=== PATIENT | male | born 1935 | race Caucasian/White ===

== ENCOUNTER → 2018-04-15 12:43 | Outpatient (CLI) | payer MEDICARE, SELFPAY ==
--- NOTE | 2018-04-15 12:48 | MR_ITS ---
MR lumbar spine wo/w con, MR 3-d myelogram/MRCP HISTORY: PT states low back pain, bilateral leg pain and numbness and tingling at times. Prior back surgery in '. ITS.REASON: OTHER INTERVERTEBRAL DISC DEGENERATION, LUMBAR REGION ORDERING PHYSICIAN: César Valderrama PATIENT AGE: 82 years COMPARISON: X-RAY and MRI 10/09/16 TECHNIQUE: Standard multiplanar multiecho sequences are performed without contrast. 3-D MIP and myelographic images are also rendered and reviewed FINDINGS: There is normal alignment. The spinal cord ends at the L1 level. T12-L1: Unremarkable. L1-L2: Unremarkable. L2-L3: Minimal facet and ligamentum flavum hypertrophy. L3-L4: Mild degenerative disc disease with bulging disc. This is eccentric towards the right with disc osteophyte complex in the foraminal and right lateral region. As is causing moderate right lateral recess narrowing and moderate to severe right-sided foraminal narrowing. Facet and ligamentum hypertrophy present at this level as well. This is compressing upon the right L4 nerve root. L4-L5: Degenerative disc disease with concentric bulging disc along with facet and ligamentum flavum hypertrophy with transverse canal stenosis at 10 mm a moderate to severe bilateral lateral recess narrowing. There is moderate to severe right foraminal narrowing and severe left foraminal narrowing.. There is minimal central disc protrusion at this area. L5-S1: Degenerative disc disease with bulging disc along with facet and ligamentum flavum hypertrophy with severe left-sided foraminal narrowing and moderate right-sided foraminal narrowing. Prior left laminectomy at L5. No evidence of epidural fibrosis. No enhancing lesions evident. IMPRESSION: Abnormal MRI of the lumbar spine with multilevel lumbar spondylosis with degenerative disc disease along with facet and ligamentum hypertrophy with canal stenosis and bilateral areas of lateral recess and foraminal narrowing as described above. Please see above for detailed description at each level. The findings are overall not significant change compared to the previous exam prior laminectomy on the left at L5 without evidence of epidural fibrosis
== END ==
PROVIDERS: PCP Family Medicine; Visit Provider Anesthesiology
DX: M51.36 Other intervertebral disc degeneration, lumbar region (principal); M96.1 Postlaminectomy syndrome, not elsewhere classified
CPT/HCPCS: 72158; 76376; A9576

== ENCOUNTER → 2019-09-27 09:01 | Outpatient (CLI) | payer MEDICARE, SELFPAY ==
--- NOTE | 2019-09-27 09:10 | MR_ITS ---
PROCEDURE: MR LUMBAR SPINE WO/W CON CLINICAL INDICATION: LUMBAR DDD Back pain, numbness and tingling down left leg. Prior back surgery. 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 3-D MIP and myelographic images are also rendered and reviewed FINDINGS: The spinal cord ends at the L1-L2 level. L1-L2: Unremarkable. L2-L3: Mild facet hypertrophic change with mild bilateral foraminal narrowing. L3-L4: Degenerative disc disease with bulging disc which is eccentric toward the right with facet and ligamentum hypertrophy. There is resultant severe right lateral recess and foraminal narrowing with impingement upon the right L4 nerve root and exiting L3 nerve root. There is canal stenosis at this level. L4-5: Degenerative disc disease with bulging disc with severe facet ligamentum hypertrophy with moderate to severe right foraminal narrowing and severe left foraminal narrowing as well as bilateral lateral recess narrowing and transverse narrowing of the canal at 8 mm. Laminotomy defect is present on the left at L5. The transverse narrowing of the canal slightly worse on today's exam. L5-S1: Bulging disc with facet and ligamentum hypertrophy with severe left-sided foraminal narrowing and moderate to severe right foraminal narrowing. There is mild lumbar scoliosis convex left. No abnormal enhancing lesions are evident. No acute fracture or dislocation apparent. IMPRESSION: Abnormal MRI of the lumbar spine with degenerative disc disease, lumbar scoliosis, facet ligamentum hypertrophy with bulging disc with severe lateral recess and foraminal narrowing as well as canal stenosis. Please see above for detailed description at each level. Overall, the findings are not significantly changed compared to the previous exam except for slight worsening of the transverse narrowing of the canal at L4-5. Postsurgical changes are noted with no obvious epidural fibrosis or other enhancing lesion. Please see above for detailed description at each level Dictated by: Eduardo Davenport MD 09/29/2019 05:13 Electronically signed by Eduardo Davenport MD in [place] 09/29/2019 10:19
--- NOTE | 2019-09-27 10:22 | HMH.ITSHM ---
Current Home Medications as stated by this patient Derek Garcia JR or international account representative. []RAMIPRIL TAMSULOSIN ATORVASTATIN PREGABALIN LASIX METOLAZONE POTASSIUM ASPIRIN ACETAMINOPHEN/HYDROCODONE ACTOPLUS
== END ==
PROVIDERS: PCP Family Medicine; Visit Provider Anesthesiology
DX: M51.36 Other intervertebral disc degeneration, lumbar region (principal)
CPT/HCPCS: 72158; 76376; A9576

== ENCOUNTER → 2020-04-14 09:06 | Outpatient (CLI) | payer MEDICARE, SELFPAY ==
--- NOTE | 2020-04-14 | CA_ITS ---
APPROVED REPORT EXAM: Comprehensive 2D, Doppler, and color-flow Echocardiogram Culinary Instructor: Ny Davalos RT(R) Ht: 5 ft 7 in Wt: 235lbs BSA: 2.17 BP: 126/76 mmHg Indications: edema, HTN, DM, FITZPATRICK, obesity, hyperlipidemia 2D Dimensions LVOT 2.27 cm (M/F) 1.5-2.5 M-Mode Dimensions RVDd 1.87 cm (0.9-2.6) LVDd 4.42 cm (3.5-5.7) LVDs 2.55 cm (3.5-5.7) IVSd 0.94 cm (0.6-1.1) PWd 0.81 cm (0.6-1.1) EF (Teich) 73.60% FS 42.30% EDV (Teich) 88.60 mL ESV (Teich) 23.40 mL LV Diastology E/A Ratio 0.71 Aortic Valve LVOT Max 113.00 (70-110 cm/s) LVOT VTI 21.50 cm Mitral Valve MV A Velocity 119.00 (40-130 cm/s) Left Ventricle Left atrium is mildly enlarged, left ventricle is normal size, mild concentric left ventricular hypertrophy, visually estimated ejection fraction 55% with no regional wall motion abnormality. Grade 1 diastolic dysfunction seen with tissue Doppler evidence of raise left atrial pressure. Right Ventricle Right atrium and right ventricle are mildly enlarged with normal contractility. Aortic Valve Aortic valve is thickened and calcified, mean gradient across valve is 21 mmHg, valve area 1.45 cm??? represents mild aortic stenosis, there is no aortic insufficiency. Mitral Valve Mitral valve leaflets are minimally thickened, there is mild mitral regurgitation. Tricuspid Valve Tricuspid valve is grossly normal, there is mild tricuspid regurgitation, tricuspid regurgitation jet velocity is inadequate for calculation of the right ventricular systolic pressure. Pulmonic Valve Pulmonic valve is poorly visualized. Great Vessels Aortic root is normal size. Pericardium No significant pericardial effusion noted. Conclusion 1. Biatrial enlargement, normal left ventricular size, mild concentric left ventricular hypertrophy, visually estimated ejection fraction 55% with no regional wall motion abnormality, grade 1 diastolic dysfunction seen with tissue Doppler evidence of raise left atrial pressure. 2. Mildly enlarged right ventricle with normal contractility. 3. Thickened and calcified aortic valve with mean gradient across valve of 21 mmHg, valve area 1.45 cm??? represents mild aortic stenosis, there is no aortic insufficiency. 4. Mild mitral and tricuspid regurgitation. 5. No significant pericardial effusion noted. Electronically signed by : Conrad Burr, 04/14/2020 13:57:20
== END ==
PROVIDERS: PCP Family Medicine; Visit Provider Family Medicine
DX: R60.0 Localized edema (principal); I10 Essential (primary) hypertension
CPT/HCPCS: 93306

== ENCOUNTER 2020-06-23 16:00 | Outpatient (RCR) | payer MEDICARE, SELFPAY ==
--- NOTE | 2020-05-15 09:24 | HMH.PTOPWND ---
Rehab Outpt Wound Evaluation Rehab OP Wound Evaluation Start: 05/15/20 08:53 Freq: Status: Active Protocol: Document 05/15/20 09:18 RAMYA (Rec: 05/15/20 09:24 PHORWANDA [id number]) Electronically Signed By Jose Mckeon, PT 05/15/20 09:18 Subjective/History History History Pt is 84 yowm who presents with B LE edema x 4-5 mos with insidious onset of symptoms. He reports edema worsens throughout the day and decreases at night with propping, but is difficult to decrease in his feet. He reports no c/o pain at this time and only mild tenderness to palpation. He reports PMH of DM-II only and states, They just checked everything the other day and I don't have and other health problems. He reports taking diuretics as prescribed, but doesn't like them. Subjective Subjective No current c/o discomfort. Lymphedema Eval Classification of Lymphedema Secondary Lymphedema Yes: Likely CVI Stemmer's sign Stemmer's Sign no Stage of Lymphedema Lymphedema stages Stage I (Pitting edema, reduces w/ elevation, no fibrosis) Skin Changes Dry Skin Yes Redness Yes: R > L Brittle Uneven Nails Yes Discoloration of Skin Yes Other Changes Yes Pain Scale Pain Scale (0-10) 0 Affected Extremities Areas Affected by Lymphedema/Edema Right Lower Extremity,Left Lower Extremity Manual Lymphatic Drainage Treatment Area MLD Treatment Area Right Lower Extremity,Left Lower Extremity Wound Problems/Impairments Impairments Problems/Impairmments Palpation Tenderness,Impaired Walking,Increased Edema, Impaired Self Care/Self Management Prognosis Rehab Potential Good Clinical Impression Consistent with Diagnosis Yes Short Term Goals Number of Weeks 4 Decrease Edema Yes Patient to Understand Lymphedema Yes Treatment and Exercises Decrease Girth Measurments by (cm) Yes: by 10 cm Breast Trimmer Goals Number of Weeks 8 Decrease Edema Y
--- NOTE | 2020-06-19 10:04 | HMH.RHREAS ---
Rehab Reassessment Rehab OP Re-assessment Start: 06/19/20 10:00 Freq: Status: Active Protocol: Document 06/19/20 10:00 RAMYA (Rec: 06/19/20 10:04 RAMYA [id number]) Electronically Signed By Jose Mckeon, PT 06/19/20 10:00 Rehab Re-assessment Subjective Subjective Pt reports increased pain and soreness around lateral R foot for several days. Objective Objective Notes L buttock decubitus ulcer now noted L= 1.5 cm, W= 1.5 cm. R LE edema 2+ pitting in lower leg, foot with increased erythema. Assessment Progress Assessment Slower Than Expected Assessment Notes Pt with slight decrease in pitting edema, but increased discomfort and pain. Patient goals met none Goals Not Met ST,2,3 LT,2,3,4 Revised Goals none Plan Plan Continue per initial POC. Frequency of Therapy 2 x/wk Duration of therapy 8 wks. Time and Billing Re-Eval Time 15 Re-Eval Billing Units 1 PHYSICIAN CERTIFICATION: I certify the specified therapy services for Derek Garcia JR are required, authorized, and reviewed every 30 days.
== END 2020-06-23 16:49 | disposition home or self-care (01) ==
LOC: PT 16:00
PROVIDERS: PCP Family Medicine; Visit Provider Family Medicine
DX: R60.0 Localized edema (principal); I89.0 Lymphedema, not elsewhere classified
CPT/HCPCS: 97140; 97162; 97164; 97597

== ENCOUNTER → 2020-07-10 14:40 | Outpatient (CLI) | payer MEDICARE, SELFPAY ==
--- NOTE | 2020-07-10 14:51 | XR_ITS ---
PROCEDURE: XR FOOT RT MIN 3V CLINICAL INDICATION: PAIN IN R FOOT Lateral foot pain COMPARISON: No exams were available for comparison FINDINGS: No fracture or dislocation. No lytic or blastic change. There is normal mineralization. The joint spaces are well-preserved. No significant degenerative/arthritic changes. No erosive changes evident. Other findings:There is some calcification along the plantar surface of the foot in the region of the plantar fascia. Partially calcified enthesophytes at the Achilles insertion noted. IMPRESSION: Calcification along the plantar fascia which may be related to plantar fasciitis. Dictated b Eduardo Davenport MD 07/10/2020 15:38 Eduardo Davenport MD in [place] 07/10/2020 15:38
== END ==
PROVIDERS: PCP Family Medicine; Visit Provider Family Medicine
DX: M79.671 Pain in right foot (principal)
CPT/HCPCS: 73630

== ENCOUNTER 2021-01-05 15:00 | Outpatient (RCR) | payer MEDICARE, SELFPAY | END 2021-01-05 15:05 | disposition home or self-care (01) | LOC: PT 15:00 | PROVIDERS: PCP Family Medicine; Visit Provider Surgery | DX: M79.89 Other specified soft tissue disorders (principal) | CPT/HCPCS: 97140; 97163 ==

== ENCOUNTER 2021-01-22 17:06 | Inpatient (IN) | payer MEDICARE, OTHER, SELFPAY ==
--- NOTE | 2021-01-22 17:21 | XR_ITS ---
PROCEDURE: XR CHEST PORTABLE CLINICAL HISTORY: edema COMPARISON: No exams were available for comparison FINDINGS: The cardiomediastinal silhouette and pulmonary vascularity are within normal limits. The lungs are clear without infiltrates, suspicious nodules, or pleural effusions. No acute bony abnormalities. IMPRESSION: No acute findings. Dictated by: Eduardo Davenport MD 01/22/2021 18:32 Eduardo Davenport MD in [place] 01/22/2021 18:32
[2021-01-22 17:26] VITALS: BMI 41.1
[2021-01-22 17:34] VITALS: BP 152/107; PULSE 86; RESP 20; TEMP 36.4; O2SAT 95
--- NOTE | 2021-01-22 17:34 | HMH.HP ---
*Chief complaint: swelling of bilateral legs with pain <Yasmeen Soto - 01/22/21 18:09> *History of present illness: Mr. Garcia is an 85-year-old male with a history of type 2 diabetes mellitus, hypertension, glaucoma, hyperlipidemia, BPH, dermatitis, lumbar spinal stenosis with chronic low back pain, diastolic dysfunction, and peripheral artery disease who presented to the office of [facility] today with ongoing and worsening persistent leg edema with the right worse than the left. He developed a blister on the dorsal aspect of his right foot last night. He said pain and swelling of both legs has worsened. He has been sleeping in a recliner. His swelling does not improve with elevation. The patient with his ongoing problems with the pain and swelling in both legs was referred by his senior data quality analyst to vascular surgeon who diagnosed him with peripheral vascular disease and started him on Plavix. He recommended an angiogram but because of his back pain Mr. Garcia could not tolerate the 4-hour procedure. Subsequently his vascular surgeon referred him to a neurologist and he has an appointment on 01/29/2021. In addition the vascular surgeon referred him to physical therapy for compression wraps but the therapist felt this was contraindicated due to his peripheral vascular disease. Therefore he has continued to have increased swelling in his feet and legs with the left being worse than the right. He also has developed some redness of bilateral lower legs and has a sore crusted area on his right fourth and fifth toes. They are very tender to palpation. He has been taking Lasix and chlorthalidone with no improvement of the swelling. Chlorthalidone was discontinued and he was started on Lasix 40 mg 2 times a day. He had been on Keflex and this was discontinued. He was started on hydrochlorothiazide /triamterene 25/37.5 daily and Bactrim DS. His legs actually became worse with initiation of the Bactrim. He was given acetaminophen/oxycodone 325/5 mg to take for his pain. Echocardiogram completed 03/2020 revealed diastolic dysfunction and calcified aortic stenosis. Having failed outpatient treatment patient was admitted for further evaluation and treatment. See orders. <CharlesYasmeen - 01/22/21 18:57> [facility] History Medical History: Reports:: Diabetes Mellitus Type 2, Heart Murmur, Hyperlipidemia, Hypertension <Yasmeen Soto - 01/22/21 18:09> *Have you ever received a pneumonia vaccine?: Yes <Yasmeen Soto Anisha 01/23/21 11:50> *Have you received a flu vaccine this season?: Yes <SotoYasmeen 01/23/21 09:23> Other Medical History: Reports: Glaucoma <SotoYasmeen Anisha 01/22/21 18:09> Laterality Cases: Bilateral: Cataract <CharlesYasmeen 01/22/21 18:09> Comment: Lower back surgery 1996 <Soto,Yasmeen 01/22/21 18:09> - *Social History Last grade of school completed: Some college <Soto,Yasmeen 01/23/21 09:23> Smoking Status: Never smoker <Yasmeen Soto 01/22/21 18:09> *Occupational Status:: retired <CharlesYasmeen - 01/22/21 18:09> Housing: house <Soto,Yasmeen 01/22/21 18:09> Household Members: spouse <Yasmeen Soto 01/22/21 18:09> *Travel in the last 8 weeks: None <Soto,Yasmeen 01/22/21 18:09> Family Hx:: Diabetes, Stroke <Soto,Yasmeen 01/23/21 11:50> Review of Systems - Constitutional Denies fever(s) <Yasmeen Soto 01/22/21 18:09> - Eyes Denies change in vision <Yasmeen Soto 01/22/21 18:09> - ENT Denies ear pain, Denies sore throat <Yasmeen Soto 01/22/21 18:09> - *Cardiovascular Reports leg swelling, Reports leg sores, Denies chest pain, Denies irregular heart rhythm <Yasmeen Soto 01/22/21 18:09> - *Respiratory Denies chest congestion, Denies cough, Denies shortness of breath <Yasmeen Soto 01/22/21 18:09> - *Gastrointestinal Denies abdominal pain, Denies nausea, Denies vomiting <Yasmeen Soto 01/22/21 18:09> - *Genitourinary Denies difficulty urinating <Sallie Soto
[2021-01-22 18:26] LABS: Basophils % 0.2 % (0.1-2.0); Eosinophils # 0.2 K/mm3 (0.0-0.4); Eosinophils % 2.3 % (0.1-12.0); Hemoglobin 11.8 g/dL (14.1-18.0); Lymphocytes # 2.2 K/mm3 (0.7-4.5); Lymphocytes % 20.9 % (10-50); Mean Corpuscular Hemoglobin 31.2 pg (27.0-31.2); Mean Corpuscular Volume 97.7 fl (80-94); Mean Platelet Volume 8.3 fl (7.4-10.4); Monocytes % 9.9 % (1.7-9.3); Neutrophils % 66.8 % (37.0-80.0); Platelet Count 205 K/mm3 (142-424); Red Blood Count 3.79 M/mm3 (4.60-6.20); White Blood Count 10.5 K/mm3 (4.8-10.8)
[2021-01-22 18:27] LABS: Chloride 93 mmol/L (98-107); Potassium 4.2 mmoL/L (3.5-5.1); Sodium 134 mmol/L (136-145)
[2021-01-22 18:29] LABS: Alanine Aminotransferase 23 U/L (12-78); Alkaline Phosphatase 77 U/L (38-126); Aspartate Amino Transferase 29 U/L (17-59); Bilirubin,Total 0.6 mg/dl (0.2-1.3); Blood Urea Nitrogen 35 mg/dl (9-20); Creatinine Clearance Estimated 49 mL/min (50-200); Estimated Glomerular Filt Rate 34 ml/min (>60); GFR (African American) 41 ML/MIN (>60)
[2021-01-22 18:30] LABS: Albumin Level 4.2 g/dl (3.5-5.0); Albumin/Globulin Ratio 1.3 (1.1-1.8); Anion Gap 15.2 mEq/L (5-15); Calcium 9.8 mg/dl (8.4-10.2); Carbon Dioxide 30 mmol/L (22.0-30.0); Globulin 3.3 g/dL (1.3-3.2); Glucose 212 mg/dl (74-100); Total Protein,Serum 7.5 g/dl (6.3-8.2)
[2021-01-22 18:31] LABS: Lactic Acid 3.2 mmol/L (0.7-2.1)
[2021-01-22 18:35] LABS: C-Reactive Protein 17.1 mg/L (0-4)
[2021-01-22 18:39] LABS: NT Pro Brain Natriuretic Pep. 133 pg/mL (0-450)
[2021-01-22 20:00] VITALS: BP 159/68; PULSE 94; RESP 20; TEMP 36.3; O2SAT 97
--- NOTE | 2021-01-22 20:03 | PC.WOUNDNOTE ---
Wound Location: Length: Width: Depth: Undermining Y/N: Tunneling cm: Granulation %: Slough/necrotic tissue %: Inflammation/swelling Y/N: Pain and/or tenderness Y/N: Exudate: Serosanguinous Sanguinous Serosanguinous Seropurulent Purulent Color: Clear Nadia Cloudy/milky [place] Red Green Yellow Brown Hansen Blue Consistency: Thick Thin Amount: None Scant Small Moderate Large Odor Y/N:
[2021-01-22 20:51] LABS: POC Glucose,Bedside 247 (70-110)
[2021-01-22 22:09] LABS: Reflex Lactic Add Lactic Reflex
[2021-01-22 22:50] LABS: Lactic Acid Follow Up (RFLX 1) 2.7 mmol/L (0.7-2.1)
[2021-01-23 00:30] LABS: Reflex Lactic (2 hrs) Add Lactic Reflex
[2021-01-23 01:02] LABS: Lactic Acid Follow up (RFLX 2) 1.9 mmol/L (0.7-2.1)
[2021-01-23 03:49] VITALS: BP 151/69; PULSE 102; RESP 18; TEMP 36.6; O2SAT 92
[2021-01-23 05:31] LABS: POC Glucose,Bedside 182 (70-110)
[2021-01-23 05:37] VITALS: BMI 41.1
--- NOTE | 2021-01-23 06:46 | PC.NURSE ---
shift summary pts lung sounds are clear but diminished with sats maintained above 90% on room airwith a rate ranging from 16-20. pt is able to walk to the restroom with assist X1. pt complained of pain twice this shift morphine was given once, pt stated morphine did nothing for him and his home meds work better. pt is alert and oriented X4.
--- NOTE | 2021-01-23 07:55 | P.CONPHA_ITS ---
[facility] Pharmacy VTE Monitoring - Patient Demographics Admission date: 01/22/21 Report Date: 01/23/21 Time: 07:55 Allergies/Adverse Reactions: Patient Allergies From Quinidine Sulfate Allergy (Unknown, Uncoded 11/18/17 14:39) LATEX Allergy (Unknown, Uncoded 11/18/17 14:39) Height: 1.7 m Weight: 118.926 kg Patient Problems: Current Active Problems Peripheral artery disease (Chronic) Hypertension (Chronic) Type 2 diabetes mellitus (Chronic) Cellulitis (Acute) Chronic low back pain (Chronic) Diastolic dysfunction (Chronic) Aortic stenosis (Chronic) Leg edema (Acute) - VTE Risk Labs: VTE Related Lab Results Hgb 11.8 g/dL (14.1-18.0) L 01/22/21 18:09 Hct 37.0 % (42.0-52.0) L 01/22/21 18:09 Plt Count 205 K/mm3 (142-424) 01/22/21 18:09 BUN 35 mg/dl (9-20) H 01/22/21 18:09 Creatinine 1.90 mg/dl (0.66-1.25) H 01/22/21 18:09 Estimated Creat Clear 49 mL/min (50-200) 01/22/21 18:09 Was VTE Risk Assessment Performed: Yes VTE Score: 2 VTE Risk Level: Low Risk Clinical Trial Participant: No - Prophylaxis VTE Prophylaxis Ordered?: Yes Types of VTE Prophylaxis: TEDS Knee High
--- NOTE | 2021-01-23 07:55 | HMH.PHAINT ---
home medication list completed using list from clinic pharmacy and from [facility] office
[2021-01-23 08:00] VITALS: BP 152/58; PULSE 99; RESP 19; TEMP 36.6; O2SAT 95
--- NOTE | 2021-01-23 08:00 | CA_ITS ---
APPROVED REPORT EXAM: Comprehensive 2D, Doppler, and color-flow Echocardiogram Security Public Safety Officer: Elizabeth [facility], RVS Ht: 5 ft 6 in Wt: 262lbs BSA: 2.24 BP: 151/69 mmHg Indications: Cellulitis, edema, htn, Aortic stenosis, Diastolic dysfunction Echo Enhancing Agent Comments: Technically limited exam due to extreme body habitus. Poor acoustics throughout exam. 2D Dimensions IVSd 0.99 cm LVEF (Visual) 63.30 % PWd 1.00 cm LA Volume 49.00 mL LVDd 5.74 cm LA Volume Index 21.30 mL/m2 (M/F) 16-34 LVDs 3.74 cm Aortic Root 3.04 cm Left Atrium 3.72 cm LVOT 1.93 cm (M/F) 1.5-2.5 M-Mode Dimensions Ao Diam 3.62 cm (2.0-3.7) TAPSE 2.31 (<1.7) LV Diastology E Decel Time 280.00 (160-240 msec) E/A Ratio 0.77 MED E' 5.80 (< 7 cm/sec) MED A' 8.60 cm/s E'/MED E' Ratio 18.53 (>14) LAT E' 6.20 (<10 cm/sec) LAT A' 13.90 cm/s E/LAT E' Ratio 17.34 (>14) Pulm Vein s 53.00 cm/sec Aortic Valve LVOT Max 143.00 (70-110 cm/s) LVOT VTI 25.51 cm AoV Peak Dony. 339.00 (50-130 cm/s) AO Peak GR. 45.90 mmHg AO Mean GR. 29.00 (<5 mmHg) AO VTI 69.02 (18-25 cm) EDDIE (VTI) 1.08 (2.5-4.5 cm2) Mitral Valve MV E Max Dony. 108.00 (40-130 cm/s) MV A Velocity 140.00 (40-130 cm/s) E/A Ratio 0.77 MV Decel. Time 280.00 (160-240 ms) MV PHT 82.00 ms Pulmonary Valve PV Peak Velocity 113.00 (50-150 cm/s) Tricuspid Valve TR P. Velocity 267.00 cm/s Left Ventricle Left atrium is mildly enlarged, left ventricle is normal size, mild concentric left ventricular hypertrophy, visually estimated ejection fraction 55% with no regional wall motion abnormality, grade 1 diastolic dysfunction seen with tissue Doppler evidence of raise left atrial pressure. Right Ventricle Right atrium and right ventricle are normal size and contractility. Aortic Valve Aortic valve is thickened and calcified with restriction in the leaflet mobility, mean gradient across valve is 28 mmHg, valve area is 1.1 cm??? represents moderate aortic stenosis. There is no significant aortic insufficiency seen. Mitral Valve Mitral valve leaflets are minimally thickened, there is mild mitral regurgitation. Tricuspid Valve Tricuspid valve grossly normal, there is mild tricuspid regurgitation, tricuspid regurgitation jet velocity is inadequate for calculation of the right ventricular systolic pressure. Pulmonic Valve Pulmonic valve is poorly visualized. Great Vessels Aortic root is normal size. Pericardium No significant pericardial effusion noted. Conclusion 1. Mildly low left atrium, normal left ventricular size, mild concentric left ventricular hypertrophy, visually estimated ejection fraction 55% with no regional wall motion abnormality, grade 1 diastolic dysfunction seen with tissue Doppler evidence of raise left atrial pressure. 2. Thickened and calcified aortic valve with mean gradient across valve 29 mmHg, valve area 1.1 cm, represents moderate aortic stenosis, there is no aortic insufficiency. 3. Mild mitral and tricuspid regurgitation. 4. No significant pericardial effusion noted. Electronically signed by : Conrad Burr, 01/23/2021 20:46:24
--- NOTE | 2021-01-23 08:26 | CA_ITS ---
APPROVED REPORT Dancer Or Choreographer: MEHNAZ Laterality: Bilateral Study Quality: Adequate, Due to body habitus. Indications: leg pain, cellulitis Risk Factors Hypertension Obesity Cardiac Disease VELOCITY AND DOPPLER WAVEFORM ANALYSIS RIGHT cm/sec Waveform Severity SENIOR PRODUCTION MANAGER 80.1/ Monophasic Mild < 50% PFA 78.6/ Monophasic Mild < 50% Prox SFA 40.4/ Monophasic Moderate > 50% Mid SFA 46.4/ Monophasic Moderate > 50% Dis SFA 57.6/ Monophasic POP 11.8/ Monophasic Moderate > 50% Post Tibial 7.9/ Severe > 75% Ant Tib/Dors Ped 6.2/ Monophasic Severe > 75% LEFT cm/sec Waveform Severity SENIOR PRODUCTION MANAGER 120.4/ Monophasic Mild < 50% PFA 90.5/ Monophasic Mild < 50% Prox SFA 106.9/ Monophasic Mild < 50% Mid SFA 34.9/ Monophasic Moderate > 50% Dis SFA 148.3/ Monophasic Moderate > 50% POP 64.0/ Monophasic Mild < 50% Post Tibial 50.1/ Monophasic Mild < 50% Findings Monophasic waveforms throughouit exam. Scant bilateral arterial calf flow observed. Diffuse atherosclerosis throughout the right lower extremity. Lower Extremity Duplex Evaluation is consistent with severe occlusive disease on the Right. Diffuse atherosclerotic plaque noted throughout the Right lower extremity arteries. Conclusion Monophasic waveforms throughouit exam. Scant bilateral arterial calf flow observed. Diffuse atherosclerosis throughout the right lower extremity. Lower Extremity Duplex Evaluation is consistent with severe occlusive disease on the Right and moderate occlusive disease on the left. Diffuse atherosclerotic plaque noted throughout the Right lower extremity arteries. Electronically signed by : Eduardo Davenport MD 01/29/2021 10:48:56
--- NOTE | 2021-01-23 08:55 | HMH.ACPN2 ---
<Yasmeen Soto - Last Filed: 01/23/21 08:55> Internal Medicine - PN: Subj *Date: 01/23/21 *Time: 08:55 Interval history: Patient states he did not sleep since 1 AM due to ongoing leg pain. Pain is mostly in his right foot at the fourth and fifth toes. He ate well for breakfast without difficulty. He denies chest pain and shortness of breath. Exam Vital signs and Labs for Last 24 Hours: Temp Pulse Resp BP Pulse Ox 97.8 F 99 H 19 152/58 H 95 01/23/21 08:00 01/23/21 08:00 01/23/21 08:00 01/23/21 08:00 01/23/21 08:00 Laboratory Results - last 24 hr 01/22/21 18:09: WBC 10.5, RBC 3.79 L, Hgb 11.8 L, Hct 37.0 L, MCV 97.7 H, MCH 31.2, MCHC 32.0, RDW 14.0, Plt Count 205, MPV 8.3, Neut % (Auto) 66.8, Lymph % (Auto) 20.9, [place] % (Auto) 9.9 H, Eos % (Auto) 2.3, Baso % (Auto) 0.2, Neut # (Auto) 7.0, Lymph # (Auto) 2.2, [place] # (Auto) 1.0, Eos # (Auto) 0.2, Baso # (Auto) 0.0 01/22/21 18:09: Sodium 134 L, Potassium 4.2, Chloride 93 L, Carbon Dioxide 30, Anion Gap 15.2 H, BUN 35 H, Creatinine 1.90 H, Estimated Creat Clear 49, Estimated GFR 34 L, Est GFR ( Amer) 41 L, Glucose 212 H, Calcium 9.8, Total Bilirubin 0.6, AST 29, ALT 23, Alkaline Phosphatase 77, C-Reactive Protein 17.1 H, Total Protein 7.5, Albumin 4.2, Globulin 3.3 H, Albumin/Globulin Ratio 1.3 01/22/21 18:09: Lactate 3.2 H 01/22/21 18:09: NT-Pro-B Natriuret Pep 133 01/22/21 20:42: POC Glucose 247 H 01/22/21 22:30: Lactate 2.7 H 01/23/21 00:45: Lactate 1.9 01/23/21 05:23: POC Glucose 182 H I & O for Last 24 hours: Intake & Output 01/20/21 01/21/21 01/22/21 01/23/21 11:59 11:59 11:59 11:59 Intake Total 480 / 480 Balance 480 / 480 Weight 262 lb 2.991 oz Microbiology Reports for the Last 24 Hours: Microbiology 01/22/21 17:47 Nasopharyngeal Coronavirus COVID-19 PCR - Final - Constitutional no acute distress - *Routine Respiratory Exam Present: CTA bilaterally (Anteriorly and posteriorly) - *Routine Cardiovascular Exam Present: RRR - *Routine Abdominal Exam Present: soft, normoactive bowel sounds. Absent: tenderness - *Routine Extremities Exam Present: edema Comments: Legs look a little bit better this morning. Less bilateral edema. Right foot has some cyanosis appearance. Left lower leg with more intense erythema although more localized. Dorsal aspect of the left foot with increased edema. Right foot with leaking blister on dorsal aspect. To toes on the right foot with crustaceans and very tender to touch. - *Routine Neurological Exam Present: alert, oriented X3 Assessment and Plan (1) Peripheral artery disease Status: Chronic Category: Medical Code(s): I73.9 - Peripheral vascular disease, unspecified (2) Hypertension Status: Chronic Category: Medical Code(s): I10 - Essential (primary) hypertension (3) Type 2 diabetes mellitus Status: Chronic Category: Medical Code(s): E11.9 - Type 2 diabetes mellitus without complications (4) Cellulitis Status: Acute Category: Medical Code(s): L03.90 - Cellulitis, unspecified (5) Chronic low back pain Status: Chronic Category: Medical Code(s): M54.5 - Low back pain; G89.29 - Other chronic pain (6) Diastolic dysfunction Status: Chronic Category: Medical Code(s): I51.89 - Other ill-defined heart diseases (7) Aortic stenosis Status: Chronic Category: Medical Code(s): I35.0 - Nonrheumatic aortic (valve) stenosis (8) Leg edema Status: Acute Category: Medical Code(s): R60.0 - Localized edema - Assessment and plan all Dx Assessment and Plan for all problems:: Cardiology consult for PAD. Continue with vancomycin and diuresis and leg elevation. Wound care to see patient today as well. Dilaudid has been added for pain management. <Tye Dubon - Last Filed: 01/23/21 12:32> Internal Medicine - PN: Subj *Date: 01/23/21 *Time: 12:32 Exam Vital signs and Labs for Last 24 Hours: Temp Puls
--- NOTE | 2021-01-23 09:17 | HMH.PHACONS ---
- Pharmacy Consult Date: 01/23/21 Time: 09:17 Referring provider: DR. EHRNANDEZ Reason for Consult:: VANCOMYCIN DOSING Allergies and ADEs:: Allergies Allergy/AdvReac Type Severity Reaction Status Date / Time From Quinidine Sulfate Allergy Unknown Uncoded 11/18/17 14:39 LATEX Allergy Unknown Uncoded 11/18/17 14:39 Home Medications:: Home Medications Medication Instructions Recorded Confirmed Type Ascorbic Acid [Vitamin C with Ermelinda 1,000 mg PO DAILY 01/23/21 01/23/21 History Hips] Aspirin [Aspirin 81mg EC Tab] 81 mg PO DAILY 01/23/21 01/23/21 History Atorvastatin Calcium [Lipitor 40mg 40 mg PO HS 01/23/21 01/23/21 History Tab] Bimatoprost [Lumigan 0.01% Ophth 1 drp OP PM 01/23/21 01/23/21 History Soln 2.5mL] Chlorthalidone 25 mg PO DAILY 01/23/21 01/23/21 History Cholecalciferol (Vitamin D3) 1,000 unit PO DAILY 01/23/21 01/23/21 History [Vitamin D3 1,000 Unit Cap] Clopidogrel Bisulfate [Clopidogrel 75 mg PO DAILY 01/23/21 01/23/21 History 75mg Tab] Dorzolamide/Timolol/Pf [Cosopt Pf 1 drp OP BID 01/23/21 01/23/21 History Eye Drops] Furosemide [Furosemide 40MG tAB*] 40 mg PO BID 01/23/21 01/23/21 History Oxycodone HCl/Acetaminophen 1 tab PO Q6HP PRN 01/23/21 01/23/21 History [Endocet 5-325 Tablet] Pioglitazone HCl/Metformin HCl 1 tab PO BID 01/23/21 01/23/21 History [Actoplus Met 15 mg-850 mg Tab] Potassium Chloride [Pot Chlor 10 10 meq PO DAILY 01/23/21 01/23/21 History mEq Tab] Pregabalin 100 mg PO BID 01/23/21 01/23/21 History Tamsulosin HCl [Flomax 0.4mg 0.4 mg PO HS 01/23/21 01/23/21 History capsule] Triamterene/Hydrochlorothiazid 1 tab PO DAILY 01/23/21 01/23/21 History [Triamterene-Hctz 37.5-25 mg Tb] Height: 1.7 m Weight: 118.926 kg Laboratory Results:: Laboratory Results - last 24 hr 01/22/21 18:09: WBC 10.5, RBC 3.79 L, Hgb 11.8 L, Hct 37.0 L, MCV 97.7 H, MCH 31.2, MCHC 32.0, RDW 14.0, Plt Count 205, MPV 8.3, Neut % (Auto) 66.8, Lymph % (Auto) 20.9, [place] % (Auto) 9.9 H, Eos % (Auto) 2.3, Baso % (Auto) 0.2, Neut # (Auto) 7.0, Lymph # (Auto) 2.2, [place] # (Auto) 1.0, Eos # (Auto) 0.2, Baso # (Auto) 0.0 01/22/21 18:09: Sodium 134 L, Potassium 4.2, Chloride 93 L, Carbon Dioxide 30, Anion Gap 15.2 H, BUN 35 H, Creatinine 1.90 H, Estimated Creat Clear 49, Estimated GFR 34 L, Est GFR ( Amer) 41 L, Glucose 212 H, Calcium 9.8, Total Bilirubin 0.6, AST 29, ALT 23, Alkaline Phosphatase 77, C-Reactive Protein 17.1 H, Total Protein 7.5, Albumin 4.2, Globulin 3.3 H, Albumin/Globulin Ratio 1.3 01/22/21 18:09: Lactate 3.2 H 01/22/21 18:09: NT-Pro-B Natriuret Pep 133 01/22/21 20:42: POC Glucose 247 H 01/22/21 22:30: Lactate 2.7 H 01/23/21 00:45: Lactate 1.9 01/23/21 05:23: POC Glucose 182 H Medical History: Reports:: Diabetes Mellitus Type 2, Heart Murmur, Hyperlipidemia, Hypertension Denies:: Cancer, Diabetes Mellitus Type 1, MRSA Assessment and Plan (1) Peripheral artery disease Status: Chronic Category: Medical Code(s): I73.9 - Peripheral vascular disease, unspecified (2) Hypertension Status: Chronic Category: Medical Code(s): I10 - Essential (primary) hypertension (3) Type 2 diabetes mellitus Status: Chronic Category: Medical Code(s): E11.9 - Type 2 diabetes mellitus without complications (4) Cellulitis Status: Acute Category: Medical Code(s): L03.90 - Cellulitis, unspecified (5) Chronic low back pain Status: Chronic Category: Medical Code(s): M54.5 - Low back pain; G89.29 - Other chronic pain (6) Diastolic dysfunction Status: Chronic Category: Medical Code(s): I51.89 - Other ill-defined heart diseases (7) Aortic stenosis Status: Chronic Category: Medical Code(s): I35.0 - Nonrheumatic aortic (valve) stenosis (8) Leg edema Status: Acute Category: Medical Code(s): R60.0 - Localized edema - Assessment and plan all Dx Assessment and Plan for all problems:: Pharmacokinetic dosing service
--- NOTE | 2021-01-23 09:58 | HMH.CNCARD ---
History of Present Illness Consult date: 01/23/21 Requesting physician: Tye Dubon Chief complaint: leg edema History of present illness: This is an 85-year-old white gentleman who was admitted to the hospital for worsening bilateral lower extremity edema and a history of peripheral arterial disease. The patient was seen at [facility] yesterday with ongoing worsening of edema in his bilateral lower extremities. The right leg is worse than the left. The patient had developed some blisters on the dorsal aspect of the right foot and significant redness to the left lower extremity and decided to go in to see his family doctor. The patient has been having issues with his lower extremity edema for quite some time now. He has been in the lymphedema clinic. [facility] and getting treatment for quite some time. He is also seen a vascular surgeon who diagnosed him of peripheral arterial disease and started him on Plavix. The patient declined an angiogram because of back pain and not being able to lie flat to have the procedure completed. The lymphedema clinic did a standing FITO on the patient previously which showed severe peripheral arterial disease bilaterally. While in the lymphedema clinic he is getting no compression with his dressings because of his history of PAD. The patient states that he has had swelling for several months but it got better and then approximately 2 weeks ago the lower extremity swelling began to worsen again and yesterday it was severe. He states that the redness to his left lower extremity was new in his right lower extremity was just really painful. The toes on his right lower extremity are very dusky and his right foot is cold to touch. He states that this has been like this for 2 weeks. His left lower extremity is warm and he has no dusky toes noted. The patient has been being treated with diuretics and antibiotics on an outpatient basis with worsening symptoms. He was admitted to the hospital because he failed outpatient treatment for further evaluation and treatment. He denies any chest pain or pressure. He denies any shortness of breath. He denies any fever, chills, nausea, vomiting, diarrhea, PND or orthopnea. [facility] History I have reviewed the patient's past medical history: Yes Medical History: Reports:: Diabetes Mellitus Type 2, Heart Murmur, Hyperlipidemia, Hypertension, Peripheral Artery Disease, Peripheral Vascular Disease Denies:: Cancer, Diabetes Mellitus Type 1, MRSA *Have you ever received a pneumonia vaccine?: Yes *Have you received a flu vaccine this season?: Yes Other Medical History: Reports: Glaucoma Laterality Cases: Bilateral: Cataract Amputation: No Fractures: No - *Social History Last grade of school completed: Some college Smoking Status: Never smoker Alcohol Intake: never *Occupational Status:: retired Housing: apartment Household Members: spouse *Travel in the last 8 weeks: None Family Hx:: No significant family history Meds Home Medications Medication Instructions Recorded Confirmed Type Ascorbic Acid [Vitamin C with Ermelinda 1,000 mg PO DAILY 01/23/21 01/23/21 History Hips] Aspirin [Aspirin 81mg EC Tab] 81 mg PO DAILY 01/23/21 01/23/21 History Atorvastatin Calcium [Lipitor 40mg 40 mg PO HS 01/23/21 01/23/21 History Tab] Bimatoprost [Lumigan 0.01% Ophth 1 drp OP PM 01/23/21 01/23/21 History Soln 2.5mL] Chlorthalidone 25 mg PO DAILY 01/23/21 01/23/21 History Cholecalciferol (Vitamin D3) 1,000 unit PO DAILY 01/23/21 01/23/21 History [Vitamin D3 1,000 Unit Cap] Clopidogrel Bisulfate [Clopidogrel 75 mg PO DAILY 01/23/21 01/23/21 History 75mg Tab] Dorzolamide/Timolol/Pf [Cosopt Pf 1 drp OP BID 01/23/21 01/23/21 History Eye Drops] Furosemide [Furosemide 40MG tAB*] 40 mg PO BID 01/23/21 01/23/21 History Oxycodone HCl/Acetaminophen 1 tab PO Q6HP PRN 01/23/21 01/23/21 History [Endocet 5-325 Tablet] Pioglitazone HCl/M
--- NOTE | 2021-01-23 10:05 | CA_ITS ---
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 Duplex evaluation demostrates no evidence of varicosity of the following bilateral lower extremity Veins. Conclusion Color flow duplex demonstrates no evidence of DVT of the bilateral lower extremity Veins:. Duplex evaluation demostrates no evidence of varicosity of the bilateral lower extremity Veins. Electronically signed by : Eduardo Davenport MD 01/23/2021 17:38:48
--- NOTE | 2021-01-23 10:20 | HMH.PTWOUND ---
Rehab Inpt Wound Evaluation Rehab IP Wound Evaluation Start: 01/22/21 18:07 Freq: ONCE Status: Active Protocol: Document 01/23/21 10:14 MOHIT (Rec: 01/23/21 10:20 MOHIT [id number]) Rehab PT Wound Assessment Patient Status Premedicated Prior to Dressing Change No Subjective Subjective Pt c/o severe pain in 4th and 5th digit in R foot Wound Left Lower Leg Wound Type cellulitis - no open wounds Surrounding Tissue Appearance Bright Red Edema Appearance Shiny,Puffy Surrounding Tissue Temperature Warm Wound Drainage Description None Drainage Amount None Drainage Odor No Odor Dressing Status Open to Air Primary Dressing Unna Boot Comment unna boot - no compression Wound Secondary Dressing Type Adhering Gauze Roll,Unna Boot Comment unna boot and kerlix - no compression Wound Debridement Amount of Tissue None Removed Dressing Change Date 01/23/21 Right Foot Wound Type Blister Wound Length (cm) 4 Wound Width (cm) 4 Surrounding Tissue Appearance Dark Red,Edematous-pitting, Weeping Edema Appearance Weeping,Puffy,Red Wound Drainage Description Serous Drainage Amount Moderate Drainage Odor No Odor Dressing Status Soiled Wound Topical Solution/Irrigant Antibiotic Irrigant Primary Dressing Unna Boot Comment unna boot - no compression Wound Secondary Dressing Type Gauze Roll/Wrap,Unna Boot Comment unna boot w/ out compression and KERLIX Wound Debridement Amount of Tissue None Removed Dressing Change Date 01/23/21 Plan/Recommendation Comment No open wounds at this time - unna boots applied - will continue to follow pt for wound care - nsg notified of dressing type and placement for prn changes - Eval Complexity Eval Charge Codes 44758 - Moderate Complexity G-codes PT Current Status Other PT/OT Status PT Current Status Modifier CN-At least 100% impaired, limited or restricted PT Goal Status Other PT/OT Status PT Goal Status Modifer CN-At least 100% impaired, limited or restricted PHYSICIA
[2021-01-23 11:58] LABS: POC Glucose,Bedside 253 (70-110)
[2021-01-23 16:00] VITALS: BP 157/77; PULSE 103; RESP 20; TEMP 36.7; O2SAT 94
[2021-01-23 17:11] LABS: POC Glucose,Bedside 176 (70-110)
--- NOTE | 2021-01-23 19:43 | PC.NURSE ---
Pt alert and oriented x 4 and able to make needs known. RR even and unlabored. NAD. Have medicated per mar. Pt states pretty feet/toes hurt. Did have to change unna boots after pt voided and they were saturated and after doppler. CB in reach. Heart murmur noted. Lungs cta. RA. vSS
[2021-01-23 20:00] VITALS: BP 136/74; PULSE 69; RESP 17; TEMP 36.6; O2SAT 95
[2021-01-23 21:48] LABS: POC Glucose,Bedside 213 (70-110)
[2021-01-24 04:00] VITALS: BP 132/74; PULSE 67; RESP 17; TEMP 36.6; O2SAT 94
[2021-01-24 05:35] LABS: POC Glucose,Bedside 192 (70-110)
[2021-01-24 06:31] LABS: Chloride 96 mmol/L (98-107); Potassium 3.3 mmoL/L (3.5-5.1); Sodium 135 mmol/L (136-145)
[2021-01-24 06:34] LABS: Anion Gap 9.3 mEq/L (5-15); Blood Urea Nitrogen 29 mg/dl (9-20); Calcium 9.5 mg/dl (8.4-10.2); Carbon Dioxide 33 mmol/L (22.0-30.0); Creatinine Clearance Estimated 29 mL/min (50-200); Estimated Glomerular Filt Rate 39 ml/min (>60); GFR (African American) 47 ML/MIN (>60); Glucose 209 mg/dl (74-100)
--- NOTE | 2021-01-24 06:39 | PC.NURSE ---
shift summary pts lung sounds are clear with sats maintained above 90% on room air with a rate ranging from 16-18. pt requested pain meds twice and received meds relieved pain. pt is alert and oriented X4. pt is able to walk to bathroom with assist X1. pt denies any nausea, vomiting, or diarrhea.
[2021-01-24 08:00] VITALS: BP 140/47; PULSE 91; RESP 16; TEMP 36.6; O2SAT 95
--- NOTE | 2021-01-24 08:11 | HMH.ACPN2 ---
<Meg Ching - Last Filed: 01/24/21 08:11> Internal Medicine - PN: Subj *Date: 01/24/21 *Time: 08:11 Interval history: Patient states he is feeling well this morning. He denies any pain and states he slept well last night and ate all of his breakfast this morning. He thinks the swelling in his leg is improved although it is difficult to tell with the wraps on. Exam Vital signs and Labs for Last 24 Hours: Temp Pulse Resp BP Pulse Ox 97.9 F 67 17 132/74 94 L 01/24/21 04:00 01/24/21 04:00 01/24/21 04:00 01/24/21 04:00 01/24/21 04:00 Laboratory Results - last 24 hr 01/23/21 11:48: POC Glucose 253 H 01/23/21 16:26: POC Glucose 176 H 01/23/21 20:07: POC Glucose 213 H 01/24/21 05:27: POC Glucose 192 H 01/24/21 06:00: Sodium 135 L, Potassium 3.3 L D, Chloride 96 L, Carbon Dioxide 33 H, Anion Gap 9.3, BUN 29 H, Creatinine 1.70 H, Estimated Creat Clear 29, Estimated GFR 39 L, Est GFR ( Amer) 47 L, Glucose 209 H, Calcium 9.5 I & O for Last 24 hours: Intake & Output 01/21/21 01/22/21 01/23/21 01/24/21 11:59 11:59 11:59 11:59 Intake Total 480 / 480 120 / 120 Output Total 1100 / 1100 Balance 480 / 480 -980 / -980 Weight 262 lb 2.991 oz Radiology Reports for the Last 24 Hours: Echo Conclusion 1. Mildly low left atrium, normal left ventricular size, mild concentric left ventricular hypertrophy, visually estimated ejection fraction 55% with no regional wall motion abnormality, grade 1 diastolic dysfunction seen with tissue Doppler evidence of raise left atrial pressure. 2. Thickened and calcified aortic valve with mean gradient across valve 29 mmHg, valve area 1.1 cm, represents moderate aortic stenosis, there is no aortic insufficiency. 3. Mild mitral and tricuspid regurgitation. 4. No significant pericardial effusion noted. Venous Doppler Conclusion Color flow duplex demonstrates no evidence of DVT of the bilateral lower extremity Veins:. Duplex evaluation demostrates no evidence of varicosity of the bilateral lower extremity Veins. - Constitutional no acute distress - *Routine Respiratory Exam Present: CTA bilaterally - *Routine Cardiovascular Exam Present: RRR - *Routine Abdominal Exam Present: soft, normoactive bowel sounds. Absent: tenderness - *Routine Extremities Exam Present: edema (bilateral LE's, unna boots in place) - *Routine Skin Exam Present: warm. Absent: rash - *Routine Neurological Exam Present: alert, oriented X3 Assessment and Plan (1) Peripheral artery disease Status: Chronic Category: Medical Code(s): I73.9 - Peripheral vascular disease, unspecified (2) Hypertension Status: Chronic Category: Medical Code(s): I10 - Essential (primary) hypertension (3) Type 2 diabetes mellitus Status: Chronic Category: Medical Code(s): E11.9 - Type 2 diabetes mellitus without complications (4) Cellulitis Status: Acute Category: Medical Code(s): L03.90 - Cellulitis, unspecified (5) Chronic low back pain Status: Chronic Category: Medical Code(s): M54.5 - Low back pain; G89.29 - Other chronic pain (6) Diastolic dysfunction Status: Chronic Category: Medical Code(s): I51.89 - Other ill-defined heart diseases (7) Aortic stenosis Status: Chronic Category: Medical Code(s): I35.0 - Nonrheumatic aortic (valve) stenosis (8) Leg edema Status: Acute Category: Medical Code(s): R60.0 - Localized edema - Assessment and plan all Dx Assessment and Plan for all problems:: We will continue IV antibiotics and Unna boots. Cardiology to follow as well as wound care. <Tye Dubon - Last Filed: 01/24/21 14:57> Internal Medicine - PN: Subj *Date: 01/24/21 *Time: 14:55 Exam Vital signs and Labs for Last 24 Hours: Temp Pulse Resp BP Pulse Ox 97.9 F 91 H 16 140/47 L 95 01/24/21 08:00 01/24/21 08:00 01/24/21 08:00 01/24/21 08:00 01/24/21 08:00 Laboratory Results - last 24 hr
--- NOTE | 2021-01-24 11:05 | HMH.PNCARD ---
Subjective Date: 01/24/21 Time: 11:50 Principal diagnosis: edema, venous insufficiency Interval history: This is an 85-year-old white gentleman who is admitted to the hospital with bilateral lower extremity edema and a history of peripheral arterial disease. Dr. Garcia believes most of the patient's issues with his lower extremities is from venous insufficiency secondary to taking Actos. We have stopped his Actos at this time and put him on IV Lasix to help get some of his edema down. The patient states that his edema has improved overnight and his legs are feeling much better. His legs are wrapped in dressings right now and I cannot really tell if his edema is better or not but the patient states that it is and he states that Jose with the lymphedema clinic states that his edema looked better today when he rewrapped his legs. The venous Doppler was negative for any DVTs to the lower extremities. The patient likely has some underlying PAD but Dr. Garcia does not believe this is the biggest issue in his legs and would like to repeat PAD studies once his edema has significantly improved. The patient denies any chest pain or pressure. He denies any shortness of breath. He denies any fever, chills, nausea, vomiting, diarrhea, PND orthopnea. Exam Vital signs and Labs for Last 24 Hours: Temp Pulse Resp BP Pulse Ox 97.9 F 91 H 16 140/47 L 95 01/24/21 08:00 01/24/21 08:00 01/24/21 08:00 01/24/21 08:00 01/24/21 08:00 Laboratory Results - last 24 hr 01/23/21 11:48: POC Glucose 253 H 01/23/21 16:26: POC Glucose 176 H 01/23/21 20:07: POC Glucose 213 H 01/24/21 05:27: POC Glucose 192 H 01/24/21 06:00: Sodium 135 L, Potassium 3.3 L D, Chloride 96 L, Carbon Dioxide 33 H, Anion Gap 9.3, BUN 29 H, Creatinine 1.70 H, Estimated Creat Clear 29, Estimated GFR 39 L, Est GFR ( Amer) 47 L, Glucose 209 H, Calcium 9.5 I & O for Last 24 hours: Intake & Output 01/21/21 01/22/21 01/23/21 01/24/21 23:59 23:59 23:59 23:59 Intake Total 240 / 240 360 / 360 600 / 600 Output Total 600 / 1100 500 / 500 Balance 240 / 240 -240 / -740 100 / 100 Weight 262 lb 3 oz 262 lb 2.991 oz - Constitutional no acute distress, morbidly obese - *Routine HEENT Exam Head: Present: normocephalic, atraumatic Eye: Present: EOMI, PERRL ENT: Present: mucous membranes moist - *Routine Neck Exam Present: supple, full ROM, normal carotid upstroke. Absent: JVD, carotid bruit, lymphadenopathy - *Routine Respiratory Exam Present: CTA bilaterally - *Routine Cardiovascular Exam Present: RRR, Normal S1, Normal S2, murmur - *Routine Abdominal Exam Present: soft, normoactive bowel sounds. Absent: tenderness, distended - *Routine Extremities Exam Present: edema (Gross bilateral lower extremity edema noted. The patient's legs are wrapped in dressings this morning), full ROM, pulses intact (Absent pulse in the right lower extremity), normal capillary refill (Except right lower extremity is sluggish). Absent: cyanosis, clubbing - *Routine Skin Exam Present: erythema (Noted to the bilateral lower extremities), warm (Except right foot which is cold), lesions. Absent: rash - *Routine Neurological Exam Present: alert, oriented X3, CN II-XII intact. Absent: sensory deficit, motor deficit Progress Note: A&P (1) Peripheral artery disease Status: Chronic (2) Hypertension Status: Chronic (3) Type 2 diabetes mellitus Status: Chronic (4) Cellulitis Status: Acute (5) Chronic low back pain Status: Chronic (6) Diastolic dysfunction Status: Chronic (7) Aortic stenosis Status: Chronic (8) Leg edema Status: Acute (9) Hypokalemia Status: Acute Assessment and Plan for All Diagnoses:: Plan: 1. Patient was admitted to the hospital for failed outpatient treatment for cellulitis and edema of his bilateral lower extremities. The patient also has known PAD. He is getting IV antibiotics per his primary care prov
[2021-01-24 12:58] LABS: POC Glucose,Bedside 188 (70-110)
[2021-01-24 12:59] VITALS: BMI 41.1
[2021-01-24 15:44] VITALS: BP 161/72; PULSE 94; RESP 18; TEMP 37.1; O2SAT 93
[2021-01-24 16:42] LABS: POC Glucose,Bedside 221 (70-110)
[2021-01-24 20:00] VITALS: BP 153/72; PULSE 102; RESP 17; TEMP 36.6; O2SAT 95
--- NOTE | 2021-01-24 20:08 | PC.NURSE ---
Dsgs to ble cdi. NAD. Pain meds per mar. CB in reach. VSS. Lungs cta, heart murmur noted. at bedside this today. Has had good u/o.
[2021-01-24 20:18] LABS: POC Glucose,Bedside 281 (70-110)
--- NOTE | 2021-01-25 03:09 | PC.NURSE ---
PT A&O x4, slept well through the night. c/o leg pain at start of shift, Dilaudid given per MAR with desired effects. Lungs CTA, on RA. Heart murmur noted. BLE drsg c/d/i. VSS, call light in reach, no concerns at this time.
[2021-01-25 04:00] VITALS: BP 134/53; PULSE 92; RESP 17; TEMP 36.6; O2SAT 92
[2021-01-25 05:14] VITALS: BMI 39.7
[2021-01-25 05:59] LABS: POC Glucose,Bedside 220 (70-110)
[2021-01-25 07:10] LABS: Chloride 96 mmol/L (98-107); Potassium 3.5 mmoL/L (3.5-5.1); Sodium 135 mmol/L (136-145)
[2021-01-25 07:13] LABS: Anion Gap 10.5 mEq/L (5-15); Blood Urea Nitrogen 27 mg/dl (9-20); Carbon Dioxide 32 mmol/L (22.0-30.0); Creatinine Clearance Estimated 56 mL/min (50-200); Estimated Glomerular Filt Rate 41 ml/min (>60); GFR (African American) 50 ML/MIN (>60)
[2021-01-25 07:14] LABS: Calcium 9.2 mg/dl (8.4-10.2); Glucose 214 mg/dl (74-100)
[2021-01-25 07:53] VITALS: BP 178/68; PULSE 83; RESP 19; TEMP 36.6; O2SAT 94
--- NOTE | 2021-01-25 08:40 | HMH.ACPN2 ---
<Meg Ching - Last Filed: 01/25/21 08:40> Internal Medicine - PN: Subj *Date: 01/25/21 *Time: 08:40 Interval history: Patient states he is feeling better today. He thinks his legs might be a little bit less swollen. He still has his Unna boots in place. He usually stays awake all night and sleeps during the day. He did eat his breakfast this morning. He denies any pain. Exam Vital signs and Labs for Last 24 Hours: Temp Pulse Resp BP Pulse Ox 97.9 F 83 19 178/68 H 94 L 01/25/21 07:53 01/25/21 07:53 01/25/21 07:53 01/25/21 07:53 01/25/21 07:53 Laboratory Results - last 24 hr 01/24/21 12:18: POC Glucose 188 H 01/24/21 16:13: POC Glucose 221 H 01/24/21 20:08: POC Glucose 281 H 01/25/21 05:52: POC Glucose 220 H 01/25/21 06:08: Sodium 135 L, Potassium 3.5, Chloride 96 L, Carbon Dioxide 32 H, Anion Gap 10.5, BUN 27 H, Creatinine 1.60 H, Estimated Creat Clear 56, Estimated GFR 41 L, Est GFR ( Amer) 50 L, Glucose 214 H, Calcium 9.2 I & O for Last 24 hours: Intake & Output 01/22/21 01/23/21 01/24/21 01/25/21 11:59 11:59 11:59 11:59 Intake Total 480 / 480 720 / 720 1630 / 1630 Output Total 1100 / 1100 3050 / 3050 Balance 480 / 480 -380 / -380 -1420 / -1420 Weight 262 lb 2.991 oz 253 lb 5 oz Microbiology Reports for the Last 24 Hours: Microbiology 01/22/21 18:09 Blood Blood Culture - Preliminary NO GROWTH AFTER 48 HOURS 01/22/21 18:09 Blood Blood Culture - Preliminary NO GROWTH AFTER 48 HOURS - Constitutional no acute distress - *Routine Respiratory Exam Present: CTA bilaterally - *Routine Cardiovascular Exam Present: RRR - *Routine Abdominal Exam Present: soft, normoactive bowel sounds. Absent: tenderness - *Routine Extremities Exam Present: edema (bilateral LE's with unna boots in place). Absent: cyanosis, clubbing - *Routine Neurological Exam Present: alert, oriented X3 Assessment and Plan (1) Peripheral artery disease Status: Chronic Category: Medical Code(s): I73.9 - Peripheral vascular disease, unspecified (2) Hypertension Status: Chronic Category: Medical Code(s): I10 - Essential (primary) hypertension (3) Type 2 diabetes mellitus Status: Chronic Category: Medical Code(s): E11.9 - Type 2 diabetes mellitus without complications (4) Cellulitis Status: Acute Category: Medical Code(s): L03.90 - Cellulitis, unspecified (5) Chronic low back pain Status: Chronic Category: Medical Code(s): M54.5 - Low back pain; G89.29 - Other chronic pain (6) Diastolic dysfunction Status: Chronic Category: Medical Code(s): I51.89 - Other ill-defined heart diseases (7) Aortic stenosis Status: Chronic Category: Medical Code(s): I35.0 - Nonrheumatic aortic (valve) stenosis (8) Leg edema Status: Acute Category: Medical Code(s): R60.0 - Localized edema (9) Hypokalemia Status: Acute Category: Medical Code(s): E87.6 - Hypokalemia (10) Chronic renal insufficiency Status: Acute Category: Medical Code(s): N18.9 - Chronic kidney disease, unspecified - Assessment and plan all Dx Assessment and Plan for all problems:: We will continue IV antibiotics and therapy will continue to follow patient. <Tye Dubon - Last Filed: 01/25/21 18:46> Internal Medicine - PN: Subj *Date: 01/25/21 *Time: 18:45 Exam Vital signs and Labs for Last 24 Hours: Temp Pulse Resp BP Pulse Ox 97.9 F 80 20 127/62 95 01/25/21 15:25 01/25/21 15:25 01/25/21 15:25 01/25/21 15:25 01/25/21 15:25 Laboratory Results - last 24 hr 01/24/21 20:08: POC Glucose 281 H 01/25/21 05:52: POC Glucose 220 H 01/25/21 06:08: Sodium 135 L, Potassium 3.5, Chloride 96 L, Carbon Dioxide 32 H, Anion Gap 10.5, BUN 27 H, Creatinine 1.60 H, Estimated Creat Clear 56, Estimated GFR 41 L, Est GFR ( Amer) 50 L, Glucose 214 H, Calcium 9.2 01/25/21 11:26
--- NOTE | 2021-01-25 10:24 | HMH.PNCARD ---
Subjective Date: 01/25/21 Time: 10:20 Principal diagnosis: edema, venous insufficiency Interval history: This is an 85-year-old white gentleman who was admitted to the hospital with bilateral lower extremity edema and cellulitis. He has been receiving IV antibiotics for this. Dr. Garcia believes most of the patient issue with the lower extremity edema is from venous insufficiency secondary to taking Actos. This medication has been stopped. He has also been given IV Lasix for diuresis and his weight is down 9 pounds. He does have a negative fluid balance of 890 mL overnight last night. He does have a history of PAD but Dr. Garcia does not think this is as severe as it was initially thought to be because of his significant edema and would like to do PAD studies again once his edema has improved. The patient states his edema has improved more today as well. He is in the Unna boots but I can tell that his edema has improved from admission. He denies any chest pain or pressure. He denies any shortness of breath. He denies any fever, chills, nausea, vomiting, diarrhea, PND or orthopnea. Exam Vital signs and Labs for Last 24 Hours: Temp Pulse Resp BP Pulse Ox 97.9 F 83 19 178/68 H 94 L 01/25/21 07:53 01/25/21 07:53 01/25/21 07:53 01/25/21 07:53 01/25/21 07:53 Laboratory Results - last 24 hr 01/24/21 12:18: POC Glucose 188 H 01/24/21 16:13: POC Glucose 221 H 01/24/21 20:08: POC Glucose 281 H 01/25/21 05:52: POC Glucose 220 H 01/25/21 06:08: Sodium 135 L, Potassium 3.5, Chloride 96 L, Carbon Dioxide 32 H, Anion Gap 10.5, BUN 27 H, Creatinine 1.60 H, Estimated Creat Clear 56, Estimated GFR 41 L, Est GFR ( Amer) 50 L, Glucose 214 H, Calcium 9.2 I & O for Last 24 hours: Intake & Output 01/22/21 01/23/21 01/24/21 01/25/21 23:59 23:59 23:59 23:59 Intake Total 240 / 240 360 / 360 1810 / 1870 420 / 420 Output Total 600 / 1100 2700 / 3000 850 / 850 Balance 240 / 240 -240 / -740 -890 / -1130 -430 / -430 Weight 262 lb 3 oz 262 lb 2.991 oz 262 lb 5.601 oz 253 lb 5 oz Microbiology Reports for the Last 24 Hours: Microbiology 01/22/21 18:09 Blood Blood Culture - Preliminary NO GROWTH AFTER 48 HOURS 01/22/21 18:09 Blood Blood Culture - Preliminary NO GROWTH AFTER 48 HOURS - Constitutional no acute distress, obese - *Routine HEENT Exam Head: Present: normocephalic, atraumatic Eye: Present: EOMI, PERRL ENT: Present: mucous membranes moist - *Routine Neck Exam Present: supple, full ROM, normal carotid upstroke. Absent: JVD, carotid bruit, lymphadenopathy - *Routine Respiratory Exam Present: CTA bilaterally - *Routine Cardiovascular Exam Present: RRR, Normal S1, Normal S2, murmur - *Routine Abdominal Exam Present: soft, normoactive bowel sounds. Absent: tenderness, distended - *Routine Extremities Exam Present: edema (Gross edema to the bilateral lower extremities. Wrapped in Unna boots), full ROM, pulses intact (Except no pulse palpated in the right lower extremity), normal capillary refill (Sluggish cap refill in the right lower extremity). Absent: cyanosis, clubbing - *Routine Skin Exam Present: erythema (Erythema noted to the bilateral lower extremities), warm (Except right foot is cold). Absent: rash Comments: Popped blisters noted to the bilateral lower extremities - *Routine Neurological Exam Present: alert, oriented X3, CN II-XII intact. Absent: sensory deficit, motor deficit Progress Note: A&P (1) Venous insufficiency Status: Acute (2) Peripheral artery disease Status: Chronic (3) Hypertension Status: Chronic (4) Type 2 diabetes mellitus Status: Chronic (5) Cellulitis Status: Acute (6) Chronic low back pain Status: Chronic (7) Diastolic dysfunction Status: Chronic (8) Aortic stenosis Status: Chronic (9) Leg edema Status: Acute (10) Hypokalemia Status: Acute
[2021-01-25 11:42] LABS: POC Glucose,Bedside 257 (70-110)
[2021-01-25 15:25] VITALS: BP 127/62; PULSE 80; RESP 20; TEMP 36.6; O2SAT 95
--- NOTE | 2021-01-25 17:51 | PC.NURSE ---
PT IS SITTING UP ON THE SOB EATING DINNER AT THIS TIME. ALERT AND ORIENTED X4. PT HAS REQUIRED PAIN MEDICATION FREQUENTLY THIS SHIFT. PT STATES HIS PAIN IS LOCATED ON THE TOP OF HIS RT FOOT IN BETWEEN HIS 4TH AND 5TH TOE. LUNG SOUNDS DIMINISHED. ABDOMEN SOFT/NON TENDER/OBESE. DRESSINGS TO BLE CHANGED PER PHYSICAL THERAPY. 4+EDEMA NOTED TO LLE. 3+ EDEMA NOTED TO RLE. WILL CONTINUE TO MONITOR.
[2021-01-25 17:54] LABS: POC Glucose,Bedside 230 (70-110)
[2021-01-25 19:26] VITALS: BP 130/80; PULSE 94; RESP 18; TEMP 36.8; O2SAT 95
[2021-01-25 19:29] VITALS: RESP 18
[2021-01-25 20:54] LABS: POC Glucose,Bedside 246 (70-110)
[2021-01-25 21:46] VITALS: RESP 16
[2021-01-25 23:10] LABS: Vancomycin,Trough 7.1 ug/mL (5.0-10.0)
[2021-01-26 01:31] VITALS: RESP 16
[2021-01-26 04:00] VITALS: BP 137/62; PULSE 79; RESP 16; TEMP 36.7; O2SAT 93
--- NOTE | 2021-01-26 04:26 | PC.NURSE ---
no acute changes. new iv placed. pt reports pain throughout shift in right 5th toe. requested dressing to right foot be cut off at the top related to causing pain. vss. call light in reach. will continue to monitor pt condition
[2021-01-26 05:00] VITALS: BMI 39.6
[2021-01-26 06:00] LABS: POC Glucose,Bedside 197 (70-110)
[2021-01-26 07:13] LABS: Chloride 96 mmol/L (98-107); Potassium 3.4 mmoL/L (3.5-5.1); Sodium 135 mmol/L (136-145)
[2021-01-26 07:16] LABS: Anion Gap 9.4 mEq/L (5-15); Blood Urea Nitrogen 27 mg/dl (9-20); Carbon Dioxide 33 mmol/L (22.0-30.0); Creatinine Clearance Estimated 59 mL/min (50-200); Estimated Glomerular Filt Rate 45 ml/min (>60); GFR (African American) 54 ML/MIN (>60); Glucose 200 mg/dl (74-100)
[2021-01-26 07:41] VITALS: BP 160/86; PULSE 94; RESP 16; TEMP 36.6; O2SAT 99
--- NOTE | 2021-01-26 08:42 | HMH.ACPN2 ---
<Meg Ching - Last Filed: 01/26/21 08:42> Internal Medicine - PN: Subj *Date: 01/26/21 *Time: 08:42 Interval history: Patient states he is feeling well this morning. His only complaint is of pain in his toes and his foot. He states his dressing was changed yesterday and the swelling does seem to be better. He had a good breakfast this morning and has been resting well. Exam Vital signs and Labs for Last 24 Hours: Temp Pulse Resp BP Pulse Ox 97.9 F 94 H 16 160/86 H 99 01/26/21 07:41 01/26/21 07:41 01/26/21 07:41 01/26/21 07:41 01/26/21 07:41 Laboratory Results - last 24 hr 01/25/21 11:26: POC Glucose 257 H 01/25/21 17:27: POC Glucose 230 H 01/25/21 20:46: POC Glucose 246 H 01/25/21 21:45: Vancomycin Trough 7.1 01/26/21 05:46: POC Glucose 197 H 01/26/21 05:54: Sodium 135 L, Potassium 3.4 L, Chloride 96 L, Carbon Dioxide 33 H, Anion Gap 9.4, BUN 27 H, Creatinine 1.50 H, Estimated Creat Clear 59, Estimated GFR 45 L, Est GFR ( Amer) 54 L, Glucose 200 H, Calcium 9.0 I & O for Last 24 hours: Intake & Output 01/23/21 01/24/21 01/25/21 01/26/21 11:59 11:59 11:59 11:59 Intake Total 480 / 480 720 / 720 1630 / 1630 1330 / 1330 Output Total 1100 / 1100 3050 / 3050 2200 / 2200 Balance 480 / 480 -380 / -380 -1420 / -1420 -870 / -870 Weight 262 lb 2.991 oz 253 lb 5 oz 252 lb 7 oz - Constitutional no acute distress - *Routine Respiratory Exam Present: CTA bilaterally - *Routine Cardiovascular Exam Present: RRR - *Routine Abdominal Exam Present: soft, normoactive bowel sounds. Absent: tenderness - *Routine Extremities Exam Present: edema (bilateral LE's, wraps in place). Absent: cyanosis, clubbing - *Routine Skin Exam Present: warm. Absent: rash - *Routine Neurological Exam Present: alert, oriented X3 Assessment and Plan (1) Venous insufficiency Status: Acute Category: Medical Code(s): I87.2 - Venous insufficiency (chronic) (peripheral) (2) Peripheral artery disease Status: Chronic Category: Medical Code(s): I73.9 - Peripheral vascular disease, unspecified (3) Hypertension Status: Chronic Category: Medical Code(s): I10 - Essential (primary) hypertension (4) Type 2 diabetes mellitus Status: Chronic Category: Medical Code(s): E11.9 - Type 2 diabetes mellitus without complications (5) Cellulitis Status: Acute Category: Medical Code(s): L03.90 - Cellulitis, unspecified (6) Chronic low back pain Status: Chronic Category: Medical Code(s): M54.5 - Low back pain; G89.29 - Other chronic pain (7) Diastolic dysfunction Status: Chronic Category: Medical Code(s): I51.89 - Other ill-defined heart diseases (8) Aortic stenosis Status: Chronic Category: Medical Code(s): I35.0 - Nonrheumatic aortic (valve) stenosis (9) Leg edema Status: Acute Category: Medical Code(s): R60.0 - Localized edema (10) Hypokalemia Status: Acute Category: Medical Code(s): E87.6 - Hypokalemia (11) Chronic renal insufficiency Status: Acute Category: Medical Code(s): N18.9 - Chronic kidney disease, unspecified - Assessment and plan all Dx Assessment and Plan for all problems:: We will continue IV antibiotics, wound care, and cardiology will follow. <Tye Dubon - Last Filed: 01/26/21 13:36> Internal Medicine - PN: Subj *Date: 01/26/21 *Time: 13:35 Exam Vital signs and Labs for Last 24 Hours: Temp Pulse Resp BP Pulse Ox 97.9 F 94 H 16 160/86 H 99 01/26/21 07:41 01/26/21 07:41 01/26/21 07:41 01/26/21 07:41 01/26/21 07:41 Laboratory Results - last 24 hr 01/25/21 17:27: POC Glucose 230 H 01/25/21 20:46: POC Glucose 246 H 01/25/21 21:45: Vancomycin Trough 7.1 01/26/21 05:46: POC Glucose 197 H 01/26/21 05:54: Sodium 135 L, Potassium 3.4 L, Chloride 96 L, Carbon Dioxide 33 H, Anion Gap 9.4, BUN 27 H, Creatinine 1.50 H, Estimated Creat Clear 59, Estimated GFR 45 L, Est GFR ( Amer) 54
--- NOTE | 2021-01-26 09:33 | HMH.PNCARD ---
Subjective Date: 01/26/21 Time: 09:00 Principal diagnosis: edema, venous insufficiency Interval history: 85-year-old male presented to [facility] with increased lower extremity edema along with cellulitis. Dr. Garcia had felt the edema was called by patient being on Actos. Actos had been stopped. Will defer management of diabetes and new medication regimen to PCP. Patient does have history of PAD. PAD can be further investigated on an outpatient basis. Patient has been diuresing well. Patient is currently on Lasix 40 mg twice daily IV and is tolerating well. Patient did diuresis of 850 mL throughout the evening. Total weight since admission is down 10 pounds. Overall patient states he is feeling well. Patient is noted to have of venous insufficiency possibly due to the Actos. Legs are bilaterally wrapped. Dressings are clean and dry. Lab work revealed this morning potassium was down 3.4 with a sodium of 135. Renal function is improving. Creatinine is 1.50 with a BUN of 27. A bilateral lower extremity venous study was performed yesterday which revealed no DVT. Echocardiogram revealed EF 55% with grade 1 diastolic dysfunction. Moderate aortic stenosis was also noted. Patient denies chest pain, tightness or pressure. Patient denies shortness of breath. Uncertain to determine the status of edema on the lower extremities due to the wrapping of the legs. Patient does complain of foot pain due to blisters noted on bottom of feet. Overall patient is feeling well. Echo: Conclusion 1. Mildly low left atrium, normal left ventricular size, mild concentric left ventricular hypertrophy, visually estimated ejection fraction 55% with no regional wall motion abnormality, grade 1 diastolic dysfunction seen with tissue Doppler evidence of raise left atrial pressure. 2. Thickened and calcified aortic valve with mean gradient across valve 29 mmHg, valve area 1.1 cm, represents moderate aortic stenosis, there is no aortic insufficiency. 3. Mild mitral and tricuspid regurgitation. 4. No significant pericardial effusion noted. Discussed plan of care with Dr. Garcia and PCP. We will continue monitor patient. Will defer management of diabetes to PCP. Will defer management of cellulitis to PCP. Patient is currently receiving IV antibiotics due to the cellulitis. We will continue pt on current dose of Lasix IV at this time. Hopefully patient will continue to diurese as he has. Will defer further testing of PAD on an outpatient basis. Thank you for allowing cardiology to participate in the care of this patient. Exam Vital signs and Labs for Last 24 Hours: Temp Pulse Resp BP Pulse Ox 97.9 F 94 H 16 160/86 H 99 01/26/21 07:41 01/26/21 07:41 01/26/21 07:41 01/26/21 07:41 01/26/21 07:41 Laboratory Results - last 24 hr 01/25/21 11:26: POC Glucose 257 H 01/25/21 17:27: POC Glucose 230 H 01/25/21 20:46: POC Glucose 246 H 01/25/21 21:45: Vancomycin Trough 7.1 01/26/21 05:46: POC Glucose 197 H 01/26/21 05:54: Sodium 135 L, Potassium 3.4 L, Chloride 96 L, Carbon Dioxide 33 H, Anion Gap 9.4, BUN 27 H, Creatinine 1.50 H, Estimated Creat Clear 59, Estimated GFR 45 L, Est GFR ( Amer) 54 L, Glucose 200 H, Calcium 9.0 I & O for Last 24 hours: Intake & Output 01/23/21 01/24/21 01/25/21 01/26/21 23:59 23:59 23:59 23:59 Intake Total 360 / 360 1810 / 1870 1140 / 1140 610 / 610 Output Total 600 / 1100 2700 / 3000 2200 / 2500 850 / 850 Balance -240 / -740 -890 / -1130 -1060 / -1360 -240 / -240 Weight 262 lb 2.991 oz 262 lb 5.601 oz 253 lb 5 oz 252 lb 7 oz - Constitutional no acute distress, obese, cooperative - *Routine HEENT Exam Head: Present: normocephalic ENT: Present: mucous membranes moist - *Routine Neck Exam Present: supple, full ROM, normal carotid upstroke. Absent: JVD, carotid bruit, lymphadenopathy - Routine Chest/Breast/Axilla Exam Chest wall: Present: tenderness. Abs
[2021-01-26 11:42] LABS: POC Glucose,Bedside 244 (70-110)
--- NOTE | 2021-01-26 13:32 | HMH.PHACONS ---
- Pharmacy Consult Date: 01/26/21 Time: 13:41 Referring provider: DR. HERNANDEZ Reason for Consult:: VANCOMYCIN TROUGH LEVEL Allergies and ADEs:: Allergies Allergy/AdvReac Type Severity Reaction Status Date / Time latex Allergy Unknown Unknown Verified 01/24/21 11:17 allergy reaction quinidine Allergy Unknown Unknown Verified 01/24/21 11:17 allergy reaction Home Medications:: Home Medications Medication Instructions Recorded Confirmed Type Ascorbic Acid [Vitamin C with Ermelinda 1,000 mg PO DAILY 01/23/21 01/23/21 History Hips] Aspirin [Aspirin 81mg EC Tab] 81 mg PO DAILY 01/23/21 01/23/21 History Atorvastatin Calcium [Lipitor 40mg 40 mg PO HS 01/23/21 01/23/21 History Tab] Bimatoprost [Lumigan 0.01% Ophth 1 drp OP PM 01/23/21 01/23/21 History Soln 2.5mL] Chlorthalidone 25 mg PO DAILY 01/23/21 01/23/21 History Cholecalciferol (Vitamin D3) 1,000 unit PO DAILY 01/23/21 01/23/21 History [Vitamin D3 1,000 Unit Cap] Clopidogrel Bisulfate [Clopidogrel 75 mg PO DAILY 01/23/21 01/23/21 History 75mg Tab] Dorzolamide/Timolol/Pf [Cosopt Pf 1 drp OP BID 01/23/21 01/23/21 History Eye Drops] Furosemide [Furosemide 40MG tAB*] 40 mg PO BID 01/23/21 01/23/21 History Oxycodone HCl/Acetaminophen 1 tab PO Q6HP PRN 01/23/21 01/23/21 History [Endocet 5-325 Tablet] Pioglitazone HCl/Metformin HCl 1 tab PO BID 01/23/21 01/23/21 History [Actoplus Met 15 mg-850 mg Tab] Potassium Chloride [Pot Chlor 10 10 meq PO DAILY 01/23/21 01/23/21 History mEq Tab] Pregabalin 100 mg PO BID 01/23/21 01/23/21 History Tamsulosin HCl [Flomax 0.4mg 0.4 mg PO HS 01/23/21 01/23/21 History capsule] Triamterene/Hydrochlorothiazid 1 tab PO DAILY 01/23/21 01/23/21 History [Triamterene-Hctz 37.5-25 mg Tb] Height: 1.7 m Weight: 114.504 kg Laboratory Results:: Laboratory Results - last 24 hr 01/25/21 17:27: POC Glucose 230 H 01/25/21 20:46: POC Glucose 246 H 01/25/21 21:45: Vancomycin Trough 7.1 01/26/21 05:46: POC Glucose 197 H 01/26/21 05:54: Sodium 135 L, Potassium 3.4 L, Chloride 96 L, Carbon Dioxide 33 H, Anion Gap 9.4, BUN 27 H, Creatinine 1.50 H, Estimated Creat Clear 59, Estimated GFR 45 L, Est GFR ( Amer) 54 L, Glucose 200 H, Calcium 9.0 01/26/21 11:27: POC Glucose 244 H Medical History: Reports:: Diabetes Mellitus Type 2, Heart Murmur, Hyperlipidemia, Hypertension, Peripheral Artery Disease, Peripheral Vascular Disease Denies:: Cancer, Diabetes Mellitus Type 1, MRSA Assessment and Plan (1) Venous insufficiency Status: Acute Category: Medical Code(s): I87.2 - Venous insufficiency (chronic) (peripheral) (2) Peripheral artery disease Status: Chronic Category: Medical Code(s): I73.9 - Peripheral vascular disease, unspecified (3) Hypertension Status: Chronic Category: Medical Code(s): I10 - Essential (primary) hypertension (4) Type 2 diabetes mellitus Status: Chronic Category: Medical Code(s): E11.9 - Type 2 diabetes mellitus without complications (5) Cellulitis Status: Acute Category: Medical Code(s): L03.90 - Cellulitis, unspecified (6) Chronic low back pain Status: Chronic Category: Medical Code(s): M54.5 - Low back pain; G89.29 - Other chronic pain (7) Diastolic dysfunction Status: Chronic Category: Medical Code(s): I51.89 - Other ill-defined heart diseases (8) Aortic stenosis Status: Chronic Category: Medical Code(s): I35.0 - Nonrheumatic aortic (valve) stenosis (9) Leg edema Status: Acute Category: Medical Code(s): R60.0 - Localized edema (10) Hypokalemia Status: Acute Category: Medical Code(s): E87.6 - Hypokalemia (11) Chronic renal insufficiency Status: Acute Category: Medical Code(s): N18.9 - Chronic kidney disease, unspecified - Assessment and plan all Dx Assessment and Plan for all problems:: BASED ON PATIENT FACTORS AND VANCOMYCIN TROUGH LEVEL, RECOMMEND CHANGING INT
--- NOTE | 2021-01-26 14:30 | DIET.NUTRFU ---
Addendum entered by Debra Lamas 01/31/21 14:07: No changes intakes/BG, no nutritional complaints. Weight has remained stable within 4# since 01/25- down 4#, continuing to monitor. Addendum entered by Debra Lamas 01/29/21 13:46: PO intakes 100%, BG avg.=240. Weight down 4# past 48h, 15# t/o stay. Bowels are normal. No nutritional complaints or concerns at this time, continuing to monitor. Original Note: PO intakes 100%, BG avg.=230. Pt has lost 10# t/o stay. Bowel function normal. Pt has received diet education for DM, weight loss, and low sodium diet. No nutritional complaints or concerns at this time, continuing to monitor
[2021-01-26 15:26] VITALS: BP 124/61; PULSE 81; RESP 17; TEMP 37.1; O2SAT 96
[2021-01-26 16:14] LABS: POC Glucose,Bedside 232 (70-110)
--- NOTE | 2021-01-26 17:38 | PC.NURSE ---
PT IS RESTING IN BED. ALERT AND ORIENTED X4. EATING AND DRINKING WELL. PT REQUIRES PO PAIN MEDICATION Q4H FOR DISCOMFORT IN HIS RT FOOT. PT STATES THE PAIN IS LOCATED BETWEEN THE 4TH AND 5TH TOE THAT HE DESCRIBES A BURNING FEELING. PT HAS A OPEN AREA BETWEEN THE 4TH AND 5TH TOE. DRESSINGS NOTED TO BLE (KERLIX AND BREANNE WRAP) PT HAS REDNESS AND STAGE 2 NOTED TO THE BUTTOCKS WITH DRESSING. PT HAS DIURESED WELL THIS SHIFT. VSS. LUNG SOUNDS DIMINISHED. ABDOMEN SOFT/LARGE WITH HYPOACTIVE BOWEL SOUNDS. PT STATED HIS LAST BOWEL MOVEMENT WAS YESTERDAY. WILL CONTINUE TO MONITOR.
[2021-01-26 20:00] VITALS: BP 148/76; PULSE 92; RESP 17; TEMP 36.6; O2SAT 99
[2021-01-26 20:59] LABS: POC Glucose,Bedside 304 (70-110)
[2021-01-27 00:09] VITALS: RESP 18
[2021-01-27 04:00] VITALS: BP 147/67; PULSE 77; RESP 17; TEMP 36.7; O2SAT 100
--- NOTE | 2021-01-27 04:17 | PC.NURSE ---
PATIENT IS A&O X4, LUNGS: AUDIBLE WHEEZING HEARD, PULSES: BUE: EQUAL. BLE, CAP REFILL EQUAL. PATIENT HAS BEEN AWAKE FOR MOST OF THIS RN SHIFT. PATIENT AMBULATES TO RESTROOM, STAND BY ASSIST. NO NEW CONCERNS AT THIS TIME.
--- NOTE | 2021-01-27 04:25 | PC.NURSE ---
all dirty linen and trash taken out of room. ice and water passed.Ayana
[2021-01-27 04:56] VITALS: BMI 39.4
[2021-01-27 06:02] LABS: POC Glucose,Bedside 186 (70-110)
[2021-01-27 08:00] VITALS: BP 141/65; PULSE 93; RESP 17; TEMP 36.6; O2SAT 95
--- NOTE | 2021-01-27 09:33 | HMH.ACPN2 ---
Internal Medicine - PN: Subj *Date: 01/27/21 *Time: 09:33 Interval history: States he rested a little better last night. Most of his pain is in the right lower extremity. Exam Vital signs and Labs for Last 24 Hours: Temp Pulse Resp BP Pulse Ox 97.9 F 93 H 17 141/65 H 95 01/27/21 08:00 01/27/21 08:00 01/27/21 08:00 01/27/21 08:00 01/27/21 08:00 Laboratory Results - last 24 hr 01/26/21 11:27: POC Glucose 244 H 01/26/21 15:43: POC Glucose 232 H 01/26/21 20:51: POC Glucose 304 H* 01/27/21 05:52: POC Glucose 186 H I & O for Last 24 hours: Intake & Output 01/24/21 01/25/21 01/26/21 01/27/21 11:59 11:59 11:59 11:59 Intake Total 720 / 720 1630 / 1630 1330 / 1330 720 / 720 Output Total 1100 / 1100 3050 / 3050 2200 / 2200 3775 / 3775 Balance -380 / -380 -1420 / -1420 -870 / -870 -3055 / -3055 Weight 253 lb 5 oz 252 lb 7 oz 251 lb 8 oz Narrative: He appears in no distress. Lungs are clear. Lower extremities show improvement in the edema. The erythema on the left lower leg has improved. Assessment and Plan (1) Venous insufficiency Status: Acute Category: Medical Code(s): I87.2 - Venous insufficiency (chronic) (peripheral) (2) Peripheral artery disease Status: Chronic Category: Medical Code(s): I73.9 - Peripheral vascular disease, unspecified (3) Hypertension Status: Chronic Category: Medical Code(s): I10 - Essential (primary) hypertension (4) Type 2 diabetes mellitus Status: Chronic Category: Medical Code(s): E11.9 - Type 2 diabetes mellitus without complications (5) Cellulitis Status: Acute Category: Medical Code(s): L03.90 - Cellulitis, unspecified (6) Chronic low back pain Status: Chronic Category: Medical Code(s): M54.5 - Low back pain; G89.29 - Other chronic pain (7) Diastolic dysfunction Status: Chronic Category: Medical Code(s): I51.89 - Other ill-defined heart diseases (8) Aortic stenosis Status: Chronic Category: Medical Code(s): I35.0 - Nonrheumatic aortic (valve) stenosis (9) Leg edema Status: Acute Category: Medical Code(s): R60.0 - Localized edema (10) Hypokalemia Status: Acute Category: Medical Code(s): E87.6 - Hypokalemia (11) Chronic renal insufficiency Status: Acute Category: Medical Code(s): N18.9 - Chronic kidney disease, unspecified - Assessment and plan all Dx Assessment and Plan for all problems:: Continue diuresis and IV antibiotics. Change dressings today.
[2021-01-27 11:36] LABS: POC Glucose,Bedside 231 (70-110)
[2021-01-27 15:44] LABS: POC Glucose,Bedside 206 (70-110)
[2021-01-27 16:00] VITALS: BP 148/70; PULSE 83; RESP 18; TEMP 36.7; O2SAT 98
--- NOTE | 2021-01-27 17:51 | PC.NURSE ---
Pt is alert and oriented x 4 and able to make needs known. RR even and unlabored on RA. CB in reach. at bedside this shift. Has had good u/u. Lungs cta, heart mumur noted. Abd soft and bs x 4. Dsg changed to coccyx, and ble wrapped with elias and alondra bandages. Pain meds given per mar. VSS. Fingersticks have been done achs and ssi per jan.
[2021-01-27 20:00] VITALS: BP 121/63; PULSE 90; RESP 16; TEMP 36.8; O2SAT 97
[2021-01-27 20:08] LABS: POC Glucose,Bedside 305 (70-110)
[2021-01-27 21:15] LABS: Vancomycin,Trough 12.4 ug/mL (5.0-10.0)
--- NOTE | 2021-01-28 02:01 | PC.NURSE ---
Pt a&o x4 and slept on and off through the night. able to ambulate with assist x1 to bathroom. RR even and unlabored. on RA through the night. IV patent and SL. BLE drsgs c/d/i. Pain medication PO x1. VSS, no concerns at this time.
[2021-01-28 04:00] VITALS: BP 143/62; PULSE 77; RESP 18; TEMP 36.6; O2SAT 94
[2021-01-28 05:00] VITALS: BMI 39.3
[2021-01-28 06:41] LABS: Anion Gap 8.5 mEq/L (5-15); Blood Urea Nitrogen 22 mg/dl (9-20); Carbon Dioxide 31 mmol/L (22.0-30.0); Chloride 99 mmol/L (98-107); Creatinine Clearance Estimated 74 mL/min (50-200); Estimated Glomerular Filt Rate 58 ml/min (>60); GFR (African American) 70 ML/MIN (>60); Glucose 234 mg/dl (74-100); Potassium 3.5 mmoL/L (3.5-5.1); Sodium 135 mmol/L (136-145)
[2021-01-28 08:00] VITALS: BP 162/77; PULSE 83; RESP 15; TEMP 36.8; O2SAT 95
--- NOTE | 2021-01-28 08:37 | HMH.ACPN2 ---
Internal Medicine - PN: Subj *Date: 01/28/21 *Time: 08:37 Interval history: He is complaining of any increased pain in the dorsum of his right foot this morning. Did not sleep as well last night. Exam Vital signs and Labs for Last 24 Hours: Temp Pulse Resp BP Pulse Ox 98.3 F 83 15 162/77 H 95 01/28/21 08:00 01/28/21 08:00 01/28/21 08:00 01/28/21 08:00 01/28/21 08:00 Laboratory Results - last 24 hr 01/27/21 11:11: POC Glucose 231 H 01/27/21 15:21: POC Glucose 206 H 01/27/21 19:52: POC Glucose 305 H* 01/27/21 20:20: Vancomycin Trough 12.4 H 01/28/21 06:10: Sodium 135 L, Potassium 3.5, Chloride 99, Carbon Dioxide 31 H, Anion Gap 8.5, BUN 22 H, Creatinine 1.20, Estimated Creat Clear 74, Estimated GFR 58 L, Est GFR ( Amer) 70 D, Glucose 234 H, Calcium 9.0 I & O for Last 24 hours: Intake & Output 01/25/21 01/26/21 01/27/21 01/28/21 11:59 11:59 11:59 11:59 Intake Total 1630 / 1630 1330 / 1330 720 / 720 480 / 480 Output Total 3050 / 3050 2200 / 2200 3775 / 3775 2950 / 2950 Balance -1420 / -1420 -870 / -870 -3055 / -3055 -2470 / -2470 Weight 253 lb 5 oz 252 lb 7 oz 251 lb 8 oz 250 lb 9 oz Microbiology Reports for the Last 24 Hours: Microbiology 01/22/21 18:09 Blood Blood Culture - Final NO GROWTH AFTER 5 DAYS 01/22/21 18:09 Blood Blood Culture - Final NO GROWTH AFTER 5 DAYS Narrative: Wraps on his legs were removed this morning. Overall his swelling is much improved. He still has significant pedal edema. The erythema on the left l lower leg and foot is greatly improved. Right lower leg and foot remains erythematous with a large bullae on the dorsum of the foot. There is crusting in the fourth and fifth webspace Assessment and Plan (1) Venous insufficiency Status: Acute Category: Medical Code(s): I87.2 - Venous insufficiency (chronic) (peripheral) (2) Peripheral artery disease Status: Chronic Category: Medical Code(s): I73.9 - Peripheral vascular disease, unspecified (3) Hypertension Status: Chronic Category: Medical Code(s): I10 - Essential (primary) hypertension (4) Type 2 diabetes mellitus Status: Chronic Category: Medical Code(s): E11.9 - Type 2 diabetes mellitus without complications (5) Cellulitis Status: Acute Category: Medical Code(s): L03.90 - Cellulitis, unspecified (6) Chronic low back pain Status: Chronic Category: Medical Code(s): M54.5 - Low back pain; G89.29 - Other chronic pain (7) Diastolic dysfunction Status: Chronic Category: Medical Code(s): I51.89 - Other ill-defined heart diseases (8) Aortic stenosis Status: Chronic Category: Medical Code(s): I35.0 - Nonrheumatic aortic (valve) stenosis (9) Leg edema Status: Acute Category: Medical Code(s): R60.0 - Localized edema (10) Hypokalemia Status: Acute Category: Medical Code(s): E87.6 - Hypokalemia (11) Chronic renal insufficiency Status: Acute Category: Medical Code(s): N18.9 - Chronic kidney disease, unspecified - Assessment and plan all Dx Assessment and Plan for all problems:: Continue diuresis and current antibiotics. Wound care per physical therapy.
--- NOTE | 2021-01-28 10:45 | HMH.PHACONS ---
- Pharmacy Consult Date: 01/28/21 Time: 10:45 Referring provider: DR. HERNANDEZ Reason for Consult:: VANCOMYCIN LEVEL Allergies and ADEs:: Allergies Allergy/AdvReac Type Severity Reaction Status Date / Time latex Allergy Unknown Unknown Verified 01/24/21 11:17 allergy reaction quinidine Allergy Unknown Unknown Verified 01/24/21 11:17 allergy reaction Home Medications:: Home Medications Medication Instructions Recorded Confirmed Type Ascorbic Acid [Vitamin C with Ermelinda 1,000 mg PO DAILY 01/23/21 01/23/21 History Hips] Aspirin [Aspirin 81mg EC Tab] 81 mg PO DAILY 01/23/21 01/23/21 History Atorvastatin Calcium [Lipitor 40mg 40 mg PO HS 01/23/21 01/23/21 History Tab] Bimatoprost [Lumigan 0.01% Ophth 1 drp OP PM 01/23/21 01/23/21 History Soln 2.5mL] Chlorthalidone 25 mg PO DAILY 01/23/21 01/23/21 History Cholecalciferol (Vitamin D3) 1,000 unit PO DAILY 01/23/21 01/23/21 History [Vitamin D3 1,000 Unit Cap] Clopidogrel Bisulfate [Clopidogrel 75 mg PO DAILY 01/23/21 01/23/21 History 75mg Tab] Dorzolamide/Timolol/Pf [Cosopt Pf 1 drp OP BID 01/23/21 01/23/21 History Eye Drops] Furosemide [Furosemide 40MG tAB*] 40 mg PO BID 01/23/21 01/23/21 History Oxycodone HCl/Acetaminophen 1 tab PO Q6HP PRN 01/23/21 01/23/21 History [Endocet 5-325 Tablet] Pioglitazone HCl/Metformin HCl 1 tab PO BID 01/23/21 01/23/21 History [Actoplus Met 15 mg-850 mg Tab] Potassium Chloride [Pot Chlor 10 10 meq PO DAILY 01/23/21 01/23/21 History mEq Tab] Pregabalin 100 mg PO BID 01/23/21 01/23/21 History Tamsulosin HCl [Flomax 0.4mg 0.4 mg PO HS 01/23/21 01/23/21 History capsule] Triamterene/Hydrochlorothiazid 1 tab PO DAILY 01/23/21 01/23/21 History [Triamterene-Hctz 37.5-25 mg Tb] Height: 1.7 m Weight: 113.653 kg Laboratory Results:: Laboratory Results - last 24 hr 01/27/21 11:11: POC Glucose 231 H 01/27/21 15:21: POC Glucose 206 H 01/27/21 19:52: POC Glucose 305 H* 01/27/21 20:20: Vancomycin Trough 12.4 H 01/28/21 06:10: Sodium 135 L, Potassium 3.5, Chloride 99, Carbon Dioxide 31 H, Anion Gap 8.5, BUN 22 H, Creatinine 1.20, Estimated Creat Clear 74, Estimated GFR 58 L, Est GFR ( Amer) 70 D, Glucose 234 H, Calcium 9.0 Medical History: Reports:: Diabetes Mellitus Type 2, Heart Murmur, Hyperlipidemia, Hypertension, Peripheral Artery Disease, Peripheral Vascular Disease Denies:: Cancer, Diabetes Mellitus Type 1, MRSA Assessment and Plan (1) Venous insufficiency Status: Acute Category: Medical Code(s): I87.2 - Venous insufficiency (chronic) (peripheral) (2) Peripheral artery disease Status: Chronic Category: Medical Code(s): I73.9 - Peripheral vascular disease, unspecified (3) Hypertension Status: Chronic Category: Medical Code(s): I10 - Essential (primary) hypertension (4) Type 2 diabetes mellitus Status: Chronic Category: Medical Code(s): E11.9 - Type 2 diabetes mellitus without complications (5) Cellulitis Status: Acute Category: Medical Code(s): L03.90 - Cellulitis, unspecified (6) Chronic low back pain Status: Chronic Category: Medical Code(s): M54.5 - Low back pain; G89.29 - Other chronic pain (7) Diastolic dysfunction Status: Chronic Category: Medical Code(s): I51.89 - Other ill-defined heart diseases (8) Aortic stenosis Status: Chronic Category: Medical Code(s): I35.0 - Nonrheumatic aortic (valve) stenosis (9) Leg edema Status: Acute Category: Medical Code(s): R60.0 - Localized edema (10) Hypokalemia Status: Acute Category: Medical Code(s): E87.6 - Hypokalemia (11) Chronic renal insufficiency Status: Acute Category: Medical Code(s): N18.9 - Chronic kidney disease, unspecified - Assessment and plan all Dx Assessment and Plan for all problems:: PATIENT'S VANCOMYCIN TROUGH LEVEL WAS 12.4 MCG/ML OVERNIGHT. RECOMMEND CONTINUING WITH CURRENT DOSE OF VANCOMYCIN 2250
[2021-01-28 11:15] LABS: POC Glucose,Bedside 275 (70-110)
--- NOTE | 2021-01-28 15:22 | PC.NURSE ---
Pt is alert and oriented x 4 and able to make needs known. RR even and unlabored. Lungs cta, hear murmur noted. Legs unwrapped this a, and carlos. Cleaned with betadine and small dsg applied to R foot between last two toes per sunni in pt. is at bedside. Ambulates with sba to bathroom. VSS. Meds given per mar.
[2021-01-28 15:46] VITALS: BP 151/86; PULSE 92; RESP 19; TEMP 36.6; O2SAT 95
[2021-01-28 16:43] LABS: POC Glucose,Bedside 247 (70-110)
[2021-01-28 19:56] VITALS: BP 146/68; PULSE 86; RESP 16; TEMP 36.8; O2SAT 97
[2021-01-28 20:00] VITALS: RESP 16; O2SAT 97
[2021-01-28 20:21] LABS: POC Glucose,Bedside 307 (70-110)
[2021-01-29 04:00] VITALS: BP 141/70; PULSE 73; RESP 17; TEMP 36.7; O2SAT 95
[2021-01-29 05:00] VITALS: BMI 38.8
[2021-01-29 05:19] LABS: POC Glucose,Bedside 212 (70-110)
--- NOTE | 2021-01-29 06:29 | PC.NURSE ---
During assessment patient patient state that right foot is very tender and asked that I do not take bandage off, dressing intact. Received 2 doses of Dilaudid r/t right foot pain. Patient states that Bimatoprost (Lumigan) eye drops for glaucoma is used for left eye only and refused drop in right eye per dosing instructions. Dorzolamide/Timolol eye drops for glaucoma is used in both eyes. Patient did not sleep much this shift is A&O x4. Has call light within reach and bed at lowest level for safety.
--- NOTE | 2021-01-29 07:54 | P.PN_ITS ---
Internal Medicine - PN: Subj *Date: 01/29/21 *Time: 07:54 Exam Vital signs and Labs for Last 24 Hours: Temp Pulse Resp BP Pulse Ox 98.1 F 73 17 141/70 H 95 01/29/21 04:00 01/29/21 04:00 01/29/21 04:00 01/29/21 04:00 01/29/21 04:00 Laboratory Results - last 24 hr 01/28/21 11:07: POC Glucose 275 H 01/28/21 16:04: POC Glucose 247 H 01/28/21 20:11: POC Glucose 307 H* 01/29/21 04:58: POC Glucose 212 H I & O for Last 24 hours: Intake & Output 01/26/21 01/27/21 01/28/21 01/29/21 23:59 23:59 23:59 23:59 Intake Total 1090 / 1090 480 / 480 480 / 480 240 / 240 Output Total 3325 / 3625 3650 / 3650 2125 / 2425 725 / 725 Balance -2235 / -2535 -3170 / -3170 -1645 / -1945 -485 / -485 Weight 114.504 kg 114.078 kg 113.653 kg 112.236 kg Assessment and Plan (1) Venous insufficiency Status: Acute Category: Medical Code(s): I87.2 - Venous insufficiency (chron ic) (peripheral) (2) Peripheral artery disease Status: Chronic Category: Medical Code(s): I73.9 - Peripheral vascular disease, unspecified (3) Hypertension Status: Chronic Category: Medical Code(s): I10 - Essential (primary) hypertension (4) Type 2 diabetes mellitus Status: Chronic Category: Medical Code(s): E11.9 - Type 2 diabetes mellitus without complications (5) Cellulitis Status: Acute Category: Medical Code(s): L03.90 - Cellulitis, unspecified (6) Chronic low back pain Status: Chronic Category: Medical Code(s): M54.5 - Low back pain; G89.29 - Other chronic pain (7) Diastolic dysfunction Status: Chronic Category: Medical Code(s): I51.89 - Other ill-defined heart diseases (8) Aortic stenosis Status: Chronic Category: Medical Code(s): I35.0 - Nonrheumatic aortic (valve) stenosis (9) Leg edema Status: Acute Category: Medical Code(s): R60.0 - Localized edema (10) Hypokalemia Status: Acute Category: Medical Code(s): E87.6 - Hypokalemia (11) Chronic renal insufficiency Status: Acute Category: Medical Code(s): N18.9 - Chronic kidney disease, unspecified The patient's infection will respond to the chosen ABx?: Yes Is the patient receiving the right drug, dose, and route?: Yes Could a more targeted ABx be ordered?: No
[2021-01-29 08:00] VITALS: BP 146/72; PULSE 88; RESP 16; TEMP 36.6; O2SAT 94
--- NOTE | 2021-01-29 08:30 | XR_ITS ---
PROCEDURE: XR FOOT RT MIN 3V CLINICAL INDICATION: PVD, pain top of foot COMPARISON: CR XR FOOT RT MIN 3V from 07/10/2020 FINDINGS: No fracture or dislocation. No lytic or blastic change. There is normal mineralization. Calcification is present within the plantar fascia region posteriorly similar to the previous exam and may represent chronic plantar fasciitis. There is a tiny sliver of bone density along the dorsal aspect of the cuneiform similar to the previous exam and could represent an old avulsion fracture versus soft tissue calcification. Vascular calcifications are present. No bony erosive process is identified. Other findings:There is some mild soft tissue swelling all overlying the dorsal aspect of the mid metatarsal region IMPRESSION: Suspect chronic plantar fasciitis. Mild soft tissue swelling along the dorsal aspect of the mid metatarsal region. This is nonspecific. No underlying bony erosive process evident. Dictated by: Eduardo Davenport MD 01/29/2021 13:13 Eduardo Davenport MD in [facility] 01/29/2021 13:13
--- NOTE | 2021-01-29 09:17 | HMH.ACPN2 ---
<Yasmeen Soto - Last Filed: 01/29/21 09:17> Internal Medicine - PN: Subj *Date: 01/29/21 *Time: 09:17 Interval history: Patient continues to have pain in the right foot around the toe area. He requires regular pain medication. He denies chest pain and shortness of breath. He is eating without difficulty. He does ambulate with help to the bathroom. He feels the swelling in his legs continues to be better. He did not have reapplication of aces yesterday. Exam Vital signs and Labs for Last 24 Hours: Temp Pulse Resp BP Pulse Ox 97.9 F 88 16 146/72 H 94 L 01/29/21 08:00 01/29/21 08:00 01/29/21 08:00 01/29/21 08:00 01/29/21 08:00 Laboratory Results - last 24 hr 01/28/21 11:07: POC Glucose 275 H 01/28/21 16:04: POC Glucose 247 H 01/28/21 20:11: POC Glucose 307 H* 01/29/21 04:58: POC Glucose 212 H I & O for Last 24 hours: Intake & Output 01/26/21 01/27/21 01/28/21 01/29/21 11:59 11:59 11:59 11:59 Intake Total 1330 / 1330 720 / 720 480 / 480 480 / 480 Output Total 2200 / 2200 3775 / 3775 3650 / 3650 1550 / 1550 Balance -870 / -870 -3055 / -3055 -3170 / -3170 -1070 / -1070 Weight 252 lb 7 oz 251 lb 8 oz 250 lb 9 oz 247 lb 7 oz - Constitutional no acute distress - *Routine Respiratory Exam Present: crackles (Very few bibasilar crackles) - *Routine Cardiovascular Exam Present: RRR - *Routine Abdominal Exam Present: soft, normoactive bowel sounds, obese. Absent: tenderness - *Routine Extremities Exam Present: edema. Absent: calf tenderness Comments: Bilateral leg edema persist although it is better. Erythema is less intense. Blister on the right foot has greatly decreased. Fourth and fifth toes on the right foot remain very tender and erythemic. Left leg with less erythema. Scratches around knees appear to be healing. - *Routine Neurological Exam Present: alert, oriented X3 Assessment and Plan (1) Venous insufficiency Status: Acute Category: Medical Code(s): I87.2 - Venous insufficiency (chronic) (peripheral) (2) Peripheral artery disease Status: Chronic Category: Medical Code(s): I73.9 - Peripheral vascular disease, unspecified (3) Hypertension Status: Chronic Category: Medical Code(s): I10 - Essential (primary) hypertension (4) Type 2 diabetes mellitus Status: Chronic Category: Medical Code(s): E11.9 - Type 2 diabetes mellitus without complications (5) Cellulitis Status: Acute Category: Medical Code(s): L03.90 - Cellulitis, unspecified (6) Chronic low back pain Status: Chronic Category: Medical Code(s): M54.5 - Low back pain; G89.29 - Other chronic pain (7) Diastolic dysfunction Status: Chronic Category: Medical Code(s): I51.89 - Other ill-defined heart diseases (8) Aortic stenosis Status: Chronic Category: Medical Code(s): I35.0 - Nonrheumatic aortic (valve) stenosis (9) Leg edema Status: Acute Category: Medical Code(s): R60.0 - Localized edema (10) Hypokalemia Status: Acute Category: Medical Code(s): E87.6 - Hypokalemia (11) Chronic renal insufficiency Status: Acute Category: Medical Code(s): N18.9 - Chronic kidney disease, unspecified - Assessment and plan all Dx Assessment and Plan for all problems:: Continue with diuresis, wound care, and antibiotic. Will have an x-ray of the right foot today. <Tye Dubon - Last Filed: 01/29/21 22:44> Internal Medicine - PN: Subj *Date: 01/29/21 *Time: 22:42 Exam Vital signs and Labs for Last 24 Hours: Temp Pulse Resp BP Pulse Ox 98.0 F 106 H 18 160/83 H 95 01/29/21 20:00 01/29/21 20:00 01/29/21 20:00 01/29/21 20:00 01/29/21 20:00 Laboratory Results - last 24 hr 01/29/21 04:58: POC Glucose 212 H 01/29/21 11:14: POC Glucose 238 H 01/29/21 16:36: POC Glucose 219 H I & O for Last 24 hours: Intake & Output 01/27/21 01/28/21 01/29/21 01/30/21 11:59 11:59 11:59 11:59 Intake Total 720 / 72
--- NOTE | 2021-01-29 10:33 | HMH.PNCARD ---
Subjective Date: 01/29/21 Time: 10:00 Principal diagnosis: edema, venous insufficiency Interval history: 85-year-old male presented to [facility] last week with increased lower extremity edema along with cellulitis. Cause of the cellulitis and lower extremity edema was suspected to be from patient taking Actos. Actos had been stopped. Edema of the lower extremities is improving. Patient continues to diurese well. Patient is currently on Lasix 40 mg twice daily IV and is tolerating well. Total weight since admission is down 12 pounds that is not on the chart. Overall patient states he is feeling well. Patient is noted to have of venous insufficiency possibly due to the Actos. Legs are bilaterally wrapped. Dressings are clean and dry. Patient does complain of increased lower extremity pain of the right foot area due to blisters noted. Will defer pain management and wound care to PCP. Lab work revealed this morning revealed renal function is improving. Creatinine is 1.20 with a BUN of 22. Echocardiogram revealed EF 55% with grade 1 diastolic dysfunction. Moderate aortic stenosis was also noted. Patient denies chest pain, tightness or pressure. Patient denies shortness of breath. Discussed plan of care with Dr. Gacria. Will convert Lasix 40 mg twice daily to p.o. From a cardiac standpoint patient may be discharged home. Patient is to follow-up with cardiology in 1 to 2 weeks. Exam Vital signs and Labs for Last 24 Hours: Temp Pulse Resp BP Pulse Ox 97.9 F 88 16 146/72 H 94 L 01/29/21 08:00 01/29/21 08:00 01/29/21 08:00 01/29/21 08:00 01/29/21 08:00 Laboratory Results - last 24 hr 01/28/21 11:07: POC Glucose 275 H 01/28/21 16:04: POC Glucose 247 H 01/28/21 20:11: POC Glucose 307 H* 01/29/21 04:58: POC Glucose 212 H I & O for Last 24 hours: Intake & Output 01/26/21 01/27/21 01/28/21 01/29/21 23:59 23:59 23:59 23:59 Intake Total 1090 / 1090 480 / 480 480 / 480 600 / 600 Output Total 3325 / 3625 3650 / 3650 2125 / 2425 1025 / 1025 Balance -2235 / -2535 -3170 / -3170 -1645 / -1945 -425 / -425 Weight 252 lb 7 oz 251 lb 8 oz 250 lb 9 oz 247 lb 7 oz - Constitutional mild distress, obese, cooperative - *Routine HEENT Exam Head: Present: normocephalic ENT: Present: mucous membranes moist - *Routine Neck Exam Present: supple, full ROM, normal carotid upstroke. Absent: JVD, carotid bruit, lymphadenopathy - *Routine Respiratory Exam Present: accessory muscle use, CTA bilaterally - *Routine Cardiovascular Exam Present: RRR, Normal S1, Normal S2. Absent: murmur, click, bradycardia, tachycardia, JVD - *Routine Abdominal Exam Present: soft, normoactive bowel sounds. Absent: guarding, firm - *Routine Extremities Exam Present: edema, full ROM, pulses intact, normal capillary refill Comments: edema noted on the lower extremities. - *Routine Skin Exam Present: intact, erythema, dry, warm Comments: Blisters noted of the lower right foot. Right lower extremity noted as wrapped which is dry and intact. - *Routine Neurological Exam Present: alert, oriented X3, moving all extremities, normal speech - Routine Psychiatric Exam Present: normal affect, cooperative Progress Note: A&P (1) Venous insufficiency Status: Acute (2) Peripheral artery disease Status: Chronic (3) Hypertension Status: Chronic (4) Type 2 diabetes mellitus Status: Chronic (5) Cellulitis Status: Acute (6) Chronic low back pain Status: Chronic (7) Diastolic dysfunction Status: Chronic (8) Aortic stenosis Status: Chronic (9) Leg edema Status: Acute (10) Hypokalemia Status: Acute (11) Chronic renal insufficiency Status: Acute Assessment and Plan for All Diagnoses:: Plan: 1. Patient is diuresing well. Will switch Lasix to 40 mg twice daily p.o. Creatinine level 1.20. 2. From a cardiac standpoint patient may be discharged.
[2021-01-29 12:17] LABS: POC Glucose,Bedside 238 (70-110)
[2021-01-29 16:00] VITALS: BP 147/70; PULSE 74; RESP 16; TEMP 36.4; O2SAT 95
[2021-01-29 16:48] LABS: POC Glucose,Bedside 219 (70-110)
--- NOTE | 2021-01-29 19:22 | PC.NURSE ---
Pt alert and oriented and able to make needs known. RR even and unlabored. Meds given per mar. VSS. BS x 4, heart murmur noted. Dsg changed to R foot per PT. CB in reach.
[2021-01-29 20:00] VITALS: BP 160/83; PULSE 106; RESP 18; TEMP 36.7; O2SAT 95
[2021-01-29 20:30] VITALS: PULSE 106; O2SAT 95
[2021-01-29 22:43] LABS: POC Glucose,Bedside 299 (70-110)
[2021-01-30 04:00] VITALS: BP 137/68; PULSE 69; RESP 17; TEMP 36.7; O2SAT 94
[2021-01-30 05:00] VITALS: BMI 38.9
--- NOTE | 2021-01-30 05:45 | PC.NURSE ---
PT ALERT AND ORIENTED ,HAS BEEN MEDICATED SEVERAL TIMES WITH DILAUDID FOR SHOOTING PAIN IN HIS RIGHT LEG AND FOOT,RIGHT FOOT COVERED WITH KERLIX,NO DRAINAGE NOTED.PEDAL PULSES NOTED LUNGS CLEAR THROUGHOUT,VOIDS PER URINAL
[2021-01-30 05:47] LABS: POC Glucose,Bedside 210 (70-110)
[2021-01-30 07:16] LABS: Anion Gap 10.9 mEq/L (5-15); Blood Urea Nitrogen 23 mg/dl (9-20); Calcium 9.4 mg/dl (8.4-10.2); Carbon Dioxide 31 mmol/L (22.0-30.0); Chloride 99 mmol/L (98-107); Creatinine Clearance Estimated 58 mL/min (50-200); Estimated Glomerular Filt Rate 45 ml/min (>60); GFR (African American) 54 ML/MIN (>60); Glucose 212 mg/dl (74-100); Potassium 3.9 mmoL/L (3.5-5.1); Sodium 137 mmol/L (136-145)
[2021-01-30 08:00] VITALS: BP 130/70; PULSE 90; RESP 19; TEMP 36.9; O2SAT 94
--- NOTE | 2021-01-30 08:40 | HMH.ACPN2 ---
<Yasmeen Soto - Last Filed: 01/30/21 08:51> Internal Medicine - PN: Subj *Date: 01/30/21 *Time: 08:51 Interval history: Patient states right foot/toes still hurt. He requires p.o. and IV pain meds. He continues with diuresis. And feels the swelling in his legs has decreased. He is eating without difficulty. Is very painful when he bears weight on that right foot. Right foot X-ray shows the following; IMPRESSION: Suspect chronic plantar fasciitis. Mild soft tissue swelling along the dorsal aspect of the mid metatarsal region. This is nonspecific. No underlying bony erosive Laboratory data this morning shows a BUN of 23 and creatinine 1.5. Sodium is 137 with a potassium of 3.9. process evident. Exam Vital signs and Labs for Last 24 Hours: Temp Pulse Resp BP Pulse Ox 98.5 F 90 19 130/70 94 L 01/30/21 08:00 01/30/21 08:00 01/30/21 08:00 01/30/21 08:00 01/30/21 08:00 Laboratory Results - last 24 hr 01/29/21 11:14: POC Glucose 238 H 01/29/21 16:36: POC Glucose 219 H 01/29/21 20:53: POC Glucose 299 H 01/30/21 05:39: POC Glucose 210 H 01/30/21 06:03: Sodium 137, Potassium 3.9, Chloride 99, Carbon Dioxide 31 H, Anion Gap 10.9, BUN 23 H, Creatinine 1.50 H D, Estimated Creat Clear 58, Estimated GFR 45 L, Est GFR ( Amer) 54 L D, Glucose 212 H, Calcium 9.4 I & O for Last 24 hours: Intake & Output 01/27/21 01/28/21 01/29/21 01/30/21 11:59 11:59 11:59 11:59 Intake Total 720 / 720 480 / 480 840 / 840 920 / 920 Output Total 3775 / 3775 3650 / 3650 1850 / 1850 1750 / 1750 Balance -3055 / -3055 -3170 / -3170 -1010 / -1010 -830 / -830 Weight 251 lb 8 oz 250 lb 9 oz 247 lb 7 oz 248 lb 6 oz - Constitutional no acute distress Comments: Conversant - *Routine Respiratory Exam Present: CTA bilaterally (Anteriorly and posteriorly) - *Routine Cardiovascular Exam Present: RRR - *Routine Abdominal Exam Present: soft, normoactive bowel sounds, obese. Absent: tenderness - *Routine Extremities Exam Present: edema (Bilateral lower leg) Comments: Less erythema. Patient did not want me to remove his sock. He states he has a dressing on the lower foot placed by PT yesterday. Is very painful on any kind of movement. Assessment and Plan (1) Venous insufficiency Status: Acute Category: Medical Code(s): I87.2 - Venous insufficiency (chronic) (peripheral) (2) Peripheral artery disease Status: Chronic Category: Medical Code(s): I73.9 - Peripheral vascular disease, unspecified (3) Hypertension Status: Chronic Category: Medical Code(s): I10 - Essential (primary) hypertension (4) Type 2 diabetes mellitus Status: Chronic Category: Medical Code(s): E11.9 - Type 2 diabetes mellitus without complications (5) Cellulitis Status: Acute Category: Medical Code(s): L03.90 - Cellulitis, unspecified (6) Chronic low back pain Status: Chronic Category: Medical Code(s): M54.5 - Low back pain; G89.29 - Other chronic pain (7) Diastolic dysfunction Status: Chronic Category: Medical Code(s): I51.89 - Other ill-defined heart diseases (8) Aortic stenosis Status: Chronic Category: Medical Code(s): I35.0 - Nonrheumatic aortic (valve) stenosis (9) Leg edema Status: Acute Category: Medical Code(s): R60.0 - Localized edema (10) Hypokalemia Status: Acute Category: Medical Code(s): E87.6 - Hypokalemia (11) Chronic renal insufficiency Status: Acute Category: Medical Code(s): N18.9 - Chronic kidney disease, unspecified - Assessment and plan all Dx Assessment and Plan for all problems:: Lasix has been increased for ongoing diuresis. We will continue with wound care per PT and antibiotics. <Tye Dubon - Last Filed: 01/30/21 18:36> Internal Medicine - PN: Subj *Date: 01/30/21 *Time: 18:32 Exam Vital signs and Labs for Last 24 Hours: Temp Pulse Resp BP Pulse Ox 98.2 F 84 17 137/63 96 01/30/21 16:
[2021-01-30 12:13] LABS: POC Glucose,Bedside 266 (70-110)
[2021-01-30 16:00] VITALS: BP 137/63; PULSE 84; RESP 17; TEMP 36.8; O2SAT 96
[2021-01-30 17:13] LABS: POC Glucose,Bedside 198 (70-110)
[2021-01-30 20:00] VITALS: BP 128/66; PULSE 90; RESP 20; TEMP 36.7; O2SAT 93
[2021-01-30 21:00] LABS: POC Glucose,Bedside 288 (70-110)
--- NOTE | 2021-01-31 04:08 | PC.NURSE ---
no acute changes this shift. patient has remained A&O x4 throughout shift and has slept comfortably. No changes this shift to skin wounds on foot. pitting edema bilaterally on lower extremities 3+ unchanged. Lungs ctab. Bowel sounds active X4. Abdomen, soft, non distended and non tender. Patient medicated per jan for pain.
--- NOTE | 2021-01-31 04:54 | PC.NURSE ---
All Pt care and charting directly supervised by this RN
[2021-01-31 05:00] VITALS: BMI 38.9
[2021-01-31 06:21] LABS: POC Glucose,Bedside 219 (70-110)
[2021-01-31 06:45] LABS: Basophils % 0.4 % (0.1-2.0); Eosinophils # 0.5 K/mm3 (0.0-0.4); Hematocrit 34.5 % (42.0-52.0); Hemoglobin 11.1 g/dL (14.1-18.0); Lymphocytes % 24.4 % (10-50); Mean Corpuscular HGB Conc 32.1 g/dL (31.8-35.4); Mean Corpuscular Hemoglobin 31.4 pg (27.0-31.2); Mean Corpuscular Volume 97.8 fl (80-94); Mean Platelet Volume 7.9 fl (7.4-10.4); Monocytes # 0.7 K/mm3 (0.1-1.0); Monocytes % 8.5 % (1.7-9.3); Neutrophils % 60.7 % (37.0-80.0); Platelet Count 204 K/mm3 (142-424); Red Blood Count 3.52 M/mm3 (4.60-6.20); White Blood Count 8.3 K/mm3 (4.8-10.8)
[2021-01-31 07:04] LABS: Anion Gap 8.7 mEq/L (5-15); Blood Urea Nitrogen 25 mg/dl (9-20); Calcium 9.1 mg/dl (8.4-10.2); Carbon Dioxide 34 mmol/L (22.0-30.0); Chloride 99 mmol/L (98-107); Creatinine Clearance Estimated 63 mL/min (50-200); Estimated Glomerular Filt Rate 48 ml/min (>60); GFR (African American) 58 ML/MIN (>60); Glucose 223 mg/dl (74-100); Potassium 3.7 mmoL/L (3.5-5.1); Sodium 138 mmol/L (136-145)
--- NOTE | 2021-01-31 07:40 | HMH.ACPN2 ---
<Yasmeen Soto - Last Filed: 01/31/21 07:40> Internal Medicine - PN: Subj *Date: 01/31/21 *Time: 07:40 Interval history: Patient states he slept better than he has since he has been here. He continues to eat well. He continues to have pain in the right foot. He is taking p.o. meds mostly now. The p.o. meds help but it takes them a while to take effect. He continues to diurese although weight stays about the same. Denies chest pain and shortness of breath. Blood chemistries this morning show a BUN of 25 and creatinine 1.4 which is very stable. CBC shows a white blood cell count of 8300 with a hemoglobin of 11.1 hematocrit of 34.5. Arterial duplex bilateral lower extremities completed 01/23/2021: Findings Monophasic waveforms throughouit exam. Scant bilateral arterial calf flow observed. Diffuse atherosclerosis throughout the right lower extremity. Lower Extremity Duplex Evaluation is consistent with severe occlusive disease on the Right. Diffuse atherosclerotic plaque noted throughout the Right lower extremity arteries. Conclusion Monophasic waveforms throughouit exam. Scant bilateral arterial calf flow observed. Diffuse atherosclerosis throughout the right lower extremity. Lower Extremity Duplex Evaluation is consistent with severe occlusive disease on the Right and moderate occlusive disease on the left. Diffuse atherosclerotic plaque noted throughout the Right lower extremity arteries. See wound care note Exam Vital signs and Labs for Last 24 Hours: Temp Pulse Resp BP Pulse Ox 98.1 F 90 20 128/66 93 L 01/30/21 20:00 01/30/21 20:00 01/30/21 20:00 01/30/21 20:00 01/30/21 20:00 Laboratory Results - last 24 hr 01/30/21 12:02: POC Glucose 266 H 01/30/21 17:05: POC Glucose 198 H 01/30/21 20:50: POC Glucose 288 H 01/31/21 06:06: WBC 8.3, RBC 3.52 L, Hgb 11.1 L, Hct 34.5 L, MCV 97.8 H, MCH 31.4 H, MCHC 32.1, RDW 14.0, Plt Count 204, MPV 7.9, Neut % (Auto) 60.7, Lymph % (Auto) 24.4, [place] % (Auto) 8.5, Eos % (Auto) 6.0, Baso % (Auto) 0.4, Neut # (Auto) 5.0, Lymph # (Auto) 2.0, [place] # (Auto) 0.7, Eos # (Auto) 0.5 H, Baso # (Auto) 0.0 01/31/21 06:06: Sodium 138, Potassium 3.7, Chloride 99, Carbon Dioxide 34 H, Anion Gap 8.7, BUN 25 H, Creatinine 1.40 H, Estimated Creat Clear 63, Estimated GFR 48 L, Est GFR ( Amer) 58 L, Glucose 223 H, Calcium 9.1 01/31/21 06:12: POC Glucose 219 H I & O for Last 24 hours: Intake & Output 01/28/21 01/29/21 01/30/21 01/31/21 11:59 11:59 11:59 11:59 Intake Total 480 / 480 840 / 840 920 / 920 360 / 360 Output Total 3650 / 3650 1850 / 1850 1750 / 1750 2850 / 2850 Balance -3170 / -3170 -1010 / -1010 -830 / -830 -2490 / -2490 Weight 250 lb 9 oz 247 lb 7 oz 248 lb 6 oz 248 lb 5.964 oz - Constitutional no acute distress Comments: Sitting up in the bed and appears comfortable. Has completed breakfast. - *Routine Respiratory Exam Present: CTA bilaterally (Anteriorly and posteriorly) - *Routine Cardiovascular Exam Present: RRR - *Routine Abdominal Exam Present: soft, normoactive bowel sounds, obese. Absent: tenderness - *Routine Extremities Exam Present: edema (She still has some edema bilateral lower extremities.) Comments: Right foot without dressing this a.m. Blister on dorsal aspect smaller. With the fifth toe with some erythema although covered with Betadine. Too painful for palpation. Left lower extremity with less edema and minimal erythema. - *Routine Neurological Exam Present: alert, oriented X3 Assessment and Plan (1) Venous insufficiency Status: Acute Category: Medical Code(s): I87.2 - Venous insufficiency (chronic) (peripheral) (2) Peripheral artery disease Status: Chronic Category: Medical Code(s): I73.9 - Peripheral vascular disease, unspecified (3) Hypertension Status: Chronic Category: Medical Code(s): I10 - Essential (primary) hypertension (4) Type 2 diabetes mellitus Status: Chronic Categor
[2021-01-31 08:00] VITALS: BP 141/66; PULSE 84; RESP 20; TEMP 36.6; O2SAT 92
--- NOTE | 2021-01-31 11:30 | HMH.ORTHOCON ---
*Admission Date: 01/22/21 *Reason for consult:: Right ishemic toe *History of present illness: Patient is resting comfortably in bed. He reports pain to the right foot and toes. He states he has a manager personal in [place] he sees every few months for routine diabetic foot care. He states when he last saw her last month he did not have the wound. Patient complains of rest pain. [facility] History I have reviewed the patient's past medical history: Yes Medical History: Reports:: Diabetes Mellitus Type 2, Heart Murmur, Hyperlipidemia, Hypertension, Peripheral Artery Disease, Peripheral Vascular Disease Denies:: Cancer, Diabetes Mellitus Type 1, MRSA *Have you ever received a pneumonia vaccine?: Yes *Have you received a flu vaccine this season?: Yes Other Medical History: Reports: Glaucoma Laterality Cases: Bilateral: Cataract Amputation: No Fractures: No - *Social History Last grade of school completed: Some college Smoking Status: Never smoker Alcohol Intake: never *Occupational Status:: retired Housing: apartment Household Members: spouse *Travel in the last 8 weeks: None Family Hx:: No significant family history Review of Systems - Constitutional Denies fever(s) - Eyes Denies blind spots - ENT Denies abnormal hearing - *Cardiovascular Denies chest pain, Denies shortness of breath - *Respiratory Denies cough - *Gastrointestinal Denies nausea, Denies vomiting - *Genitourinary Denies difficulty urinating - *Musculoskeletal Reports joint swelling, Reports stiffness - Integumentary/Breasts Reports hair loss, Reports dry skin, Reports sores, Reports wounds - *Neurologic Reports abnormal walking, Reports numbness, Denies headache(s) - Psychiatric Denies abnormal sleep pattern - Endocrine Reports cold intolerance - Hematologic/Lymphatic Reports easy bruising Meds Home Medications Medication Instructions Recorded Confirmed Type Ascorbic Acid [Vitamin C with Ermelinda 1,000 mg PO DAILY 01/23/21 01/23/21 History Hips] Aspirin [Aspirin 81mg EC Tab] 81 mg PO DAILY 01/23/21 01/23/21 History Atorvastatin Calcium [Lipitor 40mg 40 mg PO HS 01/23/21 01/23/21 History Tab] Bimatoprost [Lumigan 0.01% Ophth 1 drp OP PM 01/23/21 01/23/21 History Soln 2.5mL] Chlorthalidone 25 mg PO DAILY 01/23/21 01/23/21 History Cholecalciferol (Vitamin D3) 1,000 unit PO DAILY 01/23/21 01/23/21 History [Vitamin D3 1,000 Unit Cap] Clopidogrel Bisulfate [Clopidogrel 75 mg PO DAILY 01/23/21 01/23/21 History 75mg Tab] Dorzolamide/Timolol/Pf [Cosopt Pf 1 drp OP BID 01/23/21 01/23/21 History Eye Drops] Furosemide [Furosemide 40MG tAB*] 40 mg PO BID 01/23/21 01/23/21 History Oxycodone HCl/Acetaminophen 1 tab PO Q6HP PRN 01/23/21 01/23/21 History [Endocet 5-325 Tablet] Pioglitazone HCl/Metformin HCl 1 tab PO BID 01/23/21 01/23/21 History [Actoplus Met 15 mg-850 mg Tab] Potassium Chloride [Pot Chlor 10 10 meq PO DAILY 01/23/21 01/23/21 History mEq Tab] Pregabalin 100 mg PO BID 01/23/21 01/23/21 History Tamsulosin HCl [Flomax 0.4mg 0.4 mg PO HS 01/23/21 01/23/21 History capsule] Triamterene/Hydrochlorothiazid 1 tab PO DAILY 01/23/21 01/23/21 History [Triamterene-Hctz 37.5-25 mg Tb] Allergies Allergy/AdvReac Type Severity Reaction Status Date / Time latex Allergy Unknown Unknown Verified 01/24/21 11:17 allergy reaction quinidine Allergy Unknown Unknown Verified 01/24/21 11:17 allergy reaction Exam Vital signs and Labs for Last 24 Hours: Temp Pulse Resp BP Pulse Ox 97.9 F 84 20 141/66 H 92 L 01/31/21 08:00 01/31/21 08:00 01/31/21 08:00 01/31/21 08:00 01/31/21 08:00 Laboratory Results - last 24 hr 01/30/21 12:02: POC Glucose 266 H 01/30/21 17:05: POC Glucose 198 H 01/30/21 20:50: POC Glucose 288 H 01/31/21 06:06: WBC 8.3, RBC 3.52 L, Hgb 11.1 L, Hct 34.5 L, MCV 97.8 H, MCH 31.4 H, MCHC 32.1, RDW 14.0, Plt Count 204, MPV 7.9, Neut %
[2021-01-31 11:41] LABS: POC Glucose,Bedside 263 (70-110)
[2021-01-31 15:49] LABS: POC Glucose,Bedside 238 (70-110)
[2021-01-31 16:00] VITALS: BP 132/61; PULSE 81; RESP 18; TEMP 36.8; O2SAT 96
--- NOTE | 2021-01-31 18:41 | PC.NURSE ---
Pt alert and oriented x 4. CB in reach. Have encouraged pt to take PO pain meds prior to IV pain meds. Meds given per mar. Pt has slept at intervals throughout shift. Voids per BR with stand by asist. BS active, heart murmur noted.VSS.Dsg is cdi to the RLE.
[2021-01-31 20:00] VITALS: BP 147/71; PULSE 83; RESP 16; TEMP 37; O2SAT 97
[2021-01-31 21:53] LABS: Vancomycin,Trough 15.2 ug/mL (5.0-10.0)
[2021-01-31 21:57] LABS: POC Glucose,Bedside 278 (70-110)
[2021-01-31 23:56] VITALS: RESP 18
--- NOTE | 2021-02-01 02:54 | PC.NURSE ---
pt reports pain to right fifth toe area that is shooting stabbing pain. po prn med given with relief. new iv placed this shift. pt alert and oriented. uses urinal. vss. dressing in place to right foot. call light in reach. will continue to monitor
[2021-02-01 03:49] VITALS: BP 144/77; PULSE 67; RESP 17; TEMP 36.8; O2SAT 92
[2021-02-01 05:00] VITALS: BMI 38.8
[2021-02-01 06:10] VITALS: RESP 18
[2021-02-01 06:24] LABS: POC Glucose,Bedside 199 (70-110)
[2021-02-01 08:00] VITALS: BP 156/72; PULSE 85; RESP 18; TEMP 36.4; O2SAT 96
--- NOTE | 2021-02-01 08:11 | HMH.ACPN2 ---
<Meg Ching - Last Filed: 02/01/21 08:11> Internal Medicine - PN: Subj *Date: 02/01/21 *Time: 08:11 Interval history: Patient states he is feeling better today. He denies any pain other than in his right foot. He states his leg swelling seems to be much better. He slept off and on last night and is eating breakfast this morning. Exam Vital signs and Labs for Last 24 Hours: Temp Pulse Resp BP Pulse Ox 97.6 F 85 18 156/72 H 96 02/01/21 08:00 02/01/21 08:00 02/01/21 08:00 02/01/21 08:00 02/01/21 08:00 Laboratory Results - last 24 hr 01/31/21 11:34: POC Glucose 263 H 01/31/21 15:37: POC Glucose 238 H 01/31/21 20:25: Vancomycin Trough 15.2 H 01/31/21 21:32: POC Glucose 278 H 02/01/21 06:09: POC Glucose 199 H I & O for Last 24 hours: Intake & Output 01/29/21 01/30/21 01/31/21 02/01/21 11:59 11:59 11:59 11:59 Intake Total 840 / 840 920 / 920 720 / 720 1450 / 1450 Output Total 1850 / 1850 1750 / 1750 2850 / 2850 1050 / 1050 Balance -1010 / -1010 -830 / -830 -2130 / -2130 400 / 400 Weight 247 lb 7 oz 248 lb 6 oz 248 lb 5.964 oz 247 lb 8 oz Microbiology Reports for the Last 24 Hours: Microbiology 01/31/21 09:11 Foot,Right Gram Stain - Final - Constitutional no acute distress - *Routine Respiratory Exam Present: CTA bilaterally - *Routine Cardiovascular Exam Present: RRR - *Routine Abdominal Exam Present: soft, normoactive bowel sounds. Absent: tenderness - *Routine Extremities Exam Present: edema (2+ edema bilateral lower extremities, dressing in place on right foot) - *Routine Skin Exam Present: warm. Absent: rash - *Routine Neurological Exam Present: alert, oriented X3 Assessment and Plan (1) Venous insufficiency Status: Acute Category: Medical Code(s): I87.2 - Venous insufficiency (chronic) (peripheral) (2) Peripheral artery disease Status: Chronic Category: Medical Code(s): I73.9 - Peripheral vascular disease, unspecified (3) Hypertension Status: Chronic Category: Medical Code(s): I10 - Essential (primary) hypertension (4) Type 2 diabetes mellitus Status: Chronic Category: Medical Code(s): E11.9 - Type 2 diabetes mellitus without complications (5) Cellulitis Status: Acute Category: Medical Code(s): L03.90 - Cellulitis, unspecified (6) Chronic low back pain Status: Chronic Category: Medical Code(s): M54.5 - Low back pain; G89.29 - Other chronic pain (7) Diastolic dysfunction Status: Chronic Category: Medical Code(s): I51.89 - Other ill-defined heart diseases (8) Aortic stenosis Status: Chronic Category: Medical Code(s): I35.0 - Nonrheumatic aortic (valve) stenosis (9) Leg edema Status: Acute Category: Medical Code(s): R60.0 - Localized edema (10) Hypokalemia Status: Acute Category: Medical Code(s): E87.6 - Hypokalemia (11) Chronic renal insufficiency Status: Acute Category: Medical Code(s): N18.9 - Chronic kidney disease, unspecified - Assessment and plan all Dx Assessment and Plan for all problems:: Right foot wound was debrided yesterday and will be again today by podiatry. They do not plan any surgical intervention. The patient's cellulitis has improved as has the swelling. Possible discharge home tomorrow. <Tye Dubon - Last Filed: 02/01/21 17:28> Internal Medicine - PN: Subj *Date: 02/01/21 *Time: 17:28 Exam Vital signs and Labs for Last 24 Hours: Temp Pulse Resp BP Pulse Ox 98.1 F 90 19 134/52 L 95 02/01/21 15:29 02/01/21 15:29 02/01/21 15:29 02/01/21 15:29 02/01/21 15:29 Laboratory Results - last 24 hr 01/31/21 20:25: Vancomycin Trough 15.2 H 01/31/21 21:32: POC Glucose 278 H 02/01/21 06:09: POC Glucose 199 H 02/01/21 11:13: POC Glucose 267 H 02/01/21 15:32: POC Glucose 223 H I & O for Last 24 hours: Intake & Output 01/30/21 01/31/21 02/01/21 02/02/21 11:59 11:59 11:59 11:59 Intake Total 920 / 920
--- NOTE | 2021-02-01 08:29 | HMH.ORTHPN ---
Subjective Date: 02/01/21 <Sara Be - 02/01/21 08:46> Time: 08:10 <Sara Be - 02/01/21 08:46> Principal diagnosis: edema, venous insufficiency <Sara Be - 02/01/21 08:46> Interval history: Patient doing very well this morning was sitting up on side of the bed finishing up his breakfast. States no pain to lower extremity feeling much better. Patient still has some edema to bilateral lower extremities the right lower extremity still little cooler to touch compared to the left. Bilateral pulses are still weakly palpable both DP/ PT. The blister that was popped to the top of the right foot is much drier operator helper looks really good today. The right fourth toe is dry there is no drainage seems to be a little darker around the base of the toe compared to yesterday. I will do another dressing change on the patient today using the Betadine soaked 4 x 4, dry sterile dressing lightly applied to the foot. I discussed with patient about his follow-up concerning his current pediatric urologist or using Dr. Muñoz and Basim for his follow-up and the patient stated he is getting older and this would be easier and more convenient for him to follow-up with us but then again his eye doctor is beside his pediatric urologist in [place] so he is still unsure at this time what he wants to do. We will need to get clarification before discharge who he would like to follow-up with. <Sara Be - 02/01/21 08:49> PN: Obj Ex Vital signs: Temp Pulse Resp BP Pulse Ox 97.6 F 85 18 156/72 H 96 02/01/21 08:00 02/01/21 08:00 02/01/21 08:00 02/01/21 08:00 02/01/21 08:00 <Fang Muñoz - 02/01/21 12:57> Temp Pulse Resp BP Pulse Ox 97.6 F 85 18 156/72 H 96 02/01/21 08:00 02/01/21 08:00 02/01/21 08:00 02/01/21 08:00 02/01/21 08:00 <Sara Be - 02/01/21 08:46> - Constitutional no acute distress <Sara Be 02/01/21 08:46> - Routine HEENT Exam Head: Present: normocephalic <Sara Be 02/01/21 08:46> Eye: Present: PERRL <Sara Be 02/01/21 08:46> ENT: Present: mucous membranes moist <Sara Be 02/01/21 08:46> - Routine Neck Exam Present: full ROM, trachea midline <Sara Be 02/01/21 08:46> - Routine Chest/Breast/Axilla Exam Chest wall: Absent: tenderness <Sara Be 02/01/21 08:46> - Routine Respiratory Exam Absent: respiratory distress <Sara Be 02/01/21 08:46> - Routine Cardiovascular Exam Present: RRR <Sara Be 02/01/21 08:46> - Routine Abdominal Exam Present: soft. Absent: distended <Sara Be 02/01/21 08:46> - Detailed Lower Extremity Exam Top foot image: 1 - 1 - Dry skin from where the blisterwas noted to the dorsal right midfoot, ~5cm round. Wound culture Pending from the drainage. There was black ischemic changes noted to the right 4-5th toes. The dorsal 4th MPJ had an abrasion which peeled off. The skin changes were superficial, ~1x1cm and did not extend deep to subq, deep fascia. No exposed bone. Weakly palpable pedal pulses. CFT delayed. Skin temp warm to b/l legs, but cool to distal toes. <Sara Be 02/01/21 08:46> - Routine Back/Spine/Pelvis Exam Back/Spine: Present: full ROM <Sara Be 02/01/21 08:46> - Routine Skin Exam Present: erythema, dry, wounds <[place] Alphonse 02/01/21 08:46> - Routine Neurological Exam Present: oriented X3, vision grossly intact, hearing grossly intact <[place] Alph[place] 02/01/21 08:46> - Routine Psychiatric Exam Present: normal affect <[place]ara Alphonse 02/01/21 08:46> Progress Note: A&P (1) Venous insufficiency Status: Acute (2) Peripheral artery disease Status: Chronic (3) Hypertension Status: Chronic (4) Type 2 diabetes mellitus Status: Chronic (5) Cellulitis Status: Acute (6) Chronic low back pain Status: Chronic (7) Kumar
[2021-02-01 11:21] LABS: POC Glucose,Bedside 267 (70-110)
[2021-02-01 15:29] VITALS: BP 134/52; PULSE 90; RESP 19; TEMP 36.7; O2SAT 95
[2021-02-01 15:44] LABS: POC Glucose,Bedside 223 (70-110)
--- NOTE | 2021-02-01 16:04 | PC.WOUNDNOTE ---
Wound Location: Length: 2 inches Width: 1.5 inches Inflammation/swelling Y/N:y Pain and/or tenderness Y/N:y Exudate: Serosanguinous purulent Color: Clear [place] Yellow Consistency: Thin Amount: None Scant Odor Y/N:N RED AREA WITH SKIN BREAKDOWN. PATIENT'S STATED THAT DR. HERNANDEZ IS AWARE AND PATIENT HAS CREAM THAT SPOUSE APPLIES. PATIENT'S SPOUSE STATED THAT PATIENT HAS HAD THE SKIN ISSUE BEFORE ADMISSION BUT THAT IT IS NOW OPEN.
--- NOTE | 2021-02-01 16:10 | PC.WOUNDNOTE ---
Wound Location: RIGHT SIDE BUTTOCK Length:2 INCH Width: 2 INCH Inflammation/swelling Y/N:N Pain and/or tenderness Y/N:N Odor Y/N: N SKIN IS RED IN COLOR WITH DRY SCALLING SKIN. PATIENT'S SPOUSE STATED THAT PATIENT HAD THIS ISSUE BEFORE ADMISSION.
[2021-02-01 20:00] VITALS: BP 152/65; PULSE 92; RESP 18; TEMP 36.9; O2SAT 94
[2021-02-01 20:37] LABS: POC Glucose,Bedside 319 (70-110)
[2021-02-01 23:59] VITALS: RESP 18
[2021-02-02 04:00] VITALS: BP 157/69; PULSE 81; RESP 20; TEMP 36.6; O2SAT 96
[2021-02-02 05:00] VITALS: BMI 38.6
--- NOTE | 2021-02-02 05:31 | PC.NURSE ---
alert and oriented. iv patent. vss. pt slept well through most of shift. uses urinal. pain reported to right foot and prn meds given per order. call light in reach. will continue to monitor
[2021-02-02 05:57] LABS: POC Glucose,Bedside 211 (70-110)
[2021-02-02 07:38] VITALS: BP 152/75; PULSE 88; RESP 19; TEMP 36.7; O2SAT 95
--- NOTE | 2021-02-02 08:04 | HMH.ACPN2 ---
<Meg Ching - Last Filed: 02/02/21 08:04> Internal Medicine - PN: Subj *Date: 02/02/21 *Time: 08:04 Interval history: Patient states he is feeling well this morning. His only pain is in his toes. He thinks his leg swelling has improved. He slept better last night and ate a good breakfast this morning. Exam Vital signs and Labs for Last 24 Hours: Temp Pulse Resp BP Pulse Ox 98.1 F 88 19 152/75 H 95 02/02/21 07:38 02/02/21 07:38 02/02/21 07:38 02/02/21 07:38 02/02/21 07:38 Laboratory Results - last 24 hr 02/01/21 11:13: POC Glucose 267 H 02/01/21 15:32: POC Glucose 223 H 02/01/21 20:22: POC Glucose 319 H* 02/02/21 05:47: POC Glucose 211 H I & O for Last 24 hours: Intake & Output 01/30/21 01/31/21 02/01/21 02/02/21 11:59 11:59 11:59 11:59 Intake Total 920 / 920 720 / 720 1450 / 1450 1080 / 1080 Output Total 1750 / 1750 2850 / 2850 1050 / 1050 1300 / 1300 Balance -830 / -830 -2130 / -2130 400 / 400 -220 / -220 Weight 248 lb 6 oz 248 lb 5.964 oz 247 lb 8 oz 246 lb 1 oz Microbiology Reports for the Last 24 Hours: Microbiology 01/31/21 09:11 Foot,Right Gram Stain - Final 01/31/21 09:11 Foot,Right Wound Culture - Preliminary NO GROWTH AFTER 24 HOURS - Constitutional no acute distress - *Routine Respiratory Exam Present: CTA bilaterally - *Routine Cardiovascular Exam Present: RRR - *Routine Abdominal Exam Present: soft, normoactive bowel sounds. Absent: tenderness - *Routine Extremities Exam Present: edema (2+ pretibial edema bilaterally) - *Routine Skin Exam Present: warm. Absent: rash Comments: dressing in place on right foot - *Routine Neurological Exam Present: alert, oriented X3 Assessment and Plan (1) Venous insufficiency Status: Acute Category: Medical Code(s): I87.2 - Venous insufficiency (chronic) (peripheral) (2) Peripheral artery disease Status: Chronic Category: Medical Code(s): I73.9 - Peripheral vascular disease, unspecified (3) Hypertension Status: Chronic Category: Medical Code(s): I10 - Essential (primary) hypertension (4) Type 2 diabetes mellitus Status: Chronic Category: Medical Code(s): E11.9 - Type 2 diabetes mellitus without complications (5) Cellulitis Status: Acute Category: Medical Code(s): L03.90 - Cellulitis, unspecified (6) Chronic low back pain Status: Chronic Category: Medical Code(s): M54.5 - Low back pain; G89.29 - Other chronic pain (7) Diastolic dysfunction Status: Chronic Category: Medical Code(s): I51.89 - Other ill-defined heart diseases (8) Aortic stenosis Status: Chronic Category: Medical Code(s): I35.0 - Nonrheumatic aortic (valve) stenosis (9) Leg edema Status: Acute Category: Medical Code(s): R60.0 - Localized edema (10) Hypokalemia Status: Acute Category: Medical Code(s): E87.6 - Hypokalemia (11) Chronic renal insufficiency Status: Acute Category: Medical Code(s): N18.9 - Chronic kidney disease, unspecified - Assessment and plan all Dx Assessment and Plan for all problems:: Dr. Muñoz is changing his dressing this morning. His cellulitis and swelling have improved. He can likely be discharged home today. <Tye Dubon - Last Filed: 02/02/21 12:49> Internal Medicine - PN: Subj *Date: 02/02/21 *Time: 12:45 Exam Vital signs and Labs for Last 24 Hours: Temp Pulse Resp BP Pulse Ox 98.1 F 88 19 152/75 H 95 02/02/21 07:38 02/02/21 07:38 02/02/21 07:38 02/02/21 07:38 02/02/21 07:38 Laboratory Results - last 24 hr 02/01/21 15:32: POC Glucose 223 H 02/01/21 20:22: POC Glucose 319 H* 02/02/21 05:47: POC Glucose 211 H I & O for Last 24 hours: Intake & Output 01/31/21 02/01/21 02/02/21 02/03/21 11:59 11:59 11:59 11:59 Intake Total 720 / 720 1450 / 1450 1080 / 1080 Output Total 2850 / 2850 1050 / 1050 1300 / 1300 Balance -2130 / -2130 400 / 4
--- NOTE | 2021-02-02 08:14 | HMH.ORTHPN ---
Subjective Date: 02/02/21 Time: 07:55 Principal diagnosis: edema, venous insufficiency Interval history: Patient is resting comfortably at the bedside. He reports pain to the right foot toes. He denies any new symptoms or changes. Denies N/V, F/C. PN: Obj Ex Vital signs: Temp Pulse Resp BP Pulse Ox 98.1 F 88 19 152/75 H 95 02/02/21 07:38 02/02/21 07:38 02/02/21 07:38 02/02/21 07:38 02/02/21 07:38 - Constitutional no acute distress - Routine HEENT Exam Head: Present: normocephalic Eye: Present: EOMI ENT: Present: mucous membranes moist - Routine Neck Exam Present: supple - Routine Respiratory Exam Present: accessory muscle use - Routine Cardiovascular Exam Present: RRR - Detailed Lower Extremity Exam Top foot image: 1 - Dry skin from where the blister was noted to the dorsal right midfoot, ~5cm round. Wound culture NG x24 hr from the drainage. There was black ischemic changes noted to the right 4-5th toes. The dorsal 4th MPJ had an abrasion which peeled off. The skin changes were noted to both 4th lateral and dorsal foot and 5th medial toes and were superficial, ~1x1cm and did not extend deep to subq, deep fascia. No exposed bone. Weakly palpable pedal pulses. CFT delayed. Skin temp warm to left leg/foot but cool to right ankle, foot and distal toes. Progress Note: A&P (1) Venous insufficiency Status: Acute (2) Peripheral artery disease Status: Chronic (3) Hypertension Status: Chronic (4) Type 2 diabetes mellitus Status: Chronic (5) Cellulitis Status: Acute (6) Chronic low back pain Status: Chronic (7) Diastolic dysfunction Status: Chronic (8) Aortic stenosis Status: Chronic (9) Leg edema Status: Acute (10) Hypokalemia Status: Acute (11) Chronic renal insufficiency Status: Acute Assessment and Plan for All Diagnoses:: Right 4th toe ischemic changes, right foot blister, PAD 01/31/21, right foot wound culture: NG x24 I discussed with the patient the importance of proper hygiene and maintaining a clean healthy wound bed to avoid getting an infection. The wound was cleansed with Betadine. I did not do any debridement today at the bedside. The area was very dry had some flaky skin noted to the top where the blister had been drained. Attention was then directed to the right toes or ischemic changes were noted. There was no evidence of deep involvement. The base of the toes did appear to be dark this morning but there still is no drainage to the area. The skin was cleansed with Betadine, Betadine applied to the area with a light noncompressive dressing. I discussed again the plan: avoid any aggressive debriding to the area until his blood flow has improved. Patient understands that the blood flow may never improve. The goal is not to heal or fix the toes, goal is to prevent infection and prevent amputation. Likely the patient will always have some discoloration, dusky or dark ischemic changes to the feet. The patient verbalized understanding and agreed. I explained the risk of PAD and amputation. I explained that if the toe were to be removed and he does not heal a more proximal amputation could be warranted which could include part of the toe foot or even the leg. X-ray does not show any evidence of bone infection nor does the clinical exam. At this point I would monitor and continue local wound care and avoid surgical intervention if possible. 1. Follow up with Podiatry outpatient next week. 2. WB as tolerated, avoid tight shoes 3. Home health care: 2-3 times weekly dressing changes -Gently cleanse the skin with saline or wound telephone cleaner and dry thoroughly. -Apply Betadine to the black areas/fourth toe (betadine soaked gauze). -Wrap lightly with dry gauze, elias. Avoid tight compression. -Use pillows to off-load b/l heels to prevent heel breakdown/pressure ulcers.
--- NOTE | 2021-02-02 08:38 | PC.NURSE ---
PATIENT WILL REQUIRE A ROLLING WALKER RATHER THAN A CANE DUE TO UNSTEADY GAIT AND MOBILITY ISSUES.
--- NOTE | 2021-02-02 08:38 | SW/DCPLANNER ---
Addendum entered by Bita Hernandez 02/02/21 10:06: Jewell with [facility] has stated that patient information has been reviewed and services will begin Friday for this patient. Original Note: This patient will discharge home with his today. Patient has decided to follow back up with Dr Muñoz for outpatient services. Patient resides at home with his who is the caregiver for this patient. Patient is requesting home health services for dressing changes to foot: patient information has been faxed to [facility]. I will follow up with [facility] once patient information is reviewed. Patient will have transportation and has all appropriate DME at home. This patient will discharge home today.
--- NOTE | 2021-02-05 08:58 | HMH.DCSUM ---
General - General Admission date:: 01/22/21 <Tye Dubon - 03/02/21 13:18> 01/22/21 <ElieNegritoa - 02/05/21 09:37> Discharge date: 02/02/21 <ElieSachi giordano - 02/05/21 09:37> HPI HPI: Mr. Garcia was an 85-year-old male with a history of type 2 diabetes mellitus, hypertension, glaucoma, hyperlipidemia, BPH, dermatitis, lumbar spinal stenosis with chronic low back pain, diastolic dysfunction, and peripheral artery disease who presented to the office of [facility] on the day of admission with ongoing and worsening persistent leg edema with the right worse than the left. He had developed a blister on the dorsal aspect of his right foot overnight. He said pain and swelling of both legs had worsened. He had been sleeping in a recliner. His swelling did not improve with elevation. The patient, with his ongoing problems with the pain and swelling in both legs, had been referred by his coal trimmer machine operator to vascular surgery who had diagnosed him with peripheral vascular disease and started him on Plavix. He had recommended an angiogram but because of his back pain Mr. Garcia was not able to tolerate the four-hour procedure. Subsequently, his vascular surgeon referred him to a neurologist whom he was scheduled to see on 01/29/2021. In addition, the vascular surgeon had referred him to physical therapy for compression wraps, however, the therapist felt this was contraindicated due to his peripheral vascular disease. Therefore, he had continued to have increased swelling in his feet and legs with the left being worse than the right. He had also developed some redness of the bilateral lower legs and had a sore, crusted area on his right fourth and fifth toes. They were very tender to palpation. He had been taking Lasix and chlorthalidone with no improvement of the swelling. Chlorthalidone was discontinued and he was started on Lasix 40 mg twice a day. He had been on Keflex and this was also discontinued. He was started on hydrochlorothiazide /triamterene 25/37.5 daily and Bactrim DS. His legs actually became worse with initiation of the Bactrim. He was given acetaminophen/oxycodone 325/5 mg to take for his pain. Echocardiogram completed 03/2020 revealed diastolic dysfunction and calcified aortic stenosis. Having failed outpatient treatment, the patient was admitted for further evaluation and treatment. <Sachi Delgadillo - 02/05/21 09:37> Hospital Course Hospital Course: The morning following admission, the patient reported sleeping little due to the pain in his legs. He was continued on vancomycin and scheduled for wound care consult. Diuresis and leg elevation were continued. Dilaudid was added for pain management. Cardiology was consulted and recommended an echocardiogram to evaluate left ventricular function as well as bilateral venous Dopplers to rule out DVT. His lasix was increased for additional diuresis and Actos was stopped as it was felt to be contributing to his venous insufficiency and lower extremity edema. It was felt FITO should be repeated after improvement in the lower extremity edema to determine if PAD required intervention. Echo showed EF of 55% and moderate aortic stenosis. Doppler studies showed no evidence of DVT or varicosity. The following day, he was feeling better and his pain was better controlled. His lower extremity edema was felt to be improving when his leg wraps were changed. He was continued on vancomycin and Unna boots. His renal function had remained stable. His potassium was low and he was given oral replacement. By the morning of 01/25/2021, his weight was down nine pounds. His renal function had remained stable. He was feeling well and continued to show steady improvement. Diuresis and IV antibiotics were continued. By the morning of 01/29/2021, he was no longer requiring BREANNE wraps. The erythema of the left leg had improved, however, he continued with erythema and discomfort of the right foot whic
== END 2021-02-02 11:28 | disposition home health service (06) | DRG 300 ==
PROVIDERS: Urology; Admitting Provider Family Medicine; PCP Family Medicine; Visit Provider Family Medicine
DX: E11.51 Type 2 diabetes mellitus with diabetic peripheral angiopathy without gangrene (principal); I50.30 Unspecified diastolic (congestive) heart failure; I13.0 Hypertensive heart and chronic kidney disease with heart failure and stage 1 through stage 4 chronic kidney disease, or unspecified chronic kidney disease; I70.223 Atherosclerosis of native arteries of extremities with rest pain, bilateral legs; I87.2 Venous insufficiency (chronic) (peripheral); I35.0 Nonrheumatic aortic (valve) stenosis; Z79.84 Long term (current) use of oral hypoglycemic drugs; R60.0 Localized edema; T38.3X5A Adverse effect of insulin and oral hypoglycemic [antidiabetic] drugs, initial encounter; M48.061 Spinal stenosis, lumbar region without neurogenic claudication; N18.9 Chronic kidney disease, unspecified; E11.22 Type 2 diabetes mellitus with diabetic chronic kidney disease; Z79.899 Other long term (current) drug therapy; Z88.8 Allergy status to other drugs, medicaments and biological substances
CPT/HCPCS: 36415; 71045; 73630; 80048; 80053; 80202; 82962; 83605; 83880; 85025; 86140; 87040; 87070; 87205; 93306; 93925; 93970; J2405; J3370; U0003

== ENCOUNTER 2021-02-21 16:28 | Emergency (ER) | payer MEDICARE, SELFPAY ==
[2021-02-21 16:29] VITALS: BP 188/98; PULSE 91; RESP 18; TEMP 36.7; O2SAT 96; BMI 37.5
--- NOTE | 2021-02-21 16:30 | HMH.EDGENADL ---
ED Disposition Clinical Impression: Malaise, Dehydration Disposition: Home, Self-Care Condition on Discharge: Good Instructions: DI for Dehydration -- Adult Referrals: Tye Dubon MD [Primary Care Provider] - 02/22/21 - Critical Care Critical Care Time: No Attestation: On , the high probability of a clinically significant, sudden or life threatening deterioration of the following system(s) required my full and direct attention, intervention and personal management. The time I documented below is in addition to time spent performing reported procedures but includes the following listed in this critical care notation. Medical Decision Making - Medical Records Medical records reviewed: Yes: I reviewed the patient's medical records. - Tanner Inquiry Pt receiving controlled substance: No Vital Signs: 02/21/21 16:29 02/21/21 17:01 Temperature 98.1 F Temperature Source Oral Pulse Rate 91 H Pulse Rate [Right] 91 H Respiratory Rate 18 Blood Pressure 158/61 H Blood Pressure [Right Arm] 188/98 H Blood Pressure Mean 123 Blood Pressure Mean [Right Arm] 128 02 Sat by Pulse Oximetry 96 95 - Lab Data Lab results reviewed: Yes: I reviewed the patient's lab results. Lab Results 02/21/21 17:05: WBC 10.0, RBC 4.01 L, Hgb 12.4 L, Hct 38.0 L, MCV 94.9 H, MCH 30.9, MCHC 32.5, RDW 13.7, Plt Count 209, MPV 8.2, Neut % (Auto) 64.5, Lymph % (Auto) 21.0, [place] % (Auto) 8.6, Eos % (Auto) 5.6, Baso % (Auto) 0.4, Neut # (Auto) 6.5, Lymph # (Auto) 2.1, [place] # (Auto) 0.9, Eos # (Auto) 0.6 H, Baso # (Auto) 0.0 02/21/21 17:05: Sodium 134 L, Potassium 4.3, Chloride 98, Carbon Dioxide 25, Anion Gap 15.3 H, BUN 21 H, Creatinine 1.30 H, Estimated Creat Clear 65, Estimated GFR 53 L, Est GFR ( Amer) 64, Glucose 256 H, Calcium 9.4, Total Bilirubin 0.7, AST 31, ALT 36, Alkaline Phosphatase 86, Total Protein 7.0, Albumin 4.2, Globulin 2.8, Albumin/Globulin Ratio 1.5 02/21/21 17:05: Troponin I < 0.01 02/21/21 17:21: Urine Color Straw, Urine Appearance Clear, Urine pH 6.0, Ur Specific [place] 1.020, Urine Protein Negative, Urine Glucose (UA) 1+, Urine Ketones Negative, Urine Blood Negative, Urine Nitrate Negative, Urine Bilirubin Negative, Urine Urobilinogen 0.2, Ur Leukocyte Esterase Negative Result diagrams: 02/21/21 17:05 02/21/21 17:05 Orders (Tests/Meds): ED MEDICATIONS Generic Name Dose Route Start Last Admin Trade Name Freq PRN Reason Stop Dose Admin Sodium Chloride 1,000 mls @ 999 mls/hr 02/21/21 17:45 Sod Chlor 0.9% 1000ml Bag IV 02/21/21 18:45 .Q1H1M BRENDA ORDERS Category Date Time Status Urinalysis and Microscopic Stat Lab 02/21/21 17:21 Results EKG Request [ECG Request by /Karen] Stat Y 02/21/21 17:11 Ordered - ECG Data Tracing #1 1713 shows a sinus rhythm with a rate of 96. Occasional PVCs. First-degree block present. QRS slightly prolonged with an intraventricular conduction delay. Normal QTC. EKG interpreted by me. No STEMI Medical Decision Narrative: Slightly dehydrated with an elevated anion gap and slightly elevated glucose. Given a liter of fluids. Troponin negative and EKG with no signs of acute ischemia. No need for repeat troponin with atypical type chest pain and symptoms ongoing all day. Lungs are clear, no respiratory distress, unlikely acute bacterial pneumonia. No significant leukocytosis that would prompt work-up for acute infection. Discharged home to follow-up with primary care provider for reevaluation within the next 1 to 2 days. General Adult HPI - General Stated complaint: no feeling good,weakness Time Seen by Provider: 02/21/21 16:30 Mode of Arrival: Wheelchair Source of Information: Patient Limitations: No Limitations - History of Present Illness HPI narrative: This is an 85-year-old male with a past medical history significant for hypertension, hyperlipidemia, diabetes, peripheral vascular disease who presents to the emergency
[2021-02-21 17:01] VITALS: BP 158/61; PULSE 91; O2SAT 95
--- NOTE | 2021-02-21 17:11 | ECG_ITS ---
APPROVED REPORT Exam: Resting ECG HR:96 bpm ECG Measurements Heart Rate 96 AXES SC 208 P QRSd 138 QRS -13 QT 378 T 10 QTc 477 Conclusion Sinus rhythm with occasional premature ventricular complexes Right bundle branch block Abnormal ECG Electronically signed by : Ángel Khan, 02/22/2021 17:39:12
[2021-02-21 17:24] LABS: Basophils % 0.4 % (0.1-2.0); Eosinophils # 0.6 K/mm3 (0.0-0.4); Eosinophils % 5.6 % (0.1-12.0); Hemoglobin 12.4 g/dL (14.1-18.0); Lymphocytes # 2.1 K/mm3 (0.7-4.5); Mean Corpuscular HGB Conc 32.5 g/dL (31.8-35.4); Mean Corpuscular Hemoglobin 30.9 pg (27.0-31.2); Mean Corpuscular Volume 94.9 fl (80-94); Mean Platelet Volume 8.2 fl (7.4-10.4); Monocytes # 0.9 K/mm3 (0.1-1.0); Monocytes % 8.6 % (1.7-9.3); Neutrophils # 6.5 K/mm3 (1.8-7.8); Neutrophils % 64.5 % (37.0-80.0); Platelet Count 209 K/mm3 (142-424); Red Blood Count 4.01 M/mm3 (4.60-6.20); Red Cell Distribution Width 13.7 % (11.5-17.5)
[2021-02-21 17:29] LABS: Chloride 98 mmol/L (98-107); Potassium 4.3 mmoL/L (3.5-5.1); Sodium 134 mmol/L (136-145)
[2021-02-21 17:31] VITALS: BP 182/73; PULSE 87; O2SAT 94
[2021-02-21 17:31] LABS: Microscopic, Urine URINE MICROSCOPIC (MICROSCOPIC)
[2021-02-21 17:31] LABS: Blood Urea Nitrogen 21 mg/dl (9-20); Creatinine Clearance Estimated 65 mL/min (50-200); Estimated Glomerular Filt Rate 53 ml/min (>60); GFR (African American) 64 ML/MIN (>60)
[2021-02-21 17:32] LABS: Alanine Aminotransferase 36 U/L (12-78); Albumin Level 4.2 g/dl (3.5-5.0); Albumin/Globulin Ratio 1.5 (1.1-1.8); Alkaline Phosphatase 86 U/L (38-126); Anion Gap 15.3 mEq/L (5-15); Aspartate Amino Transferase 31 U/L (17-59); Bilirubin,Total 0.7 mg/dl (0.2-1.3); Calcium 9.4 mg/dl (8.4-10.2); Carbon Dioxide 25 mmol/L (22.0-30.0); Globulin 2.8 g/dL (1.3-3.2); Glucose 256 mg/dl (74-100)
[2021-02-21 17:34] LABS: Appearance,Urine CLEAR (Clear); Bilirubin,Urine Negative (Negative); Blood, Urine Negative (Negative); Color,Urine STRAW (Yellow); Glucose,Urine (UA) 1+ (Negative); Ketones,Urine Negative (Negative); Leukocyte Esterase,Urine Negative (Negative); Nitrate,Urine Negative (Negative); Protein,Urine Negative (Negative); Urobilinogen,Urine 0.2 EU/dl (0.2)
[2021-02-21 17:45] LABS: Troponin I < 0.01 ng/ml (0.00-0.034)
[2021-02-21 17:58] LABS: Squamous Epithelial Cell,Urine Occasional #/hpf (0-5); WBC,Urine Occasional #/hpf (0-3)
[2021-02-21 18:00] VITALS: BP 189/89; PULSE 93; O2SAT 97
--- NOTE | 2021-02-21 18:00 | PC.NURSE ---
PATIENT FLIPPED TO DISCHARGE BUT MD WANTS ONE LITER OF FLUIDS INFUSED PRIOR TO LEAVING
[2021-02-21 19:00] VITALS: BP 189/85; PULSE 89; RESP 18; TEMP 36.4; O2SAT 99
== END 2021-02-21 18:57 | disposition home or self-care (01) ==
PROVIDERS: Emergency Provider Emergency Medicine; PCP Family Medicine
DX: E86.0 Dehydration (principal); R53.81 Other malaise; E11.65 Type 2 diabetes mellitus with hyperglycemia; E78.5 Hyperlipidemia, unspecified; I10 Essential (primary) hypertension; I73.9 Peripheral vascular disease, unspecified; Z91.040 Latex allergy status; Z79.899 Other long term (current) drug therapy
CPT/HCPCS: 80053; 81001; 84484; 85025; 93005; 99281

== ENCOUNTER → 2021-03-19 13:40 | Outpatient (CLI) | payer MEDICARE, SELFPAY ==
[2021-03-19 14:18] LABS: Alanine Aminotransferase 31 U/L (12-78); Albumin Level 4.2 g/dl (3.5-5.0); Albumin/Globulin Ratio 1.6 (1.1-1.8); Alkaline Phosphatase 92 U/L (38-126); Anion Gap 17.7 mEq/L (5-15); Aspartate Amino Transferase 35 U/L (17-59); Basophils % 0.3 % (0.1-2.0); Bilirubin,Total 0.7 mg/dl (0.2-1.3); Blood Urea Nitrogen 62 mg/dl (9-20); Calcium 9.3 mg/dl (8.4-10.2); Carbon Dioxide 35 mmol/L (22.0-30.0); Eosinophils # 0.3 K/mm3 (0.0-0.4); Eosinophils % 2.2 % (0.1-12.0); Estimated Glomerular Filt Rate 30 ml/min (>60); GFR (African American) 37 ML/MIN (>60); Globulin 2.6 g/dL (1.3-3.2); Glucose 378 mg/dl (74-100); Hematocrit 38.7 % (42.0-52.0); Hemoglobin 13.2 g/dL (14.1-18.0); Lymphocytes # 2.3 K/mm3 (0.7-4.5); Mean Corpuscular HGB Conc 34.1 g/dL (31.8-35.4); Mean Corpuscular Hemoglobin 31.4 pg (27.0-31.2); Mean Corpuscular Volume 92.1 fl (80-94); Mean Platelet Volume 8.6 fl (7.4-10.4); Monocytes # 1.1 K/mm3 (0.1-1.0); Monocytes % 9.2 % (1.7-9.3); Neutrophils % 68.4 % (37.0-80.0); Platelet Count 247 K/mm3 (142-424); Red Cell Distribution Width 13.6 % (11.5-17.5); Sodium 126 mmol/L (136-145); Total Protein,Serum 6.8 g/dl (6.3-8.2); White Blood Count 11.7 K/mm3 (4.8-10.8)
[2021-03-19 14:21] LABS: Chloride 76 mmol/L (98-107)
[2021-03-19 14:24] LABS: Potassium 2.7 mmoL/L (3.5-5.1)
[2021-03-19 14:51] LABS: Erythrocyte Sedimentation Rate 26 mm/hr (0-20)
== END ==
PROVIDERS: Visit Provider Family Medicine
DX: I10 Essential (primary) hypertension (principal); L03.90 Cellulitis, unspecified
CPT/HCPCS: 80053; 85025; 85651

== ENCOUNTER 2021-03-20 10:13 | Inpatient (IN) | payer MEDICARE, SELFPAY ==
[2021-03-20 10:25] VITALS: BMI 37.6
--- NOTE | 2021-03-20 10:32 | PC.NURSE ---
Pt arrived to the floor at this time.
[2021-03-20 10:49] VITALS: BP 130/68; BP 139/68; PULSE 86; RESP 17; TEMP 36.4; O2SAT 92; BMI 37.6
[2021-03-20 11:08] LABS: Adenovirus,PCR Not Detected (NotDetected); Bordetella Pertussis Not Detected (NotDetected); Chlamydophila Pneumoniae, PCR Not Detected (NotDetected); Coronavirus 19, PCR Not Detected (NotDetected); Coronavirus 229E Not Detected (NotDetected); Coronavirus NL63 Not Detected (NotDetected); Coronavirus OC43 Not Detected (NotDetected); Coronovirus HKU1,PCR Not Detected (NotDetected); Human Metapneumovirus Not Detected (NotDetected); Influenza A, PCR Not Detected (NotDetected); Influenza AH1, 2009 Not Detected (NotDetected); Influenza AH1, PCR Not Detected (NotDetected); Influenza AH3,PCR Not Detected (NotDetected); Influenza B, PCR Not Detected (NotDetected); Mycoplasma Pneumoniae, PCR Not Detected (NotDetected); Parainfluenza 1, PCR Not Detected (NotDetected); Parainfluenza 2, PCR Not Detected (NotDetected); Parainfluenza 3, PCR Not Detected (NotDetected); Parainfluenza 4, PCR Not Detected (NotDetected); Respiratory Syncytial Virus Not Detected (NotDetected); Rhinovirus/Enterovirus Not Detected (NotDetected)
--- NOTE | 2021-03-20 11:15 | HMH.PHAINT ---
MEDICATION RECONCILIATION COMPLETED USING EXTERNAL FILL HISTORY AND PHYSICIAN OFFICE NOTE
--- NOTE | 2021-03-20 12:16 | XR_ITS ---
PROCEDURE: XR CHEST PORTABLE CLINICAL HISTORY: shortness of breath COMPARISON: CR XR CHEST PORTABLE from 01/22/2021 FINDINGS: The cardiomediastinal silhouette and pulmonary vascularity are within normal limits. Atelectatic changes are present in the right lower lobe. There is blunting of the left CP angle suggesting small pleural effusions. Upper lobes are clear. No acute bony abnormalities. IMPRESSION: Mild right basilar atelectasis. Small left pleural effusion Dictated by: Eduardo Davenport MD 03/20/2021 13:43 Eduardo Davenport MD in [place] 03/20/2021 13:43
--- NOTE | 2021-03-20 12:21 | XR_ITS ---
PROCEDURE: XR FOOT RT 2V CLINICAL INDICATION: foot ulcer, r/o osteomyelitis COMPARISON: CR XR FOOT RT MIN 3V from 07/10/2020 CR XR FOOT RT MIN 3V from 01/29/2021 FINDINGS: Only 2 images are submitted. The toes are extended. The distal phalanx of the great toe is not well delineated due to positioning and bony overlap. If this is an area of concern then would suggest repeating exam with additional views. There is soft tissue swelling of the great toe. There is some calcification along the plantar aspect of the foot similar to the previous exam. No obvious bony destructive process evident. Calcaneal enthesophyte is present. There is diffuse vascular calcification. Other findings:None. IMPRESSION: No obvious bony destructive process. Please see above for details including limitations. The great toe is not well assessed due to positioning. Mild soft tissue swelling noted at the great toe. Dictated by: Eduardo Davenport MD 03/20/2021 13:47 Eduardo Davenport MD in [place] 03/20/2021 13:47
[2021-03-20 12:34] LABS: Basophils # 0.1 K/mm3 (0-0.2); Basophils % 0.8 % (0.1-2.0); Eosinophils # 0.2 K/mm3 (0.0-0.4); Eosinophils % 2.1 % (0.1-12.0); Hematocrit 41.4 % (42.0-52.0); Lymphocytes # 2.2 K/mm3 (0.7-4.5); Lymphocytes % 20.4 % (10-50); Mean Corpuscular HGB Conc 33.7 g/dL (31.8-35.4); Mean Corpuscular Hemoglobin 31.2 pg (27.0-31.2); Mean Corpuscular Volume 92.4 fl (80-94); Mean Platelet Volume 8.5 fl (7.4-10.4); Monocytes # 1.2 K/mm3 (0.1-1.0); Monocytes % 11.3 % (1.7-9.3); Neutrophils % 65.5 % (37.0-80.0); Platelet Count 248 K/mm3 (142-424); Red Blood Count 4.48 M/mm3 (4.60-6.20); Red Cell Distribution Width 13.4 % (11.5-17.5); White Blood Count 10.7 K/mm3 (4.8-10.8)
[2021-03-20 12:37] LABS: Anion Gap 17.6 mEq/L (5-15); Blood Urea Nitrogen 62 mg/dl (9-20); Calcium 9.2 mg/dl (8.4-10.2); Carbon Dioxide 37 mmol/L (22.0-30.0); Chloride 76 mmol/L (98-107); Creatinine Clearance Estimated 40 mL/min (50-200); Estimated Glomerular Filt Rate 30 ml/min (>60); GFR (African American) 37 ML/MIN (>60); Glucose 367 mg/dl (74-100); Magnesium 2.8 mg/dl (1.6-2.3); Sodium 128 mmol/L (136-145)
[2021-03-20 12:38] LABS: Potassium 2.6 mmoL/L (3.5-5.1)
[2021-03-20 12:42] LABS: C-Reactive Protein 2.9 mg/L (0-4)
--- NOTE | 2021-03-20 12:45 | PC.NURSE ---
Called and reported critical k of 2.6 and chloride of [address] Dubon's office @ [phone].
--- NOTE | 2021-03-20 13:18 | HMH.CNCARD ---
History of Present Illness Consult date: 03/20/21 Requesting physician: Tye Dubon Chief complaint: Right foot pain Additional Medical History:: 1. Diabetes mellitus, insulin requiring A. Peripheral neuropathy 2. Ex smoker, discontinued 1983, approximately 14-qccj-ahyl history 3. Chronic back pain with history of prior back surgery 4. Aortic stenosis Echocardiogram, 01/2021 1. Mildly low left atrium, normal left ventricular size, mild concentric left ventricular hypertrophy, visually estimated ejection fraction 55% with no regional wall motion abnormality, grade 1 diastolic dysfunction seen with tissue Doppler evidence of raise left atrial pressure. 2. Thickened and calcified aortic valve with mean gradient across valve 29 mmHg, valve area 1.1 cm, represents moderate aortic stenosis, there is no aortic insufficiency. 3. Mild mitral and tricuspid regurgitation. 4. No significant pericardial effusion noted. Electronically signed by : Conrad Burr, 01/23/2021 20:46:24 5. Hypertension 6. Hyperlipidemia History of present illness: 85-year-old white male with history as noted above was admitted from Dr. Dubon's office due to persistent lower extremity edema and worsening pain in the right fourth and fifth toes with area of concern for necrosis. Patient has previously been admitted for similar edema felt related to Actos therapy which was subsequently stopped and noted to have some improvement in the edema. Edema has subsequently returned with patient complaining of discomfort in the fourth and fifth toes of the right foot along with an area of concern between the toes. He is followed closely by podiatry who did discuss the potential for possible amputation but with concern for healing due to suspected PAD. Patient has had an abnormal FITO suggestive of extensive atherosclerosis of the peripheral arteries of the legs right greater than left. A previous angiogram was considered but due to the patient's chronic back pain it was not felt that he could lie on the table long enough to tolerate the procedure. Patient lives a fairly sedentary lifestyle sitting and sleeping in his recliner most of the day. He states he is unable to elevate his feet for long periods of time due to pain in the foot that worsens. Subsequently when lowering his feet the edema worsens. Patient denies any chest pain, pressure or tightness. He is been a diabetic for many years. [facility] History Medical History: Reports:: Diabetes Mellitus Type 2, Heart Murmur, Hyperlipidemia, Hypertension, Peripheral Artery Disease, Peripheral Vascular Disease Denies:: Cancer, Diabetes Mellitus Type 1, MRSA *Have you ever received a pneumonia vaccine?: No *Have you received a flu vaccine this season?: No Other Medical History: Reports: Glaucoma Amputation: No Fractures: No - *Social History Smoking Status: Never smoker Alcohol Intake: never *Occupational Status:: retired Housing: apartment Household Members: spouse *Travel in the last 8 weeks: None Family Hx:: No significant family history Meds Home Medications Medication Instructions Recorded Confirmed Type Ascorbic Acid [Vitamin C with Ermelinda 1,000 mg PO DAILY 01/23/21 03/20/21 History Hips] Atorvastatin Calcium [Lipitor 40mg 40 mg PO HS 01/23/21 03/20/21 History Tab] Bimatoprost [Lumigan 0.01% Ophth 1 drp OP PM 01/23/21 03/20/21 History Soln 2.5mL] Cholecalciferol (Vitamin D3) 1,000 unit PO DAILY 01/23/21 03/20/21 History [Vitamin D3 1,000 Unit Cap] Clopidogrel Bisulfate [Clopidogrel 75 mg PO DAILY 01/23/21 03/20/21 History 75mg Tab] Dorzolamide/Timolol/Pf [Cosopt Pf 1 drop EYE-BOTH BID 01/23/21 03/20/21 History Eye Drops] Tamsulosin HCl [Flomax 0.4mg 0.4 mg PO HS 01/23/21 03/20/21 History capsule] Pregabalin 200 mg PO BID #0 02/02/21 03/20/21 Rx oxycodone-acetaminophen 10 mg-325 1 tab PO Q6H PRN tab 02/13/21 03/20/21 History mg tablet potassium chlor
[2021-03-20 16:00] VITALS: BP 113/71; PULSE 80; RESP 18; TEMP 36.8; O2SAT 93
--- NOTE | 2021-03-20 16:22 | PC.WOUNDNOTE ---
coccyx red and excoriated
--- NOTE | 2021-03-20 16:24 | PC.WOUNDNOTE ---
left lower extremity
--- NOTE | 2021-03-20 16:26 | PC.WOUNDNOTE ---
right lower extremity
--- NOTE | 2021-03-20 16:26 | PC.WOUNDNOTE ---
left upper extremity
--- NOTE | 2021-03-20 18:14 | PC.NURSE ---
Pt alert and oriented x 4. RR even and unlabored, IV k ran at slower rate for comfort. Spoke with Dr. Dubon and requested fingersticks achs and ssi. FS post supper was 424. Dr. Dubon aware and wants to give what is ordered per ssi high intensity. CB in reach and will be NPO @ midnight. VSS. Remains on RA at this time. See BIO and pics for wound assessment.
--- NOTE | 2021-03-20 18:30 | HMH.ORTHOCON ---
*Admission Date: 03/20/21 *Reason for consult:: Right toe gangrene *History of present illness: Per Cardiology: 85-year-old white male with history as noted above was admitted from Dr. Dubon's office due to persistent lower extremity edema and worsening pain in the right fourth and fifth toes with area of concern for necrosis. Patient has previously been admitted for similar edema felt related to Actos therapy which was subsequently stopped and noted to have some improvement in the edema. Edema has subsequently returned with patient complaining of discomfort in the fourth and fifth toes of the right foot along with an area of concern between the toes. He is followed closely by podiatry who did discuss the potential for possible amputation but with concern for healing due to suspected PAD. Patient has had an abnormal FITO suggestive of extensive atherosclerosis of the peripheral arteries of the legs right greater than left. A previous angiogram was considered but due to the patient's chronic back pain it was not felt that he could lie on the table long enough to tolerate the procedure. Patient lives a fairly sedentary lifestyle sitting and sleeping in his recliner most of the day. He states he is unable to elevate his feet for long periods of time due to pain in the foot that worsens. Subsequently when lowering his feet the edema worsens. Patient denies any chest pain, pressure or tightness. He is been a diabetic for many years. Podiatry: Patient seen and evaluated at the bedside. He reports pain to the right fourth and fifth toes. Reports pain to the back. He was last seen in the office 03/06/21 with b/l LE edema. Patient would benefit from lymphedema therapy however due to his severe right PAD and moderate left PAD he is not a candidate for compression therapy at this time. He has been seeing his PCP Dr. Dubon outpatient for fluid and edema management. Patient denies N/V, F/C, SOB/CP. His has been paining Betadine to the right toe wounds. Patient unable to tolerate a dressing due to arterial pain. [facility] History I have reviewed the patient's past medical history: Yes Medical History: Reports:: Diabetes Mellitus Type 2, Heart Murmur, Hyperlipidemia, Hypertension, Peripheral Artery Disease, Peripheral Vascular Disease Denies:: Cancer, Diabetes Mellitus Type 1, MRSA *Have you ever received a pneumonia vaccine?: No *Have you received a flu vaccine this season?: No Other Medical History: Reports: Glaucoma Amputation: No Fractures: No - *Social History Smoking Status: Never smoker Alcohol Intake: never *Occupational Status:: retired Housing: apartment Household Members: spouse *Travel in the last 8 weeks: None Family Hx:: No significant family history Review of Systems - Review of Systems Review of systems:: pertinent systems reviewed and negative unless documented below - Constitutional Denies chills - Eyes Denies blind spots - ENT Reports dry mouth - *Cardiovascular Denies chest pain, Denies shortness of breath - *Respiratory Denies cough, Denies shortness of breath - *Gastrointestinal Denies abdominal pain, Denies vomiting - *Genitourinary Denies difficulty urinating - *Musculoskeletal Reports joint pain, Reports joint swelling, Reports radiating pain into limb, Reports stiffness - Integumentary/Breasts Reports hair loss, Reports nail changes, Reports change in skin color, Reports dry skin, Reports non-healing lesions, Reports skin ulcer, Reports wounds - *Neurologic Reports numbness, Reports tingling/numbness/burning sensations - Psychiatric Denies confusion - Endocrine Denies cold intolerance - Hematologic/Lymphatic Reports easy bruising Meds Home Medications Medication Instructions Recorded Confirmed Type Ascorbic Acid [Vitamin C with Ermelinda 1,000 mg PO DAILY 01/23/21 03/20/21 History Hips] Atorvastatin Calcium [Lipitor 40mg 40 mg PO HS 01/23/21 03/20/21 History Tab] Bimatopr
[2021-03-20 18:34] LABS: Erythrocyte Sedimentation Rate 29 mm/hr (0-20)
[2021-03-20 18:49] LABS: POC Glucose,Bedside 424 (70-110)
--- NOTE | 2021-03-20 18:58 | HMH.HP ---
*Admission Date: 03/20/21 <Yasmeen Soto - 03/20/21 19:19> *Chief complaint: Cellulitis <Yasmeen Soto - 03/20/21 19:19> *History of present illness: Mr. Garcia is an 85-year-old male with a history ofDiabetes mellitus, chronic back pain, aortic stenosis,Hyperlipidemia, Hypertension, glaucoma, BPH,Multilevel lumbar spinal stenosis, chronic low back pain, Mild AMS, and PAD. He was a direct admission per Dr. Dubon after a telehealth visit 03/16/2021. With this visit the patient's stated the patient had been falling asleep at random times during the day for the previous week. He even fell asleep at the table while eating his meals and slept in the chair during the day. His also noted that he seemed confused upon awakening and took a while to get himself together. Also noted was swelling for the previous 10 days in bilateral legs. Right leg was edematous from the knee down And was weeping. The drainage was clear. The left leg was red and swollen as well. Home health nurse had been wrapping his leg and it did not seem to be improving. Patient's felt that his pain was controlled with Percocet. Patient currently was on clindamycin as per Dr. Muñoz . This time he was to continue with Lasix 80 mg twice a day . Labs were drawn and renal function had deteriorated and with his progressive cellulitis Dr. Dubon directly admitted him to [facility]. He has been seen by cardiology with the following note as per Toney ESCALANTE.: 85-year-old white male with history as noted above was admitted from Dr. Dubon's office due to persistent lower extremity edema and worsening pain in the right fourth and fifth toes with area of concern for necrosis. Patient has previously been admitted for similar edema felt related to Actos therapy which was subsequently stopped and noted to have some improvement in the edema. Edema has subsequently returned with patient complaining of discomfort in the fourth and fifth toes of the right foot along with an area of concern between the toes. He is followed closely by podiatry who did discuss the potential for possible amputation but with concern for healing due to suspected PAD. Patient has had an abnormal FITO suggestive of extensive atherosclerosis of the peripheral arteries of the legs right greater than left. A previous angiogram was considered but due to the patient's chronic back pain it was not felt that he could lie on the table long enough to tolerate the procedure. Patient lives a fairly sedentary lifestyle sitting and sleeping in his recliner most of the day. He states he is unable to elevate his feet for long periods of time due to pain in the foot that worsens. Subsequently when lowering his feet the edema worsens. Patient denies any chest pain, pressure or tightness. He is been a diabetic for many years. Assessment and Plan for all problems: As per cardiology: 1. Pain in the fourth and fifth toe of the right foot with possible ischemic ulcer of the right fourth toe. Concern for healing if amputation warranted. Pulses are noted in the feet bilaterally but not very strong. Discussed option for angiogram of the lower extremities to evaluate further prior to any operative intervention. Patient is agreeable to consider this if accommodations can be made to minimize his back pain. Potassium supplementation has been ordered today. Patient's kidney functions have worsened in the last month and will therefore need IV fluids overnight in preparation for angiography tomorrow. We will plan for left groin access for angiogram of the right lower extremity. 2. Cellulitis, per Dr. Dubon 3. Acute on chronic kidney disease with current creatinine of 2.1, creatinine clearance of 40 and GFR of 30 4. Hypokalemia, replacement has been ordered 5. Diabetes mellitus type [address] Dubon 6. Mild to moderate aortic stenosis by echocardiogram 01/2021 with normal ejection fraction Documented By: Ciro Carlos
--- NOTE | 2021-03-20 19:47 | PC.NURSE ---
Have faxed order for high intensity ssi x [address] [facility], awaiting order to be put in and sent oxycodone home with pt's . Have given report to Jose Mcnally RN.
[2021-03-20 20:00] VITALS: BP 150/60; PULSE 92; RESP 16; TEMP 36.4; O2SAT 93
--- NOTE | 2021-03-20 20:24 | PC.NURSE ---
Have faxed order to re time cefapime, as well as ssi high intensity x 3. Still awaiting orders to be put in. Have made Jose Mcnally RN aware if this.
[2021-03-20 21:29] LABS: POC Glucose,Bedside 422 (70-110)
[2021-03-21] VITALS (51 sets, daily range): BP systolic 97–221; BP diastolic 44–105; PULSE 64–114; RESP 12–20; TEMP 36.4–37.6; O2SAT 92–100; BMI 36.8; BMI 37.0
--- NOTE | 2021-03-21 | IR_ITS ---
APPROVED REPORT Patient Location: Outpatient Server Security Administrator: JONNA [place] RT (R) PROCEDURES Left femoral arterial access Catheter placement in the distal abdominal aorta Distal abdominal aortogram Right femoral arterial access Right retrograde femoral angiogram Stent deployment to the left external iliac artery Stent deployment to the left common iliac artery Stent deployment to the right common iliac artery Angioplasty to the right external iliac artery Bilateral stent deployment to the distal abdominal aorta extending into each common iliac artery INDICATION [place] claudication class V, Occluded right common iliac artery, Atherosclerosis of the left common and external iliac artery Informed consent was obtained prior to the procedure. COMPLICATIONS None Estimated Blood Loss: Less than 10 mls TECHNIQUE 1% lidocaine used to anesthetize the left femoral groin. The left femoral artery was accessed via the Seldinger technique. A 5 [place]ian sheath was placed in the left femoral artery using fluoroscopic guidance a rim catheter was advanced to the distal abdominal aorta and used to cannulate the ostium of the right common iliac artery. Angiography demonstrated flush occlusion of the right common iliac artery. At this point 1% lidocaine was used to anesthetize the right groin and the right femoral artery was accessed via the Salinger technique. Retrograde angiography was performed. A long 6 [place] sheath was then placed into the right common iliac artery. Using an advantage wire the wire was pushed retrograde up into the distal abdominal aorta however no false lumen. A wire was then placed into the left femoral artery and then advanced into the true lumen of the iliac artery and into the true lumen of the aorta. Using rim catheters and Sos Omni catheters I was unable to penetrate into the false lumen of the right common iliac artery via the left groin. Using a rim catheter a wire was advanced up into the right groin into the right common iliac artery and the dissected area and then pushed into the left leg. The wire then entered the true lumen at the external iliac artery. A lasso was then advanced into the left sheath and the advantage wire which originated in the right femoral artery was lassoed and then retrieved into the left sheath. The sheath was then removed and both wires were obtained. A 7 [place] sheath was then advanced back into the left femoral artery. An 8 mm balloon was then placed over the wire which originated in the right femoral artery and the balloon was advanced into the right external iliac artery and then back into the right common iliac artery. It was then ballooned at the bifurcation and then pulled back into the left common and left external iliac artery. The balloon was then advanced into the left groin up into the aorta and the 8 mm balloon was then ballooned from the aorta back into the left common and left external iliac artery. An 8 mm x 57 mm balloon mounted stent was deployed in the left external iliac artery at 20 bela. A 9 mm x 57 mm balloon mounted stent was then deployed in the left common iliac artery. Both of these stents were placed over the wire which was originating in the right groin. Following this an additional wire was then placed in the right groin and then placed down into the left common iliac artery and then gently flipped back into the true lumen of the aorta. 2 wires now existed in the true lumen of aorta 1 from the right one from the left groin. Following this 9 mm x 37 mm balloon mounted stent was placed in the left groin into the distal abdominal aorta and a 9 mm x 57 mm balloon mounted stent was placed in the distal abdominal aorta extending into
--- NOTE | 2021-03-21 04:25 | PC.NURSE ---
Pt admitted for BLE wounds, RLE more pronouced than LLE. PAtient also has excoriated Sacrum and coccygeal area, covered in preventative dressing. Patient received Vancomycin and Cefipime this shift. BG elevated, 422 at 2100, gave 20 units. Will continue to monitor for any acute changes
[2021-03-21 06:03] LABS: POC Glucose,Bedside 357 (70-110)
[2021-03-21 07:00] LABS: Chloride 84 mmol/L (98-107)
[2021-03-21 07:01] LABS: Sodium 132 mmol/L (136-145)
[2021-03-21 07:03] LABS: Blood Urea Nitrogen 53 mg/dl (9-20); Creatinine Clearance Estimated 49 mL/min (50-200); Estimated Glomerular Filt Rate 39 ml/min (>60); GFR (African American) 47 ML/MIN (>60)
[2021-03-21 07:04] LABS: Calcium 8.9 mg/dl (8.4-10.2); Glucose 277 mg/dl (74-100)
[2021-03-21 07:11] LABS: Anion Gap 13.4 mEq/L (5-15); Carbon Dioxide 37 mmol/L (22.0-30.0)
[2021-03-21 07:17] LABS: Hemoglobin A1C 10.1 % (4.0-6.0)
[2021-03-21 07:20] LABS: Potassium 2.4 mmoL/L (3.5-5.1)
--- NOTE | 2021-03-21 08:08 | HMH.ACPN2 ---
<Yasmeen Soto - Last Filed: 03/21/21 08:08> Internal Medicine - PN: Subj *Date: 03/21/21 *Time: 08:08 Interval history: Patient is n.p.o. for angiogram today per cardiology. Patient awakened from sleep for assessment. He states he slept well. He denies pain in his right foot. He denies chest pain and shortness of breath. Exam Vital signs and Labs for Last 24 Hours: Temp Pulse Resp BP Pulse Ox 98.1 F 83 16 145/60 H 92 L 03/21/21 04:00 03/21/21 04:00 03/21/21 04:00 03/21/21 04:00 03/21/21 04:00 Laboratory Results - last 24 hr 03/20/21 11:02: Chlamy pneumoniae PCR Not detected, Adenovirus (PCR) Not detected, B. pertussis DNA (PCR) Not detected, Coronavirus OC43 (PCR) Not detected, Coronavirus HKU1 (PCR) Not detected, Coronavirus 229E (PCR) Not detected, SARS-CoV-2 (PCR) Not detected, Coronavirus NL63 (PCR) Not detected, Human Metapneumovir PCR Not detected, Influenza A (H1) PCR Not detected, Influ A (H1N1/09) PCR Not detected, Influenza A (H3) PCR Not detected, Influenza Type A (PCR) Not detected, Influenza Type B (PCR) Not detected, M. pneumoniae (PCR) Not detected, Parainfluenza 1 (PCR) Not detected, Parainfluenza 2 (PCR) Not detected, Parainfluenza 3 (PCR) Not detected, Parainfluenza 4 (PCR) Not detected, RSV (PCR) Not detected, Entero/Rhino (PCR) Not detected 03/20/21 11:30: WBC 10.7, RBC 4.48 L, Hgb 14.0 L, Hct 41.4 L, MCV 92.4, MCH 31.2, MCHC 33.7, RDW 13.4, Plt Count 248, MPV 8.5, Neut % (Auto) 65.5, Lymph % (Auto) 20.4, [place] % (Auto) 11.3 H, Eos % (Auto) 2.1, Baso % (Auto) 0.8, Neut # (Auto) 7.0, Lymph # (Auto) 2.2, [place] # (Auto) 1.2 H, Eos # (Auto) 0.2, Baso # (Auto) 0.1 03/20/21 11:30: Sodium 128 L, Potassium 2.6 L*, Chloride 76 L, Carbon Dioxide 37 H, Anion Gap 17.6 H, BUN 62 H, Creatinine 2.10 H, Estimated Creat Clear 40, Estimated GFR 30 L, Est GFR ( Amer) 37 L, Glucose 367 H, Calcium 9.2, Magnesium 2.8 H, C-Reactive Protein 2.9 03/20/21 11:30: ESR 29 H 03/20/21 18:09: POC Glucose 424 H* 03/20/21 21:08: POC Glucose 422 H* 03/21/21 05:39: POC Glucose 357 H* 03/21/21 05:56: Hemoglobin A1c 10.1 H 03/21/21 05:56: Sodium 132 L, Potassium 2.4 L*, Chloride 84 L, Carbon Dioxide 37 H, Anion Gap 13.4, BUN 53 H, Creatinine 1.70 H, Estimated Creat Clear 49, Estimated GFR 39 L, Est GFR ( Amer) 47 L D, Glucose 277 H D, Calcium 8.9 I & O for Last 24 hours: Intake & Output 03/18/21 03/19/21 03/20/21 03/21/21 11:59 11:59 11:59 11:59 Intake Total 2064 / 2064 Output Total 3550 / 3550 Balance -1485 / -1485 Weight 240 lb 5 oz 235 lb 1 oz Microbiology Reports for the Last 24 Hours: Microbiology 03/20/21 12:47 Toe,Right Fifth Gram Stain - Final - Constitutional no acute distress - *Routine Respiratory Exam Present: CTA bilaterally - *Routine Cardiovascular Exam Present: irregular rhythm - *Routine Abdominal Exam Present: soft, normoactive bowel sounds. Absent: tenderness - *Routine Extremities Exam Present: edema (Has improved in both legs.) Comments: Bilateral legs with less erythema and edema. #3, 4, and fifth toes with discoloration. - *Routine Neurological Exam Present: alert, oriented X3 Assessment and Plan (1) Cellulitis Status: Acute Qualifiers: Site of cellulitis: extremity Site of cellulitis of extremity: lower extremity Laterality: right Qualified Code(s): L03.115 - Cellulitis of right lower limb Category: Medical Code(s): L03.90 - Cellulitis, unspecified (2) Ischemic ulcer of toe of right foot Status: Acute Qualifiers: Non-pressure ulcer stage: unspecified non-pressure ulcer stage Qualified Code(s): L97.519 - Non-pressure chronic ulcer of other part of right foot with unspecified severity Category: Medical Code(s): L97.519 - Non-pressure chronic ulcer of other part of right foot with unspecified severity (3) Chronic renal insufficiency Status: Acute Category: Medical Code(s): N18.9 - Chronic kidney disease
--- NOTE | 2021-03-21 08:16 | HMH.PHACONS ---
- Pharmacy Consult Date: 03/21/21 Time: 08:16 Referring provider: DR. HERNANDEZ Reason for Consult:: VANCOMYCIN DOSING Allergies and ADEs:: Allergies Allergy/AdvReac Type Severity Reaction Status Date / Time latex Allergy Unknown Unknown Verified 03/06/21 10:02 allergy reaction quinidine Allergy Unknown Unknown Verified 03/06/21 10:02 allergy reaction Home Medications:: Home Medications Medication Instructions Recorded Confirmed Type Ascorbic Acid [Vitamin C with Ermelinda 1,000 mg PO DAILY 01/23/21 03/20/21 History Hips] Atorvastatin Calcium [Lipitor 40mg 40 mg PO HS 01/23/21 03/20/21 History Tab] Bimatoprost [Lumigan 0.01% Ophth 1 drp OP PM 01/23/21 03/20/21 History Soln 2.5mL] Cholecalciferol (Vitamin D3) 1,000 unit PO DAILY 01/23/21 03/20/21 History [Vitamin D3 1,000 Unit Cap] Clopidogrel Bisulfate [Clopidogrel 75 mg PO DAILY 01/23/21 03/20/21 History 75mg Tab] Dorzolamide/Timolol/Pf [Cosopt Pf 1 drop EYE-BOTH BID 01/23/21 03/20/21 History Eye Drops] Tamsulosin HCl [Flomax 0.4mg 0.4 mg PO HS 01/23/21 03/20/21 History capsule] Pregabalin 200 mg PO BID #0 02/02/21 03/20/21 Rx oxycodone-acetaminophen 10 mg-325 1 tab PO Q6H PRN tab 02/13/21 03/20/21 History mg tablet potassium chloride 10 mEq 20 meq PO DAILY 02/13/21 03/20/21 History capsule,extended release clindamycin HCl 300 mg capsule 300 mg PO TID 14 Days #42 cap 03/06/21 03/20/21 Rx Dapagliflozin Propanediol [Farxiga] 5 mg PO DAILY 03/20/21 03/20/21 History Furosemide [Lasix 80mg tablet] 80 mg PO BID 03/20/21 03/20/21 History Insulin Glargine,Hum.rec.anlog 20 unit SQ DAILY 03/20/21 03/20/21 History [Lantus] Metformin HCl [Metformin 850mg 850 mg PO BID 03/20/21 03/20/21 History Tablet] Morphine Sulfate [Morphine Sulfate 30 mg PO Q4H PRN 03/20/21 03/20/21 History IR 30mg Tab] Naloxone HCl [Narcan] 1 spray NOSTRIL-L ONCE PRN 03/20/21 03/20/21 History Height: 1.7 m Weight: 106.623 kg Laboratory Results:: Laboratory Results - last 24 hr 03/20/21 11:02: Chlamy pneumoniae PCR Not detected, Adenovirus (PCR) Not detected, B. pertussis DNA (PCR) Not detected, Coronavirus OC43 (PCR) Not detected, Coronavirus HKU1 (PCR) Not detected, Coronavirus 229E (PCR) Not detected, SARS-CoV-2 (PCR) Not detected, Coronavirus NL63 (PCR) Not detected, Human Metapneumovir PCR Not detected, Influenza A (H1) PCR Not detected, Influ A (H1N1/09) PCR Not detected, Influenza A (H3) PCR Not detected, Influenza Type A (PCR) Not detected, Influenza Type B (PCR) Not detected, M. pneumoniae (PCR) Not detected, Parainfluenza 1 (PCR) Not detected, Parainfluenza 2 (PCR) Not detected, Parainfluenza 3 (PCR) Not detected, Parainfluenza 4 (PCR) Not detected, RSV (PCR) Not detected, Entero/Rhino (PCR) Not detected 03/20/21 11:30: WBC 10.7, RBC 4.48 L, Hgb 14.0 L, Hct 41.4 L, MCV 92.4, MCH 31.2, MCHC 33.7, RDW 13.4, Plt Count 248, MPV 8.5, Neut % (Auto) 65.5, Lymph % (Auto) 20.4, [place] % (Auto) 11.3 H, Eos % (Auto) 2.1, Baso % (Auto) 0.8, Neut # (Auto) 7.0, Lymph # (Auto) 2.2, [place] # (Auto) 1.2 H, Eos # (Auto) 0.2, Baso # (Auto) 0.1 03/20/21 11:30: Sodium 128 L, Potassium 2.6 L*, Chloride 76 L, Carbon Dioxide 37 H, Anion Gap 17.6 H, BUN 62 H, Creatinine 2.10 H, Estimated Creat Clear 40, Estimated GFR 30 L, Est GFR ( Amer) 37 L, Glucose 367 H, Calcium 9.2, Magnesium 2.8 H, C-Reactive Protein 2.9 03/20/21 11:30: ESR 29 H 03/20/21 18:09: POC Glucose 424 H* 03/20/21 21:08: POC Glucose 422 H* 03/21/21 05:39: POC Glucose 357 H* 03/21/21 05:56: Hemoglobin A1c 10.1 H 03/21/21 05:56: Sodium 132 L, Potassium 2.4 L*, Chloride 84 L, Carbon Dioxide 37 H, Anion Gap 13.4, BUN 53 H, Creatinine 1.70 H, Estimated Creat Clear 49, Estimated GFR 39 L, Est GFR ( Amer) 47 L D, Glucose 277 H D, Calcium 8.9 Medical History: Reports:: Diabetes Mellitus Type 2, Heart Murmur, Hyperlipidemia, Hypertension, Peripheral Artery Disease, Peripheral Vascular
--- NOTE | 2021-03-21 08:40 | HMH.PNCARD ---
Subjective Date: 03/21/21 Time: 08:35 Principal diagnosis: Edema and PAD Interval history: 85-year-old male was admitted from Dr. Dubon's office due to persistent lower extremity edema and worsening pain in the right fourth and fifth toes with area of concern for necrosis. Edema has subsequently returned with patient complaining of discomfort in the fourth and fifth toes of the right foot along with an area of concern between the toes. He is followed closely by podiatry who did discuss the potential for possible amputation but with concern for healing due to suspected PAD. Patient has had an abnormal FITO suggestive of extensive atherosclerosis of the peripheral arteries of the legs right greater than left. Patient denies chest pain, pressure or tightness. Patient denies shortness of breath. 1+ edema noted of the lower extremities. Patient states this is not new for him. Patient is scheduled for a bilateral lower extremity runoff due to the worsening pain of the lower extremity and necrosis. Discussed risk and benefits of undergoing runoff with patient. Patient verbalized understanding and is agreeable to procedure. Potassium level this morning 2.6, patient is receiving potassium via IV. Pending on the results of the lower extremity runoff, changes to medication and treatment therapy may be recommended. Thank you for allowing cardiology to participate in the care of this patient. Exam Vital signs and Labs for Last 24 Hours: Temp Pulse Resp BP Pulse Ox 98.2 F 80 18 129/44 L 96 03/21/21 08:00 03/21/21 08:00 03/21/21 08:00 03/21/21 08:00 03/21/21 08:00 Laboratory Results - last 24 hr 03/20/21 11:02: Chlamy pneumoniae PCR Not detected, Adenovirus (PCR) Not detected, B. pertussis DNA (PCR) Not detected, Coronavirus OC43 (PCR) Not detected, Coronavirus HKU1 (PCR) Not detected, Coronavirus 229E (PCR) Not detected, SARS-CoV-2 (PCR) Not detected, Coronavirus NL63 (PCR) Not detected, Human Metapneumovir PCR Not detected, Influenza A (H1) PCR Not detected, Influ A (H1N1/09) PCR Not detected, Influenza A (H3) PCR Not detected, Influenza Type A (PCR) Not detected, Influenza Type B (PCR) Not detected, M. pneumoniae (PCR) Not detected, Parainfluenza 1 (PCR) Not detected, Parainfluenza 2 (PCR) Not detected, Parainfluenza 3 (PCR) Not detected, Parainfluenza 4 (PCR) Not detected, RSV (PCR) Not detected, Entero/Rhino (PCR) Not detected 03/20/21 11:30: WBC 10.7, RBC 4.48 L, Hgb 14.0 L, Hct 41.4 L, MCV 92.4, MCH 31.2, MCHC 33.7, RDW 13.4, Plt Count 248, MPV 8.5, Neut % (Auto) 65.5, Lymph % (Auto) 20.4, [place] % (Auto) 11.3 H, Eos % (Auto) 2.1, Baso % (Auto) 0.8, Neut # (Auto) 7.0, Lymph # (Auto) 2.2, [place] # (Auto) 1.2 H, Eos # (Auto) 0.2, Baso # (Auto) 0.1 03/20/21 11:30: Sodium 128 L, Potassium 2.6 L*, Chloride 76 L, Carbon Dioxide 37 H, Anion Gap 17.6 H, BUN 62 H, Creatinine 2.10 H, Estimated Creat Clear 40, Estimated GFR 30 L, Est GFR ( Amer) 37 L, Glucose 367 H, Calcium 9.2, Magnesium 2.8 H, C-Reactive Protein 2.9 03/20/21 11:30: ESR 29 H 03/20/21 18:09: POC Glucose 424 H* 03/20/21 21:08: POC Glucose 422 H* 03/21/21 05:39: POC Glucose 357 H* 03/21/21 05:56: Hemoglobin A1c 10.1 H 03/21/21 05:56: Sodium 132 L, Potassium 2.4 L*, Chloride 84 L, Carbon Dioxide 37 H, Anion Gap 13.4, BUN 53 H, Creatinine 1.70 H, Estimated Creat Clear 49, Estimated GFR 39 L, Est GFR ( Amer) 47 L D, Glucose 277 H D, Calcium 8.9 I & O for Last 24 hours: Intake & Output 03/18/21 03/19/21 03/20/21 03/21/21 23:59 23:59 23:59 23:59 Intake Total 240 / 1415 1825 / 1825 Output Total 950 / 1350 2800 / 2800 Balance -710 / 65 -975 / -975 Weight 240 lb 5 oz 235 lb 1 oz Microbiology Reports for the Last 24 Hours: Microbiology 03/20/21 12:47 Toe,Right Fifth Gram Stain - Final - Constitutional mild distress, morbidly obese, cooperative - *Routine HEENT Exam Head: Present: normocephalic ENT: Present: mucous membranes moist
--- NOTE | 2021-03-21 08:50 | PC.NURSE ---
per hannah cordoba with cardiology, give pt his plavix this am.
--- NOTE | 2021-03-21 11:48 | PC.NURSE ---
pt off floor with cathlab staff
[2021-03-21 15:17] LABS: CATHL Activated Clotting Time > 400 SEC (74-125)
[2021-03-21 15:18] LABS: CATHL Activated Clotting Time 314 SEC (74-125)
[2021-03-21 15:34] LABS: Microscopic, Urine URINE MICROSCOPIC (MICROSCOPIC)
[2021-03-21 15:47] LABS: Appearance,Urine CLEAR (Clear); Bilirubin,Urine Negative (Negative); Blood, Urine Negative (Negative); Color,Urine YELLOW (Yellow); Glucose,Urine (UA) 3+ (Negative); Ketones,Urine Negative (Negative); Leukocyte Esterase,Urine Negative (Negative); Nitrate,Urine Negative (Negative); Protein,Urine Negative (Negative); Urobilinogen,Urine 0.2 EU/dl (0.2)
--- NOTE | 2021-03-21 16:19 | PC.NURSE ---
Trash and linens pulled
[2021-03-21 16:24] LABS: Bacteria,Urine Trace /lpf; Squamous Epithelial Cell,Urine Occasional #/hpf (0-5)
[2021-03-21 16:38] LABS: POC Glucose,Bedside 234 (70-110)
--- NOTE | 2021-03-21 18:50 | PC.NURSE ---
Addendum entered by Pepper Simpson RN 03/21/21 18:55: PEDAL PULSES OBTAIN VIA DOPPLER. Original Note: PT HAS DONE WELL SINCE ARRIVAL BACK TO FLOOR FROM PROCEDURE. PT SITE TO RIGHT GROIN IS CDI. AND LEFT HAS A DIME SIZE DRY DRAINAGE NOTED, SAME SIZE WHEN HE CAME TO FLOOR. BOTH SIGHTS ARE SOFT TO TOUCH. VSS. PT HAS BEEN SLEEPING. CALL LIGHT WITHIN REACH. WILL CONT. TO MONITOR.
--- NOTE | 2021-03-21 20:00 | PC.NURSE ---
Student nurse, Rick Cameron is performing care under my supervision.
[2021-03-21 21:54] LABS: POC Glucose,Bedside 248 (70-110)
--- NOTE | 2021-03-22 03:26 | PC.NURSE ---
Pt has slept at intervals this shift. Has c/o some discomfort to (R) groin sight x1. VS have remained stable. Pt is on RA. BS active. Pt ate soup, applesauce and pudding this shift. FSBS was 248 early in shift. 7 units of humalog administered. (R) Femoral cath site with DSG in place no drainage noted. Some bruising noted around site. Area is soft. (L) Femoral cath site with DSG in place. Scant serosanguineous drainage noted and unchanged from prior assessments. Pedal pulse obtained per doppler on (L) Posterior tibial obtained on (R). No other concerns at this time. Family remains at bedside. Will continue to monitor.
[2021-03-22 04:00] VITALS: BP 132/54; PULSE 68; RESP 16; TEMP 36.9; O2SAT 96
[2021-03-22 05:22] VITALS: BMI 36.8
[2021-03-22 06:01] LABS: Basophils % 0.4 % (0.1-2.0); Eosinophils # 0.4 K/mm3 (0.0-0.4); Eosinophils % 4.1 % (0.1-12.0); Hematocrit 36.5 % (42.0-52.0); Lymphocytes # 1.9 K/mm3 (0.7-4.5); Lymphocytes % 18.5 % (10-50); Mean Corpuscular HGB Conc 32.8 g/dL (31.8-35.4); Mean Corpuscular Hemoglobin 30.8 pg (27.0-31.2); Mean Corpuscular Volume 93.9 fl (80-94); Monocytes # 0.9 K/mm3 (0.1-1.0); Monocytes % 8.4 % (1.7-9.3); Neutrophils # 7.1 K/mm3 (1.8-7.8); Neutrophils % 68.5 % (37.0-80.0); Platelet Count 161 K/mm3 (142-424); Red Blood Count 3.89 M/mm3 (4.60-6.20); Red Cell Distribution Width 13.6 % (11.5-17.5); White Blood Count 10.4 K/mm3 (4.8-10.8)
[2021-03-22 06:06] LABS: Chloride 96 mmol/L (98-107); Potassium 3.1 mmoL/L (3.5-5.1); Sodium 136 mmol/L (136-145)
[2021-03-22 06:09] LABS: Blood Urea Nitrogen 37 mg/dl (9-20); Creatinine Clearance Estimated 69 mL/min (50-200); Estimated Glomerular Filt Rate 58 ml/min (>60); GFR (African American) 70 ML/MIN (>60)
[2021-03-22 06:10] LABS: Anion Gap 11.1 mEq/L (5-15); Calcium 8.2 mg/dl (8.4-10.2); Carbon Dioxide 32 mmol/L (22.0-30.0); Glucose 238 mg/dl (74-100)
[2021-03-22 06:56] LABS: POC Glucose,Bedside 245 (70-110)
--- NOTE | 2021-03-22 07:11 | PC.NURSE ---
Bilateral pedal pulses obtained via doppler. Sites marked.
[2021-03-22 08:00] VITALS: BP 121/50; PULSE 99; RESP 17; TEMP 36.8; O2SAT 96
--- NOTE | 2021-03-22 08:39 | HMH.ACPN2 ---
<Meg Ching - Last Filed: 03/22/21 08:39> Internal Medicine - PN: Subj *Date: 03/22/21 *Time: 08:39 Interval history: Patient states he is feeling much better today. The patient got a stent in the right common iliac and his pain and swelling are much better. He was able to rest last night and ate all of his breakfast this morning. Exam Vital signs and Labs for Last 24 Hours: Temp Pulse Resp BP Pulse Ox 98.3 F 99 H 17 121/50 L 96 03/22/21 08:00 03/22/21 08:00 03/22/21 08:00 03/22/21 08:00 03/22/21 08:00 Laboratory Results - last 24 hr 03/21/21 13:31: Activated Clotting Time 314 H* 03/21/21 14:42: Activated Clotting Time > 400 H* D 03/21/21 15:29: Urine Color Yellow, Urine Appearance Clear, Urine pH 7.0, Ur Specific [place] 1.010, Urine Protein Negative, Urine Glucose (UA) 3+, Urine Ketones Negative, Urine Blood Negative, Urine Nitrate Negative, Urine Bilirubin Negative, Urine Urobilinogen 0.2, Ur Leukocyte Esterase Negative, Urine RBC None, Urine WBC None, Ur Squamous Epith Cells Occasional, Urine Bacteria Trace 03/21/21 16:31: POC Glucose 234 H 03/21/21 20:34: POC Glucose 248 H 03/22/21 05:42: WBC 10.4, RBC 3.89 L, Hgb 12.0 L, Hct 36.5 L, MCV 93.9, MCH 30.8, MCHC 32.8, RDW 13.6, Plt Count 161 D, MPV 9.0, Neut % (Auto) 68.5, Lymph % (Auto) 18.5, [place] % (Auto) 8.4, Eos % (Auto) 4.1, Baso % (Auto) 0.4, Neut # (Auto) 7.1, Lymph # (Auto) 1.9, [place] # (Auto) 0.9, Eos # (Auto) 0.4, Baso # (Auto) 0.0 03/22/21 05:42: Sodium 136, Potassium 3.1 L D, Chloride 96 L, Carbon Dioxide 32 H, Anion Gap 11.1, BUN 37 H D, Creatinine 1.20 D, Estimated Creat Clear 69, Estimated GFR 58 L, Est GFR ( Amer) 70 D, Glucose 238 H, Calcium 8.2 L 03/22/21 06:16: POC Glucose 245 H I & O for Last 24 hours: Intake & Output 03/19/21 03/20/21 03/21/21 03/22/21 11:59 11:59 11:59 11:59 Intake Total 3065 / 3065 2426 / 2426 Output Total 4650 / 4650 2049 Balance -1585 / -1585 376 / 376 Weight 240 lb 5 oz 235 lb 1 oz 235 lb 2 oz Microbiology Reports for the Last 24 Hours: Microbiology 03/20/21 12:47 Toe,Right Fifth Gram Stain - Final 03/20/21 12:47 Toe,Right Fifth Wound Culture - Preliminary - Constitutional no acute distress - *Routine Respiratory Exam Present: CTA bilaterally - *Routine Cardiovascular Exam Present: RRR - *Routine Abdominal Exam Present: soft, normoactive bowel sounds. Absent: tenderness - *Routine Extremities Exam Present: edema (Much less edema and erythema today of bilateral lower extremities). Absent: cyanosis, clubbing - *Routine Skin Exam Present: warm. Absent: rash - *Routine Neurological Exam Present: alert, oriented X3 Assessment and Plan (1) Cellulitis Status: Acute Qualifiers: Site of cellulitis: extremity Site of cellulitis of extremity: lower extremity Laterality: right Qualified Code(s): L03.115 - Cellulitis of right lower limb Category: Medical Code(s): L03.90 - Cellulitis, unspecified (2) Ischemic ulcer of toe of right foot Status: Acute Qualifiers: Non-pressure ulcer stage: unspecified non-pressure ulcer stage Qualified Code(s): L97.519 - Non-pressure chronic ulcer of other part of right foot with unspecified severity Category: Medical Code(s): L97.519 - Non-pressure chronic ulcer of other part of right foot with unspecified severity (3) Chronic renal insufficiency Status: Acute Category: Medical Code(s): N18.9 - Chronic kidney disease, unspecified (4) Dehydration Status: Acute Category: Medical Code(s): E86.0 - Dehydration (5) Hypokalemia Status: Acute Category: Medical Code(s): E87.6 - Hypokalemia (6) Aortic stenosis Status: Chronic Category: Medical Code(s): I35.0 - Nonrheumatic aortic (valve) stenosis (7) Peripheral artery disease Status: Chronic Category: Medical Code(s): I73.9 - Peripheral vascular disease, unspecified (8) Type 2 diabetes mellitus Status: [facility]
--- NOTE | 2021-03-22 08:43 | HMH.PNCARD ---
Subjective Date: 03/22/21 Time: 08:43 Principal diagnosis: Edema and PAD Interval history: 85-year-old white female in bed in no acute distress. Right leg feels better after peripheral intervention yesterday of the aortic bifurcation in the right common iliac artery. Much less edema is noted of both legs. Dr. Richard was in the room when I saw the patient and was quite pleased with the results. No planned surgery at this time. Bilateral inguinal access sites without evidence of bleeding or hematoma. Exam Vital signs and Labs for Last 24 Hours: Temp Pulse Resp BP Pulse Ox 98.3 F 99 H 17 121/50 L 96 03/22/21 08:00 03/22/21 08:00 03/22/21 08:00 03/22/21 08:00 03/22/21 08:00 Laboratory Results - last 24 hr 03/21/21 13:31: Activated Clotting Time 314 H* 03/21/21 14:42: Activated Clotting Time > 400 H* D 03/21/21 15:29: Urine Color Yellow, Urine Appearance Clear, Urine pH 7.0, Ur Specific [place] 1.010, Urine Protein Negative, Urine Glucose (UA) 3+, Urine Ketones Negative, Urine Blood Negative, Urine Nitrate Negative, Urine Bilirubin Negative, Urine Urobilinogen 0.2, Ur Leukocyte Esterase Negative, Urine RBC None, Urine WBC None, Ur Squamous Epith Cells Occasional, Urine Bacteria Trace 03/21/21 16:31: POC Glucose 234 H 03/21/21 20:34: POC Glucose 248 H 03/22/21 05:42: WBC 10.4, RBC 3.89 L, Hgb 12.0 L, Hct 36.5 L, MCV 93.9, MCH 30.8, MCHC 32.8, RDW 13.6, Plt Count 161 D, MPV 9.0, Neut % (Auto) 68.5, Lymph % (Auto) 18.5, [place] % (Auto) 8.4, Eos % (Auto) 4.1, Baso % (Auto) 0.4, Neut # (Auto) 7.1, Lymph # (Auto) 1.9, [place] # (Auto) 0.9, Eos # (Auto) 0.4, Baso # (Auto) 0.0 03/22/21 05:42: Sodium 136, Potassium 3.1 L D, Chloride 96 L, Carbon Dioxide 32 H, Anion Gap 11.1, BUN 37 H D, Creatinine 1.20 D, Estimated Creat Clear 69, Estimated GFR 58 L, Est GFR ( Amer) 70 D, Glucose 238 H, Calcium 8.2 L 03/22/21 06:16: POC Glucose 245 H I & O for Last 24 hours: Intake & Output 03/19/21 03/20/21 03/21/21 03/22/21 11:59 11:59 11:59 11:59 Intake Total 3065 / 3065 2426 / 2426 Output Total 4650 / 4650 2049 Balance -1585 / -1585 376 / 376 Weight 240 lb 5 oz 235 lb 1 oz 235 lb 2 oz Microbiology Reports for the Last 24 Hours: Microbiology 03/20/21 12:47 Toe,Right Fifth Gram Stain - Final 03/20/21 12:47 Toe,Right Fifth Wound Culture - Preliminary - *Routine Respiratory Exam Present: CTA bilaterally - *Routine Cardiovascular Exam Present: RRR - *Routine Extremities Exam Present: edema. Absent: cyanosis, clubbing - *Routine Neurological Exam Present: alert, oriented X3 Progress Note: A&P (1) Cellulitis Status: Acute (2) Ischemic ulcer of toe of right foot Status: Acute (3) Chronic renal insufficiency Status: Acute (4) Dehydration Status: Acute (5) Hypokalemia Status: Acute (6) Aortic stenosis Status: Chronic (7) Peripheral artery disease Status: Chronic (8) Type 2 diabetes mellitus Status: Chronic (9) Lymphedema of both lower extremities Status: Acute (10) Gangrene of toe of right foot Status: Acute (11) Acute on chronic renal failure Status: Acute Assessment and Plan for All Diagnoses:: 1. PAD, status post reconstruction of aortic bifurcation with stenting of the right common iliac. Continue Plavix therapy. Recommend consideration of Xarelto 20 mg daily (baseline creatinine clearance is greater than 50) at follow-up next week. 2. Hypokalemia, improving 3. Diabetes mellitus with hemoglobin A1c greater than 10 4. Hyperlipidemia, continue statin therapy Okay for discharge from cardiology standpoint with plan to see the patient next week.
--- NOTE | 2021-03-22 09:19 | HMH.ORTHPN ---
Subjective Date: 03/22/21 Time: 07:55 Principal diagnosis: Edema and PAD Interval history: Patient is laying comfortably in bed. Right leg feels better after peripheral intervention yesterday of the aortic bifurcation in the right common iliac artery. Much less edema is noted of both legs. He reports less pain to the right lower extremity. He denies nausea/vomiting, fever and chills. PN: Obj Ex Vital signs: Temp Pulse Resp BP Pulse Ox 98.3 F 99 H 17 121/50 L 96 03/22/21 08:00 03/22/21 08:00 03/22/21 08:00 03/22/21 08:00 03/22/21 08:00 - Constitutional no acute distress, obese - Routine HEENT Exam Head: Present: normocephalic Eye: Present: EOMI ENT: Present: mucous membranes moist - Routine Respiratory Exam Present: accessory muscle use - Routine Cardiovascular Exam Present: RRR - Routine Extremities Exam Present: edema. Absent: normal capillary refill - Detailed Lower Extremity Exam Top foot image: 1 - B/L LE cellulitis, 1+ pitting with no serous fluid drainage. Weakly palpable pedal pulses, but more warmth and color than previous. There was less dark black ischemic changes noted to the right 4-5th toes. Minimal inter-digital maceration noted to right 3-4th interspaces. No malodor to right 4-5th toes. No purulence or drainage noted. 1) Dorsal right midfoot: 3x2cm round, 60% granular, 40% yellow eschar. The areas did not extend deep to subq, deep fascia. No exposed bone. 2) Medial 5th toe ulcer: 1.7x0.7x0.1cm, 70% dark brown eschar, 25% yellow intact, 5% granular edge. 3) Lateral 5th toe ulcer: 0.7x0.8x0.1cm, 80% yellow fibrotic tissue, 20% brown eschar. 4) Lateral 4th toe ulcer: 2.7x0.8x0.1cm, 80% dark brown eschar, 20% yellow intact - Urinary Catheter Management Echeverria Cath placed during this visit: no Progress Note: A&P (1) Cellulitis Status: Acute (2) Ischemic ulcer of toe of right foot Status: Acute (3) Chronic renal insufficiency Status: Acute (4) Dehydration Status: Acute (5) Hypokalemia Status: Acute (6) Aortic stenosis Status: Chronic (7) Peripheral artery disease Status: Chronic (8) Type 2 diabetes mellitus Status: Chronic (9) Lymphedema of both lower extremities Status: Acute (10) Gangrene of toe of right foot Status: Acute (11) Acute on chronic renal failure Status: Acute Assessment and Plan for All Diagnoses:: Right 4-5th toe ischemic changes, right foot gangrene, PAD: 01/31/21, right foot wound culture: NG x 5 days 03/20/21, right 5th toe wound culture: gram stain rare GPB 03/20/21, wbc 10.7, esr 29, crp 2.9, K+ 2.6, glucose 367, gfr 30 Edema and cellulitis is improving. I discussed with the patient the importance of proper hygiene and maintaining a clean healthy wound bed to avoid getting an infection. No dressing applied. I explained to the patient and his we will avoid any aggressive sharp debridement due to the poor circulation. I explained the risk of PAD and amputation. I explained that if the toe were to be removed and he does not heal a more proximal amputation could be warranted which could include part of the toe foot or even the leg. X-ray does not show any evidence of bone infection nor does the clinical exam. I explained after a revascularization, it is possible the wounds can get wet. If the wounds get wet or infection extends deep there is an increased risk of osteomyelitis which would warrant amputation. However, at this point I would monitor and continue local wound care and avoid surgical amputation intervention if possible. Patient and his verbalized understanding and agreement with the treatment plan. Approximately 20 minutes was spent on patient encounter including examination, patient education/counseling, review of labs and imaging and documentation. 1. Cardiology: angiogram run-off yesterday (peripheral intervention of the
[2021-03-22 11:21] LABS: POC Glucose,Bedside 315 (70-110)
[2021-03-22 16:00] VITALS: BP 138/69; PULSE 86; RESP 16; TEMP 36.6; O2SAT 95
[2021-03-22 16:30] LABS: POC Glucose,Bedside 299 (70-110)
--- NOTE | 2021-03-22 18:05 | PC.NURSE ---
PT HAS HAD A GOOD DAY. NO PAIN VOICED. PT REFUSED TO SIT UP IN A CHAIR TODAY BUT AGREED TO BE TURNED Q2HR TO KEEP HIM OFF HIS BOTTOM. NEW DRESSED PLACED ON BOTTOM. PT PEDAL PULSES ARE WEAK BUT PALPABLE. WOUNDS TO TOES ARE HUMBLE. VSS. CALL LIGHT WITHIN REACH. WILL CONT. TO MONITOR.
[2021-03-22 20:00] VITALS: BP 108/58; PULSE 94; RESP 16; TEMP 36.7; O2SAT 92
[2021-03-22 20:44] LABS: POC Glucose,Bedside 355 (70-110)
--- NOTE | 2021-03-23 03:56 | PC.NURSE ---
pt is AxOx4, no complaints of pain this shift, pedal pulses are weak but palpable, remains on room air, using urinal with standby assistance
[2021-03-23 04:00] VITALS: BP 126/56; PULSE 83; RESP 18; TEMP 37.2; O2SAT 95
[2021-03-23 05:38] VITALS: BMI 37.3
[2021-03-23 05:43] LABS: POC Glucose,Bedside 238 (70-110)
[2021-03-23 07:40] VITALS: BP 121/60; PULSE 98; RESP 16; TEMP 37; O2SAT 95
[2021-03-23 08:00] VITALS: O2SAT 95
[2021-03-23 08:08] LABS: Chloride 97 mmol/L (98-107)
[2021-03-23 08:09] LABS: Potassium 3.5 mmoL/L (3.5-5.1); Sodium 135 mmol/L (136-145)
[2021-03-23 08:11] LABS: Blood Urea Nitrogen 22 mg/dl (9-20); Creatinine Clearance Estimated 65 mL/min (50-200); Estimated Glomerular Filt Rate 53 ml/min (>60); GFR (African American) 64 ML/MIN (>60)
[2021-03-23 08:12] LABS: Anion Gap 12.5 mEq/L (5-15); Calcium 8.5 mg/dl (8.4-10.2); Carbon Dioxide 29 mmol/L (22.0-30.0); Glucose 318 mg/dl (74-100)
--- NOTE | 2021-03-23 08:24 | HMH.ACPN ---
Internal Medicine - PN: Subj *Date: 03/23/21 *Time: 08:24 Exam Vital signs and Labs for Last 24 Hours: Temp Pulse Resp BP Pulse Ox 98.6 F 98 H 16 121/60 95 03/23/21 07:40 03/23/21 07:40 03/23/21 07:40 03/23/21 07:40 03/23/21 07:40 Laboratory Results - last 24 hr 03/22/21 11:02: POC Glucose 315 H* 03/22/21 16:21: POC Glucose 299 H 03/22/21 20:19: POC Glucose 355 H* 03/23/21 05:34: POC Glucose 238 H 03/23/21 07:50: Sodium 135 L, Potassium 3.5, Chloride 97 L, Carbon Dioxide 29, Anion Gap 12.5, BUN 22 H D, Creatinine 1.30 H, Estimated Creat Clear 65, Estimated GFR 53 L, Est GFR ( Amer) 64, Glucose 318 H, Calcium 8.5 I & O for Last 24 hours: Intake & Output 03/20/21 03/21/21 03/22/21 03/23/21 23:59 23:59 23:59 23:59 Intake Total 1240 / 2415 2825 / 2825 2146 / 2146 100 / 100 Output Total 1850 / 2250 3700 / 4325 2650 / 2950 875 / 875 Balance -610 / 165 -875 / -1500 -504 / -804 -775 / -775 Weight 109.004 kg 107 kg 106.651 kg 107.955 kg Microbiology Reports for the Last 24 Hours: Microbiology 03/20/21 12:47 Toe,Right Fifth Gram Stain - Final 03/20/21 12:47 Toe,Right Fifth Wound Culture - Preliminary Assessment and Plan (1) Cellulitis Status: Acute Qualifiers: Site of cellulitis: extremity Site of cellulitis of extremity: lower extremity Laterality: right Qualified Code(s): L03.115 - Cellulitis of right lower limb Category: Medical Code(s): L03.90 - Cellulitis, unspecified (2) Ischemic ulcer of toe of right foot Status: Acute Qualifiers: Non-pressure ulcer stage: unspecified non-pressure ulcer stage Qualified Code(s): L97.519 - Non-pressure chronic ulcer of other part of right foot with unspecified severity Category: Medical Code(s): L97.519 - Non-pressure chronic ulcer of other part of right foot with unspecified severity (3) Chronic renal insufficiency Status: Acute Category: Medical Code(s): N18.9 - Chronic kidney disease, unspecified (4) Dehydration Status: Acute Category: Medical Code(s): E86.0 - Dehydration (5) Hypokalemia Status: Acute Category: Medical Code(s): E87.6 - Hypokalemia (6) Aortic stenosis Status: Chronic Category: Medical Code(s): I35.0 - Nonrheumatic aortic (valve) stenosis (7) Peripheral artery disease Status: Chronic Category: Medical Code(s): I73.9 - Peripheral vascular disease, unspecified (8) Type 2 diabetes mellitus Status: Chronic Qualifiers: 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: without correction use Diabetes mellitus complication status: with circulatory complication Diabetes mellitus complication detail: with peripheral angiopathy with gangrene Qualified Code(s): E11.52 - Type 2 diabetes mellitus with diabetic peripheral angiopathy with gangrene Category: Medical Code(s): E11.9 - Type 2 diabetes mellitus without complications (9) Lymphedema of both lower extremities Status: Acute Category: Medical Code(s): I89.0 - Lymphedema, not elsewhere classified (10) Gangrene of toe of right foot Status: Acute Category: Medical Code(s): I96 - Gangrene, not elsewhere classified (11) Acute on chronic renal failure Status: Acute Category: Medical Code(s): N17.9 - Acute kidney failure, unspecified; N18.9 - Chronic kidney disease, unspecified The patient's infection will respond to the chosen ABx?: Yes Is the patient receiving the right drug, dose, and route?: Yes Could a more targeted ABx be ordered?: No
--- NOTE | 2021-03-23 08:35 | HMH.ACPN2 ---
<Meg Ching - Last Filed: 03/23/21 08:35> Internal Medicine - PN: Subj *Date: 03/23/21 *Time: 08:35 Interval history: Patient states he is feeling better today. The pain in his legs is improved as has the erythema and edema. He did not rest well last night and is tired this morning. He did eat breakfast. He denies any other pain. Exam Vital signs and Labs for Last 24 Hours: Temp Pulse Resp BP Pulse Ox 98.6 F 98 H 16 121/60 95 03/23/21 07:40 03/23/21 07:40 03/23/21 07:40 03/23/21 07:40 03/23/21 07:40 Laboratory Results - last 24 hr 03/22/21 11:02: POC Glucose 315 H* 03/22/21 16:21: POC Glucose 299 H 03/22/21 20:19: POC Glucose 355 H* 03/23/21 05:34: POC Glucose 238 H 03/23/21 07:50: Sodium 135 L, Potassium 3.5, Chloride 97 L, Carbon Dioxide 29, Anion Gap 12.5, BUN 22 H D, Creatinine 1.30 H, Estimated Creat Clear 65, Estimated GFR 53 L, Est GFR ( Amer) 64, Glucose 318 H, Calcium 8.5 I & O for Last 24 hours: Intake & Output 03/20/21 03/21/21 03/22/21 03/23/21 11:59 11:59 11:59 11:59 Intake Total 3065 / 3065 2426 / 2426 820 / 820 Output Total 4650 / 4650 2049 / 2049 2375 / 2375 Balance -1585 / -1585 376 / 376 -1555 / -1555 Weight 240 lb 5 oz 235 lb 1 oz 235 lb 2 oz 238 lb Microbiology Reports for the Last 24 Hours: Microbiology 03/20/21 12:47 Toe,Right Fifth Gram Stain - Final 03/20/21 12:47 Toe,Right Fifth Wound Culture - Preliminary - Constitutional no acute distress - *Routine Respiratory Exam Present: CTA bilaterally - *Routine Cardiovascular Exam Present: RRR - *Routine Abdominal Exam Present: soft, normoactive bowel sounds. Absent: tenderness - *Routine Extremities Exam Present: edema (Less edema and erythema of the bilateral lower extremities). Absent: cyanosis, clubbing - *Routine Neurological Exam Present: alert, oriented X3 Assessment and Plan (1) Cellulitis Status: Acute Qualifiers: Site of cellulitis: extremity Site of cellulitis of extremity: lower extremity Laterality: right Qualified Code(s): L03.115 - Cellulitis of right lower limb Category: Medical Code(s): L03.90 - Cellulitis, unspecified (2) Ischemic ulcer of toe of right foot Status: Acute Qualifiers: Non-pressure ulcer stage: unspecified non-pressure ulcer stage Qualified Code(s): L97.519 - Non-pressure chronic ulcer of other part of right foot with unspecified severity Category: Medical Code(s): L97.519 - Non-pressure chronic ulcer of other part of right foot with unspecified severity (3) Chronic renal insufficiency Status: Acute Category: Medical Code(s): N18.9 - Chronic kidney disease, unspecified (4) Dehydration Status: Acute Category: Medical Code(s): E86.0 - Dehydration (5) Hypokalemia Status: Acute Category: Medical Code(s): E87.6 - Hypokalemia (6) Aortic stenosis Status: Chronic Category: Medical Code(s): I35.0 - Nonrheumatic aortic (valve) stenosis (7) Peripheral artery disease Status: Chronic Category: Medical Code(s): I73.9 - Peripheral vascular disease, unspecified (8) Type 2 diabetes mellitus Status: Chronic Qualifiers: Diabetes mellitus skilled nursing insulin use: without skilled nursing use Diabetes mellitus complication status: with circulatory complication Diabetes mellitus complication detail: with peripheral angiopathy with gangrene Qualified Code(s): E11.52 - Type 2 diabetes mellitus with diabetic peripheral angiopathy with gangrene Category: Medical Code(s): E11.9 - Type 2 diabetes mellitus without complications (9) Lymphedema of both lower extremities Status: Acute Category: Medical Code(s): I89.0 - Lymphedema, not elsewhere classified (10) Gangrene of toe of right foot Status: Acute Category: Medical Code(s): I96 - Gangrene, not elsewhere classified (11) Acute on chronic renal failure Status: Acute Category: Medical Code(s): N17.9 - Acute kidney
[2021-03-23 08:58] LABS: Vancomycin,Trough 12.6 ug/mL (5.0-10.0)
--- NOTE | 2021-03-23 09:14 | HMH.ORTHPN ---
Subjective Date: 03/23/21 Time: 08:55 Principal diagnosis: Edema and PAD Interval history: Patient is resting comfortably laying in bed. He reports not sleeping well last night. He reports no pain currently to the right foot. States PT brought a postop shoe but he states he will not be able to wear it. PN: Obj Ex Vital signs: Temp Pulse Resp BP Pulse Ox 98.6 F 98 H 16 121/60 95 03/23/21 07:40 03/23/21 07:40 03/23/21 07:40 03/23/21 07:40 03/23/21 07:40 - Constitutional no acute distress - Routine HEENT Exam Head: Present: normocephalic - Routine Respiratory Exam Absent: respiratory distress - Routine Cardiovascular Exam Present: RRR - Routine Extremities Exam Present: edema - Detailed Lower Extremity Exam Top foot image: 1 - B/L LE cellulitis, 1+ pitting with no serous fluid drainage. Weakly palpable pedal pulses, but more warmth and color than previous. Left anterior ankle abrasion, 1x1.5x0.0cm intact abrasion scab. There was less dark black ischemic changes noted to the right 4-5th toes. Minimal inter-digital maceration noted to right 3-4th interspaces. No malodor to right 4-5th toes. No purulence or drainage noted. 1) Dorsal right midfoot: 3x2cm round, 60% granular, 40% yellow eschar. The areas did not extend deep to subq, deep fascia. No exposed bone. 2) Medial 5th toe ulcer: 1.7x0.7x0.1cm, 70% dark brown eschar, 25% yellow intact, 5% granular edge. 3) Lateral 5th toe ulcer: 0.7x0.8x0.1cm, 80% yellow fibrotic tissue, 20% brown eschar. 4) Lateral 4th toe ulcer: 2.7x0.8x0.1cm, 80% dark brown eschar, 20% yellow intact - Urinary Catheter Management Echeverria Cath placed during this visit: no Progress Note: A&P (1) Cellulitis Status: Acute (2) Ischemic ulcer of toe of right foot Status: Acute (3) Chronic renal insufficiency Status: Acute (4) Dehydration Status: Acute (5) Hypokalemia Status: Acute (6) Aortic stenosis Status: Chronic (7) Peripheral artery disease Status: Chronic (8) Type 2 diabetes mellitus Status: Chronic (9) Lymphedema of both lower extremities Status: Acute (10) Gangrene of toe of right foot Status: Acute (11) Acute on chronic renal failure Status: Acute Assessment and Plan for All Diagnoses:: Right 4-5th toe ischemic changes, right foot gangrene, PAD: 01/31/21, right foot wound culture: NG x 5 days 03/20/21, right 5th toe wound culture: gram stain rare GPB 03/20/21, wbc 10.7, esr 29, crp 2.9, K+ 2.6, glucose 367, gfr 30 Edema and cellulitis is improving. I discussed with the patient the importance of proper hygiene and maintaining a clean healthy wound bed to avoid getting an infection. No dressing applied. I explained to the patient and his we will avoid any aggressive sharp debridement due to the poor circulation. I explained the risk of PAD and amputation. I explained that if the toe were to be removed and he does not heal a more proximal amputation could be warranted which could include part of the toe foot or even the leg. X-ray does not show any evidence of bone infection nor does the clinical exam. I explained after a revascularization, it is possible the wounds can get wet. If the wounds get wet or infection extends deep there is an increased risk of osteomyelitis which would warrant amputation. However, at this point I would monitor and continue local wound care and avoid surgical amputation intervention if possible. Patient and his verbalized understanding and agreement with the treatment plan. Approximately 20 minutes was spent on patient encounter including examination, patient education/counseling, review of labs and imaging and documentation. Demonstrated how to paint betadine to toes/ulcers. 1. Cardiology: s/p angiogram run-off 03/21/21 (peripheral intervention of the aortic bifurcation in the right common iliac artery) 2. Avoid tigh
--- NOTE | 2021-03-23 09:41 | XR_ITS ---
PROCEDURE: XR CHEST PORTABLE PICC PLAC CLINICAL HISTORY: Confirm PICC line placement COMPARISON: CR XR CHEST PORTABLE from 01/22/2021 CR XR CHEST PORTABLE from 03/20/2021 FINDINGS: Right upper extremity PICC line has been inserted. The tip is in the region the proximal aspect of the superior vena cava. The lungs are clear without infiltrates, suspicious nodules, or pleural effusions. Unremarkable cardiovascular structures. IMPRESSION: PICC line tip in the region of the proximal SVC Dictated by: Eduardo Davenport MD 03/23/2021 15:11 Eduardo Davenport MD in [facility] 03/23/2021 15:11
--- NOTE | 2021-03-23 09:46 | HMH.PNCARD ---
Subjective Date: 03/23/21 Time: 09:46 Principal diagnosis: Edema and PAD Interval history: 85-year-old white male in bed in no acute distress. No chest pain overnight. He relates not sleeping well and being awakened at 12:30 AM for a bath. The erythema and discomfort of his right foot have improved since the peripheral stenting earlier this week. Edema has significantly improved but is present to some extent still. I removed the Tegaderm and gauze from both inguinal areas. Some bruising is noted in both areas but no significant hematomas are noted. The inguinal areas are moist and with some maceration of the skin. I have discussed with the patient his and the nurse opening those areas up and using a fan to help dry them out. states she has problems with these areas at home and uses creams at home to try to prevent yeast infections. Exam Vital signs and Labs for Last 24 Hours: Temp Pulse Resp BP Pulse Ox 98.6 F 98 H 16 121/60 95 03/23/21 07:40 03/23/21 07:40 03/23/21 07:40 03/23/21 07:40 03/23/21 07:40 Laboratory Results - last 24 hr 03/22/21 11:02: POC Glucose 315 H* 03/22/21 16:21: POC Glucose 299 H 03/22/21 20:19: POC Glucose 355 H* 03/23/21 05:34: POC Glucose 238 H 03/23/21 07:50: Vancomycin Trough 12.6 H 03/23/21 07:50: Sodium 135 L, Potassium 3.5, Chloride 97 L, Carbon Dioxide 29, Anion Gap 12.5, BUN 22 H D, Creatinine 1.30 H, Estimated Creat Clear 65, Estimated GFR 53 L, Est GFR ( Amer) 64, Glucose 318 H, Calcium 8.5 I & O for Last 24 hours: Intake & Output 03/20/21 03/21/21 03/22/21 03/23/21 11:59 11:59 11:59 11:59 Intake Total 3065 / 3065 2426 / 2426 1300 / 1300 Output Total 4650 / 4650 2049 / 2049 2375 / 2375 Balance -1585 / -1585 376 / 376 -1075 / -1075 Weight 240 lb 5 oz 235 lb 1 oz 235 lb 2 oz 238 lb Microbiology Reports for the Last 24 Hours: Microbiology 03/20/21 12:47 Toe,Right Fifth Gram Stain - Final 03/20/21 12:47 Toe,Right Fifth Wound Culture - Preliminary - *Routine Respiratory Exam Present: CTA bilaterally - *Routine Cardiovascular Exam Present: RRR - *Routine Extremities Exam Present: edema. Absent: cyanosis, clubbing Progress Note: A&P (1) Cellulitis Status: Acute (2) Ischemic ulcer of toe of right foot Status: Acute (3) Chronic renal insufficiency Status: Acute (4) Dehydration Status: Acute (5) Hypokalemia Status: Acute (6) Aortic stenosis Status: Chronic (7) Peripheral artery disease Status: Chronic (8) Type 2 diabetes mellitus Status: Chronic (9) Lymphedema of both lower extremities Status: Acute (10) Gangrene of toe of right foot Status: Acute (11) Acute on chronic renal failure Status: Acute Assessment and Plan for All Diagnoses:: 1. PAD, status post reconstruction of aortic bifurcation with stenting of the right common iliac. Continue Plavix therapy. At follow-up next week we will give samples of Xarelto 2.5 mg twice daily to try due to the patient's PAD. 2. Hypokalemia, resolved on potassium 20 mEq 3 times daily. Patient will likely need supplementation at discharge as well. 3. Diabetes mellitus with hemoglobin A1c greater than 10 4. Hyperlipidemia, continue statin therapy 5. Moderate aortic stenosis with mild hypertensive changes on echocardiogram 01/2021. Discussed with Dr. Dubon and will restart Lasix 40 mg once daily upon discharge. Okay for discharge from cardiology standpoint with plan to see the patient next week.
--- NOTE | 2021-03-23 10:31 | SW/DCPLANNER ---
PATIENT IS DISCHARGING HOME TODAY WITH HOME HEALTH TO RESUME SKILLED NSG AND TO ADMINISTER IV ANTIBIOTICS.... SENT ORDERS TO [facility] FOR MEDICINE TO BE DELIVERED THIS AFTERNOON.. MORNING DOSE WILL BE GIVEN PRIOR TO PATIENT DISCHARGE.. PATIENT IS ALREADY ESTABLISHED WITH [facility] AND I WILL NOTIFY THEM... DISCHARGE LATER IN THE AFTERNOON...
--- NOTE | 2021-03-23 10:31 | HMH.PHACONS ---
- Pharmacy Consult Date: 03/23/21 Time: 10:31 Referring provider: DR. HERNANDEZ Reason for Consult:: VANCOMYCIN TROUGH LEVEL Allergies and ADEs:: Allergies Allergy/AdvReac Type Severity Reaction Status Date / Time latex Allergy Unknown Unknown Verified 03/06/21 10:02 allergy reaction quinidine Allergy Unknown Unknown Verified 03/06/21 10:02 allergy reaction Home Medications:: Home Medications Medication Instructions Recorded Confirmed Type Ascorbic Acid [Vitamin C with Ermelinda 1,000 mg PO DAILY 01/23/21 03/20/21 History Hips] Atorvastatin Calcium [Lipitor 40mg 40 mg PO HS 01/23/21 03/20/21 History Tab] Bimatoprost [Lumigan 0.01% Ophth 1 drp OP PM 01/23/21 03/20/21 History Soln 2.5mL] Cholecalciferol (Vitamin D3) 1,000 unit PO DAILY 01/23/21 03/20/21 History [Vitamin D3 1,000 Unit Cap] Clopidogrel Bisulfate [Clopidogrel 75 mg PO DAILY 01/23/21 03/20/21 History 75mg Tab] Dorzolamide/Timolol/Pf [Cosopt Pf 1 drop EYE-BOTH BID 01/23/21 03/20/21 History Eye Drops] Tamsulosin HCl [Flomax 0.4mg 0.4 mg PO HS 01/23/21 03/20/21 History capsule] Pregabalin 200 mg PO BID #0 02/02/21 03/20/21 Rx oxycodone-acetaminophen 10 mg-325 1 tab PO Q6H PRN tab 02/13/21 03/20/21 History mg tablet potassium chloride 10 mEq 20 meq PO DAILY 02/13/21 03/20/21 History capsule,extended release clindamycin HCl 300 mg capsule 300 mg PO TID 14 Days #42 cap 03/06/21 03/20/21 Rx Dapagliflozin Propanediol [Farxiga] 5 mg PO DAILY 03/20/21 03/20/21 History Furosemide [Lasix 80mg tablet] 80 mg PO BID 03/20/21 03/20/21 History Insulin Glargine,Hum.rec.anlog 20 unit SQ DAILY 03/20/21 03/20/21 History [Lantus] Metformin HCl [Metformin 850mg 850 mg PO BID 03/20/21 03/20/21 History Tablet] Morphine Sulfate [Morphine Sulfate 30 mg PO Q4H PRN 03/20/21 03/20/21 History IR 30mg Tab] Naloxone HCl [Narcan] 1 spray NOSTRIL-L ONCE PRN 03/20/21 03/20/21 History Height: 1.7 m Weight: 107.955 kg Laboratory Results:: Laboratory Results - last 24 hr 03/22/21 11:02: POC Glucose 315 H* 03/22/21 16:21: POC Glucose 299 H 03/22/21 20:19: POC Glucose 355 H* 03/23/21 05:34: POC Glucose 238 H 03/23/21 07:50: Vancomycin Trough 12.6 H 03/23/21 07:50: Sodium 135 L, Potassium 3.5, Chloride 97 L, Carbon Dioxide 29, Anion Gap 12.5, BUN 22 H D, Creatinine 1.30 H, Estimated Creat Clear 65, Estimated GFR 53 L, Est GFR ( Amer) 64, Glucose 318 H, Calcium 8.5 Medical History: Reports:: Diabetes Mellitus Type 2, Heart Murmur, Hyperlipidemia, Hypertension, Peripheral Artery Disease, Peripheral Vascular Disease Denies:: Cancer, Diabetes Mellitus Type 1, MRSA Assessment and Plan (1) Cellulitis Status: Acute Qualifiers: Site of cellulitis: extremity Site of cellulitis of extremity: lower extremity Laterality: right Qualified Code(s): L03.115 - Cellulitis of right lower limb Category: Medical Code(s): L03.90 - Cellulitis, unspecified (2) Ischemic ulcer of toe of right foot Status: Acute Qualifiers: Non-pressure ulcer stage: unspecified non-pressure ulcer stage Qualified Code(s): L97.519 - Non-pressure chronic ulcer of other part of right foot with unspecified severity Category: Medical Code(s): L97.519 - Non-pressure chronic ulcer of other part of right foot with unspecified severity (3) Chronic renal insufficiency Status: Acute Category: Medical Code(s): N18.9 - Chronic kidney disease, unspecified (4) Dehydration Status: Acute Category: Medical Code(s): E86.0 - Dehydration (5) Hypokalemia Status: Acute Category: Medical Code(s): E87.6 - Hypokalemia (6) Aortic stenosis Status: Chronic Category: Medical Code(s): I35.0 - Nonrheumatic aortic (valve) stenosis (7) Peripheral artery disease Status: Chronic Category: Medical Code(s): I73.9 - Peripheral vascular disease, unspecified (8) Type 2 diabetes mellitus Status: Chronic Q
[2021-03-23 11:32] LABS: POC Glucose,Bedside 359 (70-110)
--- NOTE | 2021-03-23 13:22 | HMH.PHACLD ---
Derek Garcia JR has received discharge medication counseling on the following medications: PATIENT CURRENTLY TAKING PLAVIX 75 MG DAILY, ASPIRIN 81 MG DAILY, AND LIPITOR 40 MG HS. PERIPHERAL STENTS.
[2021-03-23 15:26] VITALS: BP 154/80; PULSE 91; RESP 16; TEMP 36.5; O2SAT 96
--- NOTE | 2021-03-31 23:34 | HMH.DCSUM ---
General - General Admission date:: 03/20/21 <Tye Dubon - 04/13/21 08:47> 03/20/21 <Meg Ching - 03/31/21 23:41> Discharge date: 03/23/21 <Meg Ching - 03/31/21 23:41> HPI HPI: Mr. Garcia is an 85-year-old male with a history ofDiabetes mellitus, chronic back pain, aortic stenosis,Hyperlipidemia, Hypertension, glaucoma, BPH,Multilevel lumbar spinal stenosis, chronic low back pain, Mild AMS, and PAD. He was a direct admission per Dr. Dubon after a telehealth visit 03/16/2021. With this visit the patient's stated the patient had been falling asleep at random times during the day for the previous week. He even fell asleep at the table while eating his meals and slept in the chair during the day. His also noted that he seemed confused upon awakening and took a while to get himself together. Also noted was swelling for the previous 10 days in bilateral legs. Right leg was edematous from the knee down And was weeping. The drainage was clear. The left leg was red and swollen as well. Home health nurse had been wrapping his leg and it did not seem to be improving. Patient's felt that his pain was controlled with Percocet. Patient currently was on clindamycin as per Dr. Muñoz . This time he was to continue with Lasix 80 mg twice a day . Labs were drawn and renal function had deteriorated and with his progressive cellulitis Dr. Dubon directly admitted him to [facility]. He has been seen by cardiology with the following note as per Toney ESCALANTE.: 85-year-old white male with history as noted above was admitted from Dr. Dubon's office due to persistent lower extremity edema and worsening pain in the right fourth and fifth toes with area of concern for necrosis. Patient has previously been admitted for similar edema felt related to Actos therapy which was subsequently stopped and noted to have some improvement in the edema. Edema has subsequently returned with patient complaining of discomfort in the fourth and fifth toes of the right foot along with an area of concern between the toes. He is followed closely by podiatry who did discuss the potential for possible amputation but with concern for healing due to suspected PAD. Patient has had an abnormal FITO suggestive of extensive atherosclerosis of the peripheral arteries of the legs right greater than left. A previous angiogram was considered but due to the patient's chronic back pain it was not felt that he could lie on the table long enough to tolerate the procedure. Patient lives a fairly sedentary lifestyle sitting and sleeping in his recliner most of the day. He states he is unable to elevate his feet for long periods of time due to pain in the foot that worsens. Subsequently when lowering his feet the edema worsens. Patient denies any chest pain, pressure or tightness. He is been a diabetic for many years. Assessment and Plan for all problems: As per cardiology: 1. Pain in the fourth and fifth toe of the right foot with possible ischemic ulcer of the right fourth toe. Concern for healing if amputation warranted. Pulses are noted in the feet bilaterally but not very strong. Discussed option for angiogram of the lower extremities to evaluate further prior to any operative intervention. Patient is agreeable to consider this if accommodations can be made to minimize his back pain. Potassium supplementation has been ordered today. Patient's kidney functions have worsened in the last month and will therefore need IV fluids overnight in preparation for angiography tomorrow. We will plan for left groin access for angiogram of the right lower extremity. 2. Cellulitis, per Dr. Dubon 3. Acute on chronic kidney disease with current creatinine of 2.1, creatinine clearance of 40 and GFR of 30 4. Hypokalemia, replacement has been ordered 5. Diabetes mellitus type [address] Dubon 6. Mild to moderate aortic stenosis by echocardiogram
== END 2021-03-23 15:55 | disposition home health service (06) | DRG 253 ==
PROVIDERS: Internal Medicine; Podiatrist; Admitting Provider Family Medicine; PCP Family Medicine; Visit Provider Family Medicine
PROC: 047J3DZ Dilation of Left External Iliac Artery with Intraluminal Device, Percutaneous Approach (ICD-10-PCS; principal; 2021-03-21 11:00)
DX: E11.52 Type 2 diabetes mellitus with diabetic peripheral angiopathy with gangrene (principal); I96 Gangrene, not elsewhere classified; L03.115 Cellulitis of right lower limb; N17.9 Acute kidney failure, unspecified; L03.90 Cellulitis, unspecified; L97.519 Non-pressure chronic ulcer of other part of right foot with unspecified severity; E87.6 Hypokalemia; I35.0 Nonrheumatic aortic (valve) stenosis; I12.9 Hypertensive chronic kidney disease with stage 1 through stage 4 chronic kidney disease, or unspecified chronic kidney disease; E11.22 Type 2 diabetes mellitus with diabetic chronic kidney disease; N18.9 Chronic kidney disease, unspecified; E78.5 Hyperlipidemia, unspecified; E11.51 Type 2 diabetes mellitus with diabetic peripheral angiopathy without gangrene; H40.9 Unspecified glaucoma; E86.0 Dehydration; E11.621 Type 2 diabetes mellitus with foot ulcer; E66.01 Morbid (severe) obesity due to excess calories; I77.1 Stricture of artery; Z68.37 Body mass index [BMI] 37.0-37.9, adult; Z79.4 Long term (current) use of insulin
CPT/HCPCS: 36569; 36415; 37221; 37222; 37223; 71045; 73620; 80048; 80053; 80202; 81001; 82962; 83036; 83735; 85025; 85347; 85651; 86140; 87070; 87077; 87205; 87581; 87633; 87798; 99152; 99153; C1725; C1751; C1766; C1769; C1876; C1894; J1644; J2720; J3370; Q9967

== ENCOUNTER → 2022-01-15 07:11 | Outpatient (CLI) | payer MEDICARE, SELFPAY ==
[2022-01-15 07:46] LABS: Hemoglobin A1C 9.6 % (4.0-6.0)
[2022-01-15 08:05] LABS: Chloride 102 mmol/L (98-107); Potassium 4.3 mmoL/L (3.5-5.1); Sodium 133 mmol/L (136-145)
[2022-01-15 08:08] LABS: Alanine Aminotransferase 33 U/L (12-78); Albumin Level 4.4 g/dl (3.5-5.0); Albumin/Globulin Ratio 1.9 (1.1-1.8); Alkaline Phosphatase 59 U/L (38-126); Anion Gap 8.3 mEq/L (5-15); Aspartate Amino Transferase 29 U/L (17-59); Bilirubin,Total 1.1 mg/dl (0.2-1.3); Blood Urea Nitrogen 19 mg/dl (9-20); Calcium 8.3 mg/dl (8.4-10.2); Carbon Dioxide 27 mmol/L (22.0-30.0); Chol/HDL Ratio 4.7 (1-3.5); Cholesterol 127 mg/dl (140-200); Estimated Glomerular Filt Rate 64 ml/min (>60); GFR (African American) 77 ML/MIN (>60); Globulin 2.3 g/dL (1.3-3.2); Glucose 173 mg/dl (74-100); HDL Cholesterol 27 mg/dl (40-60); Total Protein,Serum 6.7 g/dl (6.3-8.2); Triglycerides 269 mg/dl (30-150); VLDL Cholesterol 54 mg/dL (0-40)
[2022-01-15 08:19] LABS: Direct LDL Cholesterol 78.46 mg/dL (100-129)
== END ==
PROVIDERS: PCP Family Medicine; Visit Provider Family Medicine
DX: I10 Essential (primary) hypertension (principal); E78.5 Hyperlipidemia, unspecified; E11.9 Type 2 diabetes mellitus without complications; Z79.4 Long term (current) use of insulin
CPT/HCPCS: 36415; 80053; 80061; 83036

== ENCOUNTER → 2022-01-24 14:13 | Outpatient (CLI) | payer MEDICARE, SELFPAY ==
--- NOTE | 2022-01-24 14:15 | CA_ITS ---
APPROVED REPORT EXAM: Comprehensive 2D, Doppler, and color-flow Echocardiogram Is Support Analyst: Loretta Vazquez CRT Ht: 5 ft 7 in Wt: 228lbs BSA: 2.14 BP: 155/87 mmHg Indications: Moderate Aortic stenosis, Abn EKG, Murmur,HTN, HLD, DM 2D Dimensions LVOT 1.87 cm (M/F) 1.5-2.5 LA Volume 45.40 mL LA Volume Index 21.060886 mL/m2 (M/F) 16-34 M-Mode Dimensions RVDd 2.80 cm (0.9-2.6) LA Diam 4.61 cm (1.9-4.0) LVDd 5.81 cm (3.5-5.7) Ao Diam 4.08 cm (2.0-3.7) LVDs 4.20 cm (3.5-5.7) IVSd 1.36 cm (0.6-1.1) PWd 0.64 cm (0.6-1.1) EF (Teich) 53.00% FS 27.70% EDV (Teich) 167.20 mL TAPSE 2.33 (<1.7) ESV (Teich) 78.60 mL LV Diastology E Decel Time 153.00 (160-240 msec) E/A Ratio 0.65 MED E' 5.00 (< 7 cm/sec) MED A' 10.80 cm/s E'/MED E' Ratio 15.00 (>14) LAT E' 6.30 (<10 cm/sec) LAT A' 11.80 cm/s E/LAT E' Ratio 11.90 (>14) Aortic Valve LVOT Max 159.00 (70-110 cm/s) LVOT VTI 33.66 cm AoV Peak Dony. 356.00 (50-130 cm/s) AO Peak GR. 50.70 mmHg AO Mean GR. 31.90 (<5 mmHg) AO VTI 74.84 (18-25 cm) EDDIE (VTI) 1.24 (2.5-4.5 cm2) Mitral Valve MV E Max Dony. 75.00 (40-130 cm/s) MV A Velocity 115.00 (40-130 cm/s) E/A Ratio 0.65 MV Decel. Time 153.00 (160-240 ms) MV PHT 45.00 ms Pulmonary Valve PV Peak Velocity 159.00 (50-150 cm/s) Tricuspid Valve TR P. Velocity 258.00 cm/s Left Ventricle Left atrium is moderately enlarged, left ventricle is normal size, mild concentric left ventricular hypertrophy, visually estimated ejection fraction 55% with no regional wall motion abnormality, grade 1 diastolic dysfunction seen without tissue Doppler evidence of raise left atrial pressure. Right Ventricle Right atrium and right ventricle are normal size and contractility. Aortic Valve Aortic valve is thickened and calcified with restriction to leaflet mobility, the mean gradient across aortic valve is 32 mmHg, valve area is 1.15 cm??? represents moderate aortic stenosis. There is no significant aortic insufficiency seen. Mitral Valve Mitral valve leaflets are minimally thickened, there is mild mitral regurgitation Tricuspid Valve Tricuspid grossly normal, there is mild tricuspid regurgitation, tricuspid rotation jet velocity is inadequate for calculation of the right ventricular systolic pressure. Pulmonic Valve Pulmonic valve is poorly visualized. Great Vessels Aortic root is normal size. Inferior vena cava normal size with normal inspiratory collapse. Pericardium No significant pericardial effusion noted. Conclusion 1. Moderately enlarged left atrium, normal left ventricular size, mild concentric left ventricular hypertrophy, visually estimated ejection fraction 55% with no regional wall motion abnormality, grade 1 diastolic dysfunction seen without tissue Doppler evidence of raise left atrial pressure. 2. Thickened and calcified aortic valve, mean gradient across aortic valve is 32 mmHg, valve area is 1.15 cm??? represents moderate aortic stenosis, there is no significant aortic insufficiency. 3. Mild mitral and tricuspid regurgitation. 4. No significant pericardial effusion. 5. Inferior vena cava is normal size with normal inspiratory collapse. Electronically signed by : Conrad Burr MD 01/25/2022 15:20:22
== END ==
PROVIDERS: PCP Family Medicine; Visit Provider Physician Assistant
DX: E11.52 Type 2 diabetes mellitus with diabetic peripheral angiopathy with gangrene (principal); I10 Essential (primary) hypertension; I35.0 Nonrheumatic aortic (valve) stenosis; I73.9 Peripheral vascular disease, unspecified; I51.89 Other ill-defined heart diseases
CPT/HCPCS: 93306

== ENCOUNTER → 2022-04-30 06:44 | Outpatient (CLI) | payer MEDICARE, SELFPAY ==
[2022-04-30 08:00] LABS: Basophils # 0.3 K/mm3 (0-0.2); Basophils % 3.5 % (0.1-2.0); Eosinophils # 0.6 K/mm3 (0.0-0.4); Eosinophils % 7.1 % (0.1-12.0); Hematocrit 43.7 % (42.0-52.0); Hemoglobin 15.1 g/dL (14.1-18.0); Lymphocytes # 2.1 K/mm3 (0.7-4.5); Lymphocytes % 24.5 % (10-50); Mean Corpuscular HGB Conc 34.5 g/dL (31.8-35.4); Mean Corpuscular Volume 95.7 fl (80-94); Mean Platelet Volume 8.8 fl (7.4-10.4); Monocytes # 0.8 K/mm3 (0.1-1.0); Monocytes % 9.2 % (1.7-9.3); Neutrophils # 4.8 K/mm3 (1.8-7.8); Neutrophils % 55.7 % (37.0-80.0); Platelet Count 210 K/mm3 (142-424); Red Blood Count 4.56 M/mm3 (4.60-6.20); Red Cell Distribution Width 13.6 % (11.5-17.5); White Blood Count 8.6 K/mm3 (4.8-10.8)
[2022-04-30 08:29] LABS: Hemoglobin A1C 8.6 % (4.0-6.0)
[2022-04-30 08:47] LABS: Alanine Aminotransferase 36 U/L (12-78); Albumin Level 4.1 g/dl (3.5-5.0); Albumin/Globulin Ratio 1.8 (1.1-1.8); Alkaline Phosphatase 60 U/L (38-126); Anion Gap 15.4 mEq/L (5-15); Aspartate Amino Transferase 31 U/L (17-59); Bilirubin,Total 0.6 mg/dl (0.2-1.3); Blood Urea Nitrogen 16 mg/dl (9-20); Carbon Dioxide 24 mmol/L (22.0-30.0); Chloride 103 mmol/L (98-107); Chol/HDL Ratio 5.4 (1-3.5); Cholesterol 125 mg/dl (140-200); Estimated Glomerular Filt Rate 71 ml/min (>60); GFR (African American) 86 ML/MIN (>60); Globulin 2.3 g/dL (1.3-3.2); Glucose 197 mg/dl (74-100); HDL Cholesterol 23 mg/dl (40-60); Magnesium 1.9 mg/dl (1.6-2.3); Potassium 4.4 mmoL/L (3.5-5.1); Sodium 138 mmol/L (136-145); Total Protein,Serum 6.4 g/dl (6.3-8.2); Triglycerides 256 mg/dl (30-150); VLDL Cholesterol 51 mg/dL (0-40)
[2022-04-30 08:58] LABS: C-Reactive Protein 0.8 mg/L (0-4)
[2022-04-30 09:04] LABS: T4 (Thyroxine) 6.1 ug/dl (5.53-11.0)
[2022-04-30 09:17] LABS: Thyroid Stimulating Hormone 1.62 uIU/mL (0.465-4.68)
== END ==
PROVIDERS: Visit Provider Family Medicine
DX: I10 Essential (primary) hypertension (principal); E11.51 Type 2 diabetes mellitus with diabetic peripheral angiopathy without gangrene; D64.9 Anemia, unspecified; L74.9 Eccrine sweat disorder, unspecified; E66.9 Obesity, unspecified; Z68.35 Body mass index [BMI] 35.0-35.9, adult; Z79.4 Long term (current) use of insulin
CPT/HCPCS: 36415; 80053; 80061; 82306; 83036; 83735; 84436; 84443; 85025; 86140

== ENCOUNTER → 2022-07-10 14:59 | Outpatient (CLI) | payer MEDICARE, SELFPAY ==
--- NOTE | 2022-07-10 15:00 | CA_ITS ---
APPROVED REPORT EXAM: Comprehensive 2D, Doppler, and color-flow Echocardiogram Grinder Operator Tool: Maddy Hopkins RDCS Ht: 5 ft 7 in Wt: 227lbs BSA: 2.13 BP: 171/73 mmHg Indications: MOD , ABN EKG,HTN,HLP 2D Dimensions LVOT 2.27 cm (M/F) 1.5-2.5 LA Volume 40.90 mL LA Volume Index 19.20 mL/m2 (M/F) 16-34 M-Mode Dimensions RVDd 2.59 cm (0.9-2.6) LA Diam 4.69 cm (1.9-4.0) LVDd 4.46 cm (3.5-5.7) Ao Diam 3.62 cm (2.0-3.7) LVDs 3.23 cm (3.5-5.7) IVSd 1.02 cm (0.6-1.1) PWd 1.19 cm (0.6-1.1) EF (Teich) 53.70% FS 27.60% EDV (Teich) 90.50 mL TAPSE 1.62 (<1.7) ESV (Teich) 41.90 mL LV Diastology E Decel Time 260.00 (160-240 msec) E/A Ratio 0.7 MED E' 5.40 (< 7 cm/sec) E'/MED E' Ratio 10.46 (>14) LAT E' 6.90 (<10 cm/sec) E/LAT E' Ratio 8.19 (>14) Aortic Valve LVOT Max 127.00 (70-110 cm/s) LVOT VTI 19.26 cm AoV Peak Dony. 328.00 (50-130 cm/s) AO Peak GR. 43.10 mmHg AO Mean GR. 21.10 (<5 mmHg) AO VTI 50.76 (18-25 cm) EDDIE (VTI) 1.54 (2.5-4.5 cm2) Mitral Valve MV E Max Dony. 57.00 (40-130 cm/s) MV A Velocity 85.00 (40-130 cm/s) E/A Ratio 0.66 MV Decel. Time 260.00 (160-240 ms) MV PHT 76.00 ms Left Ventricle Left atrium is mildly enlarged, left ventricle is normal size, mild concentric left ventricular hypertrophy, estimated ejection fraction 55% with no regional wall motion abnormality, grade 1 diastolic dysfunction seen without tissue Doppler evidence of raise left atrial pressure. Right Ventricle Right atrium and right ventricle are normal size and contractility. Aortic Valve Aortic valve is thickened and calcified mean gradient across aortic valve is 22 mmHg, valve area is 1.4 cm represents a moderate aortic stenosis, there is no significant aortic insufficiency. Mitral Valve Mitral valve has mitral calcification, leaflets are minimally thickened, there is no mitral stenosis. There is mild mitral regurgitation. Tricuspid Valve Tricuspid valve grossly normal, there is mild tricuspid regurgitation, tricuspid regurgitation jet velocity is inadequate for calculation of the right ventricular systolic pressure. Pulmonic Valve Pulmonic valve is poorly visualized. Great Vessels Aortic root is normal size. Inferior vena cava normal 7 normal inspiratory collapse. Pericardium No significant pericardial effusion noted. Conclusion 1. Mildly enlarged atrium, normal left ventricular size, mild concentric left ventricular hypertrophy, estimated ejection fraction 55% with no regional wall motion abnormality, grade 1 diastolic dysfunction seen without tissue Doppler evidence of raise left atrial pressure. 2. Thickened and calcified aortic valve with moderate aortic stenosis, there is no significant aortic insufficiency. 3. Mild mitral and tricuspid regurgitation. 4. No significant pericardial effusion noted. 5. Inferior vena cava is normal size with normal inspiratory collapse. Electronically signed by : Conrad Burr MD 07/11/2022 05:37:16
== END ==
PROVIDERS: PCP Family Medicine; Visit Provider Physician Assistant
DX: E11.52 Type 2 diabetes mellitus with diabetic peripheral angiopathy with gangrene (principal); I10 Essential (primary) hypertension; I35.0 Nonrheumatic aortic (valve) stenosis; I73.9 Peripheral vascular disease, unspecified; R94.31 Abnormal electrocardiogram [ECG] [EKG]; Z79.4 Long term (current) use of insulin
CPT/HCPCS: 93306

== ENCOUNTER → 2022-08-28 07:12 | Outpatient (CLI) | payer MEDICARE, SELFPAY ==
[2022-08-28 09:39] LABS: Alanine Aminotransferase 35 U/L (12-78); Albumin Level 4.2 g/dl (3.5-5.0); Albumin/Globulin Ratio 1.8 (1.1-1.8); Alkaline Phosphatase 64 U/L (38-126); Anion Gap 17.4 mEq/L (5-15); Aspartate Amino Transferase 29 U/L (17-59); Bilirubin,Total 0.9 mg/dl (0.2-1.3); Blood Urea Nitrogen 24 mg/dl (9-20); Calcium 8.8 mg/dl (8.4-10.2); Carbon Dioxide 27 mmol/L (22.0-30.0); Chloride 98 mmol/L (98-107); Chol/HDL Ratio 5.3 (1-3.5); Cholesterol 132 mg/dl (140-200); Estimated Glomerular Filt Rate 58 ml/min (>60); GFR (African American) 70 ML/MIN (>60); Globulin 2.4 g/dL (1.3-3.2); Glucose 162 mg/dl (74-100); HDL Cholesterol 25 mg/dl (40-60); Potassium 4.4 mmoL/L (3.5-5.1); Sodium 138 mmol/L (136-145); Total Protein,Serum 6.6 g/dl (6.3-8.2); Triglycerides 278 mg/dl (30-150); VLDL Cholesterol 56 mg/dL (0-40)
[2022-08-28 09:51] LABS: Direct LDL Cholesterol 74.73 mg/dL (100-129)
[2022-08-28 10:08] LABS: Hemoglobin A1C 8.3 % (4.0-6.0)
== END ==
PROVIDERS: PCP Family Medicine; Visit Provider Family Medicine
DX: E11.51 Type 2 diabetes mellitus with diabetic peripheral angiopathy without gangrene (principal); I10 Essential (primary) hypertension; Z79.4 Long term (current) use of insulin
CPT/HCPCS: 36415; 80053; 80061; 83036

== ENCOUNTER → 2023-01-02 14:28 | Outpatient (CLI) | payer MEDICARE, SELFPAY ==
--- NOTE | 2023-01-02 | CA_ITS ---
APPROVED REPORT EXAM: Comprehensive 2D, Doppler, and color-flow Echocardiogram Offset Press Assistant: Loretta Vazquez CRT Ht: 5 ft 7 in Wt: 227lbs BSA: 2.13 BP: 171/73 mmHg Indications: Abnormal ECG, mild 2D Dimensions LVOT 1.55 cm (M/F) 1.5-2.5 LA Volume 50.00 mL LA Volume Index 22.80 mL/m2 (M/F) 16-34 M-Mode Dimensions RVDd 2.40 cm (0.9-2.6) LA Diam 4.88 cm (1.9-4.0) LVDd 4.87 cm (3.5-5.7) Ao Diam 4.56 cm (2.0-3.7) LVDs 3.31 cm (3.5-5.7) IVSd 1.41 cm (0.6-1.1) PWd 0.57 cm (0.6-1.1) EF (Teich) 60.00% FS 32.00% EDV (Teich) 111.20 mL ESV (Teich) 44.50 mL LV Diastology E Decel Time 203.00 (160-240 msec) E/A Ratio 0.63 LAT E' 6.50 (<10 cm/sec) LAT A' 12.10 cm/s E/LAT E' Ratio 12.82 (>14) Aortic Valve LVOT Max 169.00 (70-110 cm/s) LVOT VTI 37.01 cm AoV Peak Dony. 391.00 (50-130 cm/s) AO Peak GR. 61.20 mmHg AO Mean GR. 42.20 (<5 mmHg) AO VTI 81.82 (18-25 cm) EDDIE (VTI) 0.85 (2.5-4.5 cm2) Mitral Valve MV E Max Dony. 83.00 (40-130 cm/s) MV A Velocity 132.00 (40-130 cm/s) E/A Ratio 0.63 MV Decel. Time 203.00 (160-240 ms) MV PHT 60.00 ms Pulmonary Valve PV Peak Velocity 153.00 (50-150 cm/s) Tricuspid Valve TR P. Velocity 324.00 cm/s RAP Estimate 10.00 mmHg RVSP 51.90 mmHg Left Ventricle Left atrium is mildly enlarged, left ventricle is normal size mild concentric left ventricular hypertrophy, estimated ejection fraction 55% with no regional wall motion abnormality, grade 1 diastolic dysfunction seen with tissue Doppler evidence of raise left atrial pressure. Right Ventricle Right atrium and right ventricle are normal size and contractility. Aortic Valve Aortic valve is thickened and calcified with severe restriction in the leaflet mobility, the maximum aortic outflow velocity recorded is approximately 4 m/s, resulting in a mean gradient across aortic valve of 42 mmHg, valve area of 0.8 cm???. This represents severe aortic stenosis, there is no significant aortic insufficiency. Mitral Valve Mitral valve leaflets are minimally thickened, there is mild mitral regurgitation. Tricuspid Valve Tricuspid grossly normal, there is mild tricuspid regurgitation, tricuspid regurgitation jet velocity is inadequate for calculation of the right ventricular systolic pressure. Pulmonic Valve Pulmonic valve is poorly visualized. Great Vessels Aortic root is normal size. Inferior vena cava is poorly visualized. Pericardium No significant pericardial effusion noted. Conclusion 1. Mildly enlarged left atrium, normal left ventricular size, mild concentric left ventricular hypertrophy, estimated ejection fraction 55% with no regional wall motion abnormality, grade 1 diastolic dysfunction seen with tissue Doppler evidence of raise left atrial pressure. 2. Thickened and calcified aortic valve with severe aortic stenosis, valve area 0.8 cm???, there is no aortic insufficiency. 3. Mild mitral and tricuspid regurgitation. 4. No significant pericardial effusion noted. Electronically signed by : Conrad Burr MD 01/03/2023 15:57:40
== END ==
PROVIDERS: PCP Family Medicine; Visit Provider Physician Assistant
DX: I35.1 Nonrheumatic aortic (valve) insufficiency (principal)
CPT/HCPCS: 93306

== ENCOUNTER 2023-02-08 12:04 | Emergency (ER) | payer MEDICARE, SELFPAY ==
[2023-02-08] VITALS (8 sets, daily range): BP systolic 172–198; BP diastolic 82–99; PULSE 80–89; RESP 16–20; TEMP 36.7–36.8; O2SAT 92–98; BMI 35.4
--- NOTE | 2023-02-08 12:23 | PC.NURSE ---
ED MD AT BEDSIDE
--- NOTE | 2023-02-08 12:28 | XR_ITS ---
PROCEDURE INFORMATION: Exam: XR Chest Exam date and time: 02/08/2023 12:47 PM Age: 87 years old Clinical indication: Prior surgery; Surgery date: 6+ months; Surgery type: Stents; Patient HX: Lt arm pain, occasional cp, hypertension; Additional info: Chest pain TECHNIQUE: Imaging protocol: Radiologic exam of the chest. Views: 1 view. COMPARISON: CR XR CHEST PORTABLE PICC PLAC 03/23/2021 2:55 PM FINDINGS: Lungs: Calcified granuloma right upper lobe. Pleural spaces: Unremarkable. No pleural effusion. No pneumothorax. Heart/Mediastinum: Unremarkable. No cardiomegaly. Bones/joints: Unremarkable. IMPRESSION: No evidence of acute cardiopulmonary disease.
--- NOTE | 2023-02-08 12:47 | ECG_ITS ---
APPROVED REPORT Exam: Resting ECG HR:88 bpm ECG Measurements Heart Rate 88 AXES DE 258 P -1 QRSd 154 QRS -64 QT 388 T 30 QTc 434 Conclusion SINUS RHYTHM WITH FIRST DEGREE AV BLOCK RIGHT BUNDLE BRANCH BLOCK LAFB Old septal changes ABNORMAL ECG UNCONFIRMED REPORT Electronically signed by : Ángel Khan MD 02/08/2023 20:01:38
[2023-02-08 12:51] LABS: Basophils # 0.1 K/mm3 (0-0.2); Basophils % 0.7 % (0.1-2.0); Eosinophils # 0.4 K/mm3 (0.0-0.4); Eosinophils % 3.9 % (0.1-12.0); Hematocrit 48.6 % (42.0-52.0); Hemoglobin 16.4 g/dL (14.1-18.0); Lymphocytes # 1.8 K/mm3 (0.7-4.5); Lymphocytes % 18.5 % (10-50); Mean Corpuscular HGB Conc 33.7 g/dL (31.8-35.4); Mean Corpuscular Hemoglobin 31.6 pg (27.0-31.2); Monocytes # 0.8 K/mm3 (0.1-1.0); Monocytes % 7.6 % (1.7-9.3); Neutrophils # 6.8 K/mm3 (1.8-7.8); Neutrophils % 69.2 % (37.0-80.0); Platelet Count 220 K/mm3 (142-424); Red Blood Count 5.18 M/mm3 (4.60-6.20); Red Cell Distribution Width 13.5 % (11.5-17.5); White Blood Count 9.9 K/mm3 (4.8-10.8)
[2023-02-08 12:56] LABS: Chloride 102 mmol/L (98-107); Potassium 4.8 mmoL/L (3.5-5.1); Sodium 136 mmol/L (136-145)
[2023-02-08 12:59] LABS: Alanine Aminotransferase 37 U/L (12-78); Albumin Level 4.7 g/dl (3.5-5.0); Albumin/Globulin Ratio 1.8 (1.1-1.8); Alkaline Phosphatase 63 U/L (38-126); Anion Gap 14.8 mEq/L (5-15); Aspartate Amino Transferase 31 U/L (17-59); Bilirubin,Total 1.1 mg/dl (0.2-1.3); Blood Urea Nitrogen 16 mg/dl (9-20); Carbon Dioxide 24 mmol/L (22.0-30.0); Creatinine Clearance Estimated 70 mL/min (50-200); Estimated Glomerular Filt Rate 63 ml/min (>60); GFR (African American) 77 ML/MIN (>60); Globulin 2.6 g/dL (1.3-3.2); Glucose 225 mg/dl (74-100); Total Protein,Serum 7.3 g/dl (6.3-8.2)
--- NOTE | 2023-02-08 12:59 | PC.NURSE ---
pt up to restroom
[2023-02-08 13:09] LABS: NT Pro Brain Natriuretic Pep. 132 pg/mL (0-450)
[2023-02-08 13:17] LABS: Troponin I < 0.01 ng/ml (0.00-0.034)
--- NOTE | 2023-02-08 13:28 | PC.NURSE ---
ROUNDED ON PT, NO NEEDS AT THIS TIME
--- NOTE | 2023-02-08 14:19 | HMH.EDGENADL ---
Discharge Plan Disposition Patient Disposition: Home, Self-Care Condition: Fair Prescriptions Prescriptions: No Action bumetanide 0.5 mg tablet 0.5 mg PO DAILY PRN oxycodone-acetaminophen 10-325 mg tablet 1 tab PO Q6H PRN (Reason: PAIN) Label Comments: TAKE ONE TABLET BY MOUTH EVERY 6 HOURS NEEDED MAY CAUSE DROWSINESS potassium chloride 10 mEq capsule, extended release 20 meq PO DAILY pregabalin 200 mg capsule 200 mg PO nystatin [Nystop] 100,000 unit/gram powder TOPICAL Tresiba FlexTouch U-100 100 unit/mL (3 mL) insulin pen 20 unit SQ Label Comments: INJECT 20 UNITS SUBCUTANEOUSLY ONCE a DAY Xarelto 2.5 mg tablet 2.5 mg PO BID Qty: 180 3RF atorvastatin 40 MG tablet 40 mg PO HS ascorbic acid (vitamin C) 1,000 MG tablet extended release 1,000 mg PO DAILY clopidogrel 75 MG tablet 75 mg PO DAILY tamsulosin 0.4 MG capsule 0.4 mg PO HS cholecalciferol (vitamin D3) 1,000 UNIT capsule 1,000 unit PO DAILY bimatoprost 2.5 ML drops 1 drp OP PM Rx Instructions: *LEFT eye only dorzolamide-timolol (PF) 1 EACH dropperette 1 drp EYE-BOTH BID Rx Instructions: 1 drop in each eye twice daily metformin 850 MG tablet 850 mg PO BID dapagliflozin 5 MG tablet 5 mg PO DAILY Label Comments: TAKE ONE TABLET BY MOUTH EVERY DAY insulin glargine 100 UNIT/ML solution 20 unit SQ DAILY Referrals Follow up/Referrals: Tye Dubon MD [Primary Care Provider] - See instructions Clinical Impressions Clinical Impression: Chest pain Discharge ED Provider: Layla Negrete General Adult HPI General Chief complaint: PAIN Stated complaint: Bodyaches and pains Time Seen by Provider: 02/08/23 12:05 Mode of Arrival: Wheelchair Source of Information: Patient and Spouse Limitations: No Limitations Description of Symptoms (Recalled from ER Triage Doc. by RN): PT WITH C/O PAIN UNDER LEFT ARM THAT BEGAN LAST NIGHT WELL ELEVATED B/P History of Present Illness HPI narrative: The patient is an 87 year old male with a history of peripheral vascular disease, aortic stenosis, DM2 who presents to the ED with chest pain. The patient states today he noticed some left sided chest / armpit pain. Its worse when he moves. He wasn't doing anything when it started. He denies trauma or injury to the area. Its constant and does not worsen when he exerts himself. Denies shortness of breath, nausea, vomiting, diarrhea, abdominal pain, headache, or any other symptoms. No episodes of lightheadedness or syncope. Related Data Home Medications Medication Instructions Recorded Confirmed ascorbic acid (vitamin C) 1,000 mg 1,000 mg PO DAILY Supplement 01/23/21 01/07/23 tablet,extended release atorvastatin 40 mg tablet 40 mg PO HS Cholesterol 01/23/21 01/07/23 bimatoprost 0.01 % eye drops 1 drp ophthalmic (eye) PM 01/23/21 01/07/23 glaucoma*LEFT eye only cholecalciferol (vitamin D3) 25 1,000 unit PO DAILY Supplement 01/23/21 01/07/23 mcg (1,000 unit) capsule clopidogrel 75 mg tablet 75 mg PO DAILY Blood thinner 01/23/21 01/07/23 dorzolamide-timolol (PF) 2 %-0.5 % 1 drp Eye-Both BID Glaucoma 01/23/21 01/07/23 eye drops in a dropperette tamsulosin 0.4 mg capsule 0.4 mg PO HS prostate 01/23/21 01/07/23 oxycodone-acetaminophen 10 mg-325 1 tab PO Q6H PRN PAIN 02/13/21 01/07/23 mg tablet potassium chloride 10 mEq 20 meq PO DAILY Supplement 02/13/21 01/07/23 capsule,extended release dapagliflozin 5 mg tablet 5 mg PO DAILY Diabetes 03/20/21 01/07/23 insulin glargine 100 unit/mL 20 unit SQ DAILY Diabetes 03/20/21 01/07/23 subcutaneous solution metformin 850 mg tablet 850 mg PO BID Diabetes 03/20/21 01/07/23 pregabalin 200 mg capsule 200 mg PO 03/27/21 01/07/23 insulin degludec 100 unit/mL (3 20 unit SQ 06/07/21 01/07/23 mL) subcutaneous pen (Tresiba FlexTouch U-100 insulin) nystatin 100,000 uni
--- NOTE | 2023-02-08 14:39 | PC.NURSE ---
REPEAT TROP DRAWN AND SENT TO LAB FOR 2 HOUR TROP PER MD ORDER
[2023-02-08 15:08] LABS: Troponin I < 0.01 ng/ml (0.00-0.034)
== END 2023-02-08 15:30 | disposition home or self-care (01) ==
PROVIDERS: Emergency Provider Emergency Medicine; PCP Family Medicine
DX: R07.89 Other chest pain (principal); I73.9 Peripheral vascular disease, unspecified; E11.9 Type 2 diabetes mellitus without complications; Z86.79 Personal history of other diseases of the circulatory system
CPT/HCPCS: 71045; 80053; 83735; 83880; 84484; 85025; 93005; 99284; 99285

== ENCOUNTER → 2023-06-23 15:24 | Outpatient (CLI) | payer MEDICARE, SELFPAY | PROVIDERS: PCP Family Medicine; Visit Provider Physician Assistant | DX: R00.2 Palpitations (principal) | CPT/HCPCS: 93270 ==

== ENCOUNTER → 2023-07-07 14:12 | Outpatient (CLI) | payer MEDICARE, SELFPAY ==
--- NOTE | 2023-07-07 14:14 | CA_ITS ---
APPROVED REPORT EXAM: Comprehensive 2D, Doppler, and color-flow Echocardiogram Compression Molding Machine Tender: Loretta Vazquez CRT Ht: 5 ft 7 in Wt: 225lbs BSA: 2.13 BP: 192/85 mmHg Indications: Aortic Valve Disease- severe , Diabetes, Palpitations, Hyperlipidemia, Hypertension/HDD 2D Dimensions LVOT 1.24 cm (M/F) 1.5-2.5 LA Volume 35.70 mL LA Volume Index 16.40 mL/m2 (M/F) 16-34 M-Mode Dimensions RVDd 2.05 cm (0.9-2.6) LA Diam 4.56 cm (1.9-4.0) LVDd 5.13 cm (3.5-5.7) Ao Diam 4.76 cm (2.0-3.7) LVDs 3.12 cm (3.5-5.7) IVSd 1.79 cm (0.6-1.1) PWd 0.65 cm (0.6-1.1) EF (Teich) 69.30% FS 39.20% EDV (Teich) 125.50 mL TAPSE 2.10 (<1.7) ESV (Teich) 38.50 mL LV Diastology E Decel Time 190.00 (160-240 msec) E/A Ratio 0.67 MED E' 4.70 (< 7 cm/sec) MED A' 6.80 cm/s E'/MED E' Ratio 15.89 (>14) LAT E' 6.20 (<10 cm/sec) LAT A' 12.30 cm/s E/LAT E' Ratio 12.05 (>14) Aortic Valve LVOT Max 157.00 (70-110 cm/s) LVOT VTI 31.88 cm AoV Peak Dony. 362.00 (50-130 cm/s) AI PHT 576.00 ms AO Peak GR. 52.60 mmHg AO Mean GR. 36.90 (<5 mmHg) AO VTI 79.86 (18-25 cm) EDDIE (VTI) 0.48 (2.5-4.5 cm2) Mitral Valve MV E Max Dony. 75.00 (40-130 cm/s) MV A Velocity 111.00 (40-130 cm/s) E/A Ratio 0.67 MV Decel. Time 190.00 (160-240 ms) MV PHT 56.00 ms Tricuspid Valve TR P. Velocity 229.00 cm/s RAP Estimate 10.00 mmHg RVSP 31.00 mmHg Left Ventricle The left ventricle is normal size. The left ventricular systolic function is normal. The left ventricular ejection fraction is within the normal range. There is increased LV wall thickness. There is normal LV segmental wall motion. Transmitral Doppler flow pattern suggests impaired LV relaxation. LVEF is 60%. Right Ventricle The right ventricle is mildly dilated. The right ventricular systolic function is normal. Atria The left atrium size is normal. The right atrium size is normal. There is no Doppler evidence of interatrial shunt. Aortic Valve The aortic valve leaflets are moderately thickened. There is severe aortic stenosis. Aortic valve area by continuity equation is 0.9 cm2. Peak velocity 3.8 m/s. Mean AV gradient 38 mmHg. Peak AV gradient 55 mmHg. Mild aortic regurgitation. Mitral Valve Mild mitral annular calcification. The mitral valve leaflets are mildly thickened. No evidence of mitral valve stenosis. Mild mitral regurgitation. Tricuspid Valve The tricuspid valve leaflets are thin and pliable. Trace tricuspid regurgitation. RVSP is 20-25 mmHg. Pulmonic Valve The pulmonary valve is grossly normal in structure. Trace pulmonic regurgitation. Great Vessels The aortic root is normal in size. The ascending aorta is normal in size. IVC is normal in size and collapses >50% with inspiration. Pericardium There is no pericardial effusion. Other Information Study Quality: Fair Conclusion Normal biventricular systolic function Severe aortic stenosis (EDDIE 0.9 cm2, peak V 3.8 m/s, mean AV gradient 38 mmHg, peak AV gradient 55 mmHg) Mild AI Mild MR Electronically signed by : Jia Hester, 07/07/2023 22:47:01
== END ==
PROVIDERS: PCP Family Medicine; Visit Provider Physician Assistant
DX: I35.0 Nonrheumatic aortic (valve) stenosis (principal)
CPT/HCPCS: 93306

== ENCOUNTER → 2023-08-05 14:42 | Outpatient (CLI) | payer MEDICARE, SELFPAY ==
--- NOTE | 2023-08-05 | CA_ITS ---
FINAL REPORT TECHNIQUE: Ultrasound images of the deep venous system were obtained from the left groin to the calf veins. CLINICAL HISTORY: patient denies trauma. States the left ankle region began hurting 07/25/23. HTN, DM. FINDINGS: The deep venous system is normally compressible. Normal flow is identified. IMPRESSION: No evidence of left lower extremity DVT. Reviewed, Interpreted and Dictated by Denis Kapadia III, MD Transcribed by Rajesh Bush Authenticated and [facility]
== END ==
PROVIDERS: PCP Family Medicine; Visit Provider Nurse Practitioner Family
DX: M79.605 Pain in left leg (principal)
CPT/HCPCS: 93971

== ENCOUNTER 2023-08-26 14:23 | Observation (INO) | payer MEDICARE, SELFPAY ==
[2023-08-26] VITALS (9 sets, daily range): BP systolic 174–192; BP diastolic 81–95; PULSE 86–100; RESP 18; TEMP 36.5–36.8; O2SAT 92–97; BMI 35.6; BMI 33.8
--- NOTE | 2023-08-26 15:13 | PC.NURSE ---
dr. flynn at BS
--- NOTE | 2023-08-26 15:21 | XR_ITS ---
FINAL REPORT CLINICAL HISTORY: pain with bearing weight, no injury FINDINGS: AP, oblique, and lateral views of the left ankle were obtained. There is no prior exam for comparison. There is no fracture or dislocation. The ankle mortise is intact. There is degenerative joint disease. There are calcifications in the region of the plantar fascia. IMPRESSION: No acute osseous abnormality of the left ankle. Reviewed, Interpreted and Dictated by Demetria Francisco MD Transcribed by Yasmeen Soler Authenticated and [facility]
--- NOTE | 2023-08-26 15:21 | XR_ITS ---
FINAL REPORT CLINICAL HISTORY: mccormack pain, no injury FINDINGS: AP, lateral and oblique views of the left knee were obtained. There is no prior exam for comparison. There is no acute osseous abnormality of the left knee. The joint space is preserved. There is vascular calcification. There is no joint effusion. IMPRESSION: No acute osseous abnormality of the left knee. Reviewed, Interpreted and Dictated by Demetria Francisco MD Transcribed by Yasmeen Soler Authenticated and [facility]
--- NOTE | 2023-08-26 15:21 | XR_ITS ---
FINAL REPORT CLINICAL HISTORY: mccormack pain, no injury FINDINGS: AP and lateral views of the left tibia and fibula were obtained. There is no prior exam for comparison. There is no acute fracture of the left tibia or fibula. The knee and ankle appear intact. There is vascular calcification. There is mild soft tissue edema in the proximal lateral leg. IMPRESSION: No acute osseous abnormality of the left tibia or fibula. Reviewed, Interpreted and Dictated by Demetria Francisco MD Transcribed by Yasmeen Soler Authenticated and [facility]
--- NOTE | 2023-08-26 15:27 | HMH.EDGENADL ---
Discharge Plan Disposition Patient Disposition: Admitted Condition: Fair Clinical Impressions Clinical Impression: Lower extremity pain, Declining functional status Discharge ED Provider: Jeffrey Chappell General Adult HPI General Chief complaint: PAIN Stated complaint: back pain Time Seen by Provider: 08/26/23 15:10 Mode of Arrival: EMS Source of Information: Patient Limitations: No Limitations Description of Symptoms (Recalled from ER Triage Doc. by RN): pt reports L sided sciatic nerve pain x3 weeks. Pt reports pain only when standing or walking. Pt reports pcp has been treating him but medication not helping. Pt has a fentanyl 25mcg patch on L shoulder, placed on yesterday. 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 Patient states that he has had bouts of left lower extremity pain before, always on the anterior aspect distal to his knee extending down to his foot, worse with bearing weight. Over the last 2 weeks he has been managed outpatient by Dr. Calvin North and has been refractory to morphine and fentanyl patches. Patient states that steroids usually give him great benefit. Denies trauma. No other acute complaints at this time. Related Data Home Medications Medication Instructions Recorded Confirmed ascorbic acid (vitamin C) 1,000 mg 1,000 mg PO DAILY Supplement 01/23/21 08/26/23 tablet,extended release atorvastatin 40 mg tablet 40 mg PO HS Cholesterol 01/23/21 08/26/23 bimatoprost 0.01 % eye drops 1 drp ophthalmic (eye) HS 01/23/21 08/26/23 glaucoma*LEFT eye only cholecalciferol (vitamin D3) 25 1,000 unit PO DAILY Supplement 01/23/21 08/26/23 mcg (1,000 unit) capsule clopidogrel 75 mg tablet 75 mg PO HS Blood thinner 01/23/21 08/26/23 dorzolamide-timolol (PF) 2 %-0.5 % 1 drp Eye-Both BID Glaucoma 01/23/21 08/26/23 eye drops in a dropperette tamsulosin 0.4 mg capsule 0.8 mg PO HS prostate 01/23/21 08/26/23 potassium chloride 10 mEq 10 meq PO BID Supplement 02/13/21 08/26/23 capsule,extended release dapagliflozin propanediol 5 mg 5 mg PO DAILY Diabetes 03/20/21 08/26/23 tablet metformin 850 mg tablet 850 mg PO BID Diabetes 03/20/21 08/26/23 pregabalin 200 mg capsule 200 mg PO BID Pain 03/27/21 08/26/23 bumetanide 0.5 mg tablet 0.5 mg PO DAILY PRN Fluid 03/24/23 08/26/23 omeprazole 40 mg capsule,delayed 40 mg PO DAILY PRN GERD 03/24/23 08/26/23 release fentanyl 25 mcg/hr transdermal 1 patch topical DIRECTED PRN 08/26/23 08/26/23 patch Pain (Scale Score 4-6) insulin degludec 100 unit/mL (3 40 unit SQ DAILY Diabetes 08/26/23 08/26/23 mL) subcutaneous pen (Tresiba FlexTouch U-100 insulin) magnesium 30 mg tablet 30 mg PO DAILY Supplement 08/26/23 08/26/23 rivaroxaban 2.5 mg tablet 2.5 mg PO BID Blood Thinner 08/26/23 08/27/23 Allergies Allergy/AdvReac Type Severity Reaction Status Date / Time latex Allergy Unknown Unknown Verified 06/23/23 14:18 allergy reaction quinidine Allergy Unknown Unknown Verified 06/23/23 14:18 allergy reaction PFSH PFS Disclaimer: The information contained in this section may have been updated after the patient was seen, as this information can be updated by other users. 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
--- NOTE | 2023-08-26 15:34 | PC.NURSE ---
pt in radiology
[2023-08-26 16:12] LABS: Basophils % 0.4 % (0.1-2.0); Chloride 103 mmol/L (98-107); Eosinophils # 0.3 K/mm3 (0.0-0.4); Eosinophils % 3.4 % (0.1-12.0); Hematocrit 47.6 % (42.0-52.0); Hemoglobin 15.2 g/dL (14.1-18.0); Lymphocytes # 1.6 K/mm3 (0.7-4.5); Lymphocytes % 19.7 % (10-50); Mean Corpuscular HGB Conc 31.9 g/dL (31.8-35.4); Mean Corpuscular Hemoglobin 30.2 pg (27.0-31.2); Mean Corpuscular Volume 94.6 fl (80-94); Monocytes # 0.7 K/mm3 (0.1-1.0); Monocytes % 8.3 % (1.7-9.3); Neutrophils # 5.5 K/mm3 (1.8-7.8); Neutrophils % 68.2 % (37.0-80.0); Platelet Count 219 K/mm3 (142-424); Potassium 4.5 mmoL/L (3.5-5.1); Red Blood Count 5.03 M/mm3 (4.60-6.20); Sodium 136 mmol/L (136-145); White Blood Count 8.1 K/mm3 (4.8-10.8)
[2023-08-26 16:15] LABS: Alanine Aminotransferase 39 U/L (12-78); Albumin Level 3.8 g/dl (3.5-5.0); Albumin/Globulin Ratio 1.4 (1.1-1.8); Alkaline Phosphatase 63 U/L (38-126); Anion Gap 12.5 mEq/L (5-15); Aspartate Amino Transferase 29 U/L (17-59); Bilirubin,Total 0.5 mg/dl (0.2-1.3); Blood Urea Nitrogen 19 mg/dl (9-20); Calcium 8.7 mg/dl (8.4-10.2); Carbon Dioxide 25 mmol/L (22.0-30.0); Creatinine Clearance Estimated 78 mL/min (50-200); Estimated Glomerular Filt Rate 71 ml/min (>60); GFR (African American) 86 ML/MIN (>60); Globulin 2.7 g/dL (1.3-3.2); Glucose 193 mg/dl (74-100); Total Protein,Serum 6.5 g/dl (6.3-8.2)
--- NOTE | 2023-08-26 17:53 | PC.NURSE ---
waiting production control analyst back from dr. porter who is production control analyst for dr. freire
--- NOTE | 2023-08-26 18:02 | PC.NURSE ---
Assisted patient in using urinal. Call peterson within reach. Urine output: 500 ML
--- NOTE | 2023-08-26 18:18 | PC.NURSE ---
Dr. Chappell speaking to Dr. Khan
--- NOTE | 2023-08-26 18:20 | PC.NURSE ---
notified warehouse shipper of admissoin
--- NOTE | 2023-08-26 18:35 | PC.NURSE ---
attempted to call report to second floor, staff member was on the other phone line
--- NOTE | 2023-08-26 18:46 | PC.NURSE ---
report called to lesvia alaniz on second floor at this time, states will send staff down to transport pt.
--- NOTE | 2023-08-26 18:51 | PC.NURSE ---
JULIAN Peck at BS to take patient to 2nd floor
--- NOTE | 2023-08-26 18:58 | PC.NURSE ---
Pt. arrived on the floor by wheelchair.
[2023-08-27 04:00] VITALS: BP 123/73; PULSE 97; RESP 18; TEMP 36.5; O2SAT 94; BMI 33.7
--- NOTE | 2023-08-27 06:12 | PC.NURSE ---
Patient LCTA, able to stand and ambulate with 1 assist. Patient has excessive sweating of unknown origin; have had to change pillow cases x 2 and bed linens x 1. Patient voices no concerns; call light within reach; bed at lowest level.
[2023-08-27 07:46] VITALS: BP 143/83; PULSE 119; RESP 17; TEMP 37; O2SAT 95
--- NOTE | 2023-08-27 09:47 | EXP.PAIN.OV ---
HPI Data of Consult Patient: new to practice Consult date: 08/27/23 Requesting Physician: González Reilly MD Primary Care Provider: Tye Dubon MD Consult Narrative Reason for consult: Chronic low back pain and left leg pain History of present illness: Mr. Garcia is a 87 year old male who presents today as a consult from the [facility] floor from Dr. Dubon's office. Today he rates his pain a 5 out of 10. Patient states this pain is all around his left lower leg going into his ankle. Patient states this has been going on for the last 3 weeks and progressively worsened over time. Patient does state that he has a longstanding history of chronic back pain. He does state that the low back issues has been going on for at least 20 years and that he has had back surgery in the past. He states that he had a ruptured disc along with 3 bulging disc that were worked on. Patient does state he has been in pain management on 2 different occasions with the last time around 2019. Patient does state that he has had injections over the years and they have helped from time to time. Patient does state that his current pain he was recently given a steroid pack however with minimal improvement. He does describe his pain as a sharp achy sensation that is worse with increased activity. He does state his pain is typically worse with walking and coming back from his bathroom causes significant pain. Patient does use a rolling walker for help with ambulation. Patient is currently hospitalized for cellulitis. He was taken for a venous Doppler to rule out possible blood clots and had no acute findings. Patient denies any recent trauma or physical therapy. He does state the pain interferes with his ability perform activities of daily living such as cooking and cleaning or simple ambulation. Patient is on Plavix and is currently prescribed this by Dr. Dubon's office. Patient is also prescribed fentanyl 25 mcg patches every 72 hours by his PCP and has tried tramadol 50 mg in the past. His Tanner is [id number]. Its been reviewed and appropriate. CC: González Reilly MD [facility] Disclaimer: The information contained in this section may have been updated after the patient was seen, as this information can be updated by other users. Medical History (Updated 08/27/23 @ 12:43 by Nadia Hoang APRN) Abnormal electrocardiography Moderate aortic stenosis Severe aortic stenosis Surgical History (Updated 08/26/23 @ 19:29 by Yaima Dunn RN) H/O heart artery stent H/O right heart catheterization Previous back surgery Family History (Updated 08/26/23 @ 19:32 by Yaima Dunn RN) Mother Family history of diabetes mellitus type II Family history of myocardial infarction Father Bladder cancer Colon cancer Social History (Updated 08/26/23 @ 19:30 by Yaima Dunn RN) Smoking Status: Former smoker years smoked: 25 smoking status stop date: 1983 alcohol intake: never current occupational status: retired Travel in the last 8 weeks: Inside the [place] States household members: spouse housing: apartment caffeine: Yes Review of Systems Review of Systems Review of systems (narrative): Review of Systems: General: No recent weight changes, no fever, no sleep disturbances Respiratory: No cough, no shortness of air, no recurring pulmonary infections Cardiovascular/peripheral vascular: No chest pain, no palpitations, no edema, no shortness of breath Gastrointestinal: No new onset incontinence, normal bowel movements reported Genitourinary: No new onset incontinence Musculoskeletal: Low back pain, left leg pain, left ankle pain Psychiatric: [Normal mood/affect] Neurological: [Denies weakness in extremities], [denies balance issues] Meds Home Medications and Allergies Home Medications Medication Instructions Recorded Confirmed Type ascorbic acid (vitamin C) 1,000 mg 1,000 mg PO DAILY Supplemen
--- NOTE | 2023-08-27 10:15 | HMH.OTEV ---
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 Patient states that he has had bouts of left lower extremity pain before, always on the anterior aspect distal to his knee extending down to his foot, worse with bearing weight. Over the last 2 weeks he has been managed outpatient by Dr. Calvin North and has been refractory to morphine and fentanyl patches. Patient states that steroids usually give him great benefit. Denies trauma. No other acute complaints at this time. Patient lives with in 3rd floor apartment with 15 steps to enter. will assist with patient's ADLs as needed. Patient uses a RW to ambulate long distances. Patient continues to drive. Subjective I can get up Anaysis Patient's ability to complete bed mobility from supine->sit @ EOB->stand-> maneuver >50ft with usage of RW with SBA. No LOB noted. Patient required Min A to omero LB drsg which is baseline for patient with assistance. Assisted Patient back to bed at end of session. Objective Patient Orientation Person,Place,Birthday,Month, Year Upper Extremity Gross ROM WFL Bed Mobility bed mobility - supine/sit Assist Level Supervision/Stand by Transfer Training Sit/Stand Wu
--- NOTE | 2023-08-27 10:56 | SW/DCPLANNER ---
I received a consult on this patient regarding weakness. PT/OT evaluated patient and stated that patient is safe to return home w/ no needs. The plan for this patient is to return home w/ family later today.
--- NOTE | 2023-08-27 11:09 | HMH.PTEV ---
Physical Therapy Evaluation Rehab PT IP Evaluation Start: 08/26/23 18:28 Freq: ONCE Status: Active Protocol: Document 08/27/23 11:05 RAMYA (Rec: 08/27/23 11:09 PHOSANCHO [id number]) Subjective/History History History 87 yowm adm to [facility] with functional decline. Hx of Chronic LE pain. He reports he lives with his spouse, 15 steps to enter their apartment , he generally uses a RW as needed for ambulation at baseline. Subjective Subjective Pt reports he feels about the same as I always do. New diagnosis of cancer in past 12 No months? Rehab PT IP Eval Objective Appearance Patient Behavior Appropriate Patient Orientation Person,Place,Time Difficulty following instructions none Speech Pattern Clear Ambulation Patient Able to Ambulate Yes Ambulation Observation IP General Gait Pattern Observation Wide Based Gait Ambulation Distance (feet) 50 Ambulation Assistive Device Rolling Walker Ambulation Ability Supervision/Stand by Balance Ability to Arise Able, uses arms to help Sitting Balance Steady, safe Standing Balance Steady, wide stance Dynamic Sitting Balance Ability Good Dynamic Standing Balance Ability Fair Transfers Bed Transfer Ability Supervision/Stand by Chair Transfer Ability Supervision/Stand by Sit to Stand Bed Transfer Ability Supervision/Stand by Sit to Stand Chair Transfer Ability Supervision/Stand by ROM All Extremities PT ROM Status WFL MMT All Extremities PT MMT WFL Rehab PT IP prob,goals,plan Problems Date of Evaluation: 08/27/23 Discharge Plan PT Discharge Plan Pt is currently at baseline for all mobility and is appropriate to return home with spouse once medically stable for d/c. Eval Complexity Eval Charge Codes 38570 - High Complexity PHYSICIAN CERTIFICATION: I certify the specified therapy services for Derek Garcia JR are required, authorized, and reviewed every 30 days.
--- NOTE | 2023-08-27 13:16 | EXP.HPDC ---
General Admission date:: 08/26/23 Discharge date: 08/27/23 *Admission Date: 08/26/23 *Chief complaint: left leg pain *History of present illness: Mr. Garcia is an 87-year-old male with a history of sciatica secondary to degenerative disc disease, canal stenosis and foraminal narrowing. He has been seen in the past by pain management in [place] and had multiple injections in his back. He has been having pain over the past 3 weeks in his left lower leg that radiates down into his ankle. He has had back surgery in the past and the last time he saw pain management was in 2019. He has been given steroids in the office and has also tried tramadol and fentanyl patches. He states nothing was helping with the pain and he was having difficulty getting up and down the stairs in his house. He uses a walker. He did have an appointment with pain management at [facility], but presented to the ER for further evaluation and treatment. Multiple images were taken of his left knee and lower leg and were unremarkable. He was given Tylenol and steroids and admitted for further evaluation and treatment. [facility] Disclaimer: The information contained in this section may have been updated after the patient was seen, as this information can be updated by other users. 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 Lumbar radiculopathy Lymphedema of both lower extremities Moderate aortic stenosis Onychodystrophy Peripheral artery disease Severe aortic stenosis Type 2 diabetes mellitus Venous insufficiency Surgical History (Updated 08/27/23 @ 13:43 by AVA Ortiz) H/O heart artery stent H/O right heart catheterization History of cataract surgery Previous back surgery S/P insertion of iliac artery stent Family History (Updated 08/26/23 @ 19:32 by Yaima Dunn RN) Colon cancer Father Bladder cancer Father Family history of diabetes mellitus type II Mother Family history of myocardial infarction Mother Social History (Updated 08/26/23 @ 19:30 by Yaima Dunn RN) Smoking Status: Former smoker years smoked: 25 smoking status stop date: 1983 alcohol intake: never current occupational status: retired Travel in the last 8 weeks: Inside the [place] household members: spouse housing: apartment caffeine: Yes Review of Systems Constitutional Constitutional: Denies fatigue, Denies headache(s) and Denies weakness Eyes Eyes: Denies blurry vision and Denies diplopia ENT Ears, Nose, Mouth, and Throat: Denies headache(s), Denies nasal congestion, Denies sore throat and Denies vertigo *Cardiovascular Cardiovascular: Denies chest pain, Denies dyspnea and Denies leg edema *Respiratory Respiratory: Denies cough and Denies dyspnea *Gastrointestinal Gastrointestinal: Denies abdominal pain, Denies loose stools, Denies nausea and Denies vomiting *Genitourinary Genitourinary: Denies difficulty urinating and Denies dysuria *Musculoskeletal Musculoskeletal: Reports arthralgias (left leg), Reports back pain and Denies myalgias *Neurologic Neurologic: Denies headache(s), Denies vertigo and Denies weakness Endocrine Endocrine: Denies fatigue Exam Data for Last 24 hours Vital signs and Labs for Last 24 Hours: Temp Pulse Resp BP Pulse Ox O2 Del Method 98.6 F 119 H 17 143/83 H 95 Room Air 08/27/23 07:46 08/27/23 07:46 08/27/23 07:46 08/27/23 07:46 08/27/23 07:46 08/27/23 12:57 Laboratory Results - last 24 hr 08/26/23 15:48: WBC 8.1, RBC 5.03, Hgb 15.2
--- NOTE | 2023-08-28 13:24 | CARE MANAGER ---
Contacted patient related to hospital discharge. No new medications. He is aware of follow up appointments and denies questions or concerns. KASSANDRA Hannah
== END 2023-08-27 14:46 | disposition home or self-care (01) ==
LOC: ER 15:53 → 2ND 18:35
PROVIDERS: Admitting Provider Internal Medicine Adolescent Medicine; Emergency Provider Emergency Medicine; PCP Family Medicine; Visit Provider Family Medicine
DX: M79.605 Pain in left leg (principal); M54.50 Low back pain, unspecified; G89.29 Other chronic pain; M51.36 Other intervertebral disc degeneration, lumbar region; M54.16 Radiculopathy, lumbar region; Z87.891 Personal history of nicotine dependence; Z79.01 Long term (current) use of anticoagulants; Z79.4 Long term (current) use of insulin; E11.9 Type 2 diabetes mellitus without complications; Z79.899 Other long term (current) drug therapy
CPT/HCPCS: 73562; 73590; 73610; 80053; 85025; 97163; 97165; 99285; G0378; J0131

== ENCOUNTER 2023-09-16 10:59 | Day surgery (SDC) | payer MEDICARE, SELFPAY ==
[2023-09-16 11:35] VITALS: BP 160/66; BP 184/76; PULSE 78; PULSE 80; RESP 20; TEMP 36.2; O2SAT 96; BMI 34.8
[2023-09-16 12:13] VITALS: BP 171/78; PULSE 86; RESP 18; O2SAT 95
[2023-09-16 12:14] VITALS: BP 171/78; PULSE 86; RESP 18; O2SAT 95
--- NOTE | 2023-09-16 12:16 | EXP.PAIN.PRO ---
Procedure Date: 09/16/23 Time: 11:50 Anesthesiologist:: Bhavik Diop CRNA Complications:: None Pre-procedure Diagnosis:: Degenerative disc lumbar spine multilevels. Lumbar radiculopathy. Lumbar postlaminectomy syndrome. Lumbar spondylosis. Multilevel lumbar facet arthropathy. Post-procedure Diagnosis:: Same. Indications for Procedure:: Patient is a pleasant 87-year-old male that comes our clinic today for left L4-5 and L5-S1 transforaminal epidural steroid injection. Patient has low lumbar back pain he describes as constant, dull, aching. Patient also reports left hip and leg radicular symptoms to the foot. He rates his pain 7/10. Procedure Details:: Details of the procedure were explained to the patient. The patient was taken the procedure room placed in the prone position. The area of the lumbar spine was cleansed using chlorhexidine as a cleansing solution. At this time using fluoroscopy guidance markers were placed on the left lateral border of the L4 and L5 vertebral body. The skin and subcutaneous tissue was anesthetized using 1% lidocaine and 25-gauge needle. At this time using a 22-gauge 3-1/2 inch spinal needle the left upper one third of the L4-5 foramen was accessed. The same was done at the left L5-S1 foramen. Needle positions were confirmed and a lateral view using fluoroscopy and contrast dye. At this time 1 cc of 1% lidocaine +20 mg of Depo-Medrol was injected at each level after negative aspiration. [place] were removed. Band-Aid applied. Patient tolerated the procedure without difficulty. There are no complications. Plan and Disposition:: Patient was discharged without incident.
== END 2023-09-16 12:23 | disposition home or self-care (01) ==
PROVIDERS: PCP Family Medicine; Visit Provider Nurse Anesthetist, Certified Registered
DX: M51.16 Intervertebral disc disorders with radiculopathy, lumbar region (principal); M47.26 Other spondylosis with radiculopathy, lumbar region; M96.1 Postlaminectomy syndrome, not elsewhere classified
CPT/HCPCS: 64483; 64484; J1030

== ENCOUNTER → 2023-10-03 12:42 | Outpatient (POV) | payer MEDICARE, SELFPAY ==
[2023-10-03 12:52] VITALS: BP 141/81; PULSE 100; RESP 19; O2SAT 95; BMI 34.8
--- NOTE | 2023-10-03 13:17 | EXP.PAIN.SOA ---
[facility] Pain Management SOAP Note Subjective:: Patient is a pleasant 87-year-old male who presents today for follow-up of left transforaminal epidural steroid injection L4-L5 and L5-S1 on 09/16/2023. We are currently treating the patient for chronic low back pain, degenerative disc disease of lumbar spine with lumbar radiculopathy symptoms, lumbar facet arthropathy, lumbar spinal stenosis, left foot/ankle pain. Today he rates his pain a 6 out of 10. Patient denies any new falls or injuries. He does state that he had at least 40 to 50% improvement following this injection and it did help his upper leg however today he states his pain is all in his left foot and ankle. He does describe this as an aching, throbbing sensation that is fairly constant with some numbness and tingling. He does state it interferes with his ability perform activities of daily living such as cooking or cleaning or even simple ambulation. Patient's is present during today's visit and states that it typically takes half an hour for simple movements such as going from his wheelchair to the restroom. Patient was previously hospitalized for cellulitis when he first came to his as a patient and he states he is still on antibiotic for this in his bilateral lower extremities and it is helping and seems to be improving. Patient is currently on Plavix and Xarelto that is prescribed by Dr. Dubon's office. Patient is currently managed with pregabalin 200 mg twice a day and fentanyl 25 mcg patches every 72 hours from his PCP. His Tanner has been reviewed and is appropriate. Review of Systems: General: No recent weight changes, no fever, no sleep disturbances Respiratory: No cough, no shortness of air, no recurring pulmonary infections Cardiovascular/peripheral vascular: No chest pain, no palpitations, no edema, no shortness of breath Gastrointestinal: No new onset incontinence, normal bowel movements reported Genitourinary: No new onset incontinence Musculoskeletal: Left foot/ankle pain Psychiatric: [Normal mood/affect] Neurological: [Denies weakness in extremities], [denies balance issues] Objective:: Physical Exam: General: Alert and oriented x3, no acute distress, pleasant and cooperative Lungs: Respirations even and unlabored, symmetrical chest expansion Eyes: PERRL Musculoskeletal: Flexion and extension of lumbar [spine] somewhat guarded secondary to pain, [antalgic gait noted] Neurological: Speech clear, no gross sensory deficit Assessment:: Degenerative disc disease of lumbar spine with lumbar radiculopathy symptoms, lumbar facet arthropathy, lumbar spinal stenosis, left foot/left ankle pain Plan:: Patient is experiencing significant pain in his left foot and ankle with limited range of motion. I have discussed with the patient that he may benefit from a nerve block to help relieve some of these pains. Risk and benefits of this injection were explained to the patient and he would like to proceed forward with this plan of care. I will also order the patient a compounded cream. Patient will be scheduled for a left tibial nerve block. Patient has been instructed to contact the clinic with any concerns before the next appointment. Dr. Lim has reviewed this note and agrees with this plan of care. This note was dictated using voice recognition software and make contain errors or omissions. [facility] Disclaimer: The information contained in this section may have been updated after the patient was seen, as this information can be updated by other users. 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
== END ==
PROVIDERS: PCP Family Medicine; Visit Provider Nurse Practitioner Family
DX: M51.16 Intervertebral disc disorders with radiculopathy, lumbar region (principal); M47.26 Other spondylosis with radiculopathy, lumbar region; M48.061 Spinal stenosis, lumbar region without neurogenic claudication; M25.572 Pain in left ankle and joints of left foot
CPT/HCPCS: 99212; G0463

== ENCOUNTER 2023-10-21 11:31 | Day surgery (SDC) | payer MEDICARE, SELFPAY ==
[2023-10-21 11:41] VITALS: BP 145/77; PULSE 83; RESP 16; TEMP 36.3; O2SAT 95; BMI 34.8
[2023-10-21 12:10] VITALS: BP 189/89; PULSE 82; RESP 16; O2SAT 95
--- NOTE | 2023-10-21 12:10 | EXP.PAIN.PRO ---
Procedure Date: 10/21/23 Time: 11:55 Anesthesiologist:: Bhavik Diop CRNA Complications:: None Pre-procedure Diagnosis:: Degenerative disc lumbar spine multilevels. Lumbar radiculopathy. Lumbar spondylosis. Multilevel lumbar facet arthropathy. Multilevel lumbar disc bulge. Chronic left ankle and foot pain. Post-procedure Diagnosis:: Same. Indications for Procedure:: Patient is a pleasant 87-year-old male that comes our clinic today for left tibial nerve block. Patient is status post left L4-5, L5-S1 transforaminal epidural steroid injection 2 months ago. He reports 2 to 4 weeks of decreased pain in his left hip and leg radicular symptoms. Also, reports relief in his low back pain as well. Patient complaining of left ankle pain as well as left plantar foot pain. He describes the pain as constant, dull, aching. Procedure Details:: Details of the procedure explained to the patient. The patient taken procedure and placed in sitting position. The area over the left medial malleus was cleaned with chlorhexidine's cleansing solution. Using a 22-gauge inch and half needle the posterior tibial nerve was accessed. After negative aspiration 6 cc of 1% lidocaine and 20 mg of Depo-Medrol was injected. Patient tolerated procedure without difficulty. No complications Plan and Disposition:: Patient was discharged without incident. I discussed in detail with the patient it is possible we need to revisit the lumbar spine injections. We will discuss further at his follow-up.
== END 2023-10-21 12:10 | disposition home or self-care (01) ==
PROVIDERS: PCP Family Medicine; Visit Provider Nurse Anesthetist, Certified Registered
DX: M51.16 Intervertebral disc disorders with radiculopathy, lumbar region (principal); M47.26 Other spondylosis with radiculopathy, lumbar region; M51.26 Other intervertebral disc displacement, lumbar region; M25.572 Pain in left ankle and joints of left foot; G89.29 Other chronic pain
CPT/HCPCS: 64450; J1040

== ENCOUNTER → 2023-11-06 14:02 | Outpatient (POV) | payer MEDICARE, SELFPAY ==
--- NOTE | 2023-11-06 14:07 | EXP.PAIN.SOA ---
[facility] Pain Management SOAP Note Subjective:: Patient is a pleasant 87-year-old male who presents today for follow-up of left tibial nerve block on 10/21/2023. We are currently treating the patient for chronic low back pain, degenerative disc disease of lumbar spine with lumbar radiculopathy symptoms, lumbar facet arthropathy, lumbar spinal stenosis, left foot/ankle pain. Today he rates his pain a 8 out of 10. Patient denies any new falls or injuries. He does state that he has had at least 60 to 70% improvement following this injection and that it is still providing additional relief. He does state that he will occasionally still experience flareups of his low back and leg pain. Patient does state today that he is experiencing more pain along 1 spot in his left lower leg. Patient states its painful to touch and denies any radiating symptoms other to the the 1 specific location. Patient does describe this as a chronic aching sensation and it does interfere with his ability perform activities of daily living or even simple ambulation. He is currently on Plavix and Xarelto that is prescribed by Dr. Dubon's office. Patient is currently managed with pregabalin 200 mg twice a day and fentanyl 25 mcg patches every 72 hours from his PCP. At our last visit he was prescribed compounding cream that he does state helps additionally. His Tanner has been reviewed and is appropriate. Review of Systems: General: No recent weight changes, no fever, no sleep disturbances Respiratory: No cough, no shortness of air, no recurring pulmonary infections Cardiovascular/peripheral vascular: No chest pain, no palpitations, no edema, no shortness of breath Gastrointestinal: No new onset incontinence, normal bowel movements reported Genitourinary: No new onset incontinence Musculoskeletal: Left lower leg pain Psychiatric: [Normal mood/affect] Neurological: [Denies weakness in extremities], [denies balance issues] Objective:: Physical Exam: General: Alert and oriented x3, no acute distress, pleasant and cooperative Lungs: Respirations even and unlabored, symmetrical chest expansion Eyes: PERRL Musculoskeletal: Flexion and extension of lumbar [spine] somewhat guarded secondary to pain, [antalgic gait noted] point tenderness along left extensor digitorum longus muscle Neurological: Speech clear, no gross sensory deficit Assessment:: Chronic low back pain, degenerative disc disease of lumbar spine with lumbar radiculopathy symptoms, lumbar facet arthropathy, lumbar spinal stenosis, left foot/ankle pain, myofascial pain Plan:: Patient has had significant improvement in his ankle and foot pain following his nerve block. He has today experiencing worsening pain along his left lower leg with point tenderness noted at his left extensor digitorum longus muscle. I have discussed with the patient that we can do trigger point injections at this location. Risk and benefits were discussed with the patient and he would like to proceed forward with this plan of care. We will schedule the patient for a trigger point injection of the left extensor digitorum longus muscle. Patient has been instructed to contact the clinic with any concerns before the next appointment. Dr. Lim has reviewed this note and agrees with this plan of care. This note was dictated using voice recognition software and make contain errors or omissions. [facility] Disclaimer: The information contained in this section may have been updated after the patient was seen, as this information can be updated by other users. 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
[2023-11-07 08:20] VITALS: BP 159/77; PULSE 91; RESP 18; O2SAT 95; BMI 34.3
== END ==
PROVIDERS: PCP Family Medicine; Visit Provider Nurse Practitioner Family
DX: M51.16 Intervertebral disc disorders with radiculopathy, lumbar region (principal); M47.26 Other spondylosis with radiculopathy, lumbar region; M48.061 Spinal stenosis, lumbar region without neurogenic claudication; G89.29 Other chronic pain; M25.572 Pain in left ankle and joints of left foot; M79.10 Myalgia, unspecified site
CPT/HCPCS: 99212; G0463

== ENCOUNTER 2023-11-18 13:15 | Day surgery (SDC) | payer MEDICARE, SELFPAY ==
[2023-11-18 13:37] VITALS: BP 135/74; PULSE 102; O2SAT 97; BMI 34.8
--- NOTE | 2023-11-18 13:53 | PC.NURSE ---
PER PROVIDER RESCHEDULE TO NEXT FRIDAY THE DUE TO FSBS 250 AT TODAY'S VISIT.
--- NOTE | 2023-11-18 13:56 | EXP.PAIN.SOA ---
[facility] Pain Management SOAP Note Subjective:: Patient is a pleasant 87-year-old male who comes our clinic today for a left lower leg trigger point injection. Patient arrives with a blood sugar of 265. We will delay the steroid injection until November 28. Patient has been instructed to check his blood sugar prior to leaving the house for his appointment on the . [facility] Disclaimer: The information contained in this section may have been updated after the patient was seen, as this information can be updated by other users. 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 Ischemic ulcer of toe of right foot Leg edema Lumbar radiculopathy Lymphedema of both lower extremities Moderate aortic stenosis Onychodystrophy Peripheral artery disease Severe aortic stenosis Type 2 diabetes mellitus Venous insufficiency Surgical History H/O heart artery stent 2 H/O right heart catheterization History of cataract surgery Previous back surgery S/P insertion of iliac artery stent Family History Mother Family history of diabetes mellitus type II Family history of myocardial infarction Father Bladder cancer Colon cancer Social History (Updated 11/18/23 @ 13:38 by Chantel Singh RN) Smoking Status: Former smoker years smoked: 25 smoking status stop date: 1983 alcohol intake: never substance use type: denies use current occupational status: retired Travel in the last 8 weeks: None household members: spouse housing: apartment caffeine: Yes
== END 2023-11-18 13:54 | disposition home or self-care (01) ==
LOC: SC.PAINP 13:15
PROVIDERS: PCP Family Medicine; Visit Provider Nurse Anesthetist, Certified Registered
DX: Z53.09 Procedure and treatment not carried out because of other contraindication (principal); R73.9 Hyperglycemia, unspecified; M79.18 Myalgia, other site
CPT/HCPCS: 20552

== ENCOUNTER 2023-11-28 10:09 | Day surgery (SDC) | payer MEDICARE, SELFPAY ==
[2023-11-28 10:19] VITALS: BP 166/79; PULSE 85; RESP 16; TEMP 36.5; O2SAT 95; BMI 34.8
[2023-11-28] MEDS: BUPIVACAINE 0.25% 10ML INJ 25 MG IJ (10:25)
[2023-11-28] MEDS: methylPREDNISolone ACETATE 80MG/ML VIAL 80 MG (10:26)
[2023-11-28] MEDS: LIDOCAINE 1% 5ML PF VIAL 5 ML (10:26)
[2023-11-28 10:30] VITALS: BP 190/89; PULSE 83; RESP 16; O2SAT 95
--- NOTE | 2023-11-28 10:40 | EXP.PAIN.PRO ---
Procedure Date: 11/28/23 Time: 10:30 Anesthesiologist:: Bhavik Diop CRNA Complications:: None Pre-procedure Diagnosis:: Pain left lateral calf. Suspected left extensor digitorum longus tendinitis. Post-procedure Diagnosis:: Same. Indications for Procedure:: Patient is a pleasant 87-year-old male comes our clinic today for trigger point injection of the left lateral calf. Patient has pinpoint pain over the left digitorum longus. Patient states pain increases with ambulation. Procedure Details:: Details of the procedure explained the patient. Patient taken to procedure room placed in the sitting position. The area over the left lateral calf was cleaned using chlorhexidine as a cleansing solution. Using a 25-gauge inch and half needle 4 cc of 1% lidocaine and 20 mg of Depo-Medrol was injected at a spot the patient identified as the painful area. Patient tolerated procedure without difficulty. There are no complications. Plan and Disposition:: Patient was discharged without incident.
== END 2023-11-28 10:30 | disposition home or self-care (01) ==
LOC: SC.PAINP 10:10
PROVIDERS: PCP Family Medicine; Visit Provider Nurse Anesthetist, Certified Registered
DX: M79.18 Myalgia, other site (principal)
CPT/HCPCS: 20552; J1040

== ENCOUNTER → 2023-12-15 11:00 | Outpatient (POV) | payer MEDICARE, SELFPAY ==
--- NOTE | 2023-12-15 11:06 | A.OFFVIS_ITS ---
[facility] Pain Management SOAP Note Subjective:: Patient is a pleasant 87-year-old male who presents today for follow-up of trigger point injections of his left ankle/left digitorum longus on 11/28/2023. We are currently treating the patient for chronic low back pain, degenerative disc disease of lumbar spine with lumbar radiculopathy symptoms, lumbar facet arthropathy, lumbar spinal stenosis, left foot/ankle pain. Today he rates his pain a 4 out of 10. Patient denies any new injuries or falls. He does state that the injection initially made his pain worse for the first few days however it did start to kick in and he states it was somewhat better and today he states that it can still come and go. He still has pain in the 1 area in his ankle however right now it is still tolerable. He is currently on Plavix and Xarelto that is prescribed by Dr. Dubon's office. Patient is currently managed with pregabalin 200 mg twice a day and fentanyl 25 mcg patches every 72 hours from his PCP. He is prescribed compounded cream from our office. His Tanner has been reviewed and is appropriate. Review of Systems: General: No recent weight changes, no fever, no sleep disturbances Respiratory: No cough, no shortness of air, no recurring pulmonary infections Cardiovascular/peripheral vascular: No chest pain, no palpitations, no edema, no shortness of breath Gastrointestinal: No new onset incontinence, normal bowel movements reported Genitourinary: No new onset incontinence Musculoskeletal: Left lower leg pain Psychiatric: [Normal mood/affect] Neurological: [Denies weakness in extremities], [denies balance issues] Objective:: Physical Exam: General: Alert and oriented x3, no acute distress, pleasant and cooperative Lungs: Respirations even and unlabored, symmetrical chest expansion Eyes: PERRL Musculoskeletal: Flexion and extension of lumbar [spine] somewhat guarded secon junior to pain, [antalgic gait noted] Neurological: Speech clear, no gross sensory deficit Assessment:: Chronic low back pain, degenerative disc disease of lumbar spine with lumbar radiculopathy symptoms, myofascial pain, lumbar facet arthropathy, lumbar spinal stenosis, left foot/ankle pain Plan:: Patient overall is doing well today and does not require any additional injection therapy. I have discussed with the patient at that time we will review over his low back and leg pain. Patient did previously have a left transforaminal epidural back in October that did provide 60% improvement. Patient will return to clinic in 1 month for reevaluation of symptoms and plan of care. Patient has been instructed to contact the clinic with any concerns before the next appointment. Dr. Lim has reviewed this note and agrees with this plan of care. This note was dictated using voice recognition software and make contain errors or omissions. [facility] Disclaimer: The information contained in this section may have been updated after the patient was seen, as this information can be updated by other users. 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 Ischemic ulcer of toe of right foot Leg edema Lumbar radiculopathy Lymphedema of both lower extremities Moderate aortic stenosis Onychodystrophy Peripheral artery disease Severe aortic stenosis Type 2 diabetes mellitus Venous insufficiency Surgical History H/O heart artery stent 2 H/O right heart catheterization History of cataract surgery Previous back surgery S/P insertion of iliac artery stent Family History Mother Family history of diabetes mellitus type II Family history of myocardial infarction Father Bladder cancer Colon cancer Social History Smoking Status: Former smoker years smoked: 25 smoking status stop date: 1983 alcohol intake: never substance use type: denies use current occupational status: retired Travel in the last 8 weeks: None household members: spouse housing: apartment caffeine: Yes
[2023-12-15 12:15] VITALS: BP 127/58; PULSE 90; RESP 18; O2SAT 96; BMI 34.3
== END ==
LOC: SC.PAIN 11:01
PROVIDERS: PCP Family Medicine; Visit Provider Nurse Practitioner Family
DX: M51.16 Intervertebral disc disorders with radiculopathy, lumbar region (principal); M47.26 Other spondylosis with radiculopathy, lumbar region; M48.061 Spinal stenosis, lumbar region without neurogenic claudication; M54.50 Low back pain, unspecified; G89.29 Other chronic pain; M79.10 Myalgia, unspecified site; M25.572 Pain in left ankle and joints of left foot
CPT/HCPCS: 99212; G0463

== ENCOUNTER → 2024-01-15 13:58 | Outpatient (POV) | payer MEDICARE, SELFPAY ==
--- NOTE | 2024-01-15 14:49 | EXP.PAIN.SOA ---
[facility] Pain Management SOAP Note Subjective:: Patient is a pleasant 88-year-old male who presents today for follow-up. We are currently treating the patient for myofascial pain of the left ankle/left digitorum longus, degenerative disc disease of lumbar spine with lumbar radiculopathy symptoms, lumbar facet arthropathy, lumbar spinal stenosis, left foot/ankle pain. Today he rates his pain a 5 out of 10. Patient denies any new trauma or injury. He does state that he has been moving around more frequently at home with less help. He does state that he is still experiencing pain in and around his left lower calf that is tender to touch. Patient did previously get trigger point injections at this area that did provide improvement. He states he would be interested in repeating these injections. He does state that he notices more of the pain when he has been up on his feet and typically when he goes to bed and has his feet up or when he is lying in his chair reclined that he has less pain in this area. Patient is currently on Plavix and Xarelto from his primary care provider along with pregabalin 200 mg twice a day. Patient denies any side effects from these medications. He does use compounded cream from our office. His Tanner has been reviewed and is appropriate. Review of Systems: General: No recent weight changes, no fever, no sleep disturbances Respiratory: No cough, no shortness of air, no recurring pulmonary infections Cardiovascular/peripheral vascular: No chest pain, no palpitations, no edema, no shortness of breath Gastrointestinal: No new onset incontinence, normal bowel movements reported Genitourinary: No new onset incontinence Musculoskeletal: Left lower calf pain Psychiatric: [Normal mood/affect] Neurological: [Denies weakness in extremities], [denies balance issues] Objective:: Physical Exam: General: Alert and oriented x3, no acute distress, pleasant and cooperative Lungs: Respirations even and unlabored, symmetrical chest expansion Eyes: PERRL Musculoskeletal: Flexion and extension of lumbar [spine] somewhat guarded secondary to pain, [antalgic gait noted] point tenderness along the left digitorum longus Neurological: Speech clear, no gross sensory deficit Assessment:: Myofascial pain, degenerative disc disease of lumbar spine with lumbar radiculopathy symptoms, lumbar facet arthropathy, lumbar spinal stenosis, left foot/ankle pain Plan:: Patient is experiencing worsening pain in and around his left lower calf. Patient did have point tenderness along his left digitorum longus muscle during today's exam. I have discussed with the patient that he may benefit from trigger point injections at this area. Risk and benefits were discussed with patient and he would like to proceed forward with this plan of care. Patient will be scheduled for trigger point injections of his left digitorum longus muscle. Patient has been instructed to contact the clinic with any concerns before the next appointment. Dr. Lim has reviewed this note and agrees with this plan of care. This note was dictated using voice recognition software and make contain errors or omissions. [facility] Disclaimer: The information contained in this section may have been updated after the patient was seen, as this information can be updated by other users. 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 Ischemic ulcer of toe of right foot Leg edema Lumbar radiculopathy Lymphedema of both lower extremities Moderate aortic stenosis Onychodystrophy Peripheral artery disease Severe aortic stenosis Type 2 diabetes mellitus Venous insufficiency Surgical History H/O heart artery stent 2 H/O right heart catheterization History of cataract surgery Previous back surgery S/P insertion of iliac artery stent Family History Mother Family history of diabetes mellitus type II Family history of myocardial infarction Father Bladder cancer Colon cancer Social History Smoking Status: Former smoker years smoked: 25 smoking status stop date: 1983 alcohol intake: never substance use type: denies use current occupational status: retired Travel in the last 8 weeks: None household members: spouse housing: apartment caffeine: Yes
[2024-01-15 15:27] VITALS: BP 143/74; PULSE 77; RESP 20; O2SAT 94; BMI 35.8
== END ==
PROVIDERS: PCP Family Medicine; Visit Provider Nurse Practitioner Family
DX: M79.18 Myalgia, other site (principal); M51.16 Intervertebral disc disorders with radiculopathy, lumbar region; M47.26 Other spondylosis with radiculopathy, lumbar region; M48.061 Spinal stenosis, lumbar region without neurogenic claudication; M25.572 Pain in left ankle and joints of left foot
CPT/HCPCS: 99212; G0463

== ENCOUNTER 2024-02-03 10:01 | Day surgery (SDC) | payer MEDICARE, SELFPAY ==
[2024-02-03 10:49] VITALS: BP 153/69; PULSE 86; RESP 16; TEMP 36.2; O2SAT 96; BMI 35.8
[2024-02-03 11:05] VITALS: BP 168/83; PULSE 98; RESP 18; O2SAT 96
--- NOTE | 2024-02-03 11:05 | EXP.PAIN.PRO ---
Procedure Date: 02/03/24 Time: 11:00 Anesthesiologist:: Bhavik Diop CRNA Complications:: None Pre-procedure Diagnosis:: Left lateral calf pain. Suspected left digitorum longus tendinitis. Post-procedure Diagnosis:: Same. Indications for Procedure:: Patient is a very pleasant 88-year-old male comes our clinic today for trigger point injection of the left lateral calf muscle/digitorum longus tendon. Patient had significant improvement after previous injection in the same area 6 or 8 months ago. Patient able to pinpoint the area with 1 finger over the left lateral mid calf area. Procedure Details:: Details of the procedure explained the patient. Patient taken to procedure room placed in the sitting position. The area over the left lateral calf was cleaned using chlorhexidine as a cleansing solution. Using a 25-gauge inch and half needle 4 cc of 1% lidocaine and 20 mg of Depo-Medrol was injected at a spot the patient identified as the painful area. Patient tolerated procedure without difficulty. There are no complications. Plan and Disposition:: Patient was discharged without incident.
[2024-02-03] MEDS: BUPIVACAINE 0.25% 10ML INJ 25 MG IJ (14:18)
[2024-02-03] MEDS: LIDOCAINE 1% 5ML PF VIAL 5 ML (14:18)
[2024-02-03] MEDS: methylPREDNISolone ACETATE 80MG/ML VIAL 80 MG (14:19)
== END 2024-02-03 11:05 | disposition home or self-care (01) ==
PROVIDERS: PCP Family Medicine; Visit Provider Nurse Anesthetist, Certified Registered
DX: M79.18 Myalgia, other site (principal)
CPT/HCPCS: 20552; J1040

== ENCOUNTER 2024-02-18 09:58 | Outpatient (POV) | payer MEDICARE, SELFPAY ==
[2024-02-18 10:09] VITALS: BP 174/88; PULSE 100; RESP 18; TEMP 36.8; O2SAT 95; BMI 35.8
--- NOTE | 2024-02-18 10:19 | A.OFFVIS_ITS ---
[facility] Pain Management SOAP Note Subjective:: Patient is a pleasant 88-year-old male who presents today for follow-up of trigger point injections of his left lateral calf muscles/digitorum longus tendon on 02/03/2024. Today he rates his pain a 1 out of 10. He is states that he has had at least 80% following this injection and feels that it is still continuing to provide additional relief. He states that he has been able to increase his activity with decreased pain symptoms and is able to move around easier. He states that he has been having to go to [place] for a couple doctors offices and that this is no problem currently. Patient is prescribed pregabalin from his primary care provider. His Tanner has been reviewed and is appropriate. He is also prescribed compounded cream from our office. Review of Systems: General: No recent weight changes, no fever, no sleep disturbances Respiratory: No cough, no shortness of air, no recurring pulmonary infections Cardiovascular/peripheral vascular: No chest pain, no palpitations, no edema, no shortness of breath Gastrointestinal: No new onset incontinence, normal bowel movements reported Genitourinary: No new onset incontinence Musculoskeletal: Left calf/ankle pain Psychiatric: [Normal mood/affect] Neurological: [Denies weakness in extremities], [denies balance issues] Objective:: Physical Exam: General: Alert and oriented x3, no acute distress, pleasant and cooperative Lungs: Respirations even and unlabored, symmetrical chest expansion Eyes: PERRL Musculoskeletal: Flexion and extension of lumbar [spine] somewhat guarded secondary to pain, [antalgic gait noted] Neurological: Speech clear, no gross sensory deficit Assessment:: Degenerative disc disease of lumbar spine with lumbar radiculopathy symptoms, lumbar facet arthropathy, lumbar spinal stenosis, left calf/ankle pain Plan:: Patient has had significant improvement following his trigger point injections and does not require any additional injection therapy at this time. He will return to clinic in 1 month for reevaluation of symptoms and plan of care. Patient has been instructed to contact the clinic with any concerns before the next appointment. Dr. Lim has reviewed this note and agrees with this plan of care. This note was dictated using voice recognition software and make contain errors or omissions. [facility] Disclaimer: The information contained in this section may have been updated after the patient was seen, as this information can be updated by other users. 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 Ischemic ulcer of toe of right foot Leg edema Lumbar radiculopathy Lymphedema of both lower extremities Moderate aortic stenosis Onychodystrophy Peripheral artery disease Severe aortic stenosis Type 2 diabetes mellitus Venous insufficiency Surgical History H/O heart artery stent 2 H/O right heart catheterization History of cataract surgery Previous back surgery S/P insertion of iliac artery stent Family History Mother Family history of diabetes mellitus type II Family history of myocardial infarction Father Bladder cancer Colon cancer Social History Smoking Status: Former smoker years smoked: 25 smoking status stop date: 1983 alcohol intake: never substance use type: denies use current occupational status: other Travel in the last 8 weeks: None household members: spouse housing: apartment caffeine: Yes
== END 2024-02-18 23:59 ==
PROVIDERS: PCP Family Medicine; Visit Provider Nurse Practitioner Family
DX: M51.16 Intervertebral disc disorders with radiculopathy, lumbar region (principal); M47.26 Other spondylosis with radiculopathy, lumbar region; M48.061 Spinal stenosis, lumbar region without neurogenic claudication; M79.18 Myalgia, other site; M25.572 Pain in left ankle and joints of left foot
CPT/HCPCS: 99212; G0463

== ENCOUNTER 2024-03-18 13:22 | Outpatient (POV) | payer MEDICARE, SELFPAY ==
[2024-03-18 13:35] VITALS: BP 169/80; PULSE 67; RESP 18; O2SAT 96; BMI 35.8
--- NOTE | 2024-03-18 14:00 | EXP.PAIN.SOA ---
[facility] Pain Management SOAP Note Subjective:: Patient is a pleasant 88-year-old male who presents today for 1 month follow-up. Today he rates his pain a 0 out of 10. Patient denies any new trauma or injury. He states that he has left lower leg is doing well and he really only notices the pain when he has to drive or ride all the way to [employer] for his 's iron infusions. He states he did have some pain on the last visit however by the time he got home it was much better and has not had any issues since. Patient is prescribed pregabalin from his primary care provider and compounded cream from our office however he states he is not even having to use this since the pain has improved. His Tanner has been reviewed and is appropriate. Review of Systems: General: No recent weight changes, no fever, no sleep disturbances Respiratory: No cough, no shortness of air, no recurring pulmonary infections Cardiovascular/peripheral vascular: No chest pain, no palpitations, no edema, no shortness of breath Gastrointestinal: No new onset incontinence, normal bowel movements reported Genitourinary: No new onset incontinence Musculoskeletal: Low back pain Psychiatric: [Normal mood/affect] Neurological: [Denies weakness in extremities], [denies balance issues] Objective:: Physical Exam: General: Alert and oriented x3, no acute distress, pleasant and cooperative Lungs: Respirations even and unlabored, symmetrical chest expansion Eyes: PERRL Musculoskeletal: Flexion and extension of lumbar [spine] somewhat guarded secondary to pain, [antalgic gait noted] Neurological: Speech clear, no gross sensory deficit Assessment:: Degenerative disc disease of lumbar spine with lumbar radiculopathy symptoms, lumbar facet arthropathy, lumbar spinal stenosis, left calf/ankle pain Plan:: Patient is doing well and does not require any additional injections at this time. We will follow-up with him in 3 months for reevaluation of symptoms and plan of care. Patient has been instructed to contact the clinic with any concerns before the next appointment. Dr. Lim has reviewed this note and agrees with this plan of care. This note was dictated using voice recognition software and make contain errors or omissions. [facility] Disclaimer: The information contained in this section may have been updated after the patient was seen, as this information can be updated by other users. 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 Ischemic ulcer of toe of right foot Leg edema Lumbar radiculopathy Lymphedema of both lower extremities Moderate aortic stenosis Onychodystrophy Peripheral artery disease Severe aortic stenosis Type 2 diabetes mellitus Venous insufficiency Surgical History H/O heart artery stent 2 H/O right heart catheterization History of cataract surgery Previous back surgery S/P insertion of iliac artery stent Family History Mother Family history of diabetes mellitus type II Family history of myocardial infarction Father Bladder cancer Colon cancer Social History Smoking Status: Former smoker years smoked: 25 smoking status stop date: 1983 alcohol intake: never substance use type: denies use current occupational status: other Travel in the last 8 weeks: None household members: spouse housing: apartment caffeine: Yes
== END 2024-03-18 23:59 ==
LOC: SC.PAIN 13:23
PROVIDERS: PCP Family Medicine; Visit Provider Nurse Practitioner Family
DX: M51.16 Intervertebral disc disorders with radiculopathy, lumbar region (principal); M47.26 Other spondylosis with radiculopathy, lumbar region; M48.061 Spinal stenosis, lumbar region without neurogenic claudication; M79.18 Myalgia, other site; M25.572 Pain in left ankle and joints of left foot
CPT/HCPCS: 99212; G0463

== ENCOUNTER 2024-04-09 22:01 | Emergency (ER) | payer MEDICARE, SELFPAY ==
--- NOTE | 2024-04-09 22:12 | ECG_ITS ---
APPROVED REPORT Exam: Resting ECG HR:143 bpm ECG Measurements Heart Rate 143 AXES QRSd 134 QRS 267 QT 295 T 6 QTc 378 Conclusion UNCERTAIN REGULAR RHYTHM RIGHT AXIS DEVIATION [QRS AXIS > 100] RIGHT BUNDLE BRANCH BLOCK [120+ ms QRS DURATION, UPRIGHT V1, 40+ ms S IN I/aVL/V4/V5/V6] POSSIBLE SEPTAL MYOCARDIAL INFARCTION , PROBABLY OLD [30 ms Q WAVE IN V1/V2] CRITICAL TEST RESULT Electronically signed by : JACQUELINE JAIMES, 04/10/2024 00:26:38
[2024-04-09 22:30] VITALS: BP 153/99; BP 169/111; PULSE 139; PULSE 141; RESP 22; RESP 23; TEMP 36.3; O2SAT 94; O2SAT 96; BMI 36.4
--- NOTE | 2024-04-09 22:36 | CT_ITS ---
PROCEDURE INFORMATION: Exam: CT Abdomen And Pelvis With Contrast Exam date and time: 04/09/2024 11:03 PM Age: 88 years old Clinical indication: Abdominal pain; Additional info: Global abd pain, no bm or flatus 24h TECHNIQUE: Imaging protocol: Computed tomography of the abdomen and pelvis with contrast. Radiation optimization: All CT scans at this facility use at least one of these dose optimization techniques: automated exposure control; mA and/or kV adjustment per patient size (includes targeted exams where dose is matched to clinical indication); or iterative reconstruction. Contrast material: ISOVUE; Contrast volume: 75 ml; Contrast route: IV; COMPARISON: MR LUMBAR SPINE WO/W CON 09/27/2019 9:27 AM FINDINGS: Lungs: Mild bibasilar atelectasis. Liver: Normal. No mass. Gallbladder and bile ducts: There are several calcified gallstones. There is diffuse gallbladder wall thickening. No biliary ductal dilation. Pancreas: Normal. No ductal dilation. Spleen: Normal. No splenomegaly. Adrenal glands: Normal. No mass. Kidneys and ureters: Normal. No hydronephrosis. Stomach and bowel: There is a prominent diverticulum 2nd portion duodenal. There are few scattered colonic diverticuli. No acute inflammation. Moderate fecal content is present throughout the colon. No bowel obstruction. No mucosal. Appendix: No evidence of appendicitis. Intraperitoneal space: Unremarkable. No free air. No significant fluid collection. Vasculature: There is significant calcific atherosclerotic disease. Kissing bilateral common iliac artery stents and left external iliac artery stent are noted. Severe calcific disease of the proximal SFA bilaterally. No aneurysm or dissection is evident. Lymph nodes: Unremarkable. No enlarged lymph nodes. Urinary bladder: Posterior bladder wall thickening may represent trabeculation. Reproductive: The prostate gland is enlarged. Bones/joints: There are degenerative changes of the spine present moderate to severe in nature at L3-L4 and L4-L5. No acute fracture. Soft tissues: A small fat containing umbilical hernia is noted. IMPRESSION: 1. Cholelithiasis and gallbladder wall thickening suspicious for cholecystitis. No biliary ductal dilation is evident. Further evaluation with right upper quadrant ultrasound is recommended. 2. Posterior bladder wall thickening is noted. Further evaluation with cystoscopy is suggested. 3. Significant prostatic enlargement. 4. Severe calcific atherosclerotic disease. Iliac stents are noted. Significant stenoses versus occlusive disease of the proximal SFA is suspected bilaterally. 5. Other nonurgent findings as detailed.
--- NOTE | 2024-04-09 22:39 | [facility].EDGENADL ---
Discharge Plan Disposition Chief Complaint: Abdominal Pain Prescriptions Prescriptions: No Action omeprazole 40 mg capsule,delayed release(DR/EC) 40 mg PO DAILY PRN (Reason: GERD) bumetanide 0.5 mg tablet 0.5 mg PO DAILY PRN (Reason: Fluid) lisinopril 5 mg tablet 5 mg PO DAILY potassium chloride 10 mEq capsule, extended release 10 meq PO BID Patient Comments: TAKES 1 CAP BIS 1200,2300 pregabalin 200 mg capsule 200 mg PO BID Patient Comments: TAKES 2 BID 0900,1800 rivaroxaban 2.5 mg tablet 2.5 mg PO BID Qty: 60 3RF dapagliflozin propanediol 5 mg tablet 5 mg PO DAILY Qty: 90 3RF atorvastatin 40 MG tablet 40 mg PO HS Patient Comments: TAKES 1 DAILY HS 2300 ascorbic acid (vitamin C) 1,000 MG tablet extended release 1,000 mg PO DAILY clopidogrel 75 MG tablet 75 mg PO HS Patient Comments: TAKES 1 HS 2300 tamsulosin 0.4 MG capsule 0.8 mg PO HS Patient Comments: TAKES 2 TABS HS 1800 cholecalciferol (vitamin D3) 1,000 UNIT capsule 1,000 unit PO DAILY bimatoprost 2.5 ML drops 1 drp OP HS Rx Instructions: *LEFT eye only dorzolamide-timolol (PF) 1 EACH dropperette 1 drp EYE-BOTH BID Rx Instructions: 1 drop in each eye twice daily metformin 850 MG tablet 850 mg PO BID Patient Comments: TAKES BID 1200, 1800 magnesium 30 mg Tablet 30 mg PO DAILY insulin degludec [Tresiba FlexTouch U-100] 100 unit/mL (3 mL) insulin pen 40 unit SQ DAILY Patient Comments: INJECT 40 UNITS SUBCUTANEOUSLY ONCE DAILY fentanyl 25 mcg/hr patch 72 hour 1 patch topical DIRECTED PRN (Reason: Pain (Scale Score 4-6)) Rx Instructions: apply patch to clean dry area every 72 hpours PRN for pain fentanyl 25 mcg/hr patch 72 hour 25 mcg transdermal Q3D Patient Comments: APPLY 1 PATCH EXTERNALLY TO SKIN EVERY 72 HOURS Referrals Follow up/Referrals: Tye Dubon MD [Primary Care Provider] - See instructions Clinical Impressions Clinical Impression: Abdominal pain, Leukocytosis Instructions Patient Instructions: DI for Acute Abdominal Pain Discharge ED Provider: Jeffrey Chappell General Adult HPI <Jeffrey Chappell MD - Last Filed: 04/09/24 23:18> General Chief complaint: Abdominal Pain Stated complaint: HBP,stomach swollen and hurts Time Seen by Provider: 04/09/24 22:03 History of Present Illness HPI narrative: Patient is an 88-year-old male with past medical history of hypertension, insulin-dependent diabetes, venous insufficiency, severe aortic stenosis who presents emergency department for evaluation of abdominal pain. Onset was acute, over the last 24 hours, no bowel movement or flatus since yesterday, global generalized abdominal pain. 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 Due to persistent symptoms he presents here for continued evaluation. Related Data Home Medications Medication Instructions Recorded Confirmed ascorbic acid (vitamin C) 1,000 mg 1,000 mg PO DAILY Supplement 01/23/21 03/18/24 tablet,extended release atorvastatin 40 mg tablet 40 mg PO HS Cholesterol 01/23/21 03/18/24 bimatoprost 0.01 % eye drops 1 drp ophthalmic (eye) HS 01/23/21 03/18/24 glaucoma*LEFT eye only cholecalciferol (vitamin D3) 25 1,000 unit PO DAILY Supplement 01/23/21 03/18/24 mcg (1,000 unit) capsule clopidogrel 75 mg tablet 75 mg PO HS Blood thinner 01/23/21 03/18/24 dorzolamide-timolol (PF) 2 %-0.5 % 1 drp Eye-Both BID Glaucoma 01/23/21 03/18/24 eye drops in a dropperette tamsulosin 0.4 mg capsule 0.8 mg PO HS prostate 01/23/21 03/18/24 potassium chloride 10 mEq 10 meq PO BID Supplement 02/13/21 03/18/24 capsule,extended release metformin 850 mg tablet 850 mg PO BID Diabetes 03/20/21 03/18/24 pregabalin 200 mg capsule 200 mg PO BID Pain 03/27/21 03/18/24 bumetanide 0.5 mg tablet 0.5 mg PO DAILY PRN Fluid 03/24/23 03/18/24 omeprazole 40 mg capsule,delayed 40 mg PO DAILY PRN GERD 03/24/23 03/18/24 release fentanyl 25 mcg/hr transdermal 1 patch topical DIRECTED PRN 08/26/23 03/18/24 patch Pain (Scale Score 4-6) insulin degludec 100 unit/mL (3 40 unit SQ DAILY Diabetes 08/26/23 03/18/24 mL) subcutaneous pen (Tresiba FlexTouch U-100 insulin) magnesium 30 mg tablet 30 mg PO DAILY Supplement 08/26/23 03/18/24 fentanyl 25 mcg/hr transdermal 25 mcg transdermal Q3D 09/16/23 03/18/24 patch lisinopril 5 mg tablet 5 mg PO DAILY BLOOD PRESSURE 09/22/23 03/18/24 Previous Rx's Medication Instructions Recorded rivaroxaban 2.5 mg tablet 2.5 mg PO BID Blood Thinner #60 10/16/23 tabs dapagliflozin propanediol 5 mg 5 mg PO DAILY Diabetes #90 tabs 10/22/23 tablet Allergies Allergy/AdvReac Type Severity Reaction Status Date / Time latex Allergy Unknown Unknown Verified 03/18/24 13:35 allergy reaction quinidine Allergy Unknown Unknown Verified 03/18/24 13:35 allergy reaction PFS <Jeffrey Chappell MD - Last Filed: 04/09/24 23:18> [facility] Disclaimer: The information contained in this section may have been updated after the patient was seen, as this information can be updated by other users. 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 Ischemic ulcer of toe of right foot Leg edema Lumbar radiculopathy Lymphedema of both lower extremities Moderate aortic stenosis Onychodystrophy Peripheral artery disease Severe aortic stenosis Type 2 diabetes mellitus Venous insufficiency Surgical History H/O heart artery stent 2 H/O right heart catheterization History of cataract surgery Previous back surgery S/P insertion of iliac artery stent Family History Mother Family history of diabetes mellitus type II Family history of myocardial infarction Father Bladder cancer Colon cancer Social History Smoking Status: Never smoker years smoked: 25 smoking status stop date: 1983 alcohol intake: never substance use type: denies use current occupational status: other Travel in the last 8 weeks: None household members: spouse housing: apartment caffeine: Yes <Jeffrey Chappell MD - Last Filed: 04/09/24 23:18> ROS Obtained: Yes Systems reviewed as appropriate & no additional complaints except as documented Physical Exam <Jeffrey Chappell MD - Last Filed: 04/09/24 23:18> General General appearance: alert and in no apparent distress Head Head exam: atraumatic and normocephalic Eye Eye exam: Present PERRL and EOMI ENT ENT exam: Present mucous membranes moist Neck Neck exam: Present normal inspection Chest Chest inspection: Present normal inspection and symmetric chest wall rise Respiratory Respiratory exam: Present normal lung sounds bilaterally; Absent respiratory distress Cardiovascular Cardiovascular exam: Present normal rhythm and tachycardia Abdominal Exam Abdominal exam: Present soft, distention and tenderness (Global); Absent rigidity Extremities Exam Extremities exam: Present normal inspection Neurological Exam Neurological exam: Present alert Psychiatric Psychiatric exam: Present normal affect Skin Skin exam: Present warm and dry Medical Decision Making <Jeffrey Chappell MD - Last Filed: 04/09/24 23:18> Medical Records Medical records reviewed: Yes I reviewed the patient's medical records. [facility] Inquiry Pt receiving controlled substance: No Vital Signs: 04/09/24 22:30 04/09/24 22:30 04/09/24 23:23 Temperature 97.4 F L Temperature Source Oral Pulse Rate 139 H 135 H Pulse Rate [Apical] 141 H Respiratory Rate 23 22 22 Blood Pressure 169/111 H 137/85 Blood Pressure [Left Arm] 153/99 H Blood Pressure Mean 121 104 Blood Pressure Mean [Left Arm] 117 Blood Pressure Source [Left Arm] Automatic Cuff Blood Pressure Position [Left Arm] Sitting 02 Sat by Pulse Oximetry 96 94 L 94 L Oxygen Delivery Method Room Air 04/09/24 23:30 04/09/24 23:45 04/09/24 23:58 Temperature Temperature Source Pulse Rate 139 H 130 H 126 H Pulse Rate [Apical] Respiratory Rate 25 H 18 21 Blood Pressure 165/105 H 156/95 H 168/97 H Blood Pressure [Left Arm] Blood Pressure Mean Blood Pressure Mean [Left Arm] Blood Pressure Source [Left Arm] Blood Pressure Position [Left Arm] 02 Sat by Pulse Oximetry 93 L 92 L 94 L Oxygen Delivery Method Room Air Room Air Room Air 04/10/24 00:00 04/10/24 00:30 04/10/24 01:00 Temperature Temperature Source Pulse Rate 126 H 134 H 134 H Pulse Rate [Apical] Respiratory Rate 19 18 20 Blood Pressure 163/97 H 186/105 H 169/92 H Blood Pressure [Left Arm] Blood Pressure Mean 122 117 Blood Pressure Mean [Left Arm] Blood Pressure Source [Left Arm] Blood Pressure Position [Left Arm] 02 Sat by Pulse Oximetry 93 L 94 L 93 L Oxygen Delivery Method Room Air 04/10/24 01:30 04/10/24 02:01 04/10/24 02:22 Temperature Temperature Source Pulse Rate 133 H 144 H 138 H Pulse Rate [Apical] Respiratory Rate 24 22 23 Blood Pressure 195/110 H 210/108 H 189/111 H Blood Pressure [Left Arm] Blood Pressure Mean Blood Pressure Mean [Left Arm] Blood Pressure Source [Left Arm] Blood Pressure Position [Left Arm] 02 Sat by Pulse Oximetry 94 L 96 92 L Oxygen Delivery Method Room Air Room Air Room Air 04/10/24 02:30 04/10/24 02:38 Temperature Temperature Source Pulse Rate 138 H 135 H Pulse Rate [Apical] Respiratory Rate 22 20 Blood Pressure 202/120 H 140/86 Blood Pressure [Left Arm] Blood Pressure Mean Blood Pressure Mean [Left Arm] Blood Pressure Source [Left Arm] Blood Pressure Position [Left Arm] 02 Sat by Pulse Oximetry 92 L 92 L Oxygen Delivery Method Room Air Room Air Lab Data Lab Results 04/09/24 22:16: WBC 24.8 H*, RBC 5.24, Hgb 16.5, Hct 51.6, MCV 98.3 H, MCH 31.5 H, MCHC 32.0, RDW 13.9, Plt Count 246, MPV 8.6, Neut % (Auto) 84.0 H, Lymph % (Auto) 8.8 L, Sherman % (Auto) 7.0, Eos % (Auto) 0.1, Baso % (Auto) 0.2, Neut # (Auto) 20.8 H, Lymph # (Auto) 2.2, Sherman # (Auto) 1.7 H, Eos # (Auto) 0.0, Baso # (Auto) 0.1, Total Counted 100, Neutrophils % (Manual) 86 H, Lymphocytes % (Manual) 8 L, Monocytes % (Manual) 6, Platelet Estimate Normal, RBC Morphology Normal, PT 11.0, INR 1.02, APTT 34.2 H, Sodium 136, Potassium 4.2, Chloride 101, Carbon Dioxide 19 L, Anion Gap 20.2 H, BUN 13, Creatinine 1.00, Estimated Creat Clear 75, Estimated GFR 71, Est GFR ( Amer) 86, Glucose 222 H, Lactate 3.0 H, Calcium 10.2, Total Bilirubin 1.5 H, AST 35, ALT 43, Alkaline Phosphatase 80, Troponin I 0.08 H, Total Protein 7.8, Albumin 4.7, Globulin 3.1, Albumin/Globulin Ratio 1.5, Lipase 25 04/09/24 22:36: VBG pH 7.35, VBG pCO2 33.8 L, VBG pO2 46.3 H, VBG HCO3 18.2 L, VBG Total CO2 19.2 L, VBG O2 Saturation 78.6 H, VBG Base Excess -7.4 L, VBG Lactic Acid 4.2 H 04/09/24 23:35: Urine Color Yellow, Urine Appearance Clear, Urine pH 6.0, Ur Specific [place] 1.020, Urine Protein 2+, Urine Glucose (UA) 3+, Urine Ketones 2+, Urine Blood Trace-i, Urine Nitrate Negative, Urine Bilirubin Negative, Urine Urobilinogen 0.2, Ur Leukocyte Esterase Negative, Urine RBC 3-5, Urine WBC None, Ur Squamous Epith Cells Occasional, Urine Bacteria Trace 04/10/24 01:00: Troponin I 0.09 H 04/10/24 01:40: Lactate 3.6 H 04/09/24 22:16 04/09/24 22:16 Orders (Tests/Meds): ED MEDICATIONS Generic Name Dose Route Start Last Admin Trade Name Freq PRN Reason Stop Dose Admin Sodium Chloride 10 ml 04/09/24 23:12 04/09/24 23:13 Sodium Chloride 0.9% 10ml Syr (Rad Only) IV 05/09/24 23:11 10 ml NEEDED PRN Administration Maintain IV Site Discontinued Medications Generic Name Dose Route Start Last Admin Trade Name Freq PRN Reason Stop Dose Admin Lactated Ringer's 1,000 mls @ 999 mls/hr 04/09/24 22:36 04/10/24 00:47 Lactated Ringer's 1000 Ml Bag IV 04/09/24 23:36 Not Given .Q1H1M ONE Piperacillin Sod/Tazobactam 50 mls @ 100 mls/hr 04/09/24 22:37 04/09/24 22:45 Sod 3.375 gm/ Sodium Chloride IV 04/09/24 23:06 100 mls/hr ONCE ONE Administration Lactated Ringer's 1,000 mls @ 999 mls/hr 04/09/24 23:17 04/10/24 00:48 Lactated Ringer's 1000 Ml Bag IV 04/10/24 00:17 Not Given .Q1H1M ONE Lactated Ringer's 3,080 mls @ 1,540 mls/hr 04/10/24 00:27 04/09/24 22:45 Lactated Ringer's 1000 Ml Bag 30 ml/kg infuse over 2 hr (3080 ml) 04/10/24 02:26 1,540 mls/hr IV Administration .Q2H ONE Iopamidol 75 ml 04/09/24 23:12 04/09/24 23:13 Iopamidol-370 (76%);100ml Bottle IV 04/09/24 23:13 75 ml ONCE ONE Administration Iopamidol 100 ml 04/10/24 03:02 04/10/24 03:03 Iopamidol-370 (76%);100ml Bottle IV 04/10/24 03:03 100 ml ONCE ONE Administration Lidocaine HCl 1 ml 04/10/24 03:02 04/10/24 03:03 Lidocaine 2% Urojet 10ml TP 04/10/24 03:03 1 ml ONCE ONE Administration Morphine Sulfate 4 mg 04/09/24 22:38 04/09/24 22:46 Morphine 4mg/Ml Syringe IV 04/09/24 22:39 4 mg ONCE ONE Administration Sodium Chloride 50 ml 04/10/24 03:02 04/10/24 03:03 0.9 % Sodium Chloride 50 Ml Vial IV 04/10/24 03:03 50 ml ONCE ONE Administration ORDERS Category Date Time Status CT abdomen pelvis w con Stat Cat Scan 04/09/24 22:[address] angio abdomen pelvis Stat Cat Scan 04/10/24 02:[address] angio chest - dissection Stat Cat Scan 04/10/24 02:39 Taken Activated Partial Thrombo Time Stat Lab 04/10/24 00:01 Completed CBC w/Auto Diff [Complete Blood Count Auto Diff] Stat Lab 04/09/24 22:16 Completed CMP [Comprehensive Metabolic Panel] Stat Lab 04/09/24 22:16 Completed Lactic Acid Follow Up (RFLX 1) Stat Lab 04/10/24 02:46 Ordered Lactic Acid Stat Lab 04/10/24 00:01 Completed Lactic Acid Stat Lab 04/10/24 01:40 Completed Lipase Stat Lab 04/09/24 22:16 Completed PT/INR [Prothrombin Time INR] Stat Lab 04/10/24 00:01 Completed Trop I [Troponin I] Stat Lab 04/09/24 22:16 Completed Troponin I Q3H Lab 04/10/24 01:00 Completed Troponin I Q3H Lab 04/10/24 04:45 Ordered UA [Urinalysis and Microscopic] Stat Lab 04/09/24 23:35 Completed Blood Culture Stat Micro 04/09/24 22:45 Received VBG [Venous Blood Gas] Stat RT 04/09/24 22:36 Completed ECG Request Stat Y 04/10/24 00:18 Ordered ECG Data Tracing #1: Independently interpreted by me, rate is 143, rhythm is regular, right bundle branch block, ST depression in V2 and V3, no ST elevation in anatomical contiguous leads, QTc 370. HEART Score History (anamnesis): Slightly suspicious ECG: Significant ST-deviation Age: >65 years Risk factors: Atherosclerosis history Troponin: 1-3x normal limit HEART Score: 7 Medical Decision Narrative: In summary patient is a 88-year-old male with past medical history described above presents emergency department for evaluation of global abdominal pain. Patient is hemodynamically stable nontoxic-appearing upon arrival, significant tachycardia, afebrile. My concern for intra-abdominal catastrophe is high. Patient will undergo CT imaging immediately. Initial interventions include morphine, Zofran, crystalloid bolus. Hematologic labs urinalysis will be obtained. Differential includes volvulus, bowel obstruction, abdominal mass, colitis, among others. Initial workup reviewed by me, significant leukocytosis with left shift, lactate 4.2 pH 7.35. There is respiratory compensation. No MAGALY or critical electrolyte abnormality, initial troponin 0.08 however patient does not have chest pain and has significant tachycardia which may be fulfillment representative of demand ischemia. Second crystalloid bolus will be administered. CT conducted and pending at time of transfer of care to the oncoming physician, Dr. Rhodes <Porsha Rhodes MD - Last Filed: 04/10/24 03:16> Vital Signs: 04/09/24 22:30 04/09/24 22:30 04/09/24 23:23 Temperature 97.4 F L Temperature Source Oral Pulse Rate 139 H 135 H Pulse Rate [Apical] 141 H Respiratory Rate 23 22 22 Blood Pressure 169/111 H 137/85 Blood Pressure [Left Arm] 153/99 H Blood Pressure Mean 121 104 Blood Pressure Mean [Left Arm] 117 Blood Pressure Source [Left Arm] Automatic Cuff Blood Pressure Position [Left Arm] Sitting 02 Sat by Pulse Oximetry 96 94 L 94 L Oxygen Delivery Method Room Air 04/09/24 23:30 04/09/24 23:45 04/09/24 23:58 Temperature Temperature Source Pulse Rate 139 H 130 H 126 H Pulse Rate [Apical] Respiratory Rate 25 H 18 21 Blood Pressure 165/105 H 156/95 H 168/97 H Blood Pressure [Left Arm] Blood Pressure Mean Blood Pressure Mean [Left Arm] Blood Pressure Source [Left Arm] Blood Pressure Position [Left Arm] 02 Sat by Pulse Oximetry 93 L 92 L 94 L Oxygen Delivery Method Room Air Room Air Room Air 04/10/24 00:00 04/10/24 00:30 04/10/24 01:00 Temperature Temperature Source Pulse Rate 126 H 134 H 134 H Pulse Rate [Apical] Respiratory Rate 19 18 20 Blood Pressure 163/97 H 186/105 H 169/92 H Blood Pressure [Left Arm] Blood Pressure Mean 122 117 Blood Pressure Mean [Left Arm] Blood Pressure Source [Left Arm] Blood Pressure Position [Left Arm] 02 Sat by Pulse Oximetry 93 L 94 L 93 L Oxygen Delivery Method Room Air 04/10/24 01:30 04/10/24 02:01 04/10/24 02:22 Temperature Temperature Source Pulse Rate 133 H 144 H 138 H Pulse Rate [Apical] Respiratory Rate 24 22 23 Blood Pressure 195/110 H 210/108 H 189/111 H Blood Pressure [Left Arm] Blood Pressure Mean Blood Pressure Mean [Left Arm] Blood Pressure Source [Left Arm] Blood Pressure Position [Left Arm] 02 Sat by Pulse Oximetry 94 L 96 92 L Oxygen Delivery Method Room Air Room Air Room Air 04/10/24 02:30 04/10/24 02:38 Temperature Temperature Source Pulse Rate 138 H 135 H Pulse Rate [Apical] Respiratory Rate 22 20 Blood Pressure 202/120 H 140/86 Blood Pressure [Left Arm] Blood Pressure Mean Blood Pressure Mean [Left Arm] Blood Pressure Source [Left Arm] Blood Pressure Position [Left Arm] 02 Sat by Pulse Oximetry 92 L 92 L Oxygen Delivery Method Room Air Room Air Lab Data Lab Results 04/09/24 22:16: WBC 24.8 H*, RBC 5.24, Hgb 16.5, Hct 51.6, MCV 98.3 H, MCH 31.5 H, MCHC 32.0, RDW 13.9, Plt Count 246, MPV 8.6, Neut % (Auto) 84.0 H, Lymph % (Auto) 8.8 L, [place] % (Auto) 7.0, Eos % (Auto) 0.1, Baso % (Auto) 0.2, Neut # (Auto) 20.8 H, Lymph # (Auto) 2.2, [place] # (Auto) 1.7 H, Eos # (Auto) 0.0, Baso # (Auto) 0.1, Total Counted 100, Neutrophils % (Manual) 86 H, Lymphocytes % (Manual) 8 L, Monocytes % (Manual) 6, Platelet Estimate Normal, RBC Morphology Normal, PT 11.0, INR 1.02, APTT 34.2 H, Sodium 136, Potassium 4.2, Chloride 101, Carbon Dioxide 19 L, Anion Gap 20.2 H, BUN 13, Creatinine 1.00, Estimated Creat Clear 75, Estimated GFR 71, Est GFR ( Amer) 86, Glucose 222 H, Lactate 3.0 H, Calcium 10.2, Total Bilirubin 1.5 H, AST 35, ALT 43, Alkaline Phosphatase 80, Troponin I 0.08 H, Total Protein 7.8, Albumin 4.7, Globulin 3.1, Albumin/Globulin Ratio 1.5, Lipase 25 04/09/24 22:36: VBG pH 7.35, VBG pCO2 33.8 L, VBG pO2 46.3 H, VBG HCO3 18.2 L, VBG Total CO2 19.2 L, VBG O2 Saturation 78.6 H, VBG Base Excess -7.4 L, VBG Lactic Acid 4.2 H 04/09/24 23:35: Urine Color Yellow, Urine Appearance Clear, Urine pH 6.0, Ur Specific [place] 1.020, Urine Protein 2+, Urine Glucose (UA) 3+, Urine Ketones 2+, Urine Blood Trace-i, Urine Nitrate Negative, Urine Bilirubin Negative, Urine Urobilinogen 0.2, Ur Leukocyte Esterase Negative, Urine RBC 3-5, Urine WBC None, Ur Squamous Epith Cells Occasional, Urine Bacteria Trace 04/10/24 01:00: Troponin I 0.09 H 04/10/24 01:40: Lactate 3.6 H Orders (Tests/Meds): ED MEDICATIONS Generic Name Dose Route Start Last Admin Trade Name Freq PRN Reason Stop Dose Admin Sodium Chloride 10 ml 04/09/24 23:12 04/09/24 23:13 Sodium Chloride 0.9% 10ml Syr (Rad Only) IV 05/09/24 23:11 10 ml NEEDED PRN Administration Maintain IV Site Discontinued Medications Generic Name Dose Route Start Last Admin Trade Name Freq PRN Reason Stop Dose Admin Lactated Ringer's 1,000 mls @ 999 mls/hr 04/09/24 22:36 04/10/24 00:47 Lactated Ringer's 1000 Ml Bag IV 04/09/24 23:36 Not Given .Q1H1M ONE Piperacillin Sod/Tazobactam 50 mls @ 100 mls/hr 04/09/24 22:37 04/09/24 22:45 Sod 3.375 gm/ Sodium Chloride IV 04/09/24 23:06 100 mls/hr ONCE ONE Administration Lactated Ringer's 1,000 mls @ 999 mls/hr 04/09/24 23:17 04/10/24 00:48 Lactated Ringer's 1000 Ml Bag IV 04/10/24 00:17 Not Given .Q1H1M ONE Lactated Ringer's 3,080 mls @ 1,540 mls/hr 04/10/24 00:27 04/09/24 22:45 Lactated Ringer's 1000 Ml Bag 30 ml/kg infuse over 2 hr (3080 ml) 04/10/24 02:26 1,540 mls/hr IV Administration .Q2H ONE Iopamidol 75 ml 04/09/24 23:12 04/09/24 23:13 Iopamidol-370 (76%);100ml Bottle IV 04/09/24 23:13 75 ml ONCE ONE Administration Iopamidol 100 ml 04/10/24 03:02 04/10/24 03:03 Iopamidol-370 (76%);100ml Bottle IV 04/10/24 03:03 100 ml ONCE ONE Administration Lidocaine HCl 1 ml 04/10/24 03:02 04/10/24 03:03 Lidocaine 2% Urojet 10ml TP 04/10/24 03:03 1 ml ONCE ONE Administration Morphine Sulfate 4 mg 04/09/24 22:38 04/09/24 22:46 Morphine 4mg/Ml Syringe IV 04/09/24 22:39 4 mg ONCE ONE Administration Sodium Chloride 50 ml 04/10/24 03:02 04/10/24 03:03 0.9 % Sodium Chloride 50 Ml Vial IV 04/10/24 03:03 50 ml ONCE ONE Administration ORDERS Category Date Time Status CT abdomen pelvis w con Stat Cat Scan 04/09/24 22:[address] angio abdomen pelvis Stat Cat Scan 04/10/24 02:[address] angio chest - dissection Stat Cat Scan 04/10/24 02:39 Taken Activated Partial Thrombo Time Stat Lab 04/10/24 00:01 Completed CBC w/Auto Diff [Complete Blood Count Auto Diff] Stat Lab 04/09/24 22:16 Completed CMP [Comprehensive Metabolic Panel] Stat Lab 04/09/24 22:16 Completed Lactic Acid Follow Up (RFLX 1) Stat Lab 04/10/24 02:46 Ordered Lactic Acid Stat Lab 04/10/24 00:01 Completed Lactic Acid Stat Lab 04/10/24 01:40 Completed Lipase Stat Lab 04/09/24 22:16 Completed PT/INR [Prothrombin Time INR] Stat Lab 04/10/24 00:01 Completed Trop I [Troponin I] Stat Lab 04/09/24 22:16 Completed Troponin I Q3H Lab 04/10/24 01:00 Completed Troponin I Q3H Lab 04/10/24 04:45 Ordered UA [Urinalysis and Microscopic] Stat Lab 04/09/24 23:35 Completed Blood Culture Stat Micro 04/09/24 22:45 Received VBG [Venous Blood Gas] Stat RT 04/09/24 22:36 Completed ECG Request Stat Y 04/10/24 00:18 Ordered Tissue Perfus/Sepsis Re-Eval Sepsis Re-Evaluation Performed: Yes Date Performed: 04/10/24 Time Performed: 00:31 HEART Score HEART Score: 7 Medical Decision Narrative: In summary patient is a 88-year-old male with past medical history described above presents emergency department for evaluation of global abdominal pain. Patient is hemodynamically stable nontoxic-appearing upon arrival, significant tachycardia, afebrile. My concern for intra-abdominal catastrophe is high. Patient will undergo CT imaging immediately. Initial interventions include morphine, Zofran, crystalloid bolus. Hematologic labs urinalysis will be obtained. Differential includes volvulus, bowel obstruction, abdominal mass, colitis, among others. Initial workup reviewed by me, significant leukocytosis with left shift, lactate 4.2 pH 7.35. There is respiratory compensation. No MAGALY or critical electrolyte abnormality, initial troponin 0.08 however patient does not have chest pain and has significant tachycardia which may be fulfillment representative of demand ischemia. Second crystalloid bolus will be administered. CT conducted and pending at time of transfer of care to the oncoming physician, Dr. Rhodes Rhodes: Upon my assumption of care patient is persistently tachycardic but otherwise stable. He continues complaining of abdominal pain. I reviewed workup performed by Dr. Chappell and agree with his assessment and plan so far. Concern for lactic acidosis, sepsis, and on my personal interpretation of CT abdomen pelvis I am concerned for cholecystitis. Radiology read demonstrates findings concerning for cholecystitis without other acute surgical intra-abdominal pathology. Repeat EKG was performed and personally interpreted demonstrating sinus tachycardia, rate 123, right bundle branch block present, QTc 380, slightly improved ST depression in the anterior leads compared to previous EKG, these are likely rate dependent. No STEMI. Tissue reperfusion assessment is improving. Repeat troponin slightly increased from 0.08-0.09. Lactate on VBG was 4.2 but lactate on chemistry initial lactate was 3.0. Repeat lactate on chemistry was 3.6 despite patient having received 3 L of crystalloid. I am concerned that patient is having uptrending lactic acidosis despite appropriate fluid boluses and improvement in tissue reperfusion. Patient continues having persistent diffuse abdominal pain, he does not have localized right upper quadrant pain which would be consistent with his identified cholecystitis. Patient is also now having difficulty urinating. Given all of these findings with increasing lactate, persistent diffuse abdominal pain, persistent tachycardia, and now difficulty urinating, I have concerns for development of possible abdominal compartment syndrome. I also have concern for possible mesenteric ischemia therefore I am sending the patient back to CT scan for CT angiography. Given concerns for developing abdominal compartment syndrome, I contacted [facility] and discussed this case with the transfer center and Dr. Clarke. Dr. Clarke is excepted the patient for ED to ED transfer for concerns of worsening lactic acidosis, abdominal pain, cholecystitis, and possible abdominal compartment syndrome. Espinal catheter was placed with 1200 mL urinary output initially. Blood pressure improved after espinal. Abdomen still firm and painful. CTA personally interpreted does not demonstrate obvious occlusion of celiac, SMA, or GEMA. Radiology read pending. Images being sent to on a disc. Patient is being taken by helicopter to . He was transferred in stable condition. Critical Care <Jeffrey Chappell MD - Last Filed: 04/09/24 23:18> Critical Care Time Critical Care Time: Yes Attestation: On 04/09/24, the high probability of a clinically significant, sudden or life threatening deterioration of the following system(s) required my full and direct attention, intervention and personal management. The time I documented below is in addition to time spent performing reported procedures but includes the following listed in this critical care notation. Total Time Total Critical Care Time: 40 <Porsha Rhodes MD - Last Filed: 04/10/24 03:16> Critical Care Time Critical Care Time: Yes Attestation: On 04/09/24, the high probability of a clinically significant, sudden or life threatening deterioration of the following system(s) required my full and direct attention, intervention and personal management. The time I documented below is in addition to time spent performing reported procedures but includes the following listed in this critical care notation. Total Time Total Critical Care Time: 65
--- NOTE | 2024-04-09 22:42 | PC.NURSE ---
fsbs 198
[2024-04-09 22:45] LABS: Basophils # 0.1 K/mm3 (0-0.2); Basophils % 0.2 % (0.1-2.0); Eosinophils % 0.1 % (0.1-12.0); Hematocrit 51.6 % (42.0-52.0); Hemoglobin 16.5 g/dL (14.1-18.0); Lymphocytes # 2.2 K/mm3 (0.7-4.5); Lymphocytes % 8.8 % (10-50); Mean Corpuscular Hemoglobin 31.5 pg (27.0-31.2); Mean Corpuscular Volume 98.3 fl (80-94); Mean Platelet Volume 8.6 fl (7.4-10.4); Monocytes # 1.7 K/mm3 (0.1-1.0); Neutrophils # 20.8 K/mm3 (1.8-7.8); Platelet Count 246 K/mm3 (142-424); Red Blood Count 5.24 M/mm3 (4.60-6.20); Red Cell Distribution Width 13.9 % (11.5-17.5); White Blood Count 24.8 K/mm3 (4.8-10.8)
[2024-04-09 22:45] LABS: VBG Base Excess -7.4 mmol/L (-2.4-2.3); VBG HCO3 18.2 mmol/L (23-30); VBG Oxygen Saturation 78.6 % (50-70); VBG PCO2 33.8 mmol/L (35-51); VBG PH 7.35 mmol/L (7.31-7.41); VBG PO2 46.3 mmol/L (28-40); VBG Total CO2 19.2 mmol/L (23-27)
[2024-04-09] MEDS: PIPERACILLIN/TAZO 3.375 GM in 0.9 % SODIUM CHLORIDE 50 ML IV (22:45)
[2024-04-09] MEDS: LACTATED RINGERS 1540 ML IV (22:45)
[2024-04-09 22:46] LABS: Potassium 4.2 mmoL/L (3.5-5.1); Sodium 136 mmol/L (136-145)
[2024-04-09] MEDS: MORPHINE 4MG/ML SYRINGE 4 MG IV (22:46)
[2024-04-09 22:47] LABS: Lactate Venous 4.2 mmol/L (0.4-2.0)
[2024-04-09 22:47] LABS: Chloride 101 mmol/L (98-107)
[2024-04-09 22:49] LABS: Alanine Aminotransferase 43 U/L (12-78); Alkaline Phosphatase 80 U/L (38-126); Anion Gap 20.2 mEq/L (5-15); Aspartate Amino Transferase 35 U/L (17-59); Bilirubin,Total 1.5 mg/dl (0.2-1.3); Blood Urea Nitrogen 13 mg/dl (9-20); Carbon Dioxide 19 mmol/L (22.0-30.0); Creatinine Clearance Estimated 75 mL/min (50-200); Estimated Glomerular Filt Rate 71 ml/min (>60); GFR (African American) 86 ML/MIN (>60); Lipase 25 U/L (23-300)
[2024-04-09 22:50] LABS: Albumin Level 4.7 g/dl (3.5-5.0); Albumin/Globulin Ratio 1.5 (1.1-1.8); Calcium 10.2 mg/dl (8.4-10.2); Globulin 3.1 g/dL (1.3-3.2); Glucose 222 mg/dl (74-100); Total Protein,Serum 7.8 g/dl (6.3-8.2)
[2024-04-09 22:52] LABS: MANUAL DIFFERENTIAL MANUAL DIFFERENTIAL (MANUAL DIFF)
[2024-04-09 23:01] LABS: Troponin I 0.08 ng/ml (0.00-0.034)
[2024-04-09 23:03] LABS: Lymphocytes % 8 % (10-50); Monocytes % 6 % (2-9); Neutrophils % 86 % (42-76); Platelet Estimate Normal; RBC Morphology Normal; Total Cells Counted 100
[2024-04-09] MEDS: IOPAMIDOL-370 (76%);100ML BOTTLE 75 ML IV (23:13)
[2024-04-09] MEDS: SODIUM CHLORIDE 0.9% 10ML SYR (RAD ONLY) 10 ML IV (23:13)
[2024-04-09 23:23] VITALS: BP 137/85; PULSE 135; RESP 22; O2SAT 94
[2024-04-09 23:30] VITALS: BP 165/105; PULSE 139; RESP 25; O2SAT 93
[2024-04-09 23:41] LABS: Microscopic, Urine URINE MICROSCOPIC (MICROSCOPIC)
[2024-04-09 23:43] LABS: Appearance,Urine CLEAR (Clear); Bilirubin,Urine Negative (Negative); Blood, Urine TRACE-I (Negative); Color,Urine YELLOW (Yellow); Glucose,Urine (UA) 3+ (Negative); Ketones,Urine 2+ (Negative); Leukocyte Esterase,Urine Negative (Negative); Nitrate,Urine Negative (Negative); Protein,Urine 2+ (Negative); Urobilinogen,Urine 0.2 EU/dl (0.2)
[2024-04-09 23:45] VITALS: BP 156/95; PULSE 130; RESP 18; O2SAT 92
[2024-04-09 23:58] VITALS: BP 168/97; PULSE 126; RESP 21; O2SAT 94
[2024-04-10] VITALS (9 sets, daily range): BP systolic 140–211; BP diastolic 86–120; PULSE 126–144; RESP 18–24; TEMP 36.3; O2SAT 92–96
[2024-04-10 00:02] LABS: Bacteria,Urine Trace /lpf; Squamous Epithelial Cell,Urine Occasional #/hpf (0-5)
--- NOTE | 2024-04-10 00:05 | PC.NURSE ---
rounded on pt and pts . no needs voiced. pt requesting food. explained to pt we need to wait on ct results. pt voices understanding.
--- NOTE | 2024-04-10 00:21 | ECG_ITS ---
APPROVED REPORT Exam: Resting ECG HR:123 bpm ECG Measurements Heart Rate 123 AXES MS 134 P 103 QRSd 142 QRS -72 QT 307 T 2 QTc 380 Conclusion SINUS TACHYCARDIA RIGHT BUNDLE BRANCH BLOCK [120+ ms QRS DURATION, UPRIGHT V1, 40+ ms S IN I/aVL/V4/V5/V6] LEFT ANTERIOR FASCICULAR BLOCK [QRS AXIS <= -45, QR IN I, RS IN II] POSSIBLE SEPTAL MYOCARDIAL INFARCTION , PROBABLY OLD [30 ms Q WAVE IN V1/V2] ABNORMAL ECG ST depressions show some improvement from earlier ECG, no STEMI Electronically signed by : HIPOLITO OLIVER, 04/10/2024 06:00:34
[2024-04-10 01:09] LABS: Activated Partial Thrombo Time 34.2 seconds (22.8-30.6); INR 1.02 (0.9-1.1)
[2024-04-10 01:26] LABS: Troponin I 0.09 ng/ml (0.00-0.034)
--- NOTE | 2024-04-10 01:50 | PC.NURSE ---
rounded on pt at this time. pt assisted to bedside commode.
[2024-04-10 02:00] LABS: Lactic Acid 3.6 mmol/L (0.7-2.1)
--- NOTE | 2024-04-10 02:26 | CT_ITS ---
PROCEDURE INFORMATION: Exam: CTA Abdomen and Pelvis With Contrast Exam date and time: 04/10/2024 2:51 AM Age: 88 years old Clinical indication: Abdominal pain; Acute; Additional info: Abd pain, diffuse, now unable to urinate TECHNIQUE: Imaging protocol: Computed tomographic angiography of the abdomen and pelvis with contrast. Exam focused on the arteries. 3D rendering (Not supervised by radiologist): MIP and/or 3D reconstructed images were created by the technologist. Radiation optimization: All CT scans at this facility use at least one of these dose optimization techniques: automated exposure control; mA and/or kV adjustment per patient size (includes targeted exams where dose is matched to clinical indication); or iterative reconstruction. Contrast material: ISOVUE; Contrast volume: 100 ml; Contrast route: INTRAVENOUS (IV); COMPARISON: CT ABDOMEN PELVIS W CON 04/09/2024 11:03 PM FINDINGS: Aorta: No aortic aneurysm. No aortic dissection. Significant calcific atherosclerotic disease. Celiac trunk and mesenteric arteries: No occlusion or significant stenosis. Renal arteries: No occlusion or significant stenosis. There is an accessory right renal artery. Right iliac arteries: No occlusion or significant stenosis. Patent right common iliac artery stent Left iliac arteries: No occlusion or significant stenosis. Patent left common and external iliac artery stents. Liver: There is hyperemia of the liver adjacent to the gallbladder fossa which may be related to gallbladder inflammation. No focal hepatic lesion. Gallbladder and bile ducts: Several calcified gallstones are noted. There is diffuse gallbladder wall thickening. Pancreas: Unremarkable. No mass. No ductal dilation. Spleen: Unremarkable. No splenomegaly. Adrenal glands: Unremarkable. No mass. Kidneys and ureters: Unremarkable. No solid mass. No hydronephrosis. Stomach and bowel: There is a prominent diverticulum of the 2nd portion of the duodenum. Appendix: No evidence of appendicitis. Intraperitoneal space: Unremarkable. No free air. No significant fluid collection. Lymph nodes: Unremarkable. No enlarged lymph nodes. Urinary bladder: A Echeverria catheter is now in place within the urinary bladder is decompressed. Reproductive: The prostate gland is enlarged. Bones/joints: Degenerative changes of the spine are noted without acute fracture. Soft tissues: A small fat containing umbilical hernia is noted. IMPRESSION: 1. No acute arterial findings. No aneurysm or dissection. Patent bilateral common iliac artery and left external iliac artery stents. 2. Again noted are findings suspicious for acute cholecystitis. 3. The bladder is now decompressed by a Echeverria catheter. 4. Other findings are stable.
--- NOTE | 2024-04-10 02:29 | PC.NURSE ---
Called [facility] about transfer of the pt. [facility] to call back. CR
--- NOTE | 2024-04-10 02:34 | PC.NURSE ---
md ellison on phone with
--- NOTE | 2024-04-10 02:39 | CT_ITS ---
PROCEDURE INFORMATION: Exam: CTA Chest With Contrast Exam date and time: 04/10/2024 2:51 AM Age: 88 years old Clinical indication: Other: Abd pain; Additional info: Abd pain, possible mesenteric ischemia TECHNIQUE: Imaging protocol: Computed tomographic angiography of the chest with contrast. Exam focused on the arteries. 3D rendering (Not supervised by radiologist): MIP and/or 3D reconstructed images were created by the technologist. Radiation optimization: All CT scans at this facility use at least one of these dose optimization techniques: automated exposure control; mA and/or kV adjustment per patient size (includes targeted exams where dose is matched to clinical indication); or iterative reconstruction. Contrast material: ISOVUE; Contrast volume: 100 ml; Contrast route: INTRAVENOUS (IV); COMPARISON: CR XR CHEST PORTABLE 02/08/2023 12:47 PM FINDINGS: Pulmonary arteries: Normal. No pulmonary emboli. Aorta: [id number] calcific atherosclerotic disease. No aortic aneurysm. No aortic dissection. Lungs: Unremarkable. No consolidation. No masses. Pleural spaces: Unremarkable. No pneumothorax. No pleural effusion. Heart: Unremarkable. No cardiomegaly. No pericardial effusion. Lymph nodes: Unremarkable. No enlarged lymph nodes. Bones/joints: Unremarkable. No acute fracture. Soft tissues: Unremarkable. IMPRESSION: No acute findings.
--- NOTE | 2024-04-10 02:44 | PC.NURSE ---
Dr Clarke at accepted pt for ED to ED transfer
[2024-04-10 02:46] LABS: Reflex Lactic Add Lactic Reflex
[2024-04-10] MEDS: LIDOCAINE 2% UROJET 10ML TP (03:03)
[2024-04-10] MEDS: 0.9 % SODIUM CHLORIDE 50 ML VIAL IV (03:03)
[2024-04-10] MEDS: IOPAMIDOL-370 (76%);100ML BOTTLE 100 ML IV (03:03)
--- NOTE | 2024-04-10 03:05 | PC.NURSE ---
Called report to Fiedlia CANNON @[facility]
== END 2024-04-10 03:28 | disposition short-term general hospital (02) ==
PROVIDERS: Emergency Medicine; Emergency Provider Emergency Medicine; PCP Family Medicine
DX: R10.84 Generalized abdominal pain (principal); E87.29 Other acidosis; R74.02 Elevation of levels of lactic acid dehydrogenase [LDH]; D72.829 Elevated white blood cell count, unspecified; I45.19 Other right bundle-branch block; R00.0 Tachycardia, unspecified; R33.9 Retention of urine, unspecified; I35.0 Nonrheumatic aortic (valve) stenosis; E11.9 Type 2 diabetes mellitus without complications; I73.89 Other specified peripheral vascular diseases; I10 Essential (primary) hypertension; E78.5 Hyperlipidemia, unspecified; Z79.4 Long term (current) use of insulin; Z79.84 Long term (current) use of oral hypoglycemic drugs
CPT/HCPCS: 51702; 71275; 74174; 74177; 80053; 81001; 82803; 83605; 83690; 84484; 85007; 85025; 85610; 85730; 87040; 93005; 96361; 96365; 96375; 99291; J2543; Q9967

== ENCOUNTER 2024-06-17 13:08 | Outpatient (POV) | payer MEDICARE, SELFPAY ==
[2024-06-17 13:18] VITALS: BP 137/69; PULSE 91; RESP 16; O2SAT 96; BMI 35.8
--- NOTE | 2024-06-17 13:51 | EXP.PAIN.SOA ---
[facility] Disclaimer: The information contained in this section may have been updated after the patient was seen, as this information can be updated by other users. 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 Ischemic ulcer of toe of right foot Leg edema Lumbar radiculopathy Lymphedema of both lower extremities Moderate aortic stenosis Onychodystrophy Peripheral artery disease Severe aortic stenosis Type 2 diabetes mellitus Venous insufficiency Surgical History H/O heart artery stent 2 H/O right heart catheterization History of cataract surgery Previous back surgery S/P insertion of iliac artery stent Family History Mother Family history of diabetes mellitus type II Family history of myocardial infarction Father Bladder cancer Colon cancer Social History Smoking Status: Never smoker years smoked: 25 smoking status stop date: 1983 alcohol intake: never substance use type: denies use current occupational status: retired Travel in the last 8 weeks: None household members: spouse housing: apartment caffeine: Yes PM Subjective & Objective Subjective Subjective:: Patient is a pleasant 88-year-old male who presents today for 3-month follow-up. Today he rates his pain as a 0 out of 10. Patient does state he has continued to do well overall. 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 Patient states he went to and they diagnosed him with gallbladder stones and infection and ended up removing this. He states that he has done well overall with this surgery and then ended up even needing some laser to his right eye. Patient denies any other issues. His Tanner has been reviewed and is appropriate. He is prescribed compounded cream however he has not needed to use this. Review of Systems: General: No recent weight changes, no fever, no sleep disturbances Respiratory: No cough, no shortness of air, no recurring pulmonary infections Cardiovascular/peripheral vascular: No chest pain, no palpitations, no edema, no shortness of breath Gastrointestinal: No new onset incontinence, normal bowel movements reported Genitourinary: No new onset incontinence Musculoskeletal: Low back pain Psychiatric: [Normal mood/affect] Neurological: [Denies weakness in extremities], [denies balance issues] Pain at rest (0-10 scale): 0 Objective Objective:: Physical Exam: General: Alert and oriented x3, no acute distress, pleasant and cooperative Lungs: Respirations even and unlabored, symmetrical chest expansion Eyes: PERRL Musculoskeletal: Flexion and extension of lumbar [spine] somewhat guarded secondary to pain, [antalgic gait noted] Neurological: Speech clear, no gross sensory deficit Has patient had previous pain injection?: No Conservative treatment options previously tried: Home exercise plan Length of treatment: Longer than 6 weeks Meds Home Medications and Allergies Home Medications Medication Instructions Recorded Confirmed Type ascorbic acid (vitamin C) 1,000 mg 1,000 mg PO DAILY Supplement 01/23/21 06/17/24 History tablet,extended release atorvastatin 40 mg tablet 40 mg PO HS Cholesterol 01/23/21 06/17/24 History bimatoprost 0.01 % eye drops 1 drp ophthalmic (eye) HS 01/23/21 06/17/24 History glaucoma*LEFT eye only cholecalciferol (vitamin D3) 25 1,000 unit PO DAILY Supplement 01/23/21 06/17/24 History mcg (1,000 unit) capsule clopidogrel 75 mg tablet 75 mg PO HS Blood thinner 01/23/21 06/17/24 History dorzolamide-timolol (PF) 2 %-0.5 % 1 drp Eye-Both BID Glaucoma 01/23/21 06/17/24 History eye drops in a dropperette tamsulosin 0.4 mg capsule 0.8 mg PO HS prostate 01/23/21 06/17/24 History potassium chloride 10 mEq 10 meq PO BID Supplement 02/13/21 06/17/24 History capsule,extended release metformin 850 mg tablet 850 mg PO BID Diabetes 03/20/21 06/17/24 History pregabalin 200 mg capsule 200 mg PO BID Pain 03/27/21 06/17/24 History bumetanide 0.5 mg tablet 0.5 mg PO DAILY PRN Fluid 03/24/23 06/17/24 History omeprazole 40 mg capsule,delayed 40 mg PO DAILY PRN GERD 03/24/23 06/17/24 History release fentanyl 25 mcg/hr transdermal 1 patch topical DIRECTED PRN 08/26/23 06/17/24 History patch Pain (Scale Score 4-6) insulin degludec 100 unit/mL (3 40 unit SQ DAILY Diabetes 08/26/23 06/17/24 History mL) subcutaneous pen (Tresiba FlexTouch U-100 insulin) magnesium 30 mg tablet 30 mg PO DAILY Supplement 08/26/23 06/17/24 History fentanyl 25 mcg/hr transdermal 25 mcg transdermal Q3D 09/16/23 06/17/24 History patch lisinopril 5 mg tablet 5 mg PO DAILY BLOOD PRESSURE 09/22/23 06/17/24 History dapagliflozin propanediol 5 mg 5 mg PO DAILY Diabetes #90 tabs 10/22/23 06/17/24 Rx tablet rivaroxaban 2.5 mg tablet 2.5 mg PO BID Blood Thinner #180 04/12/24 06/17/24 Rx tabs New Prescriptions to Start Prescriptions: Allergies Allergy/AdvReac Type Severity Reaction Status Date / Time latex Allergy Unknown Unknown Verified 03/18/24 13:35 allergy reaction quinidine Allergy Unknown Unknown Verified 03/18/24 13:35 allergy reaction Assessment and Plan *Assessment and plan (1) Degenerative disc disease, lumbar: Status: Acute Category: Medical Code(s): M51.36 - Other intervertebral disc degeneration, lumbar region (2) Lumbar radiculopathy: Status: Acute Category: Medical Code(s): M54.16 - Radiculopathy, lumbar region Plan Patient does not need any additional injection therapy at this time. Patient will return to clinic in 6 months for reevaluation of symptoms and plan of care. Patient has been instructed to contact the clinic with any concerns before the next appointment. Dr. Lim has reviewed this note and agrees with this plan of care. This note was dictated using voice recognition software and make contain errors or omissions.
== END 2024-06-17 23:59 | disposition home or self-care (01) ==
LOC: SC.PAIN 13:09
PROVIDERS: PCP Family Medicine; Visit Provider Nurse Practitioner Family
DX: M51.36 Other intervertebral disc degeneration, lumbar region (principal); M54.16 Radiculopathy, lumbar region
CPT/HCPCS: 99212; G0463

== ENCOUNTER 2025-07-28 13:21 | Emergency (ER) | payer MEDICARE, SELFPAY ==
--- OUTSIDE RECORDS SUMMARY | 2025-05-03 10:00 | XMS_ITS ---
Author Organization [facility] Address [address] [facility] [address] [place] [id number] Care Team Providers Care Doctor Of Medicine Name Role Phone Memo Dubon Primary Care Provider Vida Dale Unavailable [phone] Rose Mary Soto Unavailable [phone] Allergies Allergen (clinical drug ingredient) Drug/Non Drug Allergy documented on EMR Reaction Allergy Type Onset Date Status dapagliflozin Farxiga hypotension Drug Allergy A ctive glimepiride Glimepiride headache Drug Allergy Act guerrero empagliflozin Jardiance hypotension Drug Allergy A ctive linagliptin Tradjenta rapid heart rate Drug Allergy Active hydrocodone HYDROcodone dizzy Drug Allergy Act guerrero REASON FOR VISIT B/P Encounters Encounter Location Date Provider Diagnosis [facility] [address] [facility] [address] [place] [id number] 05/03/2025 Rose Mary Soto Plan Of Treatment Next Appt Details Provider Name:Memo Orellana, 07/28/2025 01:03:00 PM, [address] [facility], [address], [place], [id number], Progress Notes * DENNY BE JrDOB: (89 yo M)Acc No.[id number]:05/03/2025 Progress Notes Patient: Hu DENNY NGUYỄN Jr Provider: JULIO CESAR Magana :1935 A ge:89 Y S ex:Male Date:05/03/2025 Address:[id number] Pcp:Memo Dubon Subjective: * Chief Complaints: * 1 . B/P. * ROS: D ERMATOLOGY: no R moose. n o H vik. G ASTROENTEROLOGY: no N ausea. n o V omiting. n o D iarrhea.? U ROLOGY: no D ifficulty urinating. n o B lood in urine. * Medical History: T ype 2 Diabetes, Hypertension, Glaucoma, Hyperlipidemia, BPH, Multilevel lumbar spinal stenosis, Chronic low back pain, Declines colon screening, Vitamin D deficiency, Echo 04/14/2020 - Diastolic dysfunction; Mild , PAD, Echo 01/2023 - severe / Dr. Garcia P at [facility]. * Surgical History: L ower Back 1996, bilateral cataract 10/2011, Angioplasty and stents to bilateral common iliac arteries and bilateral external iliac arteries/ Dr. 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 * Hospitalization/Major Diagno stic Procedure: k idney stones 08/05, H - cellulitis of legs 01/22/21-02/02/21, [facility] - weakness, malaise 02/21/21, [facility] - PAD and cellulitis of legs 03/20/21, [facility] ER - Pain 02/08/2023, rt leg pain 09/09/23. * Family History: F ather: . M other: . * Social History: C URRENT TOBACCO USE S moking Status: Patient does NOT smoke. H ome smoke detector use: yes. Marital Status: . Past smoking status: no, Smoking status: Does not smoke. * Allergies: G limepiride: headache - Side Effects, Farxiga: hypotension - Side Effects, Jardiance: hypotension - Side Effects, Tradjenta: rapid heart rate - Side Effects, HYDROcodone: dizzy - Side Effects. Objective: * Vitals: Assessment: Plan: * Treatment: * Images: Billing Information: * Visit Code: * Procedure Codes: * Electronic signature of Sallie Soto APRN on 07/28/2025 at 01:39 PM EDT Sign off status: Pending * Provider: JULIO CESAR Magana Date: 0 05/03/2025 Generated for Sissy Marques/Akira on: 0 07/28/2025 01:39 PM EDT
--- OUTSIDE RECORDS SUMMARY | 2025-05-04 10:30 | XMS_ITS ---
Author Organization [facility] Address [address] [facility] [address] [facility] [address] [place] [id number] Care Team Providers Care Regional Extension Service Specialist Name Role Phone Memo Dubon Primary Care Provider Vida Dale Unavailable [phone] González Reilly Unavailable [phone] REASON FOR VISIT elevated B/P Encounters Encounter Location Date Provider Diagnosis [facility] [address] [facility] [address] [place] [id number] 05/04/2025 González Reilly Plan Of Treatment Next Appt Details Provider Name:Memo Orellana, 07/28/2025 01:03:00 PM, [address] [facility] [address] [facility], [address], [place], [id number], Progress Notes * DENNY BE JrDOB: (89 yo M)Acc No.[id number]:05/04/2025 Progress Notes Patient: Hu DENNY NGUYỄN Jr Provider: Adenike Reilly M.D. :1935 A ge:89 Y S ex:Male Date:05/04/2025 Address[id number] Pcp:Memo Dubon Subjective: * Chief Complaints: * 1 . elevated B/P. * Medical History: Objective: * Vitals: Assessment: Plan: * Treatment: * Images: Billing Information: * Visit Code: * Procedure Codes: * Electronic signature of Dionna Reilly MD on 07/28/2025 at 01:38 PM EDT Sign off status: Pending * Provider: Adenike Reilly M.D. Date: 05/04/2025 Generated for Sissy shepherd/Lidia/Akira on: 07/28/2025 01:38 PM EDT
--- OUTSIDE RECORDS SUMMARY | 2025-06-14 09:00 | XMS_ITS | Encounter Summary ---
Author Organization [facility] Address [address] [place] [address] Care Team Providers Care Blind Hooker Name Role Phone Jeremie Palomo MD Unavailable [phone] Tye Dubon MD Primary Care Provider [phone] Encounter Details Date Type Department Care Team (Late st Contact Info) Description 06/14/2025 9:00 AM EDT Office Visit [facility] [address] [place] [address] Tati Cesar MD [address] [address] Neovascular glaucoma of left eye, severe stage (Primary Dx); Primary open-angle glaucoma, right eye, mild stage; Type 2 diabetes mellitus with diabetic peripheral angiopathy without gangrene, without long-term current use of insulin ([facility]); History of central retinal vein occlusion Social History Tobacco Use Types Packs/Day Years Used Date Smoking Tobacco: Former Cigarettes Passive Smoke Exposure: Past Smokeless Tobacco: Never Comments:Quit in 1983 Alcohol Use Standard Drinks/Week Comments Not Currently 0 (1 standard drink = 0.6 oz pur e alcohol) PHQ-2 Answer Date Recorded Patient Health Questionnaire-2 Score 0 05/11/2025 PHQ-9 Answer Date Recorded Patient Health Questionnaire-9 Score 0 05/11/2025 AUDIT-C Answer Date Recorded Q1: How often do you have a drink containing alcohol? Never 05/11/2025 Q2: How many drinks containi ng alcohol do you have on a typical day when you are drinking? Patient does not drink Q3: How often do you have si x or more drinks on one occasion? 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 Had initial glaucoma consult requested by Dr. Last Ritchie in May 2024, then SLT OD on 06/15/24. Recently with uncontrolled pressures left eye despite Rhopressa (therapeutic failure) Combigan (intolerant) and SLT. Request surgical evaluation. Hx of type 2 DM, pseudophakia OU, hx of ptosis Current drops are Dorz / Raymundo BID OU, Lumigan nightly OU. (confirm) Used maxitrol ointment for one week post procedure. ARx OD, CH, dilate OD He reports: I don't think my vision is getting much better since last visit. The patient denies anypain and or pressure in the eyes. Scheduled to see Dr. Ritchie again 06/30 Reviewed notes from recent Exam with Dr. Ritchie Has RAPD OS. IOPs were 36 mmHg OU, repeat SLT OS performed 03/26/[address] Ritchie Recent lap cholecystectomy - had to be flown in on the helicopter. Glaucoma History Summary: Diagnosis: POAG OS > OD, severe ocular HTN despite treatment Onset / Referral from: Dr. 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 Right Eye Surgery: CE IOL 2010, TS AIR MARSHAL 05/09/25. Left Eye Surgery: CE IOL 2010 SLT History: OD - no previous OS - 03/25/24, Oct 2020, May 2011, previous ALT x 2 Family History: no history of glaucoma Trauma History: no history of ocular trauma Migraine hx, MARCI, vascular dz / anemia, vitamin defic or steroid use: HTN, peripheral vascular disease, aortic stenosis / aortic valve, type 2 DM, former smoker, renal failure Last OCT: May 2024 OD: polar thinning, avg 76 um. OS: severe diffuse thinning, avg 35 um. Image quality good OU. 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 Ritchie - Tmax 36 OU recently - Did not tolerate combigan or brimonidine. Failed Rhopressa, Rocklatan. - Asymmetric CH 11.2/7.1 - pachymetry is mildly thin - OCT with mild polar thinning, severe diffuse loss OS. - HVF with loss OS>OD - IOP today 18/24 on PF cosopt/lumigan OU - Open angles, Somewhat asymmetrically deep angle OS>OD, ? Angle recession component? - Given poor vision and advanced field loss OS with improved but still very high eye pressure, discussed option of tube shunt OS. With poor visual potential and recent co-morbidities, transcleral ciliary laser may be a better option. He notes the left eye is comfortable and defers additional procedure for now. Rec try SLT OD to help immediately stabilize his better seeing eye. He agrees and would like to proceed today while he has made the trip into our clinic. Cont this drop regimen for now. Use Pred Acetate drops for five days only post laser. 07/16/2024 - IOP 17 T 31 after SLT OD on cosopt and lumigan OU. CH 8.8/6.1. IOP higher than ideal OD but not many other drop options. Will continue current drop regimen for now. Gentle transcleral AIR MARSHAL OD an option if needed. Will continue to monitor OS given stability and comfort. 09/16/24: IOP trending better OU, 15 T 28 today on cosopt BID and lumigan qhs OU. CH 8.5/7.4. Will CPM on current regimen and watch closely. Left eye comfortable, defers laser PCP procedure for now. 03/2025: IOP today 24 OD and 34 OS on cosopt BID and lumigan qhs OU. HVF OD only today is stable. Saw JULIANNA last and had 2 injections OS. Having aortic valve replacement. Now with recent episode of NVG OS, likely secondary to CRVO although hazy view today. Discussed and out of options OD to lower pressure. Will plan for low and slow TDC OD with regular protocol TDC OS. He wants to discuss with Dr. Ritchie first. Will call sometime next week to schedule 06/14/25: PO one month post TS AIR MARSHAL low and slow technique OD. IOP elevated at 28 T 32 on cosopt BID and lumigan qhs OU. Above goal despite good compliance with drop regimen. Exam today shows some infrKP, but no AC cell or flare. OS comfortable. Add Pred acetate BID OD, hold off on resuming Rocklatan for now, but consider resuming it in two weeks at Dr. Ritchie visit if IOP not improved Seeing Erma 06/30 With disappointing response to the less invasive TS AIR MARSHAL OD, next step likely tube shunt. Stable pseudophakia OU - Monitor BLL involutional ectropion - Monitor for now but may benefit from eval with Kathy if interested. Likely contributing to chronic watering - Discussed again today and will continue to monitor Discussed option of follow-up with Arsenio in Nursery going forward. Cc: Last Ritchie Electronically Signed by: Megan Rodriguez MD - 06/14/2025 - 9:57 AM I saw and evaluated the patient with the resident/fellow. I discussed the case with the resident/fellow and agree with the findings and plan as documented. Tati Cesar MD documented in this encounter Plan of Treatment Upcoming Encounters Date Type Department Care Team (Late st Contact Info) Description 03/22/2026 2:00 PM EDT Appointment Medical Office Building Cardiac Diagnostic Testing Medical Office Building Echo Lab [address], [address] [place] [address] 03/22/2026 3:00 PM EDT Office Visit [facility] [address], [address] [place] [address] Janny Root PA [address] [place] [address] documented as of this encounter Visit Diagnoses Diagnosis Neovascular glaucoma of left eye, severe stage- Primary Primary open-angle glaucoma, right eye, 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, without long-term current use of insulin ([facility]) History of central retinal vein occlusion documented in this encounter Additional Health Concerns Assessment Noted Time PHQ-9 Depression Total Score: 0 05/11/20 3:27 PM EDT A fall risk assessment has been complete d for the patient 05/11/2025 3:26 PM EDT A Body Mass Index follow-up plan has been documented for the patient 06/14/2025 10:40 AM EDT documented as of this encounter Care Teams Blind Hooker Relationship Specialty Start Date End Date Tye Dubon MD [address] [place] [address] PCP - General 04/22/25 Jeremie Palomo MD [address] [place] [address] Consulting Physician Interventional Cardiology 02/02/25 documented as of this encounter
--- OUTSIDE RECORDS SUMMARY | 2025-06-22 13:15 | XMS_ITS | Encounter Summary ---
Author Organization [facility] Address [address] [place] [address] Care Team Providers Care Centrifugal Casting Machine Tender Name Role Phone Jeremie Palomo MD Unavailable [phone] Tye Dubon MD Primary Care Provider [phone] Reason for Visit * Reason Comments Hospital Follow Up Encounter Details Date Type Department Care Team (Late st Contact Info) Description 06/22/2025 1:15 PM EDT Office Visit [facility] [place] [address] [place] [address] Jeremie Palomo MD [address] [place] [address] S/P TAVR (transcatheter aortic valve replacement) (Primary Dx); Heart block AV second degree; Pacemaker; Essential hypertension Social History Tobacco Use Types Packs/Day Years Used Date Smoking Tobacco: Former Cigarettes Q uit: 03/01/1984 Passive Smoke Exposure: Past Smokeless Tobacco: Never Comments:Quit in 1983 Alcohol Use Standard Drinks/Week Comments Not Currently 0 (1 standard drink = 0.6 oz pur e alcohol) PHQ-2 Answer Date Recorded Patient Health Questionnaire-2 Score 0 06/22/2025 PHQ-9 Answer Date Recorded Patient Health Questionnaire-9 Score 0 06/22/2025 AUDIT-C Answer Date Recorded Q1: How often [...] on file documented as of this encounter Last Filed Vital Signs Vital Sign Reading Time Taken Comments Blood Pressure 137/74 06/22/2025 1:00 PM EDT Pulse 59 06/22/2025 1:00 PM EDT Temperature - - Respiratory Rate - - Oxygen Saturation 94% 06/22/2025 1:00 PM EDT Inhaled Oxygen Concentration - - Weight 99.7 kg (219 lb 12.8 oz) 06/22/2025 1:00 PM EDT Height 167.6 cm (5' 6 ) 06/22/2025 1:00 PM EDT Body Mass Index 35.48 06/22/2025 1:00 PM EDT documented in this encounter Functional Status * Over the past 2 weeks, how often have you been bothered by any of the following problems? Question Answer Date of Assessment Author Little interest or pleasure in doing things Not at all 06/22/2025 1:02 PM EDT Bre Jerry Feeling down, depressed, or hopeless Not at all 06/22/2025 1:02 PM SCOOBYT Bre Jerry Patient Health Questionnaire -2 Score 0 06/22/2025 1:02 PM SCOOBYT Bre Jerry * Question Answer Date of Assessment Author Trouble falling or staying asleep, or sleeping too much Not at all 06/22/2025 1:02 PM Bre Hunter Feeling tired or having adonis le energy Not at all 06/22/2025 1:02 PM EDT Bre Jerry Poor appetite or overeating Not at all 06/22/2025 1: 02 PM Bre Hunter Feeling bad about yourself - or that you are a failure or have let yourself or your family down Not at all 06/22/2025 1:02 PM EDT Bre Choi Trouble concentrating on thi ngs, such as reading the newspaper or watching television Not at all 06/22/2025 1:02 PM EDT Bre Jerry Moving or speaking so slowly that other people could have noticed? Or the opposite - being so fidgety or restless that you have been moving around a lot more than usual. Not at all 06/22/2025 1:02 PM EDT Bre Jerry Thoughts that you would be better off or hurting yourself in some way Not at all 06/22/2025 1:02 PM EDT Bre Jerry Patient Health Questionnaire -9 Score 0 06/22/2025 1:02 PM EDT Bre Jerry * If you checked off any problems on this questionnaire so far, Question Answer Date of Assessment Author How difficult have these problems made it for you to do your work, take care of things at home, or get along with other people? Not difficult at all 06/22/2025 1:02 PM EDT Bre Jerry documented as of this encounter Miscellaneous Notes * Patient Instructions - Ida Daniels APRN - 06/22/2025 1:15 PM EDT Increase lisinopril to 20mg daily * Progress Notes - Ida Daniels APRN - 06/22/2025 1:15 PM EDT Images from the original note were not included. Cardiology Clinic Note Date of Visit 06/22/25 Patient Derek Garcia Jr. [address] [facility] [id number] PCP Tye Dubon MD SUBJECTIVE History of Present Illness Today Dr. Palomo and I saw Derek Garcia JrAlyson, a 89 y.o. male at the [facility] [place] [facility] [place] for follow up. Past medical history significant for , abdominal aortic stenting (2020), CAD s/p remote PCI, HTN,DM2, obesity. He underwent TAVR on 03/17/25 with a 26mm Stout valve which was complicated by heartblock. He ultimately had a PPM placed on 03/18/25. Mr. Garcia has been feeling well since his TAVR and PPM. He is able to climb the 15 stairs in his home without chest pain or dyspnea. Patient denies palpitations, dizziness/lightheadedness, syncope or PND. Home BP readings have ranged from 130s-150s with averages around 140s/70s. His lisinopril was increased to 10mg in May but readings did not change significantly. Patient denies bleeding on Xarelto. Problem List[1] Past Medical History Past Medical History[2] Past Surgical History Surgical History[3] Family History Family History[4] Social History Social History[5] Current Medications Current Medications[6] Allergies Allergies[7] The following portions of the chart were reviewed this encounter and updated as appropriate: Tobacco Allergies Meds Problems Med Hx Surg Hx Fam Hx Review of Systems 14 Point ROS reviewed and is otherwise negative except as per HPI. OBJECTIVE Vitals Visit Vitals BP 137/74 Pulse 59 Ht 1.676 m (5' 6 ) Wt 99.7 kg (219 lb 12.8 oz) SpO2 94% BMI 35.48 kg/m?? Physical Exam Physical Exam Vitals reviewed. Constitutional: General: He is not in acute distress. Appearance: He is obese. HENT: Head: Normocephalic. Neck: Vascular: No carotid bruit. Cardiovascular: Rate and Rhythm: Normal rate and regular rhythm. Pulses: Normal pulses. Heart sounds: S1 normal and S2 normal. No murmur heard. No gallop. Pulmonary: Effort: Pulmonary effort is normal. No respiratory distress. Breath sounds: Normal breath sounds. Musculoskeletal: Right lower leg: No edema. Left lower leg: No edema. Skin: General: Skin is warm and dry. Neurological: Mental Status: He is alert and oriented to person, place, and time. Psychiatric: Mood and Affect: Mood normal. Behavior: Behavior normal. Diagnostics Echo, Adult Transthoracic Complete Result Date: 05/11/2025 Left Ventricle: Based on the linear dimension and/or 2D volumes, the left ventricle is normal in size. There is normal left ventricular myocardial thickness and mass. The left ventricular systolic function is normal. The LVEF as measured by Heart Model 3D volume is 56%. The left ventricular wall motion is normal. Right Ventricle: The right ventricle is normal in size. The right ventricular systolic function is normal. Aortic Valve: There is a bioprosthetic valve (26 mm Jacoby 3). There is mild aortic valve regurgitation. The peak gradient is 25 mmHg. The mean gradient is 12 mmHg. The gradientis normal for this prosthetic valve. Pericardium: No pericardial effusion. Compared to the most recently available prior study, and allowing for differences in image quality and technique, there is no significant interval change noted. Echo, Adult Transthoracic (TTE) Limited - POD#1 Result Date: 03/18/2025 Aortic Valve: There is a appropriately positioned transcatheter bioprosthetic valve (26 mm Jacoby 3) that is well-seated. There is no valvular regurgitation. There is no paravalvular leak. The peak gradient is 22 mmHg. The mean gradient is 11 mmHg. The gradient is normal for this prosthetic valve. Left Ventricle: The left ventricular systolic function is normal. The LVEF is visually estimated at 60 - 65%. Pericardium: No pericardial effusion. Compared to the most recently available prior study,and allowing for differences in image quality and technique, there is no significant interval change noted. Echo, Adult Transthoracic (TTE) Limited Result Date: 03/17/2025 Aortic Valve: There is a bioprosthetic valve (26 mm Jacoby 3). There is mild paravalvular leak. Thepeak gradient is 8 mmHg. The mean gradient is 4 mmHg. Pericardium: No pericardial effusion. There is no recent study available for direct [id number] comparison. Echo, Adult Transthoracic Complete Result Date: 12/24/2024 Left Ventricle: Based on the linear dimension and/or 2D volumes, the left ventricle is small in size. There is concentric remodeling. The left ventricular systolic function is normal. The LVEF as measured by biplane volume is 69%. The peak intracavitary gradient is 9 mmHg. The diastolic function isindeterminate. The left ventricular wall motion is normal. Right Ventricle: The right ventricle is normal in size. The right ventricular systolic function is normal. Right ventricular systolic pressure is normal (<35mmHg). The estimated right ventricular systolic pressure is 29 mmHg. Aortic Valve: The aortic valve appears to be trileaflet. There is calcification of the aortic valve leaflets. There is aortic annular calcification present. There is mild aortic valve regurgitation. There is severe aortic stenosis. The peak gradient is 69 mmHg. The mean gradient is 43 mmHg. The estimated aortic valve area by the continuity equation is 0.8 cm2. Compared to the most recently available prior study, and allowing for differences in image quality and technique, there is no significant interval change noted. Device Interrogation Overview Bacteriologist Medical: [employer] Device type: dual chamber pacemaker Device mode: DDD Lower rate: 60 Upper rate: 130 Battery: 12.4 years RA % pacin % Pacin.625 Volts @ 0.4 ms Sensin.0 mV Impedance: 437 Ohms RV % pacin % Pacin.5 Volts @ 0.4 ms Sensin.4 mV Impedance: 551 Ohms Episodes One NSVT Changes: No Notes 99% V-pacing, however, has left bundle lead. I personally performed and interpreted the results of this device interrogation with MDT rep. Lab Review Lab Results Component Value Date/Time WBC 10.19 03/19/2025 0408 RBC 3.81 (L) 03/19/2025 0408 HGB 12.0 (L) 03/19/2025 0408 HCT 35.5 (L) 03/19/2025 0408 Lab Results Component Value Date/Time GLUCOSE 194 (H) 03/19/2025 0408 BUN 15 03/19/2025 0408 CREATININE 1.15 03/19/2025 0408 NA 139 03/19/2025 0408 K 4.0 03/19/2025 0408 CL 107 03/19/2025 0408 Lab Results Component Value Date/Time AST 21 04/10/2024 0706 ALT 26 04/10/2024 0706 ALKPHOS 62 04/10/2024 0706 No results found for: CHOL , LDL , LDLCALC , HDL , TRIG No results found for: HGBA1C No results found for: TSH , FREET4 ASSESSMENT AND PLAN Visit Diagnoses and Orders 1. S/P TAVR (transcatheter aortic valve replacement) 2. Heart block AV second degree 3. Pacemaker 4. Essential hypertension Discussion Summary The patient's cardiac evaluation was discussed with Dr. Palomo who agrees with the plan. #Aortic Stenosis --s/p TAVR with a 26mm Stout valve on 03/17/25 --TTE 05/2025 with well seated valve and normal gradients --NYHA Class II --Keep appt for echo and follow up for March 2026 #Heart Block --post-TAVR --PPM placed; device interrogated today showing appropriate function, adequate battery and no events. See above for full report #HTN --Remains elevated, SBP consistently 140-150s --Discussed importance of BP control --Currently on Lisinopril 10mg --Recommend increasing lisinopril to 20mg daily; reviewed 03/2025 BMP with Cr 1.15 and K 4.0 #CAD #PVD --H/o PCI and abdominal aortic stent --Continue routine follow up with local enterprise sales person Keep appointment with structural cardiology and echo for 03/22/26. Follow up with Dr. Stacia SHAW. Agnieszka Daniels APRN I personally spent a total of 32 minutes on this encounter. This time includes face to face with patient, counseling, discussion and/or coordination of care, and documentation. [1] Patient Active Problem List Diagnosis BPH (benign prostatic hyperplasia) Cellulitis Chest pain Chronic back pain Renal insufficiency Degenerative disc disease, lumbar HLD (hyperlipidemia) Essential hypertension Diabetes mellitus type II, non insulin dependent (CMS/HCC) Venous insufficiency CAD (coronary artery disease) Obesity (BMI 35.0-39.9 without comorbidity) Lumbar spondylosis Mechanical ptosis Myopia Nevus of choroid Posterior vitreous detachment Presbyopia Regular astigmatism History of cholecystectomy Acute on chronic renal failure (CMS/HCC) Primary open-angle glaucoma, left eye, severe stage Primary open-angle glaucoma, right eye, mild stage Abnormal electrocardiography Chronic renal insufficiency Diastolic dysfunction Hypokalemia Left leg pain Lower extremity pain Leg edema Leukocytosis Lumbar radiculopathy Lymphedema of both lower extremities Nail finding Onychodystrophy Palpitations Peripheral artery disease (CMS/HCC) Senile ectropion of lower eyelid Ischemic ulcer of toe (CMS/HCC) Neovascular glaucoma of left eye, 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 Dyslipidemia Dysphagia Gastroesophageal reflux disease Hyphema of left eye Lower urinary tract symptoms due to benign prostatic hyperplasia Paresthesia Pressure ulcer of unspecified site, unspecified stage Rhinitis Sciatica Seasonal allergic rhinitis due to pollen Type 2 diabetes mellitus with diabetic peripheral angiopathy without gangrene, without long-term current use of insulin (CMS/HCC) S/P TAVR (transcatheter aortic valve replacement) [2] Past Medical History: Diagnosis Date Aortic stenosis BPH (benign prostatic hyperplasia) 12/11/2023 Cellulitis 12/11/2023 Chronic back pain 12/11/2023 Coronary artery disease status post remote PCI Degenerative disc disease, lumbar 12/11/2023 Diabetes mellitus type II, non insulin dependent ([facility]) 12/11/2023 Gangrene ([facility]) 12/11/2023 resolved Glaucoma 12/11/2023 Heart block AV second degree resolved after aortic valve replacment/pacemaker placed Heart murmur several years History of transcatheter aortic valve replacement (TAVR) HLD (hyperlipidemia) 12/11/2023 Hypertension Legally blind in left eye, as defined in [place] due to glu[place], gets shots into eye Pacemaker Renal insufficiency 12/11/2023 Sinus infection Venous insufficiency 12/11/2023 Walker as ambulation aid [3] Past Surgical History: Procedure Laterality Date AORTIC VALVE REPLACEMENT BACK SURGERY CARDIAC CATHETERIZATION Jan 2025 two stents CARDIAC PACEMAKER PLACEMENT CARDIAC VALVE REPLACEMENT CATARACT EXTRACTION CHOLECYSTECTOMY 04/11/2024 laparoscopic subtotal EYE SURGERY ILIAC ARTERY STENT [4] Family History Problem Relation Name Age of Onset Cataracts Mother Kelly Garcia Diabetes Mother Kelly Garcia Heart attack Mother Kelly Garcia Diabetes type II Mother Kelly Garcia 60 - 69 Cancer Father Colon cancer Father Bladder cancer Father Malig Hyperthermia Neg Hx Anesthesia problems Neg Hx [5] Social History Tobacco Use Smoking status: Former Current packs/day: 0.00 Types: Cigarettes Quit date: 03/01/1984 Years since quittin.3 Passive exposure: Past Smokeless tobacco: Never Tobacco comments: Quit in 1983 Vaping Use Vaping status: Never Used Substance Use Topics Alcohol use: Not Currently Drug use: Never [6] Current Outpatient Medications: acetaminophen (Tylenol) 325 MG tablet, Take 2 tablets by mouth every 6 hours as needed. Under [place] law, monthly prescriptions (30 days) can be refilled at 25 days and three-month prescriptions (90 days) at 80 days. Please contact the insurance company with questions if refills are denied., Disp: , Rfl: ascorbic acid (Vitamin C) 1000 MG tablet, Take 1 tablet by mouth daily., Disp: , Rfl: atorvastatin (Lipitor) 40 MG tablet, Take 1 tablet by mouth every evening., Disp: , Rfl: bimatoprost (Lumigan) 0.01 % ophthalmic solution, Administer 1 drop into both eyes nightly., Disp: , Rfl: cholecalciferol (Vitamin D3) 25 MCG (1000 UT) tablet, Take 1 tablet by mouth every morning., Disp: , Rfl: clopidogrel (Plavix) 75 MG tablet, Take 1 tablet by mouth nightly., Disp: , Rfl: dapagliflozin (Farxiga) 5 MG tablet, Take 1 tablet by mouth every morning., Disp: , Rfl: Dorzolamide HCl-Timolol Mal PF 2-0.5 % solution, Administer 0.05 mL into both eyes 2 times a day., Disp: , Rfl: glucose blood test strip, 1 each by Other route if needed. Use as instructed, Disp: , Rfl: lisinopril 5 MG tablet, Take 1 tablet by mouth every morning., Disp: , Rfl: Magnesium 250 MG capsule, Take 1 tablet by mouth daily., Disp: , Rfl: metFORMIN (Glucophage) 850 MG tablet, Take 1 tablet by mouth 2 times a day with meals., Disp: , Rfl: metoprolol tartrate (Lopressor) 25 MG tablet, Take 0.5 tablets (12.5 mg) by mouth 2 (two) times a day., Disp: 30 tablet, Rfl: 1 pantoprazole (Protonix) 40 MG EC tablet, Take 1 tablet by mouth daily before breakfast. Do not crush, chew, or split., Disp: 30 tablet, Rfl: 5 potassium chloride ER (Micro-K) 10 MEQ ER capsule, Take 1 capsule by mouth 2 times a day., Disp: , Rfl: prednisoLONE acetate (Pred-Forte) 1 % ophthalmic suspension, Administer 1 drop into the left eye 4 (four) times a day., Disp: , Rfl: pregabalin (Lyrica) 200 MG capsule, Take 1 capsule by mouth 2 times a day., Disp: , Rfl: rivaroxaban (Xarelto) 2.5 MG tablet, Take 1 tablet by mouth 2 times a day., Disp: , Rfl: tamsulosin (Flomax) 0.4 MG 24 hr capsule, Take 2 capsules by mouth nightly., Disp: , Rfl: Tresiba FlexTouch 100 UNIT/ML injection pen, Inject 40 Units under the skin every morning., Disp: ,Rfl: [7] Allergies Allergen Reactions Hydrocodone Swelling Clonidine Hallucinations reported hallucinations, patient has never had but does not want to receive this medication Dapagliflozin Other - please document in the comment field Glimepiride Headache Latex Rash Linagliptin Other - please document in the comment field Rocklatan [Netarsudil-Latanoprost] Other - please document in the comment field Eye redness documented in this encounter Plan of Treatment Upcoming Encounters Date Type Department Care Team (Late st Contact Info) Description 03/22/2026 2:00 PM EDT Appointment Medical Office Building Cardiac Diagnostic Testing Medical Office Building Echo Lab [address], [address] [place] [address] 03/22/2026 3:00 PM EDT Office Visit [facility] [place] [address], [address] [place] [address] Janny Root PA [address] [place] [address] documented as of this encounter Visit Diagnoses Diagnosis S/P TAVR (transcatheter aortic valve replacement)- Primary Heart block AV second degree Other second degree atrioventricular block Pacemaker Cardiac pacemaker in situ Essential hypertension Unspecified essential hypertension documented in this encounter Additional Health Concerns Assessment Noted Time PHQ-9 Depression Total Score: 0 06/22/20 1:02 PM EDT A fall risk assessment has been complete d for the patient 06/22/2025 1:03 PM EDT A Body Mass Index follow-up plan has been documented for the patient 06/22/2025 2:04 PM EDT documented as of this encounter Care Teams Centrifugal Casting Machine Tender Relationship Specialty Start Date End Date Tye Dubon MD [address] [place] [address] PCP - General 04/22/25 Jeremie Palomo MD [address] [place] [address] Consulting Physician Interventional Cardiology 02/02/25 documented as of this encounter
--- OUTSIDE RECORDS SUMMARY | 2025-06-23 16:50 | XMS_ITS | Encounter Summary ---
Author Organization Healthcare Address [address] [place] [address] Care Team Providers Care Garment Examiner Name Role Phone Jeremie Palomo MD Unavailable [phone] Tye Dubon MD Primary Care Provider [phone] Encounter Details Date Type Department Care Team (Latest Contact Info) Description 06/23/2025 4:50 PM EDT - 06/23/2025 11:59 PM EDT Hospital Encounter Cardiac Imaging [address] [place] [address] Pacemaker Discharge Disposition: Home or Self Care Social History Tobacco Use Types Packs/Day Years [...] on file documented as of this encounter Medications at Time of Discharge acetaminophen (Tylenol) 325 MG tablet Take 2 tablets by mouth every 6 hours as needed. Under [place] law, monthly prescriptions (30 days) can be refilled at 25 days and three-month prescriptions (90 days) at 80 days. Please contact the insurance company with questions if refills are denied. ascorbic acid (Vitamin C) 1000 MG tablet Take 1 tablet by mouth daily. atorvastatin (Lipitor) 40 MG tablet Take 1 tablet by mouth every evening. bimatoprost (Lumigan) 0.01 % ophthalmic solution Administer 1 drop into both eyes nightly. cholecalciferol (Vitamin D3) 25 MCG (1000 UT) tablet Take 1 tablet by mouth every morning. clopidogrel (Plavix) 75 MG tablet Take 1 tablet by mouth nightly. dapagliflozin (Farxiga) 5 MG tablet Take 1 tablet by mouth every morning. Dorzolamide HCl-Timolol Mal PF 2-0.5 % solution Administer 0.05 mL into both eyes 2 times a day. 09/02/2023 glucose blood test strip 1 each by Other route if needed. Use as instructed lisinopril 20 MG tabletIndications :Essential hypertension Take 1 tablet by mouth daily. 06/22/2025 06/22/20 26 Magnesium 250 MG capsule Take 1 tablet by mouth daily. metFORMIN (Glucophage) 850 MG tablet Take 1 tablet by mouth 2 times a day with meals. metoprolol tartrate (Lopressor) 25 MG tablet Take 0.5 tablets (12.5 mg) by mouth 2 (two) times a day. 30 tablet 1 04/12/2024 pantoprazole (Protonix) 40 MG EC tablet Take 1 tablet by mouth daily before breakfast. Do not crush, chew, or split. 30 tablet 5 03/19/2025 09/15/20 25 potassium chloride ER (Micro-K) 10 MEQ ER capsule Take 1 capsule by mouth 2 times a day. 02/22/2024 prednisoLONE acetate (Pred-Forte) 1 % ophthalmic suspension Administer 1 drop into the left eye 4 (four) times a day. pregabalin (Lyrica) 200 MG capsule Take 1 capsule by mouth 2 times a day. rivaroxaban (Xarelto) 2.5 MG tablet Take 1 tablet by mouth 2 times a day. tamsulosin (Flomax) 0.4 MG 24 hr capsule Take 2 capsules by mouth nightly. Tresiba FlexTouch 100 UNIT/ML injection pen Inject 40 Units under the skin every morning. 03/19/2024 documented as of this encounter Plan of Treatment Upcoming Encounters Date Type Department Care Team (Late st Contact Info) Description 03/22/2026 2:00 PM EDT Appointment Medical Office Building Cardiac Diagnostic Testing Medical Office Building Echo Lab [address] [facility], [address] [place] [address] 03/22/2026 3:00 PM EDT Office Visit [facility] [place] [address] [facility], [address] [place] [address] Janny Root PA [address] [place] [address] documented as of this encounter Procedures Procedure Name Priority Date/Time Associated Diagnosis Comments CARDIAC DEVICE CHECK - REMOTE - PACEMAKER Routine 06/23/2025 7:56 PM EDT Pacemaker documented in this encounter Results * CARDIAC DEVICE CHECK - REMOTE - PACEMAKER (06/23/2025 7:56 PM EDT) Anatomical Region Laterality Modality Other Narrative 06/23/2025 9:32 PM EDT [facility] - Device [facility] Remote CIED Report Name: Derek Garcia Jr. Date: 06/23/2025 : 1935 Age: 89 y.o. Viewing Cardiology Provider: Rick HARRELL DNP Reporting period: Reporting period is the last 91 days, with at least 30 days of remote monitoring. Interim reports, if any, reviewed and addressed previously; see remote alert entries for more details. Most recent report, dated 06/23/2025, analysis and summary as follows: Device: Medtronic dual chamber pacemaker Permanent Programming Mode : DDD LRL: 60 bpm MTR: 130 bpm Available measurements within normal limits. (See vendor report in Media for further details) Pacing Percentage: Atrial: 30 % Ventricular: 99.3 % Battery: Service time remainin.5 years Presenting rhythm: Presenting rhythm is atrial sensed with ventricular paced response. Evaluation: Demonstrates appropriate sensing: Yes Demonstrates pacing capture: Yes Arrhythmias: No new arrhythmia of significance since last CIED evaluation. Summary: CIED functioning as expected, with given programming and data. See copy of vendor report in Media us Celia Hoffman STRATEGIC PLANNING ANALYST CV IMPLANTABLE CARDIAC DEV ICE PROCEDURES Final Result documented in this encounter Visit Diagnoses Diagnosis Pacemaker Cardiac pacemaker in situ documented in this encounter Additional Health Concerns Assessment Noted Time PHQ-9 Depression Total Score: 0 06/22/20 1:02 PM EDT A fall risk assessment has been complete d for the patient 06/22/2025 1:03 PM EDT A Body Mass Index follow-up plan has been documented for the patient 06/22/2025 2:04 PM EDT documented as of this encounter Care Teams Garment Examiner Relationship Specialty Start Date End Date Tye Dubon MD [address] [place] [address] PCP - General 04/22/25 Jeremie Palomo MD [address] [place] [address] Consulting Physician Interventional Cardiology 02/02/25 documented as of this encounter
--- OUTSIDE RECORDS SUMMARY | 2025-07-12 07:45 | XMS_ITS | Encounter Summary ---
Author Organization [facility] Address [address] [place] [address] Care Team Providers Care Documentation Specialist Name Role Phone Jeremie Palomo MD Unavailable [phone] Tye Dubon MD Primary Care Provider [phone] Encounter Details Date Type Department Care Team (Late st Contact Info) Description 07/12/2025 7:45 AM EDT Ancillary Procedure [facility] [address] [place] [address] Social History Tobacco Use Types Packs/Day Years [...] on file documented as of this encounter Plan of Treatment Upcoming Encounters Date Type Department Care Team (Late st Contact Info) Description 03/22/2026 2:00 PM EDT Appointment Medical Office Building Cardiac Diagnostic Testing Medical Office Building Echo Lab [address] [facility], [address] [place] [address] 03/22/2026 3:00 PM EDT Office Visit [facility] [place] [address] [facility], [address] [place] [address] Janny Root PA [address] [place] [address] documented as of this encounter Procedures Procedure Name Priority Date/Time Associated Diagnosis Comments OCT, OPTIC NERVE - OD - RIGHT EYE Routine 07/12/2025 8:55 PM EDT Primary open-angle glaucoma, right eye, mild stage documented in this encounter Results * OCT, Optic Nerve - OD - Right Eye (07/12/2025 8:55 PM EDT) Anatomical Region Laterality Modality Head Optical Coherenc e Tomography Narrative 07/12/2025 8:55 PM EDT Images reviewed and comparison made to baseline. To assess optic nerve function and for use in future follow-up. Notes Jul 2025 OD: polar thinning, avg 80 um. likely stable,possibly confounded by PPA compared to previous us Tati Cesar MD OPHTH TOMOGRAPHY Final Resul t documented in this encounter Visit Diagnoses Not on filedocumented in this encounter Additional Health Concerns Assessment Noted Time PHQ-9 Depression Total Score: 0 06/22/20 25 1:02 PM EDT A fall risk assessment has been complete d for the patient 06/22/2025 1:03 PM EDT A Body Mass Index follow-up plan has been documented for the patient 06/22/2025 2:04 PM EDT documented as of this encounter Care Teams Documentation Specialist Relationship Specialty Start Date End Date Tye Dubon MD [address] [place] [address] PCP - General 5/23/25 Jeremie Palomo MD [address] [place] [address] Consulting Physician Interventional Cardiology 02/02/25 documented as of this encounter
--- OUTSIDE RECORDS SUMMARY | 2025-07-12 14:00 | XMS_ITS | Encounter Summary ---
Author Organization [facility] Address [address] [place] [address] Care Team Providers Care Shell Shop Supervisor Name Role Phone Jeremie Palomo MD Unavailable [phone] Tye Dubon MD Primary Care Provider [phone] Encounter Details Date Type Department Care Team (Late st Contact Info) Description 07/12/2025 2:00 PM EDT Office Visit [facility] [address] [place] [address] Tati Cesar MD [address] [address] Primary open-angle glaucoma, left eye, severe stage (Primary Dx); Primary open-angle glaucoma, right eye, mild stage; Neovascular glaucoma of left eye, severe stage; Type 2 diabetes mellitus with diabetic peripheral angiopathy without gangrene, without long-term current use of insulin ([facility]); Nevus of choroid of right eye; Ocular hypertension of right eye Social History Tobacco Use Types Packs/Day Years [...] Progress Notes - Tati Cesar MD - 07/12/2025 2:00 PM EDT PO two months post TS VARNISH THINNER low and slow technique OD, History of POAG right eye mild, left eye severe for many years - left eye is now no loight perception. Had an interim visit with Dr. Ritchie on 06/30. Had initial glaucoma consult requested by Dr. Last Ritchie in May 2024, SLT OD on 06/15/24. Recently with uncontrolled pressures left eye despite Rhopressa (therapeutic failure) Combigan (intolerant)and SLT. Requested surgical evaluation. Hx of type 2 DM, pseudophakia OU, hx of ptosis Current drops are Dorz / Raymundo BID OU, Lumigan nightly OU. (=Continues pred acetate daily OD ARx OD, CH, OCT RNFL and MAC OD on arrival He reports: I don't think my vision is getting much better since last visit. The patient denies anypain and or pressure in the eyes. at 06/[address] Ritchie, vision OD was down to 20/100. IOP was down to 23 mmHg from 29.8. Reduced pred acetate. Reviewed notes from recent Exam with Dr. [...] to Combigan and Brimonidine, unacceptable redness from Rocklatan. Right Eye Surgery: CE IOL 2010, TS VARNISH THINNER 05/09/25. Left Eye Surgery: CE IOL 2010 [...] DM, former smoker, renal failure Last OCT: Jul 2025 OD: polar thinning, avg 80 um. likely stable,possibly confounded by PPA comparedto previous May 2024 OD: polar thinning, avg 76 um. OS: severe diffuse thinning, avg 35 um. Image quality goodOU. 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 Gentle transcleral VARNISH THINNER OD an option if needed. Will continue [...] schedule 06/14/25: PO one month post TS VARNISH THINNER low and slow technique OD. IOP elevated [...] disappointing response to the less invasive TS VARNISH THINNER OD, next step likely tube shunt. 07/12/25: IOP remains elevated right eye despite max tolerated medical treatment, previous SLT, and recent TS VARNISH THINNER low and slow procedure. He is noting a decline in the vision right eye for past 3 - 4 days. Exam shows trace corneal edema, but otherwise quiet and unchanged. OCT MAC appears stable. Ectropion may also be contributing to worsening vision. Discussed limited options for escalating treatment. He prefers to avoid Rocklatan; had epiphora andirritation. Intol of Brimonidine as well. Doubt angle surgery would provide sufficient IOP stability given the severity of his ocular hypertension and failure to respond to treatment so far, rec tubeshunt right eye betsy. Discussed r / b / a at length and he elects to proceed. IOP in his non-seeing left eye is also high despite regular technique TS VARNISH THINNER two months ago. Comfortable, no NVI noted today. Stable pseudophakia OU - Monitor - will need updated MRx once the right eye is stable from surgery. BLL involutional ectropion - Monitor for now but may benefit from eval with Kathy if interested. Likely contributing to chronic watering - Discussed again today and will continue to monitor Hx of CRVO OS - followed by Dr. Spaulding Type 2 DM Cc: Last Ritchie documented in this encounter Plan of Treatment Upcoming Encounters Date Type Department Care Team (Late st Contact Info) Description 03/22/2026 2:00 PM EDT Appointment Medical Office Building Cardiac Diagnostic Testing Medical Office Building Echo Lab [address] [facility], [address] [place] [address] 03/22/2026 3:00 PM EDT Office Visit [facility] [place] [address] [facility], [address] [place] [address] Janny Root PA [address] [place] [phone] documented as of this encounter Procedures Procedure Name Priority Date/Time Associated Diagnosis Comments OCT, RETINA - OD - RIGHT EYE Routine 07/12/2025 9:30 PM EDT Type 2 diabetes mellitus with diabetic peripheral angiopathy without gangrene, without long-term current use of insulin ([facility]) Nevus of choroid of right eye OCT, OPTIC NERVE - OD - RIGHT EYE Routine 07/12/2025 8:55 PM EDT Primary open-angle glaucoma, right eye, mild stage documented in this encounter Results * OCT, Retina - OD - Right Eye (07/12/2025 9:30 PM EDT) Anatomical Region Laterality Modality Head Optical Coherenc e Tomography Narrative 07/12/2025 9:30 PM EDT OD: central thickness up slightly from previous, 326 um. Loss of foveal depression, but no significant ERM, no focal edema just mild diffuse thickening. A few extrafoveal drusen noted. 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 documented in this encounter Additional Health Concerns Assessment Noted Time PHQ-9 Depression Total Score: 0 06/22/20 25 1:02 PM EDT A fall risk assessment has been complete d for the patient 06/22/2025 1:03 PM EDT A Body Mass Index follow-up plan has been documented for the patient 06/22/2025 2:04 PM EDT documented as of this encounter Care Teams Shell Shop Supervisor Relationship Specialty Start Date End Date Tye Dubon MD [address] [place] [address] PCP - General 04/22/25 Jeremie Palomo MD [address] [place] [address] Consulting Physician Interventional Cardiology 02/02/25 documented as of this encounter
--- OUTSIDE RECORDS SUMMARY | 2025-07-12 14:50 | XMS_ITS | Encounter Summary ---
Author Organization [facility] Address [address] [place] [address] Care Team Providers Care Finger Buff Sewer Name Role Phone Jeremie Palomo MD Unavailable [phone] Tye Dubon MD Primary Care Provider [phone] Encounter Details Date Type Department Care Team (Late st Contact Info) Description 07/12/2025 2:50 PM EDT Ancillary Procedure [facility] [address] [place] [address] Social History Tobacco Use Types Packs/Day [...] Office Building Echo Lab [address] [facility], [address] [place] [address] 03/22/2026 3:00 PM EDT Office Visit [facility] [place] [address] [facility], [address] [place] [address] Janny Root PA [address] [place] [address] documented as of this encounter Procedures Procedure Name Priority Date/Time Associated Diagnosis Comments OCT, RETINA - OD - RIGHT EYE Routine 07/12/2025 9:30 PM EDT Type 2 diabetes mellitus with diabetic peripheral angiopathy without gangrene, without long-term current use of insulin ([facility]) Nevus of choroid of right eye documented in this encounter Results * OCT, [...] documented as of this encounter Care Teams Finger Buff Sewer Relationship Specialty Start Date End Date Tye Dubon MD [address] [place] [address] PCP - General 04/22/25 Jeremie Palomo MD [address] [place] [address] Consulting Physician Interventional Cardiology 02/02/25 documented as of this encounter
--- OUTSIDE RECORDS SUMMARY | 2025-07-13 23:59 | XMS_ITS | Encounter Summary ---
Author Organization [facility] Address [address] [place] [id number] Care Team Providers Care Crankshaft Grinder Name Role Phone Jeremie Palomo MD Unavailable [phone] Tye Dubon MD Primary Care Provider [phone] Encounter Details Date Type Department Care Team (Late st Contact Info) Description 07/15/2025 11:59 PM EDT Anesthesia Event [facility] [address] [place] [address] Tom Jean-Baptiste MD [address] [place] [address] Anesthesia Record Procedure Summary Procedure Name Responsible Anesthesiologist Anesthesia Start Time Anesthesia Stop Time INSERTION, GLAUCOMA DRAINAGE DEVICE (Right) Events No events on file. Meds * Agents No agents on file. * Blood No blood administrations on file. Lines, Drains, and Airways Type Details Placement Removal Wound 04/11/24; 1337; Pres sure inj; Sacrum; old healing pressure wounds with redness surrounding; blanchable 04/11/24 1337 by Jodi Tafoya RN Wound 03/17/25; 1800; N; Y es; Surgical; Laparoscopic; Pelvis; Anterior, Right; labour market economist puncture site 03/17/25 1800 by Hodan Willams RN Wound 03/17/25; 1800; Surg ical; Laparoscopic; Pelvis; Anterior, Left 03/17/25 1800 by Hodan Willams RN Wound 03/18/25; 1848; N; Y es; Other (incision); Chest; Left, Upper; pacemaker pocket incision 03/18/25 1848 by Tatyana Hammond RN Wound 05/09/25; Other (laser); Eye; Ri ght 05/09/25 0000 by Audrey Moore RN documented in this encounter Social History Tobacco Use Types Packs/Day Years Used Date Smoking Tobacco: Former Cigarettes 1 20 Q uit: 03/01/1984 Passive Smoke Exposure: Past [...] Upcoming Encounters Date Type Department Care Team ([facility] st Contact Info) Description 03/22/2026 2:00 PM EDT Appointment Medical Office Building Cardiac Diagnostic Testing Medical Office Building Echo Lab [address] [facility], [address] [place] [address] 03/22/2026 3:00 PM EDT Office Visit [facility] [place] [address] [facility], [address] [place] [address] Janny Root PA [address] [place] [address] documented as of this encounter Visit Diagnoses Not on filedocumented [...] documented as of this encounter Care Teams Crankshaft Grinder Relationship Specialty Start Date End Date Tye Dubon MD [address] [place] [address] PCP - General 04/22/25 Jeremie Palomo MD [address] [place] [address] Consulting Physician Interventional Cardiology 02/02/25 documented as of this encounter
--- OUTSIDE RECORDS SUMMARY | 2025-07-14 10:00 | XMS_ITS ---
Author Organization [facility] Address [address] [place] [id number] Care Team Providers Care [employer] Name Role Phone Memo Dubon Primary Care Provider Vida Dale Unavailable [phone] REASON FOR VISIT checkup, fasting labs and Annual Wellness Visit Immunizations Vaccine Route Administration Date Status Comme nts Prevnar (PCV20) Unknown 07/14/2025 Pending Encounters Encounter Location Date Provider Diagnosis [facility] [address] [facility] [address] [place] [id number] 07/14/2025 Memo Dubon Adult general medica l examination Z00.00 Assessments Encounter Date Diagnosis (ICD Code) Assessment Notes Treatment Notes Treatment Clinical Notes Section Notes 07/14/2025 Adult general medical examination (ICD-10 - Z00.00) Patient instructed to return to office Annually for Annual Wellness Visits to include annual screenings of Pain assessment, Functional Ability assessment, Cognitive Ability assessment, Fall Risk assessment, Depression screening and Bladder control screening. Plan Of Treatment Treatment Notes Assessment Notes Adult general medical examination Patien t instructed to return to office Annually for Annual Wellness Visits to include annual screenings of Pain assessment, Functional Ability assessment, Cognitive Ability assessment, Fall Risk assessment, Depression screening and Bladder control screening. Pending Test Test Name Order Date CBC Venipuncture (in house) 07/14/2025 Glycohemoglobin A1c (in house) P-Comprehensive Metabolic Panel (CMP) P-PSA 07/14/2025 P-Microalbumin/Creatinine, Random Urine Sample 07/14/2025 Next Appt Details Follow Up: As directed by , Reason: Provider Name:Memo Orellana, 07/28/2025 01:03:00 PM, [address], [address], [place], [id number], Progress Notes * DENNY BE JrDOB: (89 yo M)Acc No.[id number]:07/14/2025 Annual Wellness Visit Patient: DENNY PEACOCK Jr Provider: Memo Dubon M.D. :1935 A ge:89 Y S ex:Male Date:07/14/2025 Address:[address], [id number] Subjective: * Chief Complaints: * 1 . checkup, fasting labs and Annual Wellness Visit. * HPI: H PI: Patient is here today for a check up with fasting labs and?a Medicare Annual Wellness Visit. * ROS: O PTHALMOLOGY: Negative for sebastián ni vision issues. * Medical History: Objective: * Vitals: * Physical Examination: G ENERAL: Pain Assessment: P ain level: , on a scale of 0-10 (with 10 being extreme pain). F unctional Status Assessment: P atient response to question of how often physical health interferes with daily activities: . Able to perform ADLs-including meal preparation, grocery shopping, housework, laundry, taking medications or handling finances. Cognitive Status: alert and oriented. Ambulation Status: Fully ambulatory . F all Risk Assessment: I ndependant in ambulation, adequate lighting in home. Patient has NOT fallen or had trouble walking within the past 12 months. D epression Screening: D enies depressed mood or anxiety. Describes emotional health as:. B ladder Control Screening: D christopheries problems. Assessment: * Assessment: 1. A dult general medical examination - Z00.00 (Primary) Plan: * Treatment: * Immunizations: Prevnar (PCV20) : 0.5 mL (Pending) * Labs: * L ab: Glycohemoglobin A1c (in house) L ab: P-PSA L ab: P-Microalbumin/Creatinine, Random Urine Sample L ab: P-Comprehensive Metabolic Panel (CMP) L ab: CBC Venipuncture (in house) * Procedure Codes: G 0439 ANNUAL WELLNESS VST; PPS SUBSQT VST, Modifiers: , G221 Complex e/[place], [address] GLYCATED HEMOGLOBIN TEST, Modifiers: QW , 1090F PRES/ABSN URINE INCON ASSESS, 3288F FALL RISK ASSESSMENT DOCD, 1170F FXNL STATUS ASSESSED, 1126F AMNT PAIN NOTED NONE PRSNT, 1159F MED LIST DOCD IN RCRD, 1003F LEVEL OF ACTIVITY ASSESS, 1036F TOBACCO NON-USER, 69009 CBC WITH AUTO DIFF * Preventive Medicine: Counseling: E motional health: P atient encouraged to try connecting with family or friends to boost mood. B ladder control: M ethods of controlling or managing leakage of urine discussed. E xercise: P atient advised to start, increase or maintain level of exercise/physical activity. I njury prevention: F all prevention discussed. Discussed need for cane/walker. Potential trip hazards discussed. Immunizations: P neumococcal r ecommended. I nfluenza r ecommended seasonally. C OVID-19 u p to date. Screening / Special Tests: C olonoscopy R ecent history:, excluded due to age.?PSA - 5.9. D iabetic Retinal Eye Exam R ecent history:, recommended today.?Nephrology History R ecent history:, GFR and urine M/A ordered today. * Follow Up: A s directed by * Images: Billing Information: * Visit Code: * Procedure Codes: G0439 ANNUAL WELLNESS VST; PPS SUBSQT VST. Modifiers: G2 Complex e/[place] [address] GLYCATED HEMOGLOBIN TEST. Modifiers: QW 1090F PRES/ABSN URINE INCON ASSESS. 3288F FALL RISK ASSESSMENT DOCD. 1170F FXNL STATUS ASSESSED. 1126F AMNT PAIN NOTED NONE PRSNT. 1159F MED LIST DOCD IN RCRD. 1003F LEVEL OF ACTIVITY ASSESS. 1036F TOBACCO NON-USER. 87977 CBC WITH AUTO DIFF. * Electronic signature of Memo Dubon MD on 07/28/2025 at 01:38 PM EDT Sign off status: Pending * Provider: Memo Dubon M.D. Date: 0 07/14/2025 Generated for Sissy shepherd/Lidia/Akira on: 0 07/28/2025 01:38 PM EDT History and Physical Notes * HPI (History of Present Illness) Category Sub-Category Detail Notes Category Not es HPI Patient is here today for a [facility] k up with fasting labs and a Medicare Annual Wellness Visit Physical Examination Category Sub-Category Detail Notes Section Note s GENERAL Pain Assessment: Pain level: , o n a scale of 0-10 (with 10 being extreme pain) Functional Status Assessment: Patient response to question of how often physical health interferes with daily activities: . Able to perform ADLs-including meal preparation, grocery shopping, housework, laundry, taking medications or handling finances. Cognitive Status: alert and oriented. Ambulation Status: Fully ambulatory Fall Risk Assessment: Independant in amb ulation, adequate lighting in home. Patient has NOT fallen or had trouble walking within the past 12 months Depression Screening: Denies depressed m ood or anxiety. Describes emotional health as: Bladder Control Screening: Denies proble ms
[2025-07-28 13:15] VITALS: BP 174/80; PULSE 79; RESP 16; TEMP 36.8; O2SAT 95; BMI 35.2; BMI 35.3
--- NOTE | 2025-07-28 13:17 | XR_ITS ---
FINAL REPORT TECHNIQUE: Right ankle 2 views CLINICAL HISTORY: open fracture COMPARISON: None FINDINGS: RIGHT ANKLE: There is a fracture dislocation of the tibiotalar joint present. The talus is posteriorly dislocated, with a distal fibular fragment which is displaced. Otherwise, the orientation of the fracture fragments makes it difficult to further describe any other details. Subcutaneous air is noted in the adjacent soft tissues. IMPRESSION: Fracture dislocation involving the tibiotalar joint as described. The talus is posteriorly dislocated, and the distal fibular fragment appears displaced as well and possibly rotated. Otherwise, orientation limits further evaluation. Reviewed, Interpreted and Dictated by Demetria Francisco MD Transcribed by Cherelle Kearney Authenticated and [facility]
[2025-07-28 13:26] LABS: POC Glucose,Bedside 217 gm/dL (70-110)
--- NOTE | 2025-07-28 13:30 | PC.NURSE ---
on phone with at this time.
--- NOTE | 2025-07-28 13:32 | PC.NURSE ---
[facility] accepted transport and will be on standby until we get an accepting physician.
[2025-07-28 13:34] LABS: Hematocrit 35.8 % (42.0-52.0); Hemoglobin 12.0 g/dL (14.1-18.0); Immature Granulocytes % 0.7 %; Mean Corpuscular HGB Conc 33.5 g/dL (31.8-35.4); Mean Corpuscular Hemoglobin 29.3 pg (27.0-31.2); Mean Corpuscular Volume 87.3 fl (80-94); Nucleated Red Blood Cells % 0 %; Platelet Count 188 K/mm3 (142-424); Red Blood Count 4.10 M/mm3 (4.60-6.20); Red Cell Distribution Width-SD 53.1 fL; White Blood Count 9.0 K/mm3 (4.8-10.8)
--- NOTE | 2025-07-28 13:35 | HMH.EDGENADL ---
Discharge Plan Disposition Patient Disposition: Xfer Other Condition: Serious Prescriptions Prescriptions: No Action (DME) Easy Touch Test Strip Strip See Rx Instructions .ROUTE .MEDSUPPLY Qty: 10 Patient Comments: USE TO test blood sugar TWICE DAILY Rx Instructions: As directed pantoprazole 40 mg tablet,delayed release (DR/EC) PO (DME) BD AutoShield Duo Pen Needle 30 gauge x 3/16 needle See Rx Instructions .ROUTE .MEDSUPPLY Qty: 100 Patient Comments: USE DIRECTED SUBCUTANEOUSLY ONCE DAILY Rx Instructions: As directed metoprolol tartrate 25 mg tablet 12.5 mg PO BID acetaminophen 325 mg capsule 325 mg PO QID PRN insulin degludec [Tresiba FlexTouch U-100] 100 unit/mL (3 mL) insulin pen 40 unit SQ DAILY lisinopril 20 mg tablet 20 mg PO DAILY prednisolone acetate 1 % drops,suspension 1 drp Eye-Left QID Patient Comments: SHAKE LIQUID AND INSTILL 1 DROP IN LEFT EYE FOUR TIMES DAILY (DME) lancets [TRUEplus Lancets] 30 gauge misc See Rx Instructions .ROUTE .MEDSUPPLY Qty: 100 Patient Comments: USE TO test blood sugar TWICE DAILY Rx Instructions: As directed potassium chloride 10 mEq capsule, extended release 10 meq PO BID Patient Comments: TAKES 1 CAP BIS 1200,2300 pregabalin 200 mg capsule 200 mg PO BID Patient Comments: TAKES 2 BID 0900,1800 dapagliflozin propanediol 5 mg tablet 5 mg PO DAILY Qty: 90 3RF rivaroxaban 2.5 mg tablet 2.5 mg PO BID Qty: 30 2RF atorvastatin 40 MG tablet 40 mg PO HS Patient Comments: TAKES 1 DAILY HS 2300 clopidogrel 75 MG tablet 75 mg PO HS Patient Comments: TAKES 1 HS 2300 tamsulosin 0.4 MG capsule 0.8 mg PO HS Patient Comments: TAKES 2 TABS HS 1800 cholecalciferol (vitamin D3) 1,000 UNIT capsule 1,000 unit PO DAILY dorzolamide-timolol (PF) 1 EACH dropperette 1 drp EYE-BOTH BID Rx Instructions: 1 drop in each eye twice daily metformin 850 MG tablet 850 mg PO BID Patient Comments: TAKES BID 1200, 1800 magnesium 30 mg Tablet 30 mg PO DAILY insulin degludec [Tresiba FlexTouch U-100] 100 unit/mL (3 mL) insulin pen 40 unit SQ DAILY Patient Comments: INJECT 40 UNITS SUBCUTANEOUSLY ONCE DAILY Referrals Follow up/Referrals: Provider,Referral, [Primary Care Provider, Medical] - See instructions Clinical Impressions Clinical Impression: Open dislocation of left talus, Fall, Anticoagulated Stand Alone Forms Stand Alone Forms: Transfer Record - ED Print Language Print Language: Salvadorean Discharge ED Provider: Esequiel Rodarte General Adult HPI General Chief complaint: Fall Stated complaint: open tib/fib fx Time Seen by Provider: 07/28/25 13:22 History of Present Illness HPI narrative: This is an 89-year-old male patient, hypertension, type 2 diabetes, peripheral arterial disease, chronic venous insufficiency, severe aortic stenosis status post TAVR at with Dr. Palomo on 03/17/2025 currently on Xarelto and Plavix, who is presenting to the emergency department today as a trauma alert. The patient states that he was attempting to ambulate with his walker when he lost balance and fell to the ground. He suffered an obvious open deformity to the right ankle. He does not know if he hit his head or lost consciousness. EMS arrived to the scene and found that the patient was hemodynamically stable and brought him here for further evaluation. Related Data Home Medications ?Medication ?Instructions ?Recorded ?Confirmed atorvastatin 40 mg tablet 40 mg PO HS Cholesterol 01/23/21 06/28/25 cholecalciferol (vitamin D3) 25 1,000 unit PO DAILY Supplement 01/23/21 06/28/25 mcg (1,000 unit) capsule clopidogrel 75 mg tablet 75 mg PO HS Blood thinner 01/23/21 06/28/25 dorzolamide-timolol (PF) 2 %-0.5 % 1 drp Eye-Both BID Glaucoma 01/23/21 06/28/25 eye drops in a dropperette tamsulosin 0.4 mg capsule 0.8 mg PO HS prostate 01/23/21 06/28/25 potassium chloride 10 mEq 10 meq PO BID Supplement 02/13/21 06/28/25 capsule,extended release metformin 850 mg tablet 850 mg PO BID Diabetes 03/20/21 06/28/25 pregabalin 200 mg capsule 200 mg PO BID Pain 03/27/21 06/28/25 insulin degludec 100 unit/mL (3 40 unit SQ DAILY Diabetes 08/26/23 06/28/25 mL) subcutaneous pen (Tresiba FlexTouch U-100 insulin) magnesium 30 mg tablet 30 mg PO DAILY Supplement 08/26/23 06/28/25 acetaminophen 325 mg capsule 325 mg PO QID PRN 05/19/25 06/28/25 blood sugar diagnostic (Easy Touch #10 ea 05/19/25 06/28/25 Test Strip) insulin degludec 100 unit/mL (3 40 unit SQ DAILY 05/19/25 06/28/25 mL) subcutaneous pen (Tresiba FlexTouch U-100 insulin) metoprolol tartrate 25 mg tablet 12.5 mg PO BID 05/19/25 06/28/25 pantoprazole 40 mg tablet,delayed mg PO 05/19/25 06/28/25 release pen needle,diabetic dual safty 30 #100 ea 05/19/25 06/28/25 gauge x 3/16 lancets 30 gauge (TRUEplus Lancets) #100 ea 06/28/25 06/28/25 lisinopril 20 mg tablet 20 mg PO DAILY 06/28/25 06/28/25 prednisolone acetate 1 % eye 1 drp Eye-Left QID 06/28/25 06/28/25 drops,suspension Previous Rx's ?Medication ?Instructions ?Recorded dapagliflozin propanediol 5 mg 5 mg PO DAILY Diabetes #90 tabs 10/22/23 tablet rivaroxaban 2.5 mg tablet 2.5 mg PO BID Blood Thinner #30 07/13/24 tabs Allergies Allergy/AdvReac Type Severity Reaction Status Date / Time latex Allergy Unknown Unknown Verified 06/28/25 13:42 allergy reaction quinidine Allergy Unknown Unknown Verified 06/28/25 13:42 allergy reaction PFSH PFS Disclaimer: The information contained in this section may have been updated after the patient was seen, as this information can be updated by other users. 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 due to underlying condition, with fat layer exposed Avulsion of nail plate Ischemic ulcer of toe of left foot with fat layer exposed Onychodystrophy Gangrene of toe of right foot Lymphedema of both lower extremities Ischemic ulcer of toe of right foot Venous insufficiency Chronic renal insufficiency Hypokalemia Leg edema Diastolic dysfunction Chronic low back pain Cellulitis Type 2 diabetes mellitus Hypertension Peripheral artery disease Surgical History S/P insertion of iliac artery stent History of cataract surgery Previous back surgery H/O right heart catheterization H/O heart artery stent 2 Family History Mother Family history of diabetes mellitus type II Family history of myocardial infarction Father Bladder cancer Colon cancer Social History Smoking Status: Never smoker years smoked: 25 smoking status stop date: 1983 alcohol intake: never substance use type: denies use current occupational status: retired Travel in the last 8 weeks?: None household members: spouse housing: apartment caffeine: Yes Have you lived/traveled outside US in past 30 days?: No Contact w/someone who lives/traveled outside US past 30 days?: No Exposure to someone with infectious disease in past 14 days?: No Do you have a fever (greater than 100.4 F or 38 C)?: No Have you tested positive for COVID-19?: No Exposed to someone with COVID-19 in past 14 days?: No Do you have a sore throat?: No Do you have a cough?: No Do you have any weakness?: No Do you have any diarrhea?: No Are you experiencing any unusual bleeding?: No Do you have any muscle aches/pain?: No Do you have any abdominal pain?: No Are you experiencing loss of taste or smell?: No Other Medical History Have you received the Flu Vaccine for this season: Yes Have you received the Pneumonia Vaccine: No ROS Obtained: Yes Systems reviewed as appropriate & no additional complaints except as documented Physical Exam General General appearance: other (See MDM) Respiratory Respiratory exam: Present other (See MDM) Cardiovascular Cardiovascular exam: Present other (See MDM) Neurological Exam Neurological exam: Present other (See MDM) Medical Decision Making Medical Records Medical records reviewed: Yes I reviewed the patient's medical records. Screening: Per USPSTF and CDC recommendations, given the prevalence of disease in our region, it is our hospital?s policy to screen for HIV and viral Hepatitis for all patients aged 18 and over and those with ongoing risk factors. Tanner Inquiry Pt receiving controlled substance: No Tanner was queried for this patient: No Lab Data Lab Results 07/28/25 13:19: POC Glucose 217 H Orders (Tests/Meds): ED MEDICATIONS Discontinued Medications Generic Name Dose Route Start Last Admin Trade Name Flavia PRN Reason Stop Dose Admin Cefazolin Sodium 2 gm 07/28/25 13:18 Cefazolin 2gm Vial IV 07/28/25 13:19 ONCE ONE Tetanus/Reduced Diphtheria/Acell Pertussis 0.5 ml 07/28/25 13:18 Tet/Diphth/Pert-Adult 0.5ml Syringe IM 07/28/25 13:19 .ONCE ONE ORDERS Category Date Time Status Ankle XR - Left 2 Views [XR ankle LT 2V] Stat Exams 07/28/25 13:17 Ordered Complete Blood Count Auto Diff Stat Lab 07/28/25 13:20 Received Comprehensive Metabolic Panel Stat Lab 07/28/25 13:20 Received POC Glucose,Bedside Routine Lab 07/28/25 13:19 Completed PTT [Activated Partial Thrombo Time] Stat Lab 07/28/25 13:20 Received Prothrombin Time INR Stat Lab 07/28/25 13:20 Received Medical Decision Narrative: Good in summary, this is an 89-year-old male patient who is presenting to the emergency department today as a trauma alert for an open distal tib-fib fracture. Patient has a very complex past medical history including complete heart block with pacemaker installation, hypertension, diabetes, peripheral arterial disease, chronic venous insufficiency and severe aortic stenosis status post TAVR in March [address] Palomo at currently on Xarelto and Plavix. On arrival the patient's airway was intact, he had bilateral breath sounds, a GCS of 15, and a good distal radial pulse. On secondary survey the patient has no scalp lacerations, hematomas, or abrasions. No midface instability or jaw malocclusion. No intraoral lacerations or lesions. No evidence of hemotympanum. No nasal septal hematoma. He has no C, T, or L-spine tenderness. No tenderness of the anterior chest wall or anterior abdomen. There is no deformities of the upper extremities and no tenderness to palpation. His pelvis is stable. He does have a very obvious deformity of the right ankle with an open fracture and anterior dislocation and complete dissociation of the tibia from the calcaneus. The articular surface of the tibia is protruding through the anterior aspect of the ankle. I am unable to detect a dorsalis pedis pulse, however I am able to detect a posterior tibial pulse with Doppler. Differential diagnosis included ankle dislocation, tib-fib fracture, ligamentous disruption, arterial injury, among others. I also have concern that this patient could be experiencing related injuries from his fall including intracranial hemorrhage or potentially spinal fracture. We did obtain x-rays of the right lower extremity which confirmed orientation of the patient's bones. I do appreciate an obvious fracture dislocation on my independent read We administered 2 g of Ancef as well as a Tdap vaccination to the patient. He received fentanyl and route. I do feel that this patient is at very high risk for decompensation and arterial compromise. In the lieu of obtaining scans, I felt that he necessitated emergent higher level of care at a tertiary care center. Therefore I had an interactive discussion with the transfer center who agreed to accept the patient for transfer. Dr. Denis Grissom is the accepting physician. [facility] was dispatched and the patient was transferred in stable condition by helicopter. Critical Care Critical Care Time Critical Care Time: No
--- NOTE | 2025-07-28 13:36 | PC.NURSE ---
1313hrs- patient arrived to ED via ambulance, Trauma Alert activation 1315hrs- patient transferred to hospital stretcher 1317hrs- Dr. Rodarte at bedside, no EFAST needed per MD 1320hrs MEHNAZ Enamorado established a secondary line 1323hrs- Rick Pabon EMT-P and Dr. Rodarte took down splint applied by EMS, Noted deformity to R ankle 1327hrs- [facility] contacted for transfer of this patient. 1331hrs- RAD at bedside for X-rays 1332hrs- [facility] contacted for transfer flight 1334hrs- Dr. Grissom at accepted patient 1336hrs- [facility] contacted back with accepting physician 1337hrs- RAD notified to [facility] and burn a disk
--- OUTSIDE RECORDS SUMMARY | 2025-07-28 13:38 | XMS_ITS | Encounter Summary ---
Author Organization [facility] Address [address] [place] [address] Care Team Providers Care Ceramic Research Engineer Name Role Phone Jeremie Palomo MD Unavailable [phone] Tye Dubon MD Primary Care Provider [phone] Encounter Details Date Type Department Care Team (Late st Contact Info) Description 06/15/2025 Telephone Existence Before [facility] [address] [place] [address] Tati Cesar MD [address] [phone] Social History Tobacco Use Types Packs/Day [...] as of this encounter Miscellaneous Notes * Telephone Encounter - Osiris Galdamez - 06/15/2025 2:00 PM EDT julio Note 06/15/2025 1:54 PM Spoke with Cat. Confirmed that the added drop was Prednisolone 1 drop 2x a day in the right eye. They have a refill already and do not need a new Rx sent at this time. Follow up care to be scheduled in [place] was discussed at yesterday's visit and they would liketo confirm that they can schedule there for next appoint. Message routed to move next appt from [place] to [place] if possible. documented in this encounter Plan of Treatment Upcoming Encounters Date Type Department Care Team (Late st Contact Info) Description 03/22/2026 2:00 PM EDT Appointment Medical Office Building Cardiac Diagnostic Testing Medical Office Building Echo Lab [address] [facility], [address] [place] [phone] 03/22/2026 3:00 PM EDT Office Visit [facility] [address] [facility], [address] [place] [address] Janny Root PA [address] [place] [phone] documented as of this encounter Visit Diagnoses Not on filedocumented in this encounter Additional Health Concerns Assessment Noted Time PHQ-9 Depression Total Score: 0 05/11/20 25 3:27 PM EDT A fall risk assessment has been complete d for the patient 05/11/2025 3:26 PM EDT A Body Mass Index follow-up plan has been documented for the patient 06/14/2025 10:40 AM EDT documented as of this encounter Care Teams Ceramic Research Engineer Relationship Specialty Start Date End Date Tye Dubon MD [address] [place] [address] PCP - General 04/22/25 Jeremie Palomo MD [address] [place] [phone] Consulting Physician Interventional Cardiology 02/02/25 documented as of this encounter
--- OUTSIDE RECORDS SUMMARY | 2025-07-28 13:38 | XMS_ITS | Patient Health Record ---
Author Organization [facility] Address [address] [place] [id number] Care Team Providers Care Vendor Management Associate Name Role Phone Memo Dubon Primary Care Provider [phone] [address] Unavailable [phone] González Reilly Unavailable [phone] Rose Mary Soto Unavailable [phone] Allergies Allergen (clinical drug ingredient) Drug/Non Drug Allergy documented on EMR Reaction Allergy Type Onset Date Status dapagliflozin Farxiga hypotension Drug Allergy A ctive glimepiride Glimepiride headache Drug Allergy Act guerrero empagliflozin Jardiance hypotension Drug Allergy A ctive linagliptin Tradjenta rapid heart rate Drug Allergy Active hydrocodone HYDROcodone dizzy Drug Allergy Act guerrero Results Component Value Reference Range Notes CBC Fingerstick (in house) Reviewed date:01/24/2025 03:31:37 PM Interpretation: Performing Lab: Notes/Report: wbc 8.3 3.5 - 10 lym 21.3 15 - 50 mid 6.6 2 - 15 gran 72.1 35 - 80 rbc 4.45 3.5 - 5.5 hgb 13.6 11.5 - 16.5 hct 41.4 35 - 55 mcv 93.1 75 - 100 mch 30.7 25 - 35 mchc 32.9 31 - 38 plat 135 100 - 400 Urinalysis - Inhouse Reviewed date:11/24/2024 09:05:01 AM Interpretation: Performing Lab: Notes/Report: Color/Clarity yellow/clear Leuk Trace Nitrite Neg Urobili 3.2 Protein Neg pH 6.5 Blood Neg Sp. Gr. 1.010 Ketone Neg Bili Neg Gluc 3+ P-Culture, Urine Reviewed date:12/02/2024 08:20:41 AM Interpretation:No growth Performing Lab: Notes/Report: CLIA: [id number] Dustin Hunter MD, Assistant Guest Services Manager [facility] , [address], [place] [address] Test performed by [employer] Specimen Source Urine - Void Culture, Urine See Below Final Report : No growth CBC Fingerstick (in house) Reviewed date:04/19/2025 01:37:39 PM Interpretation: Performing Lab: Notes/Report: wbc 9.3 3.5 - 10 lym 17.4 15 - 50 mid 4.4 2 - 15 gran 78.2 35 - 80 rbc 4.11 3.5 - 5.5 hgb 12.3 11.5 - 16.5 hct 38.1 35 - 55 mcv 92.6 75 - 100 mch 30.0 25 - 35 mchc 32.4 31 - 38 plat 109 100 - 400 CBC Venipuncture (in house) Reviewed date:08/25/2024 09:51:28 AM Interpretation:Normal Performing Lab: Notes/Report: Normal wbc 7.2 3.5 - 10 lymph 24.6 15 - 50 mid 6.7 2 - 15 gran 68.7 35 - 80 rbc 4.57 3.5 - 5.5 hgb 13.6 11.5 - 16.5 hct 41.3 35 - 55 mcv 90.4 75 - 100 mch 29.7 25 - 35 mchc 32.9 31 - 38 platlet 181 100 - 400 Glycohemoglobin A1c (in hous e) Reviewed date:08/24/2024 03:05:56 PM Interpretation:7.1% Performing Lab: Notes/Report: 7.1% glycohemoglobin 7.1% 5 - 6.5 % P-Comprehensive Metabolic Pa josiane (CMP) Reviewed date:08/29/2024 10:44:59 PM Interpretation:gluc 161 Performing Lab: Notes/Report: Test performed by [employer] [facility] , [place] [address] Dustin Hunter MD, Assistant Guest Services Manager CLIA: [id number] Sodium 138 135-145 mmol/L Potassium 4.7 3.5-5.3 mmol/L Chloride 103 97-108 mmol/L CO2 22 22-32 mmol/L Glucose 161 65-99 mg/dL BUN 13 8-23 mg/dL Creatinine 1.05 0.70-1.30 mg/dL Calcium 9.4 8.6-10.4 mg/dL eGFR by Creatinine 68 >59 mL/min/1.73m2 Protein 6.2 6.0-8.3 g/dL Albumin 4.3 3.5-5.3 g/dL Alkaline Phosphatase 69 40-129 IU/L ALT (SGPT) 30 <5-55 IU/L AST (SGOT) 20 <5-46 IU/L Bilirubin, Total 0.5 <0.2-1.2 mg/dL A/G Ratio 2.3 1.1-2.5 Medications Medication SIG (Take, Route, Frequency, Duration) Notes Start Date End Date Status Cefuroxime Axetil 500 MG 1 tablet Orally every 12 hrs; Duration: 5 day(s) 04/19/2025 Active Hydrocortisone 1 % 1 application to pretty ateral lower legs Externally Once a night; Duration: 30 days 01/24/2025 Activ e Triamcinolone Acetonide 0.1 % 1 lorenza applied topically bid 07/19/2021 Active Xarelto 2.5 MG 1 tab(s) orally 2 ti mes a day; Duration: 90 days Active Flonase Allergy Relief 50 MCG/ACT 1 spray in each nostril Nasally Twice a day; Duration: 30 day(s) 01/24/2025 Active Cosopt 22.3-6.8 MG/ML 1 gtt in each eye BID; Duration: 30 day(s) Active Lyrica 200 MG 1 cap(s) orally 2 ti mes a day; Duration: 90 days 02/18/2025 Active Vitamin C 1000 MG 1 tab(s) orally once a day; Duration: 30 day(s) Active Flomax 0.4 MG 2 cap(s) orally once daily; Duration: 90 days Active Lumigan 0.01 % 1 gtt in left eye on ce a day (in the evening) Active Vitamin D3 50 MCG (2000 UT) 1 tab(s) orally once a day 04/08/2018 A ctive NYSTATIN TOPICAL 100,000 units/g 1 lorenza applied topically 2 times a day 07/17/2021 Active Plavix 75 MG 1 tab(s) orally once a day; Duration: 90 days Active Potassium Chloride ER 10 MEQ 1 cap(s) Orally Twice a day; Duration: 90 days Active metFORMIN HCl 850 MG 1 tab(s) orally 2 t imes a day; Duration: 90 days Active Farxiga 5 MG 1 tab(s) orally once a day; Duration: 90 days Active Lipitor 40 MG 1 tab(s) orally once daily; Duration: 90 days Active Metoprolol Tartrate 25 MG 1/2 tablet Ora lly Twice a day; Duration: 90 days Active EASY TOUCH TEST STRIPS 1 TEST STRIP(S) FINGERSTICK TEST 2 TIMES A DAY; Duration: 30 DAYS Active EASY TOUCH MONITOR 1 GLUCOMETER TEST 2 TIMES A DAY; Duration: 30 DAYS 03/19/2021 Active BD PEN NEEDLE 29G X5/16 (AUTOSHIELD) - SUBCUTANEOUSLY QD 03/08/2021 Active TRUEplus Lancets 30G - USE TO test blood sugar TWICE DAILY; Duration: 50 Active EASY TOUCH LANCETS 1 LANCET(S) FINGERST ICK TEST 2 TIMES A DAY; Duration: 30 DAYS 09/20/2016 Active Bumetanide 0.5 MG 1 tab(s) orally once daily prn swelling Active BD AutoShield Duo 30G X 5 MM USE SUBCUTANEOUSLY ONCE DAILY DIRECTED; Duration: 100 Active Lisinopril 10 MG 1 tab(s) Orally once a day Active Tresiba FlexTouch 100 UNIT/ML 40 units Subcutaneous daily; Duration: 37 days Active Pantoprazole Sodium 40 MG 1 tab(s) Orall y Once a day; Duration: 90 days Active Immunizations Vaccine Route Administration Date Status Comme nts COVID 19 Moderna Unknown 01/03/2021 Administered COVID 19 Moderna Unknown 02/14/2021 Administered COVID 19 Moderna Unknown 10/17/2021 Administered COVID 19 Moderna Unknown 04/15/2022 Administered Fluzone High Dose (65yr and older) IM Intramuscular 09/09/2013 Administered Fluzone High Dose (65yr and older) IM Intramuscular 10/05/2014 Administered Fluzone High Dose (65yr and older) IM Intramuscular 09/28/2015 Administered Fluzone High Dose (65yr and older) IM Intramuscular 09/24/2016 Administered Fluzone High Dose (65yr and older) IM Intramuscular 10/08/2017 Administered Fluzone High Dose (65yr and older) IM Intramuscular 09/01/2018 Administered Fluzone High Dose (65yr and older) IM Intramuscular 10/18/2019 Administered Fluzone High Dose (65yr and older) IM Intramuscular 08/25/2020 Administered Fluzone High Dose (65yr and older) IM Intramuscular 09/20/2021 Administered Fluzone High Dose (65yr and older) IM Intramuscular 08/19/2022 Administered Fluzone High Dose (65yr and older) IM Intramuscular 09/23/2023 Administered Fluzone High Dose (65yr and older) IM Intramuscular 08/24/2024 Administered PNEUMOVAX 23 VACCINE IM Intramuscular 10/15/2011 Administe red Prevnar (PCV13) IM Intramuscular 05/30/2017 Administered Prevnar (PCV20) IM Intramuscular 09/23/2023 Pending Prevnar (PCV20) Unknown 07/14/2025 Pending xFlu shot-36 months and older IM Intramuscular 10/07/2005 Administered xFlu shot-36 months and older IM Intramuscular 10/10/2006 Administered xFlu shot-36 months and older IM Intramuscular 10/08/2007 Administered xFlu shot-36 months and older IM Intramuscular 10/07/2008 Administered xFlu shot-36 months and older IM Intramuscular 11/28/2009 Administered xFlu shot-36 months and older IM Intramuscular 10/19/2010 Administered sUwnbjig-dhwxompou-zlkmmsv e pts. IM Intramuscular 10/15/2011 Administered tHbqwdkl-plapgqslk-qrbargp e pts. IM Intramuscular 10/13/2012 Administered Problems Problem Type SNOMED Code ICD Code Onset Dates Problem Status W/U Status Risk Notes Problem Gastroesophageal reflux disease (040659241) GERD (gastroesophagea l reflux disease) (K21.9) Active confirmed Problem Sciatica (45860698) Sciatica (M54.30) Active confirmed Problem Venous insufficiency of leg (disorder) (427202225) Venous insufficiency (I87.2) Active confirmed Problem Hypertension (98311915) Hypertension (I10) Active confirmed Problem Paresthesia (82773985) Paresthesia (R20.2) Active confirmed Problem Obese class I (178488859491264) BMI 33.0-33.9,adult (Z68.33) Active confirmed Problem Pressure injury (morphologic abnormality) (9162495735) Decubitus ulcer (L89.90) Active confirmed Problem Dysphagia (25050403) Dysphagia (R13.10) Active confirmed Problem Chronic pain syndrome (375741215) Chronic pain syndrome (G89.4) Active confirmed Problem Peripheral venous insufficiency (62545017) Venous insufficiency (chronic) (peripheral) (I87.2) Active confirmed Problem Lower urinary tract symptoms due to benign prostatic hypertrophy (16687077715765) Enlarged prostate with lower urinary tract symptoms (N40.1) Active confirmed Problem Chronic pain (86487253) Other chronic pain (G89.29) Active confirmed Problem Atresia and stenosis of aorta (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) Aortic stenosis (Q25.3) Active confirmed Problem Pressure injury of buttock (disorder) (809226401) Pressure sore on buttocks (L89.309) Active confirmed Problem Body mass index 30.00 to 34.99 (733806187370655) BMI 34.0-34.9,adult (Z68.34) Active confirmed Problem Dyslipidemia (999411983) Dyslipidemia (E78.5) Active confirmed Problem Allergic rhinitis caused by pollen (04082014) Seasonal allergic rhinitis due to pollen (J30.1) Active confirmed Problem Peripheral vascular disease (906139325) PAD (peripheral artery disease) (I73.9) Active confirmed Problem Type 2 diabetes mellitus with peripheral angiopathy (864924139) Type 2 diabetes mellitus with diabetic peripheral angiopathy without gangrene, without long-term current use of insulin (E11.51) Active confirmed Problem Degenerative disc disease (21174266) DDD (degenerative disc disease), lumbar (M51.36) Active confirmed Problem Lower urinary tract symptoms due to benign prostatic hypertrophy (95924598319679) Benign prostatic hyperplasia with lower urinary tract symptoms (N40.1) Active confirmed Problem Lumbosacral spondylosis without myelopathy (30047128) DJD (degenerative joint disease), 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) Active confirmed Vital Signs Heart Rate 70 /min 04/19/2025 Blood pressure diastolic 60 mm Hg 04/19/2025 Height 68 in 04/19/2025 Blood pressure systolic 128 mm Hg 04/19/2025 Weight 222.2 lbs 04/19/2025 BMI 33.78 kg/m2 04/19/2025 Encounters Encounter Location Date Provider Diagnosis [facility] [address], [place] [id number] 08/24/2024 R Jamar Jagdish Sciatica M54.30 ; Dyslipidemia E78.5 ; Type 2 diabetes mellitus with diabetic peripheral angiopathy without gangrene, without long-term current use of insulin E11.51 ; Hypertension I10 and Encounter for immunization Z23 [facility] [address] [place], [place] [id number] 11/23/2024 R Jamar Jagdish Muscle strain T14.8X XA ; Flank pain R10.9 and Pyuria N39.0 [facility] [address] [place], [place] [id number] 01/04/2025 R Jamar Jagdish Chest wall pain R07. 89 [facility] [address] 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 [address] [place], [place] [id number] 04/19/2025 Rose Mary Soto Acute bronchitis J20 .9 [facility] [address] [place], [place] [id number] 07/28/2025 R Jamar Jagdish [facility] [address] [place], [place] [id number] 08/29/2024 R Jamar Jagdish [facility] [address] [place], [place] [id number] 09/02/2024 R Jamar Jagdish [facility] [address] [place], [place] [id number] 10/01/2024 R Jamar Jagdish [facility] [address] [facility] [address] [place], [place] [id number] 10/11/2024 R Jamar Jagdish [facility] [address] [facility] [address] [place] [id number] 11/11/2024 R Jamar Jagdish Type 2 diabetes mellitus with diabetic peripheral angiopathy without gangrene, without long-term current use of insulin E11.51 ; PAD (peripheral artery disease) I73.9 and Candidiasis, urogenital B37.49 [facility] [address] [facility] [address] [place], [place] [id number] 01/03/2025 R Jamar Jagdish [facility] [address] [facility] [address] [place], [place] [id number] 02/15/2025 R Jamar Jagdish PAD (peripheral juan j ry disease) I73.9 ; Abdominal pain R10.9 and Sciatica M54.30 [facility] [address] [facility] [address] [place], [place] [id number] 04/05/2025 R Jamar Jagdish [facility] [address] [facility] [address] [place], [place] [id number] 04/29/2025 R Jamar Jagdish GERD (gastroesophage al reflux disease) K21.9 [facility] [address] [place], [place] [id number] 05/05/2025 R Jamar Jagdish GERD (gastroesophage al reflux disease) K21.9 and Type 2 diabetes mellitus with diabetic peripheral angiopathy without gangrene, without long-term current use of insulin E11.51 [facility] [address] [facility] [address] [place] [id number] 05/18/2025 R Jamar Jagdish Hypertension I10 [facility] [address] [facility] [address] [place] [id number] 05/26/2025 R Jamar Jagdish 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9) 11/23/2024 Muscle strain (ICD-10 - T14.8XXA) Apply moist heat. Tylenol as needed. 01/04/2025 Chest wall pain (ICD-10 - R07.89) If symptoms persist, will proceed with imaging 01/24/2025 Cellulitis (ICD-10 - L03.90) to apply hydrocortisone cream to areas on lower legs at night and cover with saran wrap and the high socks; remove in AM 01/24/2025 Sinus drainage (ICD-10 - J34.89) will not use antihistamines or cold med due to PAF versus PAT; will try Flonase; demonstrated how to use; am concerned that sinus drainage may be reflux; suggested he eat a bland diet and sleep on more than 1 pillow 02/15/2025 PAD (peripheral artery disease) (ICD-10 - I73.9) 04/07/2025 Hypertension (ICD-10 - I10) He will double up on the 5 mg tablets he has at home until gone 04/07/2025 Aortic stenosis (ICD-10 - Q25.3) 04/19/2025 Acute bronchitis (ICD-10 - J20.9) fluids, rest, supportive measures for fever/symptom relief 04/29/2025 GERD (gastroesophagea l reflux disease) (ICD-10 - K21.9) 05/05/2025 GERD (gastroesophagea l reflux disease) (ICD-10 - K21.9) 05/18/2025 Hypertension (ICD-10 - I10) 05/26/2025 Type 2 diabetes mellitus with diabetic peripheral angiopathy without gangrene, without long-term current use of insulin (ICD-10 - E11.51) 06/23/2025 PAD (peripheral artery disease) (ICD-10 - I73.9) 05/05/2025 Type 2 diabetes mellitus with diabetic peripheral angiopathy without gangrene, without long-term current use of insulin (ICD-10 - E11.51) 11/11/2024 PAD (peripheral artery disease) (ICD-10 - I73.9) 04/07/2025 GERD (gastroesophagea l reflux disease) (ICD-10 - K21.9) 02/15/2025 Abdominal pain (ICD-10 - R10.9) 11/23/2024 Pyuria (ICD-10 - N39.0) 08/24/2024 Type 2 diabetes mellitus with diabetic peripheral angiopathy without gangrene, without long-term current use of insulin (ICD-10 - E11.51) 08/24/2024 Hypertension (ICD-10 - I10) 11/11/2024 Candidiasis, urogenital (ICD-10 - B37.49) 02/15/2025 Sciatica (ICD-10 - M54.30) 04/07/2025 Type 2 diabetes mellitus with diabetic peripheral angiopathy without gangrene, without long-term current use of insulin (ICD-10 - E11.51) 04/07/2025 PAD (peripheral artery disease) (ICD-10 - I73.9) 08/24/2024 Encounter for immunization (ICD-10 - Z23) 04/07/2025 Dyslipidemia (ICD-10 - E78.5) 04/07/2025 BMI 33.0-33.9,adult (ICD-10 - Z68.33) Plan Of Treatment Next Appt Details Provider Name:Memo Orellana, 07/28/2025 01:03:00 PM, [address], [place], [id number], Insurance Providers Payer Name Payer Address Payer Phone Subscriber Number Group Number Insured Name Patient Relationship to Insured Coverage Start Date Coverage End Date MEDICARE PART B [address] [address] [place] [address] [id number] EASTON BEMOND Self - patient is the insured [facility] CARE OPTIONS [address] [place] [id number] DENNY BE Self - patient is the insured Medications Administered Medication Instructions Date of Administration Dosage Notes celestone 01/28/2022 1 mL Depo- Medrol 40 mg/ml 06/17/2011 1 mg Depo- Medrol 40 mg/ml 07/14/2015 1 mL Depo- Medrol 40 mg/ml 09/24/2016 1.5 mL Depo- Medrol 40 mg/ml 09/27/2016 1.5 mL Depo- Medrol 40 mg/ml 02/06/2017 1.5 mL Depo- Medrol 40 mg/ml 02/17/2017 1.5 mL Depo- Medrol 40 mg/ml 03/18/2017 1 mL Depo- Medrol 40 mg/ml 05/06/2017 1.5 mL Depo- Medrol 40 mg/ml 07/04/2017 1.5 mL Depo- Medrol 40 mg/ml 11/28/2017 1.5 mL Depo- Medrol 40 mg/ml 12/08/2017 1 mL Depo- Medrol 40 mg/ml 04/13/2019 1.5 mL Depo- Medrol 40 mg/ml 04/19/2019 1.5 mL Depo- Medrol 40 mg/ml 05/10/2019 1 mL Depo- Medrol 40 mg/ml 06/24/2019 1 mL Depo- Medrol 40 mg/ml 07/08/2019 1 mL Depo- Medrol 40 mg/ml 08/20/2019 1 mL Depo- Medrol 40 mg/ml 10/13/2019 1 mL Depo- Medrol 40 mg/ml 06/27/2020 1 mL Depo- Medrol 40 mg/ml 07/03/2020 1 mL Depo- Medrol 40 mg/ml 07/10/2020 1 mL Depo- Medrol 40 mg/ml 05/13/2022 1 mL Depo- Medrol 40 mg/ml 02/18/2023 1 mL Depo- Medrol 40 mg/ml 06/17/2023 1 mL Depo- Medrol 40 mg/ml 07/29/2023 1.5 mL Depo- Medrol 40 mg/ml 11/23/2024 1.5 mL Dexamethasone 10/12/2005 0.5 mL Dexamethasone 04/21/2006 1 mL Dexamethasone 04/24/2006 Dexamethasone 07/29/2006 1 mL Dexamethasone 08/01/2006 1 mL Dexamethasone 11/18/2006 1 mL Dexamethasone 01/26/2008 1 mL Dexamethasone 11/03/2008 1 mL Dexamethasone 02/11/2009 1 mL Dexamethasone 11/14/2009 1 mL Dexamethasone 02/15/2010 1 mL Dexamethasone 01/20/2012 1 mL Dexamethasone 01/22/2012 1 mL Dexamethasone 01/25/2012 1 mL Dexamethasone 07/30/2012 1 mL Dexamethasone 10/23/2012 Dexamethasone 01/19/2013 1 mL Dexamethasone 01/22/2013 Dexamethasone 10/01/2013 1 mL Dexamethasone 10/04/2013 Dexamethasone 08/29/2014 1 mL Dexamethasone 09/01/2014 1 mL Dexamethasone 09/05/2015 1 mL Dexamethasone 03/21/2016 1 mL Dexamethasone 03/23/2016 1 mL Dexamethasone 03/26/2016 1 mL Dexamethasone 03/21/2017 1 mL Dexamethasone 05/12/2017 1.5 mL Dexamethasone 05/19/2017 1 mL Dexamethasone 09/25/2017 1 mL Dexamethasone 12/17/2018 1 mL Dexamethasone 12/21/2018 1 mL Dexamethasone 07/20/2019 1 mL Dexamethasone 08/05/2023 1 mL Medical (General) History Medical History History ICD Code Type 2 Diabetes Hypertension glaucoma Hyperlipidemia BPH Multilevel lumbar spinal stenosis Chronic low back pain Declines colon screening Vitamin D deficiency Echo 04/14/2020 - Diastolic dysfunction; Mild PAD Echo 01/2023 - severe / Dr. Garcia P at fib Surgical History Surgery Date(Month/Year) Lower Back 1996 bilateral cataract 10/2011 Angioplasty and stents to bi lateral common iliac arteries and bilateral external iliac arteries/ Dr. Garcia 03/2021 Cholecystectomy - [facility] 04/11/2024 TAVR - [facility]/ Dr. Palomo 03/17/25 Permanent pacemaker 03/18/2025 Hospitalization History Reason Date(Month/Year) rt leg pain 09/09/23 [facility] ER - Pain 02/08/2023 [facility] - PAD and cellulitis of legs 03/20/21 [facility] ER - weakness, malaise 02/21/21 [facility] - cellulitis of legs 01/22/21-02/02/21 kidney stones 08/05
--- OUTSIDE RECORDS SUMMARY | 2025-07-28 13:38 | XMS_ITS | Encounter Summary ---
Author Organization [facility] Address [address] [place] [address] Care Team Providers Care Plate Stacker Name Role Phone Jeremie Palomo MD Unavailable [phone] Tye Dubon MD Primary Care Provider [phone] Encounter Details Date Type Department Care Team (Latest Contact Info) Description 06/14/2025 Travel Social History Tobacco Use Types Packs/Day Years [...] [facility], [address] [place] [id number] 03/22/2026 3:00 PM EDT Office Visit [facility] [place] [address] [facility], [address] [place] [phone] Janny Root PA [address] [place] [address] documented as of this encounter [...] documented as of this encounter Care Teams Plate Stacker Relationship Specialty Start Date End Date Tye Dubon MD [address] [place] [address] PCP - General 04/22/25 Jeremie Palomo MD [address] [place] [address] Consulting Physician Interventional Cardiology 02/02/25 documented as of this encounter
--- OUTSIDE RECORDS SUMMARY | 2025-07-28 13:38 | XMS_ITS | Encounter Summary ---
Author Organization [facility] Address [address] [place] [address] Care Team Providers Care Dividend Deposit Voucher Clerk Name Role Phone Jeremie Palomo MD Unavailable [phone] Tye Dubon MD Primary Care Provider [phone] Encounter Details Date Type Department Care Team (Latest Contact Info) Description 06/21/2025 Travel Social History Tobacco Use Types Packs/Day [...] Medical Office Building Echo Lab [address] [facility], [address] [place] [phone] 03/22/2026 3:00 PM EDT Office Visit [facility] [place] [address] [facility], [address] [place] [phone] Janny Root PA [address] [place] [address] documented as of this encounter [...] documented as of this encounter Care Teams Dividend Deposit Voucher Clerk Relationship Specialty Start Date End Date Tye Dubon MD [address] [place] [address] PCP - General 04/22/25 Jeremie Palomo MD [address] [place] [address] Consulting Physician Interventional Cardiology 02/02/25 documented as of this encounter
--- OUTSIDE RECORDS SUMMARY | 2025-07-28 13:39 | XMS_ITS | Encounter Summary ---
Author Organization [employer] ([place], [place], [place], [place]) Address [address] [place] [address] Care Team Providers Care Forge Tender Name Role Phone Unavailable Primary Care Provider Unavailabl e Encounter Details Date Type Department Care Team (Late st Contact Info) Description 01/13/2020 Transcribed Document [facility] [place] [facility] [place] [address] ProviderEnrique MD [address] [place] [address] Social History Tobacco Use Types Packs/Day Years Used Date Smoking Tobacco: Never Assessed Sex and Gender Information Value Date Recorded Sex Assigned at Male 05/28/2022 1:46 PM CDT Legal Sex Male 1:46 PM CDT Gender Identity Male 05/28/2022 1:46 PM CDT Sexual Orientation Not on file documented as of this encounter Miscellaneous Notes * Cerner Conversion Note - Historical ProviderMD - 01/13/2020 4:17 PM DIPLOMA MEDICAL ASSISTANT Patient: DENNY BE JR Age: 84 Years Sex: Male : 1935 FOLLOWUP DATE OF SERVICE: 01/10/2020 CHIEF COMPLAINT: Left leg pain. HISTORY OF PRESENT ILLNESS: The patient is an 84-year-old male who returns to clinic today with a 6-year history significant for left lower extremity pain. The patient states that he had had a significant fall while going into a local grocery with resultant traumatic injury to the patient's posterior thigh (left lower extremity). He states since that fall, that his low back pain is still somewhat problematic, but the leg pain is now resolved. I had seen this individual and scheduled him for physical therapy for the leg; however, he states he does not require that at this time. He feels that the Belbuca was written, he filled it, but he did not start the medicine secondary to not needing it secondary to the improvement of his pain since he had the fall. He does have questions about utilizing a cane as well as some other assistive devices for his back and legs. He describes his pain level today as 0/10 on the numerical pain scale rating. His pain is typically aggravated with bending at the waist. He does get relief with Lyrica as well as the application of heat. The patient reports 90% improvement of the pain at this time without doing anything. We had written Belbuca 75 mcg that he could utilize buccally b.i.d., he does not require the medicine at this time. He has filled it, but he has not used it per his report. He takes no medications from our facility at this time. Nursing intake was reviewed and on today's visit, this individual has a BP 145/79, HR 72, respirations 18, oxygen saturation is 97% on room air. The patient is 5'7 tall and weighs 240 pounds. HISTORY: Allergies: Latex Social History: Marital status: . Current work status: Retired. Current tobacco use: Denied Illicit drug use: Denied Alcohol use: Denied Caffeine use: Caffeine use is daily. Past Medical History: Positives include type 2 diabetes, glaucoma, hypertension, hyperlipidemia, kidney stones, prostate enlargement. Past Surgical History: Cataract surgery, spinal surgery to the lumbar spine. Past Family History: This individual has a history of cancer, type 2 diabetes, strokes, heart disease in his family. REVIEW OF SYSTEMS: The patient's ten-system review of systems was reviewed. On today's visit, this individual complains of the following: General: Weight gain. Musculoskeletal: Back pain, muscle aches and pain. Hematology: Easy bruising. All other systems reviewed and were found to be negative. PHYSICAL EXAMINATION: Vital signs: Reviewed today. Constitutional: Conversant. Well nourished. Psychiatric: Alert and oriented to self, time and place today. Normal mood and affect at today's visit. There is no evidence of depression on the depression questionnaire completed today. Physical examination is deferred. MEDICAL DECISION MAKING: JESÚS report is appropriate on review today. ASSESSMENT: 1. Chronic pain syndrome. 2. Lumbar degenerative disc disease. 3. Postlaminectomy pain syndrome lumbar spine. 4. Lumbar spondylosis. 5. Lumbar facet arthropathy. 6. Lumbar radiculitis involving the left lower extremity. CURRENT PLAN: I am going to continue this individual on her current medication regimen from our facility at this time. We are going to hold the Belbuca; he does not require the medicine at this time. He is undergoing a urine tox screen today to confirm compliance with medication management from our facility. This individual did request a four-prong cane which I will write for him at today's visit as well as a raised commode seat. We will see the patient back in clinic in six months for a followup appointment. He will contact our office if he requires our assistance if his pain should happen to return prior to that time. Gonzálze Steele PA-C documented in this encounter Plan of Treatment Not on file documented as of this encounter Visit Diagnoses Not on filedocumented in this encounter
--- OUTSIDE RECORDS SUMMARY | 2025-07-28 13:39 | XMS_ITS | Encounter Summary ---
Author Organization [facility] Address [address] [place] [address] Care Team Providers Care Baling Machine Operator Name Role Phone Jeremie Palomo MD Unavailable [phone] Tye Dubon MD Primary Care Provider [phone] Encounter Details Date Type Department Care Team (Latest Contact Info) Description 06/22/2025 Travel Social History Tobacco Use Types Packs/Day [...] on file documented as of this encounter Functional Status * Over the past 2 weeks, how often have you been bothered by any of the following problems? Question Answer Date of Assessment Author Little interest or pleasure in doing things Not at all 06/22/2025 1:02 PM Bre Hunter Feeling down, depressed, or hopeless Not at all 06/22/2025 1:02 PM Bre Hunter Patient Health Questionnaire -2 Score 0 06/22/2025 1:02 PM Bre Hunter * Question Answer Date of Assessment Author Trouble falling or staying asleep, or sleeping too much Not at all 06/22/2025 1:02 PM Bre Hunter Feeling tired or having adonis le energy Not at all 06/22/2025 1:02 PM Bre Hunter Poor appetite or overeating Not at all 06/22/2025 1: 02 PM Bre Hunter Feeling bad about yourself - or that you are a failure or have let yourself or your family down Not at all 06/22/2025 1:02 PM Bre Andrews Trouble concentrating on thi ngs, such as reading the newspaper or watching television Not at all 06/22/2025 1:02 PM Bre Hunter Moving or speaking so slowly that other people could have noticed? Or the opposite - being so fidgety or restless that you have been moving around a lot more than usual. Not at all 06/22/2025 1:02 PM Bre Hunter Thoughts that you would be better off or hurting yourself in some way Not at all 06/22/2025 1:02 PM Bre Hunter Patient Health Questionnaire -9 Score 0 06/22/2025 1:02 PM Bre Hunter * If you checked off any problems on this questionnaire so far, Question Answer Date of Assessment Author How difficult have these problems made it for you to do your work, take care of things at home, or get along with other people? Not difficult at all 06/22/2025 1:02 PM Bre Hunter documented as of this encounter Plan of Treatment Upcoming Encounters Date Type Department Care Team (Late st Contact Info) Description 03/22/2026 2:00 PM EDT Appointment Medical Office Building Cardiac Diagnostic Testing Medical Office Building Echo Lab [address], [address] [place] [phone] 03/22/2026 3:00 PM EDT Office Visit [facility] [place] [address], [address] [place] [phone] Janny Root PA [address] [place] [address] documented as of this encounter [...] documented as of this encounter Care Teams Baling Machine Operator Relationship Specialty Start Date End Date Tye Dubon MD [address] [place] [address] PCP - General 04/22/25 Jeremie Palomo MD [address] [place] [address] Consulting Physician Interventional Cardiology 02/02/25 documented as of this encounter
--- OUTSIDE RECORDS SUMMARY | 2025-07-28 13:39 | XMS_ITS | Encounter Summary ---
Author Organization [email or web address] ([place], [place], [place], [place]) Address [address] [place] [address] Care Team Providers Care Web Search Evaluator Name Role Phone Unavailable Primary Care Provider Unavailabl e Encounter Details Date Type Department Care Team (Late st Contact Info) Description 03/26/2019 Transcribed Document [facility] [place] [facility] [place] [address] ProviderEnrique MD [address] [place] [address] Social History Tobacco Use Types Packs/Day Years Used Date Smoking Tobacco: Never Assessed Sex and Gender Information Value Date Recorded Sex Assigned at Male 05/28/2022 1:46 PM CDT Legal Sex Male 1:46 PM CDT Gender Identity Male 05/28/2022 1:46 PM CDT Sexual Orientation Not on file documented as of this encounter Miscellaneous Notes * Cerner Conversion Note - Enrique ProviderMD - 03/26/2019 10:28 AM CDT Patient: DENNY BE JR Age: 83 years Sex: Male : 1935 Associated Diagnoses: None Author: JACQUELYN MANZO II, MD-ANS Procedure: Left L4 Lumbar Transforaminal Pre-Procedure Diagnosis: Lumbar Radiculitis to left lower extremity Post-Procedure Diagnosis: Same Anesthesia: Local (1% Lidocaine) only Complications: none Fluoroscopy: 1.23 Descriptions of Procedure: Risk and benefits were explained. An informed consent was obtained. The patient was taken to the procedure room and placed in a prone position and the area was prepped and draped in a sterile fashion. Landmarks were identified. A lidocaine skin wheal was raised over the inferior portion of the pedicle at L4 on the left. I then used a 22g six inch Chiba needle directed under fluoroscopic guidance across the superior portion of the neuroforamin. I did not elicit a parasthesia, but I did make contact with the vertebral body. A lateral x-ray was taken to confirm needle placement. I then injected a small amount of radiocontrast for a positive epidurogram. I injected 40mg Depo Medrol and .5ml of 0.5% Ropivicaine diluted with .5ml PF normal saline. The patient tolerated the procedure well and was transported to the post procedure area in stable condition. documented in this encounter Plan of Treatment Not on file documented as of this encounter Visit Diagnoses Not on filedocumented in this encounter
--- OUTSIDE RECORDS SUMMARY | 2025-07-28 13:39 | XMS_ITS | Clinical Summary ---
Author Organization [employer] ([place], [place], [place], [place]) Address [address] [place] [address] Care Team Providers Care Mother Baby Rn Name Role Phone Unavailable Primary Care Provider Unavailabl e Social History Tobacco Use Types Packs/Day Years Used Date Smoking Tobacco: Never Assessed Sex and Gender Information Value Date Recorded Sex Assigned at Male 05/28/2022 1:46 PM CDT Legal Sex Male 1:46 PM CDT Gender Identity Male 05/28/2022 1:46 PM CDT Sexual Orientation Not on file Plan of Treatment Not on file
--- OUTSIDE RECORDS SUMMARY | 2025-07-28 13:39 | XMS_ITS | Encounter Summary ---
Author Organization [employer] ([place], [place], [place], [place]) Address [address] [place] [address] Care Team Providers Care Loading Machine Operator Helper Name Role Phone Unavailable Primary Care Provider Unavailabl e Encounter Details Date Type Department Care Team (Late st Contact Info) Description 11/26/2019 Transcribed Document [facility] [place] Family Medicine [facility] [place] [address] ProviderEnrique MD [address] [place] [address] Social History Tobacco Use Types Packs/Day Years Used Date Smoking Tobacco: Never Assessed Sex and Gender Information Value Date Recorded Sex Assigned at Male 05/28/2022 1:46 PM CDT Legal Sex Male 1:46 PM CDT Gender Identity Male 05/28/2022 1:46 PM CDT Sexual Orientation Not on file documented as of this encounter Miscellaneous Notes * Cerner Conversion Note - Historical ProviderMD - 11/26/2019 2:05 PM GEOSPATIAL SCIENTIST Patient: DENNY BE JR Age: 83 Years Sex: Male : 1935 FOLLOWUP DATE OF SERVICE: 11/15/2019 CHIEF COMPLAINT: Low back pain, left leg pain. HISTORY OF PRESENT ILLNESS: The patient is an 83-year-old male who returns to the clinic today with a 6-year history significant for low back pain with left lower extremity pain involvement. The patient states that he recently sustained a fall while going into a grocery store several weeks ago. He stepped into the entryway and tripped over a concrete step and pulled the quadricep muscle in his left leg. He describes his pain level today as 4/10 on the numerical pain scale rating. He returns to the clinic today to go over the results of the MRI that we had ordered for him at his last visit. He has a history of previous injective therapy with Dr. Valderrama and then started having exacerbation of his original pain shortly after the last injection. He does not take any medication from our facility at this time. Nursing intake is reviewed and on today's visit this individual has a BP 157/74, heart rate 90, respiratory rate 16, O2 SATs 94% on room air, height 5'7 , weight 240 lb. HISTORY: Allergies: Latex. SOCIAL HISTORY: Marital status: . Current work status: He does not report occupation at this time. Current tobacco use: Denies. Illicit drug use: Denies. Alcohol use: Denies. Caffeine use: Uses daily. Past Medical History: Chickenpox. Type 2 diabetes. Glaucoma. Hypertension. Hyperlipidemia. Kidney stones. Prostate enlargement. Past Surgical History: Spinal surgery of the lumbar spine. Past Family History: Cancer. Type 2 diabetes. Strokes. Heart disease. REVIEW OF SYSTEMS: The patient's ten system Review of Systems was reviewed and at today's visit this individual has complaints of the following: General: Negative. Respiratory: Negative. Neurological: Negative. Gastrointestinal: Negative. Musculoskeletal: Back pain, muscle aches and pains. Cardiovascular: Negative. Psychiatric: Negative. HEENT: Negative. Endocrine: Negative. Hematology: Easy bruising. Skin: Negative. Genitourinary: Negative. PHYSICAL EXAMINATION: Constitutional: Conversant and well-nourished. Vital signs reviewed today. Integumentary: Deferred. HEENT: Deferred. Neck: Deferred. Chest and Lung: Deferred. Cardiovascular: Deferred. Abdomen: Deferred. Peripheral Vascular: Deferred. Neurologic: Deferred. Psychiatric: The patient is alert and oriented to self, time and place today. The patient has a normal mood and affect at today's visit and there is no evidence of depression on the depression questionnaire that was completed today. Musculoskeletal: The patient has an antalgic gait. He utilizes a walker for stability issues. ASSESSMENT: 1. Chronic pain syndrome. 2. Postlaminectomy pain syndrome of the lumbar spine. 3. Lumbar radiculitis 4. Lumbar spondylosis. 5. Lumbar facet arthropathy. 6. Lumbar degenerative disc disease. 7. Bilateral lower extremity pain. 8. Lumbar spinal stenosis. CURRENT PLAN: I am going to start this individual on some Belbuca 75 mcg films that he can utilized buccally twice daily. The patient understands how the medication works, that it is 12-hour time-release medication. His JESÚS report was appropriate upon review today. I am going to order physical therapy to evaluate and treat this individual's lumbar spine as well as bilateral leg pain from the fall that he sustained. He had had the MRI done which we reviewed with him at today's visit utilizing a spine model as well as a dermatomal map to represent his current pathology. We will see the patient back with me in two months for a followup appointment. I want to see how well he can do with the Belbuca. SAM Chavez/jodi Electronically signed by [facility] Conversion Installation & Maintenance Executive Sergey at 03/17/2023 12:10 PM CDT documented in this encounter Plan of Treatment Not on file documented as of this encounter Visit Diagnoses Not on filedocumented in this encounter
--- OUTSIDE RECORDS SUMMARY | 2025-07-28 13:39 | XMS_ITS | Encounter Summary ---
Author Organization [facility] Address [address] [address] Care Team Providers Care Cna Ltc Name Role Phone Jeremie Palomo MD Unavailable [phone] Tye Dubon MD Primary Care Provider [phone] Encounter Details Date Type Department Care Team (Latest Contact Info) Description 06/23/2025 Travel Social History Tobacco Use Types Packs/Day [...] Medical Office Building Echo Lab [address], [address] [place] [phone] 03/22/2026 3:00 PM EDT Office Visit [facility] [place] [address], [address] [place] [phone] Janny Root PA [address] [place] [address] documented as of this encounter [...] documented as of this encounter Care Teams Cna Ltc Relationship Specialty Start Date End Date Tye Dubon MD [address] [place] [address] PCP - General 04/22/25 Jeremie Palomo MD [address] [place] [address] Consulting Physician Interventional Cardiology 02/02/25 documented as of this encounter
--- OUTSIDE RECORDS SUMMARY | 2025-07-28 13:39 | XMS_ITS | Encounter Summary ---
Author Organization [employer] ([place], [place], [place], [place]) Address [address] [place] [address] Care Team Providers Care Healthcare Facility Administrator Name Role Phone Unavailable Primary Care Provider Unavailabl e Encounter Details Date Type Department Care Team (Late st Contact Info) Description 06/08/2019 Transcribed Document [facility] [place] [facility] [place] [address] ProviderEnrique MD [facility] [place] [address] Social History Tobacco Use Types Packs/Day Years Used Date Smoking Tobacco: Never Assessed Sex and Gender Information Value Date Recorded Sex Assigned at Male 05/28/2022 1:46 PM CDT Legal Sex Male 1:46 PM CDT Gender Identity Male 05/28/2022 1:46 PM CDT Sexual Orientation Not on file documented as of this encounter Miscellaneous Notes * Cerner Conversion Note - Historical ProviderMD - 06/08/2019 2:29 PM CDT Patient: DENNY BE JR Age: 83 years Sex: Male : 1935 Associated Diagnoses: None Author: JACQUELYN MANZO II, MD-ANS Procedure: Left L3 and L4 Lumbar Transforaminal Pre-Procedure Diagnosis: Lumbar Radiculitis to left lower extremity Post-Procedure Diagnosis: Same Anesthesia: Local (1% Lidocaine) only Complications: none Fluoroscopy: 1.38 Descriptions of Procedure: Risk and benefits were explained. An informed consent was obtained. The patient was taken to the procedure room and placed in a prone position and the area was prepped and draped in a sterile fashion. Landmarks were identified. A lidocaine skin wheal was raised over the inferior portion of the pedicles at L3, and L4 on the left. I then used a 22g six inch Chiba needle directed under fluoroscopic guidance across the superior portion of the neuroforamin. I did not elicit a parasthesia, but I did make contact with each vertebral body. A lateral x-ray was taken to confirm needle placement. I then injected a small amount of radiocontrast for a positive epidurogram. I injected 40mg Depo Medrol and .5ml of 0.5% Ropivicaine diluted with .5ml PF normal saline at the L3 level and 1ml PF normal saline and 40mg Depo Medrol at the L4 level. The patient tolerated the procedure well and was transported to the post procedure area in stable condition. documented in this encounter Plan of Treatment Not on file documented as of this encounter Visit Diagnoses Not on filedocumented in this encounter
--- OUTSIDE RECORDS SUMMARY | 2025-07-28 13:39 | XMS_ITS | Encounter Summary ---
Author Organization [employer] ([place], [place], [place], [place]) Address [address] [place] [address] Care Team Providers Care Gill Box Fixer Name Role Phone Unavailable Primary Care Provider Unavailabl e Encounter Details Date Type Department Care Team (Late st Contact Info) Description 09/21/2019 Transcribed Document [facility] [place] [facility] [address] ProviderEnrique MD [address] [place] [address] Social History Tobacco Use Types Packs/Day Years Used Date Smoking Tobacco: Never Assessed Sex and Gender Information Value Date Recorded Sex Assigned at Male 05/28/2022 1:46 PM CDT Legal Sex Male 1:46 PM CDT Gender Identity Male 05/28/2022 1:46 PM CDT Sexual Orientation Not on file documented as of this encounter Miscellaneous Notes * Cerner Conversion Note - Historical ProviderMD - 09/21/2019 1:45 PM CDT Patient: DENNY BE JR Age: 83 Years Sex: Male : 1935 FOLLOWUP DATE OF SERVICE: 09/20/2019 CHIEF COMPLAINT: Left leg, left knee, left foot pain. HISTORY OF PRESENT ILLNESS: The patient is an 83-year-old male who returns to the clinic today with a history significant for low back pain and left lower extremity pain. He has been getting left L4 transforaminal epidural steroid injections, approximately nine injections since we have been seeing this individual. He has just completed his last injection on 08/03/[address] Valderrama with the use of fluoroscopy and feels that his pain is now worse since that injection. He states he really hurt me this time . He describes the pain today as a 4/10 on the numerical pain scale rating. He is currently receiving Peg from his primary care physician which has given 50% pain relief for the patient at this time. He describes the pain as being worse with walking and sitting for long durations of time. He does get some relief with a heating pad. He takes no medications from our facility at this time. Nursing intake is reviewed and on today's visit this individual is currently 5'7 and weighs 230 lb. HISTORY: Allergies: Latex. SOCIAL HISTORY: Marital status: . Current work status: He does not report his occupational status. Current tobacco use: Denies. Illicit drug use: [...] individual has complaints of the following: General: Weight gain. Respiratory: Negative. Neurological: Negative. Gastrointestinal: Negative. Musculoskeletal: Back pain, muscle aches and pains. Cardiovascular: Negative. Psychiatric: Negative. HEENT: Negative. Endocrine: Negative. Hematology: Negative. Skin: Negative. Genitourinary: Negative. PHYSICAL EXAMINATION: Constitutional: Conversant and well-nourished. Vital signs reviewed today. Integumentary: Deferred. HEENT: Deferred. Neck: Deferred. Chest and Lung: Deferred. Cardiovascular: Deferred. Abdomen: Deferred. Peripheral Vascular: Deferred Neurologic: The patient has a negative straight leg raise sign bilaterally. He does have presence of absent deep tendon reflexes to the bilateral patellar tendons at today's visit, even with Jendrassik's maneuver. Neuropsychiatric: The patient is alert and oriented to self, time and place today. The patient has a normal mood and affect at today's visit and there is no evidence of depression on the depression questionnaire that was completed today. Musculoskeletal: Deferred. DIAGNOSTIC STUDIES: Not present. ASSESSMENT: 1. Chronic pain syndrome. 2. Lumbar degenerative disc disease. 3. Lumbar radiculitis involving the left lower extremity. 4. Lumbar spinal stenosis. 5. Lumbar spondylosis. 6. Lumbago. PROCEDURE/TEST ORDERED: Not present. CURRENT PLAN: This individual does not want or require medications at today's visit. I am going to go ahead and order an MRI of the patient's lumbar spine to be done with and without contrast as well as doing blood work form BUN/Creatinine levels to monitor renal function while doing the study. I want to see him back with me in two months for a followup appointment. At that time, we will review the results of the study. I am somewhat suspicious that Mr. Be has experienced a disc herniation around the time of having his injective therapy with our facility. We will see him back in the clinic and see how he does with the MRI and then we will again educate this individual as to treatment options that my be of benefit to him. SAM Chavez/jodi documented in this encounter Plan of Treatment Not on file documented as of this encounter Visit Diagnoses Not on filedocumented in this encounter
--- OUTSIDE RECORDS SUMMARY | 2025-07-28 13:39 | XMS_ITS | Encounter Summary ---
Author Organization [employer] ([place], [place], [place], [place]) Address [address] [place] [address] Care Team Providers Care Court Worker Name Role Phone Unavailable Primary Care Provider Unavailabl e Encounter Details Date Type Department Care Team (Late st Contact Info) Description 07/30/2019 Transcribed Document [facility] [place] [facility] [place] [address] ProviderEnrique MD [address] [place] [address] Social History Tobacco Use Types Packs/Day Years Used Date Smoking Tobacco: Never Assessed Sex and Gender Information Value Date Recorded Sex Assigned at Male 05/28/2022 1:46 PM CDT Legal Sex Male 1:46 PM CDT Gender Identity Male 05/28/2022 1:46 PM CDT Sexual Orientation Not on file documented as of this encounter Miscellaneous Notes * Cerner Conversion Note - Historical ProviderMD - 07/30/2019 7:07 AM CDT Patient: DENNY BE JR Age: 83 Years Sex: Male : 1935 DATE OF SERVICE: 07/26/2019 CHIEF COMPLAINT: Back pain. HISTORY OF PRESENT ILLNESS: The patient is an 83 year old male who returns to the clinic for a follow-up on his low back pain that radiates into his left lower extremity. He rates his pain as 7/10 on the pain scale. Quality is aching, burning, radiating, numbness, tingling, dull and sharp. He has had his pain for five years. He has increased pain with activity, decreased pain with heat. He does not receive medications from us. Fall risk information sheet has been provided. ALLERGIES: LATEX. SOCIAL HISTORY: Marital status: . Current work status: Not answered. Current tobacco use: Denied. Illicit drug use: Denied. Alcohol use: Denied. Caffeine use: Drinks caffeine. PAST MEDICAL HISTORY: Positive for chicken pox, diabetes, glaucoma, high blood pressure, high cholesterol, kidney stones, prostate enlargement. PAST SURGICAL HISTORY: Positive for spinal surgery to back. PAST FAMILY HISTORY: Positive for kidney cancer, diabetes, stroke, heart disease. REVIEW OF SYSTEMS: The patient's Ten System Review of Systems was performed: General: Weight gain. Respiratory: Negative. Neurological: Negative. Gastrointestinal: Negative. Musculoskeletal: Back pain, muscle aches and pains. Cardiovascular: Negative. Psychiatric: Negative. HEENT: Negative. Endocrine: Negative. Hematology: Easy bruising. Skin: Negative. Genitourinary: Negative. All other systems reviewed were found to be negative. VITAL SIGNS: Vital signs are reviewed. B/P 123/65, heart rate 65, respiratory rate 16, O2 SATs 97% on room air, height 5???7?? , weight 230 lb. PHYSICAL EXAMINATION: Constitutional: Freely conversant, no acute distress. General: The patient is alert and oriented x3. Normal mood and affect. Integumentary: Deferred. HEENT: Deferred. Neck: Deferred. Chest and Lung: Deferred. Cardiovascular: Deferred. Abdomen: Deferred. Peripheral Vascular: Deferred. Neurologic: Deferred. Neuropsychiatric: Deferred. Musculoskeletal: Deferred. Established patient exam is deferred. DIAGNOSTIC STUDIES: Not present. MEDICAL DECISION MAKING: Stable. JESÚS is reviewed and is appropriate. Patient's medications reviewed. See list in patient's file. ASSESSMENT: Stable. 1. 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 2. Lumbar radiculitis left lower extremity. 3. Lumbar spondylosis. 4. Lumbar spinal stenosis. 5. Lumbar degenerative disc disease. PROCEDURE/TEST ORDERED: Not present. PLAN: The patient is not receiving any medications from us. He was sent to us by Dr. Burnette who did not recommend any surgery secondary to patient being in the early 80s and he gets great benefit from his epidural steroid injections, 1-2 months. He states his last visit they did two levels, L3 and L4 instead of just the L4 and he did not get any better relief with two shots. We just want to stick with the one. Dr. Valderrama has discussed spinal cord stimulators and intrathecal pain pump with him but he is not interested. We are going to get a left L4 lumbar transforaminal epidural steroid injection with fluoro on the afternoon of Friday, August 30, [address] Valderrama. The patient does have radicular pain. I have reviewed his MRI lumbar spine from 04/15/2018 which shows L3-L4 disc osteophyte complex in the foraminal and right lateral region. It is causing moderate right lateral recess narrowing and moderate to severe right-sided foraminal narrowing. This is compressing on the right L4 nerve roots. The patient has been in physical therapy, does do a home exercise program. He has been on anti-inflammatories in the past. He has not had any infectious process, medical complication, unexplained neurological deficits. He has had this pain for five years and in those five years he has failed conservative treatment and says it interferes with his ADLs and his function. He receives Lyrica 100 mg. q.12 hours from another physician. The patient is in agreement with the above plan. We will see this patient back in follow-up in two months. Idalia Phillips M.D. TIMOTEO:carole documented in this encounter Plan of Treatment Not on file documented as of this encounter Visit Diagnoses Not on filedocumented in this encounter
--- OUTSIDE RECORDS SUMMARY | 2025-07-28 13:39 | XMS_ITS | Encounter Summary ---
Author Organization [facility] Address [address] [place] [address] Care Team Providers Care Fund Development Manager Name Role Phone Jeremie Paloom MD Unavailable [phone] Tye Dubon MD Primary Care Provider [phone] Reason for Visit * Reason Onset Date Comments HCN Clinical Concern/Question 05/18/2025 Encounter Details Date Type Department Care Team (Late st Contact Info) Description 05/18/2025 Telephone [facility] [address] [place] [address] Tati Cesar MD [address] [address] HCN Clinical Concern/Question Social History Tobacco Use Types Packs/Day Years [...] encounter Miscellaneous Notes * Telephone Encounter - Reshma Tamez - 05/18/2025 10:09 AM EDT Triage Note 05/18/2025 10:09 AM Patient had sx 05/09. States VA is stable. Denies any worsening vision, pain, flashes, or floaters. Patient currently scheduled 06/14. Asked to keep watch of symptoms and call back with any changes. * Telephone Encounter - Vidya Bowen - 05/18/2025 9:12 AM EDT Clinical Concern/Question Reason for Call: Patient's calling -- says patient is concerned about his vision, and would like for Dr. Cesar to call him to discuss. Best contact number: [phone] (mobile) Optimal time of day to reach caller: ANYTIME Additional comments/information from caller: None Note: Please do not reply to this message. Follow-up communication and further actions as a result of this message need to be communicated with the patient directly, if the patient is not active onMyChart. If the patient is active on MyChart, they will receive notification of the communication/outcome via MyChart. documented in this encounter Plan of Treatment Upcoming Encounters Date Type Department Care Team (Late st Contact Info) Description 03/22/2026 2:00 PM EDT Appointment Medical Office Building Cardiac Diagnostic Testing Medical Office Building Echo Lab [address], [address] [place] [address] 03/22/2026 3:00 PM EDT Office Visit [facility] [place] [address], [address] [place] [address] Janny Root PA [address] [place] [address] documented as of this encounter Visit Diagnoses Not on filedocumented in this encounter Additional Health Concerns Assessment Noted Time PHQ-9 Depression Total Score: 0 05/11/20 3:27 PM EDT A fall risk assessment has been complete d for the patient 05/11/2025 3:26 PM EDT A Body Mass Index follow-up plan has been documented for the patient 05/11/2025 4:01 PM EDT documented as of this encounter Care Teams Fund Development Manager Relationship Specialty Start Date End Date Tye Dubon MD [address] [place] [address] PCP - General 04/22/25 Jeremie Palomo MD [address] [place] [address] Consulting Physician Interventional Cardiology 02/02/25 documented as of this encounter
--- OUTSIDE RECORDS SUMMARY | 2025-07-28 13:39 | XMS_ITS | Encounter Summary ---
Author Organization [facility] Address [address] [place] [address] Care Team Providers Care Wildlife Protector Name Role Phone Jeremie Palomo MD Unavailable [phone] Tye Dubon MD Primary Care Provider [phone] Reason for Visit * Reason Onset Date Comments HCN Same Day Appt/Overbook Request 05/09/2025 Encounter Details Date Type Department Care Team (Late st Contact Info) Description 05/09/2025 Telephone [facility] [address] [place] [address] Tati Cesar MD [address] [address] HCN Same Day Appt/Overbook Request Social History Tobacco Use Types Packs/Day Years [...] as of this encounter Functional Status * AUDIT-C Score Answer Date of Assessment Author 0 05/11/2025 3:32 PM SCOOBYT Gisele Garsia * Question Answer Date of Assessment Author Q1: How often do you have a drink containing alcohol? Never 05/11/2025 3:32 PM EDT Gisele Garsia Q2: How many drinks containing alcohol do you have on a typical day when you are drinking? Patient does not drink 05/11/2025 3:32 PM SCOOBYT Gisele Garsia Q3: How often do you have six or more drinks on one occasion? Never 05/11/2025 3:32 PM SCOOBYT Gisele Garsia * Over the past 2 weeks, how often have you been bothered by any of the following problems? Question Answer Date of Assessment Author Little interest or pleasure in doing things Not at all 05/11/2025 3:27 PM Gisele Hooker Feeling down, depressed, or hopeless Not at all 05/11/2025 3:27 PM Gisele Hooker Patient Health Questionnaire -2 Score 0 05/11/2025 3:27 PM SCOOBYT Gisele Garsia * Question Answer Date of Assessment Author Trouble falling or staying asleep, or sleeping too much Not at all 05/11/2025 3:27 PM Gisele Hooker Feeling tired or having adonis le energy Not at all 05/11/2025 3:27 PM Gisele Hooker Poor appetite or overeating Not at all 05/11/2025 3: 27 PM Gisele Hooker Feeling bad about yourself - or that you are a failure or have let yourself or your family down Not at all 05/11/2025 3:27 PM SCOOBYT Gisele Villavicencio Trouble concentrating on thi ngs, such as reading the newspaper or watching television Not at all 05/11/2025 3:27 PM EDGisele Rowland Moving or speaking so slowly that other people could have noticed? Or the opposite - being so fidgety or restless that you have been moving around a lot more than usual. Not at all 05/11/2025 3:27 PM EDT Gisele Garsia Thoughts that you would be b tresa off or hurting yourself in some way Not at all 05/11/2025 3:27 PM EDT Gisele Garsia Patient Health Questionnaire -9 Score 0 05/11/2025 3:27 PM EDT Gisele Garsia * Calculated C-SSRS Risk Score (Lifetime/Recent) Answer Date of Assessment Author No Risk Indicated 05/09/2025 12:46 PM EDT Dina Betancur, RN * If you checked off any problems on this questionnaire so far, Question Answer Date of Assessment Author How difficult have these problems made it for you to do your work, take care of things at home, or get along with other people? Not difficult at all 05/11/2025 3:27 PM EDT Deneen Garsia e * Question Answer Date of Assessment Author 1. Wish to be (Past 1 Month) No 025 12:46 PM EDT Dina Betancur, RN 2. Non-Specific Active Suici kaila Thoughts (Past 1 Month) No 05/09/2025 12:46 PM EDT Lauren Betancur, RN 6. Suicidal Behavior (Lifetime) No 12:46 PM EDT Dina Betancur, RN documented as of this encounter Miscellaneous Notes * Telephone Encounter - Ángel Vee MD - 05/11/2025 10:30 AM EDT Triage Note 05/11/2025 10:30 AM Spoke with . [facility] at [facility] today. No other needs at this time. * Telephone Encounter - Reshma Tamez - 05/10/2025 9:09 AM EDT Triage Note 05/10/2025 9:09 AM Called patient. No answer. Left voice mail requesting a call back. * Telephone Encounter - Reshma Tamez - 05/09/2025 3:42 PM EDT Triage Note 05/09/2025 3:42 PM Called patient. No answer. Left voice mail requesting a call back. * Telephone Encounter - Hill Valle - 05/09/2025 2:55 PM EDT Same Day Appt/Overbook Request Reason for Call: Arsenio Had procedure today. He has an echo and a doctors appt this Friday at . Is he ok to go? Best contact number: [phone] Optimal time of day to reach caller: [...] Office Building Echo Lab [address], [address] [place] [address] 03/22/2026 3:00 PM EDT Office Visit [facility] [place] [address], [address] [place] [address] Janny Root PA [address] [place] [address] documented as of this encounter Visit Diagnoses Not on filedocumented in this encounter Additional Health Concerns Assessment Noted Time PHQ-9 Depression Total Score: 0 12/24/19 11:38 AM EST A fall risk assessment has been complete d for the patient 03/10/2025 9:51 AM EDT A Body Mass Index follow-up plan has been documented for the patient 03/19/2025 9:47 AM EDT documented as of this encounter Care Teams Wildlife Protector Relationship Specialty Start Date End Date Tye Dubon MD [address] [place] [address] PCP - General 04/22/25 Jeremie Palomo MD [address] [place] [address] Consulting Physician Interventional Cardiology 02/02/25 documented as of this encounter
--- OUTSIDE RECORDS SUMMARY | 2025-07-28 13:39 | XMS_ITS | Clinical Summary ---
Author Organization [facility] Address [address] [place] [address] Care Team Providers Care Reference Librarian Name Role Phone Jeremie Palomo MD Unavailable [phone] Tye Dubon MD Primary Care Provider [phone] Allergies Active Allergy Reactions Criticality Noted Date Comments Clonidine Hallucinations Medium 03/17/2025 reported hallucinations, patient has never had but does not want to receive this medication Dapagliflozin Other - please document in the comment field Low 06/14/2025 Glimepiride Headache Low 06/14/2025 Hydrocodone Swelling High 06/14/2025 Latex Rash Low 12/11/2023 Linagliptin Other - please document in the comment field Low 06/14/2025 Netarsudil-Latanoprost Other - please document in the comment field Low 04/10/2024 Eye redness Medications atorvastatin (Lipitor) 40 MG tablet Take 1 tablet by mouth every evening. Active cholecalciferol (Vitamin D3) 25 MCG (1000 UT) tablet Take 1 tablet by mouth every morning. Active clopidogrel (Plavix) 75 MG tablet Take 1 tablet by mouth nightly. Active metFORMIN (Glucophage) 850 MG tablet Take 1 tablet by mouth 2 times a day with meals. Active pregabalin (Lyrica) 200 MG capsule Take 1 capsule by mouth 2 times a day. Active rivaroxaban (Xarelto) 2.5 MG tablet Take 1 tablet by mouth 2 times a day. Active Dorzolamide HCl-Timolol Mal PF 2-0.5 % solution Administer 0.05 mL into both eyes 2 times a day. 09/02/20 23 Active potassium chloride ER (Micro-K) 10 MEQ ER capsule Take 1 capsule by mouth 2 times a day. 02/22/20 24 Active Tresiba FlexTouch 100 UNIT/ML injection pen Inject 40 Units under the skin every morning. 03/19/20 24 Active tamsulosin (Flomax) 0.4 MG 24 hr capsule Take 2 capsules by mouth nightly. Active dapagliflozin (Farxiga) 5 MG tablet Take 1 tablet by mouth every morning. Active Magnesium 250 MG capsule Take 1 tablet by mouth daily. Active metoprolol tartrate (Lopressor) 25 MG tablet Take 0.5 tablets (12.5 mg) by mouth 2 (two) times a day. 30 tablet 1 04/12/20 24 Active bimatoprost (Lumigan) 0.01 % ophthalmic solution Administer 1 drop into both eyes nightly. Active glucose blood test strip 1 each by Other route if needed. Use as instructed Active prednisoLONE acetate (Pred-Forte) 1 % ophthalmic suspension Administer 1 drop into the left eye 4 (four) times a day. Active pantoprazole (Protonix) 40 MG EC tablet Take 1 tablet by mouth daily before breakfast. Do not crush, chew, or split. 30 tablet 5 03/19/20 25 025 Active acetaminophen (Tylenol) 325 MG tablet Take 2 tablets by mouth every 6 hours as needed. Under [place] law, monthly prescriptions (30 days) can be refilled at 25 days and three-month prescriptions (90 days) at 80 days. Please contact the insurance company with questions if refills are denied. Active ascorbic acid (Vitamin C) 1000 MG tablet Take 1 tablet by mouth daily. Active lisinopril 20 MG tabletIndication s:Essential hypertension Take 1 tablet by mouth daily. 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 angiopathy without gangrene, without long-term current use of insulin 05/10/2025 Nonrheumatic aortic valve stenosis 03/17/2025 Neovascular glaucoma of left eye, severe stage 0 03/10/2025 Heart block AV second degree 03/03/2025 History of central retinal vein occlusion 2024 Hyphema of left eye 03/03/2025 Abnormal electrocardiography 08/11/2024 Chronic renal insufficiency 08/11/2024 Diastolic dysfunction 08/11/2024 Hypokalemia 08/11/2024 Left leg pain 08/11/2024 Lower extremity pain 08/11/2024 Leg edema 08/11/2024 Leukocytosis 08/11/2024 Lumbar radiculopathy 08/11/2024 Lymphedema of both lower extremities 08/11/2024 Nail finding 08/11/2024 Onychodystrophy 08/11/2024 Palpitations 08/11/2024 Peripheral artery disease 08/11/2024 Ischemic ulcer of toe 08/11/2024 Acute on chronic renal failure 06/14/2024 Primary open-angle glaucoma, left eye, 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 0706/14/2024 Primary open-angle glaucoma, right eye, mild sta ge 06/14/2024 History of cholecystectomy 05/13/2024 Senile ectropion of lower eyelid 03/26/2024 Obesity (BMI 35.0-39.9 without comorbidity) 12/01 BPH (benign prostatic hyperplasia) 12/11/2023 Cellulitis 12/11/2023 Chest pain 12/11/2023 Chronic back pain 12/11/2023 Renal insufficiency 12/11/2023 Degenerative disc disease, lumbar 12/11/2023 HLD (hyperlipidemia) 12/11/2023 Essential hypertension 12/11/2023 Diabetes mellitus type II, non insulin dependent 12/11/2023 Venous insufficiency 12/11/2023 CAD (coronary artery disease) 12/11/2023 Lumbar spondylosis 09/14/2020 Nevus of choroid 01/27/2018 Posterior vitreous detachment 01/27/2018 Regular astigmatism 01/27/2018 Mechanical ptosis 12/24/2016 Myopia 12/24/2016 Presbyopia 12/24/2016 Resolved Problems Problem Noted Date Diagnosed Date Resolved Date Diabetic ulcer of toe associ ated with diabetes mellitus due to underlying condition, with fat layer exposed 08/11/20242024 Gangrene of toe of right foot 08/11/2024 05/10/2025 Ulcer of toe of right foot 08/11/2024 0 05/10/2025 Cholecystitis 04/10/2024 04/13/2024 Chest pain 12/11/2023 12/11/2023 Shortness of breath 12/11/2023 12/11/19 Gangrene 12/11/2023 05/10/2025 Aortic stenosis 12/11/2023 05/10/2025 Murmur, heart 12/11/2023 05/10/2025 Swelling of both lower extremities 06/08/2020 05/10/2025 Encounters Date Type Department Care Team Description 07/28/2025 Emergency P[facility] A Emergency Department [address] [place] [address] 07/26/2025 Telephone [facility] [address] [place] [address] Tati Cesar MD 07/13/2025 11:59 PM EDT Anesthesia Event [facility] [address] [place] [address] Tom Jean-Baptiste MD 07/12/2025 2:50 PM EDT Ancillary Procedure [facility] [address] [place] [address] 07/12/2025 2:00 PM EDT Office Visit [facility] [address] [place] [address] Tati Cesar MD Primary open-angle glaucoma, left eye, severe stage (Primary Dx); Primary open-angle glaucoma, right eye, mild stage; Neovascular glaucoma of left eye, severe stage; Type 2 diabetes mellitus with diabetic peripheral angiopathy without gangrene, without long-term current use of insulin ([facility]); Nevus of choroid of right eye; Ocular hypertension of right eye 07/12/2025 7:45 AM EDT Ancillary Procedure [facility] [address] [place] [address] 07/12/2025 Travel 06/23/2025 4:50 PM EDT - 06/23/2025 11:59 PM EDT Hospital Encounter Cardiac Imaging [address] [place] [phone] Pacemaker Discharge Disposition: Home or Self Care 06/23/2025 Travel 06/22/2025 1:15 PM EDT Office Visit [facility] [address] [place] [phone] Jeremie Palomo MD S/P TAVR (transcatheter aortic valve replacement) (Primary Dx); Heart block AV second degree; Pacemaker; Essential hypertension 06/22/2025 Travel 06/21/2025 Travel 06/15/2025 Telephone [facility] [address] [place] [address] Tati Cesar MD 06/14/2025 9:00 AM EDT Office Visit [facility] [address] [place] [address] Tati Cesar MD Neovascular glaucoma of left eye, severe stage (Primary Dx); Primary open-angle glaucoma, right eye, mild stage; Type 2 diabetes mellitus with diabetic peripheral angiopathy without gangrene, without long-term current use of insulin ([facility]); History of central retinal vein occlusion 06/14/2025 Travel 05/18/2025 Telephone [facility] [address] [place] [address] Tati Cesar MD [facility] Clinical Concern/Question 05/11/2025 4:00 PM EDT Office Visit [facility] [address], [address] [place] [phone] Janny Root PA S/P TAVR (transcatheter aortic valve replacement) (Primary Dx); Coronary artery disease involving tejon coronary artery of tejon heart without angina pectoris; Essential hypertension 05/11/2025 2:46 PM EDT - 05/11/2025 11:59 PM EDT Hospital Encounter Medical Office Building Cardiac Diagnostic Testing Medical Office Building Echo Lab [address] [facility], [address] [place] [address] S/P TAVR (transcatheter aortic valve replacement) Discharge Disposition: Home or Self Care 05/11/2025 Travel 05/09/2025 1:43 PM EDT Anesthesia Event [facility] [address] [place] [phone] Brandee Sky MD [place], Andrea R, ENRICHMENT DIRECTOR 05/09/2025 1:15 PM EDT - 05/09/2025 1:45 PM EDT Surgery [facility] [address] [place] [phone] Tati Cesar MD CYCLOPHOTOCOAGULATI ON, TRANSSCLERAL APPROACH [70459 (CPT )] 05/09/2025 11:20 AM EDT - 05/09/2025 4:02 PM EDT Hospital Encounter [facility] [address] [place] [phone] Tati Cesar MD Primary open-angle glaucoma, right eye, mild stage (Primary Dx) Discharge Disposition: Home or Self Care 05/09/2025 Telephone [facility] [address] [place] [address] Tati Cesar MD HCN Same Day Appt/Overbook Request 05/09/2025 Travel 04/28/2025 2:45 PM EDT [facility] [address], [address] [place] [address] 04/28/2025 Travel from Last 3 Months Immunizations Immunization Administration Dates Next Due Influenza, High-dose, Split Virus, Trivalent, Injectable, preservative free 08/25/2020,10/18/2019,09/01/2018,10/08 Influenza, high-dose, quadrivalent 08/19,08/25/2020,10/18/2019,09/01,10/08/2017,09/24/2016,09/28/2015 ,10/05/2014,09/09/2013 Influenza, seasonal, injectable 10/13/20 12,10/15/2011,10/19/2010,11/28,10/07/2008,10/08/2007,10/10/2006 ,10/07/2005 Moderna COVID-19 Vaccine (Re d Cap) 12+ years 04/15/2022,10/17/2021,02/14/2021,01/03 Moderna COVID-19 Vaccine Biv alent 6months+ 09/25/2022 Moderna Covid-19 Vaccine 12y +, Aldo Protein, Preservative free 11/06/2023 Pneumococcal Conjugate PCV 13 05/30/2017 Pneumococcal Polysaccharide PPV23 10/15/2011 Rsv, Bivalent, Protein Subun it Rsvpref, Diluent Reconstituted, 0.5mL, PF 09/02/2024 Rsvpref, Recombinant, Protei n Subunit, Adjuvent 11/06/2023 Family History Medical History Relation Name Comments Bladder cancer Father Cancer Father Colon cancer Father Cataracts Mother Kelly Garcia Diabetes Mother Kelly Garcia Diabetes type II Mother Kelly Garcia Heart attack Mother Kelly Garcia Anesthesia problems Neg Hx Malig Hyperthermia Neg Hx Relation Name Status Comments Father Mother Kelly Garcia Social History Tobacco Use Types Packs/Day Years Used Date Smoking Tobacco: Former Cigarettes 1 20 Q uit: 03/01/1984 Passive Smoke Exposure: Past Smokeless Tobacco: Never Tobacco Cessation:Counseling Given: Not Answered Comments:Quit in 1983 Alcohol Use Standard Drinks/Week [...] on file Sexual Orientation Not on file Last Filed Vital Signs Vital Sign Reading Time Taken Comments Blood Pressure 181/80 07/28/2025 1:34 PM EDT Pulse 70 07/28/2025 1:34 PM EDT Temperature 36.4 C (97.5 F) 05/09/2025 2:15 PM EDT Respiratory Rate 13 05/09/2025 3:00 PM EDT Oxygen Saturation 98% 07/28/2025 1:34 PM EDT Inhaled Oxygen Concentration - - Weight 99.3 kg (219 lb) 07/15/2025 10:06 AM EDT Height 167.6 cm (5' 6 ) 06/22/2025 1:00 PM EDT Body Mass Index 35.35 06/22/2025 1:00 PM EDT Plan of Treatment Upcoming Encounters Date Type Department Care Team (Late st Contact Info) Description 03/22/2026 2:00 PM EDT Appointment Medical Office Building Cardiac Diagnostic Testing Medical Office Building Echo Lab [address] [facility], [address] [place] [phone] 03/22/2026 3:00 PM EDT Office Visit [facility] [address] [facility], [address] [place] [phone] Janny Root PA [address] [place] [phone] Health Maintenance Due Date Last Done Comments [facility]-Diabetes: Hemoglobin A1C 1936 [facility]Medicare Annual Wellness (AWV) 1936 [facility]-Infant/Child/Adol SDOH Screenings 1936 Diabetes: Dental Exam 1946 [facility]- SDOH Screenings 1954 [facility]-Adult SDOH Screenings 1954 [facility]-DTaP,Tdap,and Td Vaccines (1 - Tdap) 1955 [facility]-Zoster Vaccines (1 of 2) 1986 [facility]-DSOUL-85 Vaccine (8 - Moderna risk ) 03/03/2025 09/02/2024, 11/06/2023, 09/25/2022, Additional history exists [facility]-Influenza Vaccine (#1) 08/01/202508/19, 08/25/2020, 08/25/2020, Additional history exists [facility]-Depression Screening 06/22/2026 06/22/2025, 06/01 [facility]-Pneumococcal Vaccine: 50+ Years Completed 05/30/2017, 10/15/2011 [facility]-RSV Vaccine: 60+ Years or Completed 09/02/2024, 11/06/2023 [facility]-Obesity Intervention Completed 025, 06/14/2025, 05/11/2025, Additional history exists HPV Vaccines Aged Out No longer eligi ble based on patient's age to complete this topic [facility]-HIB Vaccines Aged Out No longer e ligible based on patient's age to complete this topic [facility]-Hepatitis A Vaccines Aged Out No longer eligible based on patient's age to complete this topic [facility]-IPV Vaccines Aged Out No longer e ligible based on patient's age to complete this topic [facility]-Rotavirus Vaccines Aged Out No lo nger eligible based on patient's age to complete this topic Medical Devices Implanted Type Area President & Founder Device Identifier Shelf Expiration Date Model / Serial / Lot Valve Kit Jacoby 3 Ultra Tavr 26mm - [id number] Implanted:Qty: 1 on 03/17/2025 by Jeremie Palomo MD at [facility]-[id number] 09/09/2027 [id number] / / [id number] Lead 5076 Lead Bi Carolyn 52 - [id number] Implanted:Qty: 1 on 03/18/2025 by Jeremie Palomo MD at [facility] [employer]-[id number] 01/18/2027 [id number] / [id number] / [id number] Lead [id number] Lead-Pace Catheter Deliv 4fr 38 - [id number] Implanted:Qty: 1 on 03/18/2025 by Jeremie [facility]omo MD at [facility] [employer]-[id number] 02/04/2027 [id number] / [id number] / [id number] Pacemaker [place] Xt Dr M[address] - [id number] Implanted:Qty: 1 on 03/18/2025 by Jeremie Palomo MD at [facility] [employer]-[id number] 07/14/2026 [id number] / [id number] / [id number] Procedures Procedure Name Priority Date/Time Associated Diagnosis Comments OCT, RETINA - OD - RIGHT EYE Routine 07/12/2025 9:30 PM EDT Type 2 diabetes mellitus with diabetic peripheral angiopathy without gangrene, without long-term current use of insulin ([facility]) Nevus of choroid of right eye OCT, OPTIC NERVE - OD - RIGHT EYE Routine 07/12/2025 8:55 PM EDT Primary open-angle glaucoma, right eye, mild stage CARDIAC DEVICE CHECK - REMOTE - PACEMAKER Routine 06/23/2025 7:56 PM EDT Pacemaker ECG ADULT Routine 05/11/2025 3:38 PM EDT S/P TAVR (transcatheter aortic valve replacement) ECHO, ADULT TRANSTHORACIC COMPLETE W/ 3D Routine 05/11/2025 3:22 PM EDT S/P TAVR (transcatheter aortic valve replacement) MI DESTRUC,CILIARY BODY,CYCLOPHOTOCOAG 05/09/2025 1:39 PM EDT Primary open angle glaucoma (POAG) of right eye, mild stage Neovascular glaucoma of left eye, severe stage POCT GLUCOSE METER UNSOLICITED RESULTS Routine 05/09/2025 1:15 PM EDT from Last 3 Months Results * OCT, Retina - OD - [...] stable,possibly confounded by PPA compared to previous Tati Cesar MD OPHTH TOMOGRAPHY Final Resul t * CARDIAC DEVICE CHECK - REMOTE - PACEMAKER (06/23/2025 7:56 PM EDT) Anatomical Region Laterality Modality Other Narrative 06/23/2025 9:32 PM EDT [facility] EP - Device Clinic Remote CIED [...] See copy of vendor report in Media Celia Hoffman ENRICHMENT DIRECTOR CV IMPLANTABLE CARDIAC DEV ICE PROCEDURES Final Result * ECG Adult (Now - Performed in your clinic) (05/11/2025 3:38 PM EDT) EKG DIAGNOSIS CLASS Abnormal MUSE ECG Ventricular Rate 60 BPM MUSE ECG Atrial Rate 60 BPM MUSE ECG MI Interval 178 ms MUSE ECG QRSD Interval 138 ms MUSE ECG QT Interval 436 ms MUSE ECG QTC Interval 436 ms MUSE ECG R Gray 75 degrees MUSE ECG T Wave Gray 34 degrees MUSE ECG Diagnosis AV dual-paced rhythm MUSE ECG Diagnosis Abnormal ECG MUSE ECG Diagnosis MUSE ECG Diagnosis Confirmed by Lionel Sampson ([id number]) on 05/11/2025 5:24:48 PM MUSE ECG 05/11/2025 3:38 PM EDT 05/11/2025 5:24 PM EDT us Janny ESCALANTE ECG ORDERABLES Final R esult MUSE ECG * ECHO, ADULT TRANSTHORACIC COMPLETE W/ 3D (05/11/2025 3:22 PM EDT) Height 167.6 SARAH ISCV Weight 99.3 SARAH ISCV BSA 2.08 m2 SARAH ISCV LV EDV (3D HM) 143 mL SARAH ISCV LV ESV (3D HM) 63 mL SARAH ISCV LV EF (3D HM) 56 % SARAH ISCV LVOT diam 19 mm SARAH ISCV LVOT AREA 2.8 cm2 SARAH ISCV Ao Root Diam 26 mm SARAH ISCV LVIDd 50 mm SARAH ISCV IVSd 10 mm SARAH ISCV LVPWd 10 mm SARAH ISCV LV MASS(C)D 181 g SARAH ISCV [facility] CV ECHO LV MASS INDEX 87 g/m2 SARAH ISCV LV RWT 0.40 mm SARAH ISCV LVIDs 29 mm SARAH ISCV LA dimension 48 mm SARAH ISCV TR Vmax 168.3 cm/s SARAH ISCV TR Max PG 11 mmHG SARAH ISCV PA acc time 140 msec SARAH ISCV mean PAP 16 mmHg SARAH ISCV PA MI(ACCEL) 17.2 mmHg SARAH ISCV PA acc slope 637.3 cm/s2 SARAH ISCV LAV(MOD-4ch) 74 mL SARAH ISCV RA MOD 4Ch 10 mL SARAH ISCV YANIRA 5 mL/m2 SARAH ISCV RVSP 14 mmHg SARAH ISCV RAP systole 3 mmHg SARAH ISCV MV A Vmax 123.9 cm/s SARAH ISCV MV E Vmax 102.1 cm/s SARAH ISCV MV E/A 0.8 cm/s SARAH ISCV MV dec time 280 ms SARAH ISCV MV P1/2t 81 ms SARAH ISCV MVA(P1/2t) 2.7 cm2 SARAH ISCV LV Lat e' Velocity 6.7 cm/s SARAH ISCV Lat E/e' 15.2 SARAH ISCV LV Sept e' Dony 5.1 cm/s SARAH ISCV Sep E/e' 20.0 SARAH ISCV Avg E/e' 17.6 SARAH ISCV Ao V2 VTI 47.3 cm SARAH ISCV Ao mean PG 12 mmHg SARAH ISCV Ao V2 Vmax 251.0 cm/s SARAH ISCV Ao max PG 25 mmHg SARAH ISCV Ao V2 mean 165.9 cm/s SARAH ISCV LV V1 VTI 28.9 cm SARAH ISCV SV(LVOT) 82 mL SARAH ISCV LV V1 Vmax 128.3 cm/s SARAH ISCV AV VTI Index 0.61 SARAH ISCV EDDIE(I,D) 1.7 cm2 SARAH ISCV EDDIE(VTI)/BSA_ph l 0.8 cm2/m2 SARAH ISCV LV mean PG 3.4 mmHG SARAH ISCV LV V1 mean 87.4 cm/sec SARAH ISCV LV max PG 6.6 mmHg SARAH ISCV TAPSE 26 mm SARAH ISCV RV s' Dony 13.3 cm/s SARAH ISCV RV base 34 mm SARAH ISCV RV Mid 25 mm SARAH ISCV LAV(MOD-bp) Indexed 32 mL/m2 SARAH ISCV LAV(MOD-2ch) 59 mL SARAH ISCV Anatomical Region Laterality Modality Echocardiography Narrative 05/11/2025 4:56 PM EDT Left Ventricle: Based on the linear dimension [...] The mean gradient is 12 mmHg. The gradient is normal for this prosthetic valve. Pericardium: No pericardial effusion. Compared to the most recently available prior study, and allowing for differences in image quality and technique, there is no significant interval change noted. Left Ventricle Based on the linear dimension and/or 2D volumes, the left ventricle is normal in size. There is normal left ventricular myocardial thickness and mass. The left ventricular systolic function is normal. The LVEF as measured by Heart Model 3D volume is 56%. The diastolic function is indeterminate. The left ventricular wall motion is normal. Right Ventricle The right ventricle is normal in size. The right ventricular systolic function is normal. Right ventricular systolic pressure is normal (<35mmHg). Left Atrium The left atrial size is normal with an indexed volume of 16-34 mL/m2. The interatrial septum is intact with no evidence for an atrial septal defect. Right Atrium The right atrial volume index is normal (18-32mL/m2). IVC/SVC Based on the IVC size and respiratory variation, the estimated right atrial pressure is 3mmHg. Mitral Valve The leaflets appear thickened. There is mild mitral regurgitation. There is no mitral stenosis. Tricuspid Valve The tricuspid valve is normal in appearance. There is trace tricuspid regurgitation. There is no tricuspid stenosis. Aortic Valve There is a bioprosthetic valve (26 mm Jacoby 3). There is mild aortic valve regurgitation. The peak gradient is 25 mmHg. The mean gradient is 12 mmHg. The gradient is normal for this prosthetic valve. Pulmonic Valve The pulmonic valve is grossly normal. There is trace pulmonic regurgitation. There is no pulmonic stenosis. Pericardium No pericardial effusion. Great Vessels The aortic root is normal in size. The sinus of Valsalva (aortic root) diameter is 26 mm by leading edge to leading edge method. The main pulmonary artery is not well visualized. Study Details A complete transthoracic echocardiogram using two-dimensional (2D), m-mode, color and spectral flow Doppler and 3D imaging was performed. During the study the apical, parasternal, subcostal and suprasternal view was captured. Height: 167.6 cm. Weight: 99.3 kg. BSA: 2.08 m2. Study Recommendation Compared to the most recently available prior study, and allowing for differences in image quality and technique, there is no significant interval change noted. us Janny ESCALANTE CV ECHO PROCEDURES Ibeth l Result * (ABNORMAL) POCT glucose meter (05/09/2025 1:15 PM EDT) POCT Glucose 172(H) 74 - 99 mg/dL 05/09/2025 1:16 PM EDT [facility] Comment:Accuracy of a glucos e result obtained from a capillary whole blood specimen relies upon adequate, non-compromised capillary blood flow. If the capillary glucose result is not consistent with the patient's clinical signs and symptoms, glucose testing should be repeated with either an arterial or venous sample on the glucometer or sent to the main labortory for testing. Comment 05/09/2025 1:16 PM EDT [facility] Workplace Trainer And Assessor ID Dina Betancur [id number] 1:16 PM EDT [facility] Device ID [id number] 05/09/2025 1:16 PM EDT [facility] Specimen Type POC Capillary 05/09/2025 1:16 PM EDT [facility] Blood Capillary blood specimen / Unknown 05/09/2025 1:15 PM EDT 05/09/2025 1:16 PM EDT Tati Cesar MD LAB POINT OF CARE TE ST DOCKED DEVICE UNSOLICITED RESULTS Final Result Performing Organization Address City/State/[facility] Co de Phone Number [facility] [address] [place] [address] from Last 3 Months Insurance [facility] MEDIC[facility] Advance Directives Documents on File Type Date 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 Yes Care Teams Reference Librarian Relationship Specialty Start Date End Date Tye Dubon MD [address] [place] [address] PCP - General 04/22/25 Jeremie Palomo MD [address] [place] [phone] Consulting Physician Interventional Cardiology 02/02/25
--- OUTSIDE RECORDS SUMMARY | 2025-07-28 13:39 | XMS_ITS | Encounter Summary ---
Author Organization [employer] ([place], [place], [place], [place]) Address [address] [place] [id number] Care Team Providers Care Medical Concierge Name Role Phone Unavailable Primary Care Provider Unavailabl e Encounter Details Date Type Department Care Team (Late st Contact Info) Description 08/03/2019 Transcribed Document [facility] Family Medicine [place] [address] ProviderEnrique [place] [address] Social History Tobacco Use Types Packs/Day Years Used Date Smoking Tobacco: Never Assessed Sex and Gender Information Value Date Recorded Sex Assigned at Male 05/28/2022 1:46 PM CDT Legal Sex Male 1:46 PM CDT Gender Identity Male 05/28/2022 1:46 PM CDT Sexual Orientation Not on file documented as of this encounter Miscellaneous Notes * Cerner Conversion Note - Enrique ProviderMD - 08/03/2019 3:25 PM CDT Patient: DENNY BE JR Age: 83 years Sex: Male : 1935 Associated Diagnoses: None Author: JACQUELYN MANZO II, MD-ANS Procedure: Left L4 Lumbar Transforaminal Pre-Procedure Diagnosis: Lumbar Radiculitis to left lower extremity Post-Procedure Diagnosis: Same Anesthesia: Local (1% Lidocaine) only Complications: none Fluoroscopy: 1.18 Descriptions of Procedure: Risk and benefits were [...] the neuroforamin. I did not elicit a paraesthesia but I did make contact with the [...]
[2025-07-28 13:40] LABS: Chloride 107 mmol/L (98-107)
[2025-07-28] MEDS: TET/DIPHTH/PERT-ADULT 0.5ML SYRINGE 0.5 ML IM (13:40)
--- OUTSIDE RECORDS SUMMARY | 2025-07-28 13:40 | XMS_ITS | Encounter Summary ---
Author Organization [facility] Address [address] [place] [address] Care Team Providers Care Spare Fixer Name Role Phone Jeremie Palomo MD Unavailable [phone] Tye Dubon MD Primary Care Provider [phone] Encounter Details Date Type Department Care Team (Late st Contact Info) Description 07/26/2025 Telephone [facility] [address] [place] [address] Tati Cesar MD [address] [address] Social History Tobacco Use Types [...] Upcoming Encounters Date Type Department Care Team ([facility] st Contact Info) Description 03/22/2026 2:00 PM EDT Appointment Medical Office Building Cardiac Diagnostic Testing Medical Office Building Echo Lab [address] [facility], [address] [place] [address] 03/22/2026 3:00 PM EDT Office Visit [facility] [place] [address], [address] [place] [phone] Janny Root PA [address] [place] [address] documented as of this encounter [...] documented as of this encounter Care Teams Spare Fixer Relationship Specialty Start Date End Date Tye Dubon MD [address] [place] [address] PCP - General 04/22/25 Jeremie Palomo MD [address] [place] [id number] Consulting Physician Interventional Cardiology 02/02/25 documented as of this encounter
--- OUTSIDE RECORDS SUMMARY | 2025-07-28 13:40 | XMS_ITS | Encounter Summary ---
Author Organization [facility] Address [address] [facility] [place] [address] Care Team Providers Care Accounting Advisory Services Manager Name Role Phone Jeremie Palomo MD Unavailable [phone] Tye Dubon MD Primary Care Provider [phone] Encounter Details Date Type Department Care Team (Latest Contact Info) Description 07/12/2025 Travel Social History Tobacco Use Types Packs/Day [...] Medical Office Building Echo Lab [address] [facility], [address] [place] [phone] 03/22/2026 3:00 PM EDT Office Visit [facility] [place] [address], [address] [place] [phone] Janny Root PA [address] [place] [address] documented as of this encounter [...] documented as of this encounter Care Teams Accounting Advisory Services Manager Relationship Specialty Start Date End Date Tye Dubon MD [address] [place] [address] PCP - General 04/22/25 Jeremie Palomo MD [address] [place] [address] Consulting Physician Interventional Cardiology 02/02/25 documented as of this encounter
--- OUTSIDE RECORDS SUMMARY | 2025-07-28 13:40 | XMS_ITS | Encounter Summary ---
Author Organization [employer] ([place], [place], [place], [place]) Address [address] [place] [address] Care Team Providers Care Interior Painter Name Role Phone Unavailable Primary Care Provider Unavailabl e Encounter Details Date Type Department Care Team (Late st Contact Info) Description 02/05/2019 Transcribed Document [facility] [place] On [facility] [place] [address] ProviderEnrique MD [address] [place] [address] Social History Tobacco Use Types Packs/Day Years Used Date Smoking Tobacco: Never Assessed Sex and Gender Information Value Date Recorded Sex Assigned at Male 05/28/2022 1:46 PM CDT Legal Sex Male 1:46 PM CDT Gender Identity Male 05/28/2022 1:46 PM CDT Sexual Orientation Not on file documented as of this encounter Miscellaneous Notes * Cerner Conversion Note - Historical ProviderMD - 02/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
--- OUTSIDE RECORDS SUMMARY | 2025-07-28 13:40 | XMS_ITS | Encounter Summary ---
Author Organization [employer] ([place], [place], [place], [place]) Address [address] [place] [address] Care Team Providers Care Handle Lathe Operator Name Role Phone Unavailable Primary Care Provider Unavailabl e Encounter Details Date Type Department Care Team (Late st Contact Info) Description 12/04/[address] 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
--- OUTSIDE RECORDS SUMMARY | 2025-07-28 13:40 | XMS_ITS | Referral Summary ---
Author Organization [employer] ([place], [place], [place], [place]) Address [address] [place] [address] Care Team Providers Care Gamma Operator Name Role Phone Unavailable Primary Care [...]
[2025-07-28 13:41] LABS: Albumin Level 4.1 g/dl (3.5-5.0); Potassium 4.5 mmoL/L (3.5-5.1); Sodium 138 mmol/L (136-145)
[2025-07-28 13:43] LABS: Blood Urea Nitrogen 21 mg/dl (9-20); Creatinine Clearance Estimated 71 mL/min (50-200); Creatinine,Serum 1.00 mg/dl (0.66-1.25); Estimated Glomerular Filt Rate 71 ml/min (>60); GFR (African American) 85 ML/MIN (>60)
[2025-07-28 13:44] LABS: Alanine Aminotransferase 25 U/L (12-78); Albumin/Globulin Ratio 1.9 (1.1-1.8); Alkaline Phosphatase 58 U/L (38-126); Anion Gap 12.5 mEq/L (5-15); Aspartate Amino Transferase 30 U/L (17-59); Bilirubin,Total 0.5 mg/dl (0.2-1.3); Calcium 9.0 mg/dl (8.4-10.2); Carbon Dioxide 23 mmol/L (22.0-30.0); Globulin 2.2 g/dL (1.3-3.2); Glucose 205 mg/dl (74-100); Total Protein,Serum 6.3 g/dl (6.3-8.2)
[2025-07-28 13:51] LABS: Activated Partial Thrombo Time 28.8 seconds (22.8-30.6); INR 1.11 (0.9-1.1); Prothrombin Time 12.2 seconds (10.1-12.5)
[2025-07-28 13:55] VITALS: BP 174/80; PULSE 79; RESP 18; TEMP 36.6; O2SAT 94
[2025-07-28 14:10] VITALS: BP 181/80; PULSE 76; RESP 16; TEMP 36.8; O2SAT 98
== END 2025-07-28 14:12 | disposition other institution (70) ==
PROVIDERS: Emergency Provider Student in an Organized Health Care Education/Training Program
DX: S93.04XA Dislocation of right ankle joint, initial encounter (principal); W19.XXXA Unspecified fall, initial encounter; Z79.01 Long term (current) use of anticoagulants; Z23 Encounter for immunization
CPT/HCPCS: 73600; 80053; 82962; 85025; 85610; 85730; 90471; 90715; 96365; 96375; 99285; 99291; G0390; J0690